=== PATIENT | female | born 1985 | race Caucasian/White ===

== ENCOUNTER 2020-01-16 12:27 | Outpatient (CLI) | payer MEDICARE, MEDICAID, SELFPAY ==
--- NOTE | 2020-01-22 14:45 | WPDPFTINT ---
PFT Interpretation PFT Interpretation: This PFT met all criteria for ATS standards and reproducibility FEV/FVC post bronchodilator 98% FEV1 89% FVC 72% TLC 86% RV 84% RV/TLC 32 % DLCO 57% when adjusted for alveolar volume but not adjusted for hemoglobin Flow volume loops showed normal Impression: Moderately reduced diffusion capacity withouth significant obstruction or restriction. In the absence of anemia or pulmonary hypertension, intrinsic lung disease may be present. Clinical and radiographic correlation is advised.
--- NOTE | 2020-01-22 14:48 | WPDSIXMINUTE ---
Six Minute Walk Six Minute Walk: The patients O2 sats started at 97% and dropped as low as 95% Total walk distance 243.84 meters conclusion: This patient would not benefit from home oxygen therapy
== END 2020-01-16 12:28 | disposition home or self-care (01) ==
PROVIDERS: Visit Provider Internal Medicine Critical Care Medicine
DX: R06.02 Shortness of breath (principal)
CPT/HCPCS: 94060; 94618; 94726; 94729; 95012

== ENCOUNTER 2020-06-15 15:59 | Emergency (ER) | payer MEDICARE, MEDICAID, SELFPAY ==
[2020-06-15 16:04] VITALS: BP 155/98; PULSE 99; RESP 18; TEMP 36.5; O2SAT 99
--- NOTE | 2020-06-15 16:12 | ED.BACK ---
HPI - Back Pain/Injury General Chief Complaint: Back Pain/Injury Stated Complaint: back pain Time Seen by Provider: 06/15/20 16:11 Source: patient Mode of arrival: ambulatory Limitations: no limitations History of Present Illness HPI Narrative: Patient is a 35-year-old female who presents for evaluation of acute on chronic right-sided lower back pain. Patient has a many year history of sciatic type pain, states she believes she is having a flareup. She reports right-sided sciatic pain that radiates down into her leg, worse with movement. Exacerbated with bending and lifting. No recent falls or injuries. No saddle anesthesia. No lower extremity weakness. No dysuria or hematuria. No fever or chills. Patient ambulatory in the emergency department. Patient is taking gabapentin, Flexeril, diclofenac, acetaminophen without much improvement in her symptoms. She currently does not see a pain management physician. Related Data Home Medications Medication Instructions Recorded Confirmed albuterol sulfate 90 mcg/actuation 1 inhalation INHALATION Q4H 11/25/19 aerosol inhaler bupropion HCl 300 mg 24 hr tablet, 300 mg PO QAM 11/25/19 extended release buspirone 5 mg tablet 5 mg PO BID 11/25/19 cariprazine 1.5 mg capsule 1.5 mg PO DAILY 11/25/19 fluticasone propionate 50 1 spray NASAL DAILY 11/25/19 mcg/actuation nasal spray,suspension hydrochlorothiazide 50 mg tablet 50 mg PO DAILY 11/25/19 ibuprofen 800 mg tablet 800 mg PO TID 11/25/19 lisinopril 20 mg tablet 20 mg PO DAILY 11/25/19 loratadine 10 mg tablet 10 mg PO DAILY 11/25/19 pravastatin 20 mg tablet 20 mg PO DAILY 11/25/19 trazodone 50 mg tablet 50 mg PO BID 11/25/19 valacyclovir 1 gram tablet 1,000 mg PO DAILY 11/25/19 gabapentin 300 mg capsule 1,200 mg PO DAILY cap 11/28/19 metformin 500 mg tablet 1,000 mg PO DAILY tablet 11/28/19 Allergies Allergy/AdvReac Type Severity Reaction Status Date / Time aripiprazole Allergy Unknown Abdominal Verified 11/05/19 11:42 Pain lithium Allergy Unknown VOMITING Verified 11/05/19 11:42 Review of Systems Review of Systems: Narrative: CONSTITUTIONAL: Denies fever CARDIOVASCULAR: Denies chest pain RESPIRATORY: Denies cough or dyspnea. GASTROINTESTINAL: Denies abdominal pain SKIN: Denies rash MUSCULOSKELETAL: Reports acute on chronic worsened right-sided back pain NEUROLOGIC: Denies headache PMFSH Past Medical History Medical History (Updated 06/15/20 @ 16:32 by Vandana Parker MD) Anxiety Bipolar disorder Chronic back pain Depression GERD (gastroesophageal reflux disease) Hepatitis Herpes HLD (hyperlipidemia) HTN (hypertension) Sciatica Seizures Surgical History Surgical History Hx of section Hx of tonsillectomy Family History Family History (Updated 11/16/18 @ 14:13 by DOCTOR UNKNOWN) Mother Diabetes mellitus Hypertension Father Diabetes mellitus Social History Social History Smoking packs per day: 1.5 Smoking cigarettes per day: 30.0 Years smoked: 13 Smoking pack-years: 19.50 Smoking status: Current every day smoker Tobacco type: cigarettes Second hand tobacco smoke exposure: Yes Gender identity (if verbalized by the patient): Female Exam Narrative: Exam Narrative: GENERAL: Awake, alert, conversant HEAD: Normocephalic, atraumatic. EYES: PERRLA and EOMI. ENT: Nares clear, no rhinorrhea or epistaxis. Mucous membranes moist. NECK: Supple. CHEST: No respiratory distress, breathing even and non labored HEART: Regular rate, sinus rhythm ABDOMEN:Non distended, non tender Thorax: No midline lumbar or thoracic pain. Pain is exacerbated with flexion at the lower back. EXTREMITIES: Normal range of motion. No edema. Intact EHL/FHL, strength 5 out of 5 bilateral lower extremities. SKIN: Warm, dry, no rash. NEURO:No focal deficits.
[2020-06-15] MEDS: KETOROLAC (*BKC) 60 MG/2 ML VIAL 30 MG IM (16:45)
== END 2020-06-15 16:47 | disposition home or self-care (01) ==
LOC: ANHED 16:39
PROVIDERS: Emergency Provider Emergency Medicine
DX: M54.16 Radiculopathy, lumbar region (principal); F41.9 Anxiety disorder, unspecified; F31.9 Bipolar disorder, unspecified; K21.9 Gastro-esophageal reflux disease without esophagitis; E78.5 Hyperlipidemia, unspecified; I10 Essential (primary) hypertension; F17.210 Nicotine dependence, cigarettes, uncomplicated; Z79.84 Long term (current) use of oral hypoglycemic drugs
CPT/HCPCS: 96372; 99283; J1885

== ENCOUNTER 2020-06-28 07:05 | Outpatient (CLI) | payer MEDICARE, MEDICAID, SELFPAY ==
--- NOTE | ~2020-06-28 | MR_ITS ---
EXAMINATION: MR lumbar spine wo con DATE: 06/28/2020 08:08 INDICATION: Lumbago and sciatica. Mixed stress and urge urinary incontinence. TECHNIQUE: Magnetic resonance imaging (MRI) of the lumbar spine was performed without intravenous con trast. Sequences included sagittal T2-weighted FSE, sagittal STIR FSE, sagittal T1-weighted FSE, and axial T2-weighted FSE. COMPARISON: None FINDINGS: There is 2 degrees dextrocurvature of lumbar spine. Vertebral body heights are normal. Ther e is mildly decreased disc height at L3-L4. The distal spinal cord signal intensity is normal. The co nus medullaris is at T12. The following disc levels are specifically discussed: L1-L2: There is a left foraminal protrusion. There is no facet joint osteoarthritis. There is mild le ft neural foraminal stenosis. There is no central canal stenosis. L2-L3: The disc is bulging and has an annular fissure. There is mild bilateral facet joint osteoarthr itis. There is mild bilateral neural foraminal stenosis. There is mild central canal stenosis. L3-L4: The disc is bulging and has an annular fissure. There is mild bilateral facet joint osteoarthr itis. There is mild bilateral neural foraminal stenosis. There is mild central canal stenosis. L4-L5: The disc is bulging with superimposed central extrusion. There is severe right and moderate le ft facet joint osteoarthritis. There is mild bilateral neural foraminal stenosis. There is mild centr al canal stenosis. L5-S1: The disc is bulging with superimposed left central extrusion that abuts the right S1 nerve kenroy t and exerts mass effect on the left S1 nerve root. There is mild bilateral facet joint osteoarthriti s. There is moderate bilateral neural foraminal stenosis. There is mild central canal stenosis. IMPRESSION: 1. Moderate lower lumbar spondylosis. Reviewed, dictated and finalized at [facility].
== END 2020-06-28 07:06 | disposition home or self-care (01) ==
PROVIDERS: PCP Nurse Practitioner; Visit Provider Nurse Practitioner
DX: M54.40 Lumbago with sciatica, unspecified side (principal); N39.3 Stress incontinence (female) (male); M47.896 Other spondylosis, lumbar region
CPT/HCPCS: 72148

== ENCOUNTER 2020-07-15 14:57 | Emergency (ER) | payer MEDICARE, MEDICAID, SELFPAY ==
--- NOTE | ~2020-07-15 | CT_ITS ---
EXAMINATION: CTA brain carotid DATE: 07/15/2020 16:42 INDICATION: Dizziness TECHNIQUE: Computed tomography (CT) of the head was performed without and subsequently with 100 cc Om nipaque 350 intravenous contrast. The mA was adjusted according to patient size. Iterative reconstruc tion technique was employed. Exam dose: 1779.56 mGy-cm total exam DLP. COMPARISON: 05/22/2018 CT brain FINDINGS: No intracranial mass lesion or hemorrhage, midline shift or mass effect or cerebrovascular accident, midline shift or mass effect is evident. Normal ventricular size. No subdural or epidural hematoma. No significant narrowing of the cervical carotid arteries. No cerebral artery occlusion of significa nt stenosis or aneurysm is evident. Outpouchings along the undersurfaces of the supraclinoid interna l carotid arteries, likely reflect infundibula of hypoplastic posterior to indicating arteries. There is limited focal opacification in the right ethmoid and to a lesser extent at the left ethmoid area. The paranasal sinuses and mastoid air cells are otherwise normally developed and aerated No fracture or bone destruction of the cranial vault. IMPRESSION: No significant abnormality Reviewed, dictated and finalized at [facility]. Reviewed, dictated and finalized at location [facility]. IMPRESSION: No significant abnormality
[2020-07-15 14:56] VITALS: PULSE 100; RESP 24; TEMP 36.4; O2SAT 100
[2020-07-15 15:07] LABS: Glucose Point of Care 288 (65-105)
[2020-07-15 15:15] VITALS: BP 147/92; PULSE 103; RESP 14; O2SAT 99
[2020-07-15 15:26] LABS: Basophils Absolute Auto 0.1 K/mm3 (0.0-0.1); Basophils Percent Auto 0.6 % (0.2-1.2); Eosinophils Percent Auto 0.1 % (0-4.4); Hematocrit 40.2 % (37.0-47.0); Hemoglobin 13.3 g/dL (12.0-15.0); Immature Granulocyte Absolute 0.04 K/mm3 (0.00-0.031); Immature Granulocyte Percent A 0.4 % (0-0.5); Lymphocytes Absolute Auto 2.47 K/mm3 (0.9-3.2); Lymphocytes Percent Auto 23.8 % (18.3-44.2); Mean Corpuscular HGB Conc 33.1 g/dl (32-36); Mean Corpuscular Hemoglobin 27.5 pg (26-34); Mean Corpuscular Volume 83.2 fl (80-100); Mean Platelet Volume 10.7 fl (7.4-10.4); Monocytes Absolute Auto 0.5 K/mm3 (0.1-0.6); Monocytes Percent Auto 4.7 % (2.6-8.5); Neutrophils Absolute Auto 7.3 K/mm3 (1.3-6.7); Neutrophils Percent Auto 70.4 % (45.5-73.1); Platelet Count Result 259 k/mm3 (150-375); Red Blood Count 4.83 M/mm3 (4.2-5.4); Red Cell Distribution Width 14.4 % (11.5-14.5); White Blood Count 10.4 K/mm3 (4.5-10.0)
--- NOTE | 2020-07-15 15:31 | ED.GENADULT ---
HPI - General Adult General Chief complaint: Dizziness Stated complaint: dizziness Time Seen by Provider: 07/15/20 15:11 Source: patient History of Present Illness HPI narrative: Patient is a 35 y/o female complaining of moderate dizziness for approximately 2 days. There is no alleviating or exacerbating factor. She describes her dizziness as room spinning sensation. She denies any focal wekaness or numbness in arms or legs. She states that she has been unsteady for several years and she uses a cane to help her walk. She check her BP at home and it was 160s/100s. Her BS was in 300s. Related Data Home Medications Medication Instructions Recorded Confirmed buspirone 5 mg tablet 5 mg PO BID 11/25/19 06/20/20 cariprazine 1.5 mg capsule 1.5 mg PO DAILY 11/25/19 06/20/20 fluticasone propionate 50 1 spray NASAL DAILY 11/25/19 06/20/20 mcg/actuation nasal spray,suspension hydrochlorothiazide 50 mg tablet 50 mg PO DAILY 11/25/19 06/20/20 ibuprofen 800 mg tablet 800 mg PO TID 11/25/19 06/20/20 lisinopril 20 mg tablet 20 mg PO DAILY 11/25/19 06/20/20 pravastatin 20 mg tablet 40 mg PO DAILY 11/25/19 06/20/20 trazodone 50 mg tablet 50 mg PO HS 11/25/19 06/20/20 valacyclovir 1 gram tablet 1,000 mg PO DAILY 11/25/19 06/20/20 gabapentin 300 mg capsule 1,200 mg PO TID cap 11/28/19 06/20/20 bupropion HCl 300 mg 24 hr tablet, 200 mg PO BID tablet 06/20/20 06/20/20 extended release cetirizine 10 mg capsule 10 mg PO DAILY 06/20/20 06/20/20 metformin 500 mg tablet 1,000 mg PO BID tablet 06/20/20 06/20/20 glipizide mg 07/15/20 hydroxyzine HCl 10 mg PO TID 07/15/20 meclizine 25 mg PO TID 07/15/20 Allergies Allergy/AdvReac Type Severity Reaction Status Date / Time aripiprazole Allergy Unknown Abdominal Verified 07/15/20 15:02 Pain lithium Allergy Unknown VOMITING Verified 07/15/20 15:02 Review of Systems Constitutional: Constitutional: Reports as per HPI, Denies chills, Denies fever(s), Denies headache(s) and Denies weakness Eyes: Eyes: Denies blurry vision ENT: Denies headache(s) and Denies neck pain Cardiovascular: Cardiovascular: Denies chest pain and Denies dyspnea Respiratory: Respiratory: Denies cough and Denies dyspnea Gastrointestinal: Gastrointestinal: Denies abdominal pain, Denies diarrhea, Denies nausea and Denies vomiting Genitourinary: Genitourinary: Denies hematuria and Denies dysuria Musculoskeletal: Musculoskeletal: Denies back pain and Denies neck pain Neurologic: Reports dizziness, Denies headache(s) and Denies weakness PMFSH Past Medical History Medical History (Updated 07/16/20 @ 00:00 by Background Daemon) Anxiety Bipolar disorder Chronic back pain Depression GERD (gastroesophageal reflux disease) Hepatitis Herpes HLD (hyperlipidemia) HTN (hypertension) Sciatica Seizures Family History Family History (Updated 11/16/18 @ 14:13 by DOCTOR UNKNOWN) Mother Diabetes mellitus Hypertension Father Diabetes mellitus Social History Social History (Updated 06/20/20 @ 11:28 by Barbie Srivastava, [facility]) Smoking packs per day: 1.5 Smoking cigarettes per day: 30.0 Years smoked: 15 Smoking pack-years: 22.50 Smoking status: Current every day smoker Tobacco type: cigarettes Second hand tobacco smoke exposure: Yes Gender identity (if verbalized by the patient): Female Exam Const: General: no acute distress and well developed Orientation/consciousness: oriented to person, oriented to place, oriented to time and patient oriented x3 HENMT: Head: normocephalic Ears: external ears normal General nose exam: Normal external nose present Eyes: General: appearance normal, both eyes and all related structures Conjunctivae: conjunctivae normal Neck: Neck: normal visual inspection and full ROM Chest: Chest palpation & inspection: normal inspection of the chest and no tenderness Resp: Effort & Inspection: normal respiratory effort Auscultation: clear to auscul
[2020-07-15 15:35] LABS: Alanine Aminotransferase 93 U/L (4-35); Albumin Level 3.9 g/dL (3.5-5.1); Alkaline Phosphatase 108 U/L (38-126); Anion Gap 10 mmol/L (8-16); Aspartate Amino Transferase 98 U/L (14-36); Bilirubin,Total 0.3 mg/dL (0.2-1.3); Blood Urea Nitrogen 8 mg/dL (7-17); Calcium 8.6 mg/dL (8.4-10.2); Carbon Dioxide 23 mmol/L (22-30); Chloride 100 mmol/L (98-107); Estimated CRCL calculation 166 ml/min; Estimated Glomerular Filt Rate > 60; Glucose 265 mg/dL (65-105); Potassium 3.9 mmol/L (3.4-5.0); Sodium 133 mmol/L (137-145)
[2020-07-15 16:45] VITALS: BP 118/62; PULSE 95; RESP 20; O2SAT 98
[2020-07-15 18:29] VITALS: BP 119/60; PULSE 87; RESP 20; O2SAT 98
== END 2020-07-15 19:17 | disposition home or self-care (01) ==
PROVIDERS: Emergency Medicine; Emergency Provider Emergency Medicine; PCP Nurse Practitioner
DX: R73.9 Hyperglycemia, unspecified (principal); I10 Essential (primary) hypertension; R42 Dizziness and giddiness; F41.9 Anxiety disorder, unspecified; F31.9 Bipolar disorder, unspecified; K21.9 Gastro-esophageal reflux disease without esophagitis; E78.5 Hyperlipidemia, unspecified; Z79.84 Long term (current) use of oral hypoglycemic drugs
CPT/HCPCS: 36415; 70496; 70498; 80053; 81025; 82948; 85025; 99284; Q9967

== ENCOUNTER 2020-07-27 12:24 | Outpatient (CLI) | payer MEDICARE, MEDICAID, SELFPAY ==
[2020-07-27 12:42] LABS: Hematocrit 40.4 % (37.0-47.0); Hemoglobin 13.7 g/dL (12.0-15.0); Mean Corpuscular HGB Conc 33.9 g/dl (32-36); Mean Corpuscular Volume 82.6 fl (80-100); Mean Platelet Volume 10.6 fl (7.4-10.4); Platelet Count Result 280 k/mm3 (150-375); Red Blood Count 4.89 M/mm3 (4.2-5.4); Red Cell Distribution Width 14.3 % (11.5-14.5); White Blood Count 11.2 K/mm3 (4.5-10.0)
--- NOTE | 2020-07-27 13:12 | ECHO_ITS ---
Patient Info Name: Annita Oropeza Age: 35 years : 1985 Gender: Female Ht: 68 in Wt: 304 lbs BSA: 2.65 m2 HR: 87 bpm BP: 140 / 92 mmHg Technical Quality: Good Exam Date: 07/27/2020 1:18 PM Exam Location: [facility] Patient Status: Outpatient Admit Date: 07/27/2020 Staff Ordering Physician: Moises Ramirez APRN Insulation Cupola Charger: Lynda Redding RDCS Attending Provider: Moises Ramirez APRN Referring Physician: James DE LA TORRE; Exam Type: CA echo dop color flow w con Study Info Indications R06.02 - Shortness of breath Complete two-dimensional, color flow and Doppler transthoracic echocardiogram is performed with contrast to opacify the left ventricle and to improve the deliniation of the left ventricle endocardial borders. Contrast/Agitated Saline Contrast/Ag. Saline: Definity Amount: 1.00 ml Administered By: Katharine Peña, RN Summary 1. Left ventricular chamber dimension is normal. 2. Definity contrast administered improved wall motion interpretation. 3. Left ventricular systolic function is normal, estimated at 60-65%. 4. The left ventricular diastolic function is grade I diastolic dysfunction. 5. E/e' 9 is minimally elevated. 6. No pulmonary hypertension, estimated pulmonary arterial systolic pressure is 26 mmHg. Left Ventricle Definity contrast administered improved wall motion interpretation. E/e' 9 is minimally elevated. Left ventricular chamber dimension is normal. Left ventricular systolic function is normal, estimated at 60-65%. The left ventricular diastolic function is grade I diastolic dysfunction. Right Ventricle Right ventricular chamber dimension is normal. Right ventricular systolic function is normal. Left Atria Left atrial chamber dimension is normal. Right Atria Right atrial chamber dimension is normal. Aortic Valve The aortic valve is trileaflet. There is no aortic valve stenosis. There is no aortic valve regurgitation. Pulmonic Valve There is no pulmonic regurgitation. Mitral Valve There is no mitral valve stenosis. There is no mitral valve regurgitation. Tricuspid Valve There is no tricuspid valve regurgitation. No pulmonary hypertension, estimated pulmonary arterial systolic pressure is 26 mmHg. Pericardium/Pleural There is no pericardial effusion. Inferior Vena Cava Normal inferior vena cava with >50% collapse upon inspiration consistent with normal right atrial pressure, 5 mmHg. Aorta The aortic root size at the sinus of Valsalva is normal. Left Ventricular Outflow Tract Name Value Normal LVOT 2D LVOT Diameter 1.98 cm LVOT Doppler LVOT Peak Gradient 6 mmHg LVOT Mean Gradient 3 mmHg LVOT VTI 20.59 cm LVOT VTI/AV VTI Ratio 0.90 LVOT Stroke Volume 63.58 ml LVOT CO 15.30 l/min LVOT CI 5.78 L/min/m2 Pulmonic Valve
[2020-07-27 14:06] LABS: Folic Acid 5.7 ng/mL (2.76->20)
[2020-07-27 14:23] LABS: Iron 41 ug/dL (37-170)
[2020-07-27 14:33] LABS: Percent Iron Saturation 10 % (20-50)
== END 2020-07-27 12:25 | disposition home or self-care (01) ==
PROVIDERS: PCP Nurse Practitioner; Visit Provider Nurse Practitioner Family
DX: D64.9 Anemia, unspecified (principal); R06.02 Shortness of breath; R60.0 Localized edema
CPT/HCPCS: 36415; 82607; 82746; 83540; 83550; 85027; C8929

== ENCOUNTER 2020-08-10 14:00 | Emergency (ER) | payer MEDICARE, MEDICAID, SELFPAY ==
--- NOTE | ~2020-08-10 | CT_ITS ---
EXAMINATION: CT abdomen pelvis w con DATE: 08/10/2020 16:01 INDICATION: Lower abdominal pain. TECHNIQUE: Computed tomography (CT) of the abdomen and pelvis was performed with 100 cc Omnipaque 350 intravenous contrast. Automated exposure control and iterative reconstruction technique were employe d. Exam dose: 1740.10 mGy-cm total exam DLP. COMPARISON: 11/17/2015 CT abdomen pelvis FINDINGS: The lower lung zones are clear of infiltrate or consolidation. Normal heart size. No perica rdial or pleural effusion. There are multiple gallstones. No gallbladder wall thickening or pericholecystic fluid or inflammatio n. No hepatic space-occupying mass lesion is evident. No bile duct or pancreatic duct dilatation. Normal splenic size. Normal morphology of the adrenal glands. No renal mass lesion or urinary tract calculus or hydroureteronephrosis is evident. The urinary bladd er is unremarkable. There is an IUD within the uterus. No bowel obstruction, bowel wall thickening, pneumatosis or intraperitoneal free air. Normal appendix ; no evidence of appendicitis. Small fat-containing umbilical hernia. No suspicious osteolytic or osteoblastic lesions are noted. IMPRESSION: Normal appendix. Cholelithiasis Reviewed, dictated and finalized at [facility]. Reviewed, dictated and finalized at [facility].
[2020-08-10 14:36] VITALS: BP 146/98; PULSE 103; RESP 18; TEMP 36.6; O2SAT 100
[2020-08-10 14:50] LABS: Basophils Absolute Auto 0.1 K/mm3 (0.0-0.1); Basophils Percent Auto 0.7 % (0.2-1.2); Eosinophils Percent Auto 0.1 % (0-4.4); Hematocrit 40.7 % (37.0-47.0); Hemoglobin 14.1 g/dL (12.0-15.0); Immature Granulocyte Absolute 0.02 K/mm3 (0.00-0.031); Immature Granulocyte Percent A 0.2 % (0-0.5); Lymphocytes Absolute Auto 2.52 K/mm3 (0.9-3.2); Lymphocytes Percent Auto 25.4 % (18.3-44.2); Mean Corpuscular HGB Conc 34.6 g/dl (32-36); Mean Corpuscular Hemoglobin 28.2 pg (26-34); Mean Corpuscular Volume 81.4 fl (80-100); Mean Platelet Volume 10.4 fl (7.4-10.4); Monocytes Absolute Auto 0.6 K/mm3 (0.1-0.6); Monocytes Percent Auto 5.8 % (2.6-8.5); Neutrophils Absolute Auto 6.7 K/mm3 (1.3-6.7); Neutrophils Percent Auto 67.8 % (45.5-73.1); Platelet Count Result 258 k/mm3 (150-375); Red Cell Distribution Width 14.1 % (11.5-14.5); White Blood Count 9.9 K/mm3 (4.5-10.0)
--- NOTE | 2020-08-10 14:54 | ED.ABDPAIN ---
HPI - Abdominal Pain General Chief Complaint: Abdominal Pain Stated Complaint: stomach pain, lightheaded, dizzy Time Seen by Provider: 08/10/20 14:54 Source: patient Mode of arrival: ambulatory Limitations: no limitations History of Present Illness HPI narrative: Patient is a 35-year-old female who presents for evaluation of abdominal pain, weakness and dizziness. Patient reports a 2-day history of worsening periumbilical abdominal pain as well as nausea and diarrhea. Patient states she has had loose, watery stools without blood or mucus. She reports some mild dysuria. Denies any nini hematuria. Denies flank pain. Patient denies fever, chills, cough or shortness of breath. She states she intermittently feels dizzy. No recent sick contacts. Related Data Home Medications Medication Instructions Recorded Confirmed buspirone 5 mg tablet 5 mg PO BID 11/25/19 06/20/20 cariprazine 1.5 mg capsule 1.5 mg PO DAILY 11/25/19 06/20/20 fluticasone propionate 50 1 spray NASAL DAILY 11/25/19 06/20/20 mcg/actuation nasal spray,suspension hydrochlorothiazide 50 mg tablet 50 mg PO DAILY 11/25/19 06/20/20 ibuprofen 800 mg tablet 800 mg PO TID 11/25/19 06/20/20 lisinopril 20 mg tablet 20 mg PO DAILY 11/25/19 06/20/20 pravastatin 20 mg tablet 40 mg PO DAILY 11/25/19 06/20/20 trazodone 50 mg tablet 50 mg PO HS 11/25/19 06/20/20 valacyclovir 1 gram tablet 1,000 mg PO DAILY 11/25/19 06/20/20 gabapentin 300 mg capsule 1,200 mg PO TID cap 11/28/19 06/20/20 bupropion HCl 300 mg 24 hr tablet, 200 mg PO BID tablet 06/20/20 06/20/20 extended release cetirizine 10 mg capsule 10 mg PO DAILY 06/20/20 06/20/20 metformin 500 mg tablet 1,000 mg PO BID tablet 06/20/20 06/20/20 glipizide mg 07/15/20 hydroxyzine HCl 10 mg PO TID 07/15/20 meclizine 25 mg PO TID 07/15/20 oxybutynin chloride mg PO 08/10/20 Allergies Allergy/AdvReac Type Severity Reaction Status Date / Time aripiprazole Allergy Unknown Abdominal Verified 08/10/20 14:41 Pain lithium Allergy Unknown VOMITING Verified 08/10/20 14:41 Review of Systems Review of Systems: Narrative: CONSTITUTIONAL: Denies fever, chills, or sweats. EYES: Denies visual changes, redness, or discharge. ENT: Denies rhinorrhea, congestion, sore throat, or otalgia. CARDIOVASCULAR: Denies chest pain, palpitations, or edema. RESPIRATORY: Denies cough or dyspnea. GASTROINTESTINAL: Reports abdominal pain, nausea without vomiting, reports diarrhea GENITOURINARY: Denies dysuria or hematuria. SKIN: Denies rash or itching. MUSCULOSKELETAL: Denies back pain, joint pain, or myalgia. NEUROLOGIC: Denies headache, numbness, or weakness. Dizziness resolved. [facility] Past Medical History Medical History Anxiety Bipolar disorder Chronic back pain Depression GERD (gastroesophageal reflux disease) Hepatitis Herpes HLD (hyperlipidemia) HTN (hypertension) Sciatica Seizures Family History Family History Mother Diabetes mellitus Hypertension Father Diabetes mellitus Social History Social History Smoking packs per day: 1.5 Smoking cigarettes per day: 30.0 Years smoked: 15 Smoking pack-years: 22.50 Smoking status: Current every day smoker Tobacco type: cigarettes Second hand tobacco smoke exposure: Yes Gender identity (if verbalized by the patient): Female Exam Narrative: Exam Narrative: GENERAL: Awake, alert, conversant HEAD: Normocephalic, atraumatic. EYES: PERRLA and EOMI. ENT: Nares clear, no rhinorrhea or epistaxis. Mucous membranes moist. NECK: Supple. CHEST: No respiratory distress, breathing even and non labored HEART: Regular rate, sinus rhythm ABDOMEN: Obese, non distended, tender to periumbilical area, no rebound, no guarding EXTREMITIES: Normal range of motion. No edema. SKIN: Warm, dry, no rash. NE
--- NOTE | 2020-08-10 14:57 | ECG_ITS ---
Measurements Intervals [place] Rate: 97 P: -3 [place]: 124 QRS: 7 QRSD: 98 T: 7 QT: 328 QTc: 417 Interpretive Statements SINUS RHYTHM LOW QRS VOLTAGE IN PRECORDIAL LEADS BORDERLINE T WAVE ABNORMALITY- ANT/INF LEADS BORDERLINE ECG Electronically Signed On 08-10-2020 15:16:42 CDT by Toby Stone D.O.
[2020-08-10 15:02] LABS: Alanine Aminotransferase 127 U/L (4-35); Albumin Level 4.1 g/dL (3.5-5.1); Alkaline Phosphatase 110 U/L (38-126); Anion Gap 7 mmol/L (8-16); Aspartate Amino Transferase 111 U/L (14-36); Bilirubin,Total 0.3 mg/dL (0.2-1.3); Blood Urea Nitrogen 10 mg/dL (7-17); Carbon Dioxide 24 mmol/L (22-30); Chloride 102 mmol/L (98-107); Estimated CRCL calculation 164 ml/min; Estimated Glomerular Filt Rate > 60; Glucose 168 mg/dL (65-105); Lipase 193 U/L (23-300); Potassium 3.1 mmol/L (3.4-5.0); Sodium 133 mmol/L (137-145)
[2020-08-10 15:08] LABS: Add Urine Microscopic? YES; Amorphous Sediment Urine Few; Appearance Urine Clear (Clear); Bacteria Urine Trace /hpf; Bilirubin Urine Negative (Negative); Blood Urine 3+ (Negative); Color Urine Yellow (Yellow); Glucose Urine UA Negative (Negative); Ketones Urine Negative (Negative); Leukocyte Esterase Ur 1+ LEU/UL (Negative); Nitrate Urine Negative (Negative); Protein Urine Negative (Negative); RBC Urine >75 /hpf (0-2); Specific Grav Ur 1.009 (1.001-1.035); Squamous Epithelial Cell Urine Few /hpf (Few); Urobilinogen Urine Negative mg/dL (<2.0)
[2020-08-10 15:32] VITALS: BP 142/93; PULSE 106; RESP 15; O2SAT 99
[2020-08-10] MEDS: ONDANSETRON INJ 4 MG/2 ML VIAL IV PUSH (15:43)
[2020-08-10] MEDS: SODIUM CHLORIDE 0.9% IV 1,000 ML 999 ML IV CONT (15:43)
[2020-08-10] MEDS: MORPHINE SULFATE 4 MG/ML INJ IV PUSH (15:43)
[2020-08-10 16:13] VITALS: TEMP 36.6
[2020-08-10 16:17] VITALS: BP 135/81; PULSE 97; RESP 18; O2SAT 97
[2020-08-10 16:49] VITALS: BP 141/85; PULSE 106; RESP 18; O2SAT 99
[2020-08-10] MEDS: POTASSIUM CHLORIDE 20 MEQ PACKET (FOR LIQUID) 40 MEQ PO (16:49)
== END 2020-08-10 16:51 | disposition home or self-care (01) ==
PROVIDERS: Emergency Provider Emergency Medicine; PCP Nurse Practitioner
DX: R10.33 Periumbilical pain (principal); R19.7 Diarrhea, unspecified; E87.6 Hypokalemia; F17.210 Nicotine dependence, cigarettes, uncomplicated; F41.9 Anxiety disorder, unspecified; F32.9 Major depressive disorder, single episode, unspecified; K21.9 Gastro-esophageal reflux disease without esophagitis; E78.5 Hyperlipidemia, unspecified; I10 Essential (primary) hypertension
CPT/HCPCS: 36415; 74177; 80053; 81001; 81025; 83690; 85025; 93005; 96361; 96374; 96375; 99284; A9270; J2270; J2405; J7030; Q9967

== ENCOUNTER 2020-09-23 16:44 | Emergency (ER) | payer MEDICARE, MEDICAID, SELFPAY ==
[2020-09-23 16:45] VITALS: BP 136/85; PULSE 98; RESP 18; TEMP 37.4; O2SAT 100
--- NOTE | 2020-09-23 16:55 | ED.BACK ---
HPI - Back Pain/Injury General Chief Complaint: Back Pain/Injury Stated Complaint: back pain Time Seen by Provider: 09/23/20 16:49 Source: patient Mode of arrival: ambulatory Limitations: no limitations History of Present Illness HPI Narrative: Patient is a 35-year-old female who presents with low back pain began today history of chronic back pain also notes some burning with urination has not taken anything for her symptoms presents per private vehicle no distress pain does not radiate pain is localized to the mid lumbar region has been moving about which does make the pain worse Related Data Home Medications Medication Instructions Recorded Confirmed buspirone 5 mg tablet 5 mg PO BID 11/25/19 06/20/20 cariprazine 1.5 mg capsule 1.5 mg PO DAILY 11/25/19 06/20/20 fluticasone propionate 50 1 spray NASAL DAILY 11/25/19 06/20/20 mcg/actuation nasal spray,suspension hydrochlorothiazide 50 mg tablet 50 mg PO DAILY 11/25/19 06/20/20 ibuprofen 800 mg tablet 800 mg PO TID 11/25/19 06/20/20 lisinopril 20 mg tablet 20 mg PO DAILY 11/25/19 06/20/20 pravastatin 20 mg tablet 40 mg PO DAILY 11/25/19 06/20/20 trazodone 50 mg tablet 50 mg PO HS 11/25/19 06/20/20 valacyclovir 1 gram tablet 1,000 mg PO DAILY 11/25/19 06/20/20 gabapentin 300 mg capsule 1,200 mg PO TID cap 11/28/19 06/20/20 bupropion HCl 300 mg 24 hr tablet, 200 mg PO BID tablet 06/20/20 06/20/20 extended release cetirizine 10 mg capsule 10 mg PO DAILY 06/20/20 06/20/20 metformin 500 mg tablet 1,000 mg PO BID tablet 06/20/20 06/20/20 glipizide mg 07/15/20 hydroxyzine HCl 10 mg PO TID 07/15/20 meclizine 25 mg PO TID 07/15/20 oxybutynin chloride mg PO 08/10/20 Allergies Allergy/AdvReac Type Severity Reaction Status Date / Time aripiprazole Allergy Unknown Abdominal Verified 09/23/20 17:13 Pain lithium Allergy Unknown VOMITING Verified 09/23/20 17:13 [facility] Past Medical History Medical History (Updated 09/23/20 @ 17:21 by Pepito Lowry PA-C) Anxiety Bipolar disorder Chronic back pain Depression GERD (gastroesophageal reflux disease) Hepatitis Herpes HLD (hyperlipidemia) HTN (hypertension) Sciatica Seizures Surgical History Surgical History Hx of section Hx of tonsillectomy Family History Family History Mother Diabetes mellitus Hypertension Father Diabetes mellitus Social History Social History Smoking packs per day: 1.5 Smoking cigarettes per day: 30.0 Years smoked: 15 Smoking pack-years: 22.50 Smoking status: Current every day smoker Tobacco type: cigarettes Second hand tobacco smoke exposure: Yes Gender identity (if verbalized by the patient): Female Exam Narrative: Exam Narrative: GENERAL: Well-appearing, obese, and in no acute distress. HEAD: Normocephalic, atraumatic. EYES: PERRLA and EOMI. ENT: Nares clear, no rhinorrhea or epistaxis. Mucous membranes moist. CHEST: Clear to auscultation. No respiratory distress. No wheezes rales or rhonchi HEART: Regular rate and rhythm. No murmur heard. Normal peripheral pulses. ABDOMEN: Soft, nontender, nondistended EXTREMITIES: Normal range of motion. No edema. Midline lumbar tenderness SKIN: Warm, dry, no rash. NEURO: No focal deficits. Alert and oriented x3. Normal speech and gait PSYCH: Normal mood and affect. Course Course Emergency Course: Patient in the room in no distress felt appropriate for outpatient reevaluation will be treated as musculoskeletal back Vital Signs Vital signs: Vital Signs Temperature 99.3 F 09/23/20 16:45 Pulse Rate 98 09/23/20 16:45 Respiratory Rate 18 09/23/20 16:45 Blood Pressure 136/85 09/23/20 16:45 Pulse Oximetry 100 09/23/20 16:45 Temperature 99.3 F 09/23/20 16:45 Pulse Rate 98 09/23/20 16:45 Respiratory Rat
[2020-09-23 17:16] LABS: Add Urine Microscopic? YES; Appearance Urine Clear (Clear); Bacteria Urine Trace /hpf; Bilirubin Urine Negative (Negative); Blood Urine Negative (Negative); Color Urine Yellow (Yellow); Glucose Urine UA Negative (Negative); Ketones Urine Negative (Negative); Leukocyte Esterase Ur 1+ LEU/UL (Negative); Mucus Urine Rare /lpf; Nitrate Urine Negative (Negative); Protein Urine Negative (Negative); Specific Grav Ur 1.015 (1.001-1.035); Squamous Epithelial Cell Urine Many /hpf (Few); Urobilinogen Urine Negative mg/dL (<2.0)
== END 2020-09-23 18:00 | disposition home or self-care (01) ==
LOC: ANHED 17:28
PROVIDERS: Emergency Medicine Emergency Medical Services; Emergency Provider Emergency Medicine; PCP Nurse Practitioner
DX: M54.5 Low back pain (principal); F41.9 Anxiety disorder, unspecified; F31.9 Bipolar disorder, unspecified; K21.9 Gastro-esophageal reflux disease without esophagitis; E78.5 Hyperlipidemia, unspecified; I10 Essential (primary) hypertension; F17.210 Nicotine dependence, cigarettes, uncomplicated; Z79.84 Long term (current) use of oral hypoglycemic drugs
CPT/HCPCS: 81001; 99283

== ENCOUNTER 2020-10-19 14:55 | Emergency (ER) | payer MEDICARE, MEDICAID, SELFPAY ==
--- NOTE | ~2020-10-19 | CT_ITS ---
EXAMINATION: CT abdomen pelvis w con EXAM DATE: 10/19/2020 17:18 INDICATION: Low abdominal pain. Diarrhea, vomiting. Nausea. TECHNIQUE: Spiral CT of the abdomen and pelvis was performed following intravenous injection of 100 m L Omnipaque 350. Axial, coronal and sagittal images were reviewed. The dose-length product (DLP) fo r this examination was 1698.02 mGy-cm. The exposure was tailored according to patient size (auto mA exposure control), and iterative reconstruction (ASIR) was used as additional dose reduction techniqu e. Comparison is made to prior examination from 08/10/2020. FINDINGS: The liver, spleen, adrenal glands and pancreas are unremarkable. There is cholelithiasis w ithin an otherwise unremarkable gallbladder. No evidence of obstructive biliary disease. Portal and splenic veins are patent. Kidneys enhance symmetrically. There is no hydronephrosis. The uterus is unremarkable. The bladder is unremarkable. There is no retroperitoneal or pelvic lymphadenopath y. The appendix is not positively visualized. There is no pericecal inflammatory change to suggest appe ndicitis. The stomach and small bowel are unremarkable. There is expected amount of colonic stool. No free intraperitoneal gas. The heart is normal in size. There are no pericardial or pleural e ffusions. The lung bases are unremarkable. The bones are unremarkable. IMPRESSION: 1. No acute intra-abdominal findings. Reviewed, dictated and finalized at location A. [employer]
[2020-10-19 15:17] VITALS: BP 155/82; PULSE 96; RESP 16; TEMP 36.7; O2SAT 97
[2020-10-19 15:31] LABS: Basophils Absolute Auto 0.1 K/mm3 (0.0-0.1); Basophils Percent Auto 0.7 % (0.2-1.2); Hematocrit 44.8 % (37.0-47.0); Hemoglobin 14.9 g/dL (12.0-15.0); Immature Granulocyte Absolute 0.04 K/mm3 (0.00-0.031); Immature Granulocyte Percent A 0.4 % (0-0.5); Lymphocytes Absolute Auto 2.43 K/mm3 (0.9-3.2); Lymphocytes Percent Auto 22.3 % (18.3-44.2); Mean Corpuscular HGB Conc 33.3 g/dl (32-36); Mean Corpuscular Hemoglobin 27.4 pg (26-34); Mean Corpuscular Volume 82.5 fl (80-100); Mean Platelet Volume 9.3 fl (7.4-10.4); Monocytes Absolute Auto 0.5 K/mm3 (0.1-0.6); Monocytes Percent Auto 4.1 % (2.6-8.5); Neutrophils Absolute Auto 7.9 K/mm3 (1.3-6.7); Neutrophils Percent Auto 72.5 % (45.5-73.1); Platelet Count Result 355 k/mm3 (150-375); Red Blood Count 5.43 M/mm3 (4.2-5.4); Red Cell Distribution Width 12.8 % (11.5-14.5); White Blood Count 10.9 K/mm3 (4.5-10.0)
[2020-10-19 15:44] LABS: Alanine Aminotransferase 64 U/L (4-35); Albumin Level 4.2 g/dL (3.5-5.1); Alkaline Phosphatase 98 U/L (38-126); Anion Gap 10 mmol/L (8-16); Aspartate Amino Transferase 59 U/L (14-36); Bilirubin,Total 0.3 mg/dL (0.2-1.3); Blood Urea Nitrogen 4 mg/dL (7-17); Calcium 9.2 mg/dL (8.4-10.2); Carbon Dioxide 26 mmol/L (22-30); Chloride 101 mmol/L (98-107); Estimated CRCL calculation 141 ml/min; Estimated Glomerular Filt Rate > 60; Glucose 142 mg/dL (65-105); Lipase 54 U/L (23-300); Potassium 3.4 mmol/L (3.4-5.0); Sodium 137 mmol/L (137-145)
[2020-10-19 15:48] LABS: Add Urine Microscopic? YES; Appearance Urine Cloudy (Clear); Bacteria Urine 1+ /hpf; Bilirubin Urine Negative (Negative); Blood Urine Negative (Negative); Color Urine Yellow (Yellow); Glucose Urine UA Negative (Negative); Ketones Urine Negative (Negative); Leukocyte Esterase Ur 3+ LEU/UL (Negative); Mucus Urine Rare /lpf; Nitrate Urine Negative (Negative); Protein Urine Negative (Negative); RBC Urine 21-50 /hpf (0-2); Specific Grav Ur 1.006 (1.001-1.035); Squamous Epithelial Cell Urine Many /hpf (Few); Urobilinogen Urine Negative mg/dL (<2.0); WBC Urine 31-50 /hpf
--- NOTE | 2020-10-19 16:03 | ED.ABDPAIN ---
HPI - Abdominal Pain General Chief Complaint: Abdominal Pain Stated Complaint: abd pain/diarrhea/n/v Time Seen by Provider: 10/19/20 15:42 Source: patient Mode of arrival: ambulatory Limitations: no limitations History of Present Illness HPI narrative: This patient is a 35 year old female who presents for evaluation of abdominal pain, diarrhea, nausea and vomiting. She reports having symptoms for 4 days. She has had multiple episodes of diarrhea today . She denies any bloody stools. She also reports constant lower abdominal pain with nausea and vomiting. She denies fever or chills. Onset (ago): day(s) (4) Pain Consistency: constant Location: [facility] Related Data Home Medications Medication Instructions Recorded Confirmed buspirone 5 mg tablet 5 mg PO BID 11/25/19 06/20/20 cariprazine 1.5 mg capsule 1.5 mg PO DAILY 11/25/19 06/20/20 fluticasone propionate 50 1 spray NASAL DAILY 11/25/19 06/20/20 mcg/actuation nasal spray,suspension hydrochlorothiazide 50 mg tablet 50 mg PO DAILY 11/25/19 06/20/20 ibuprofen 800 mg tablet 800 mg PO TID 11/25/19 06/20/20 lisinopril 20 mg tablet 20 mg PO DAILY 11/25/19 06/20/20 pravastatin 20 mg tablet 40 mg PO DAILY 11/25/19 06/20/20 trazodone 50 mg tablet 50 mg PO HS 11/25/19 06/20/20 valacyclovir 1 gram tablet 1,000 mg PO DAILY 11/25/19 06/20/20 gabapentin 300 mg capsule 1,200 mg PO TID cap 11/28/19 06/20/20 bupropion HCl 300 mg 24 hr tablet, 200 mg PO BID tablet 06/20/20 06/20/20 extended release cetirizine 10 mg capsule 10 mg PO DAILY 06/20/20 06/20/20 metformin 500 mg tablet 1,000 mg PO BID tablet 06/20/20 06/20/20 glipizide mg 07/15/20 hydroxyzine HCl 10 mg PO TID 07/15/20 meclizine 25 mg PO TID 07/15/20 oxybutynin chloride mg PO 08/10/20 Allergies Allergy/AdvReac Type Severity Reaction Status Date / Time aripiprazole Allergy Unknown Abdominal Verified 09/23/20 17:13 Pain lithium Allergy Unknown VOMITING Verified 09/23/20 17:13 Review of Systems Review of Systems: All systems reviewed & are unremarkable except as noted in HPI and below Constitutional: Constitutional: Denies chills and Denies fever(s) ENT: Reports nasal congestion Cardiovascular: Cardiovascular: Denies chest pain Respiratory: Respiratory: Denies dyspnea PMFSH Past Medical History Medical History (Updated 10/19/20 @ 17:52 by Mey Heller MD) Anxiety Bipolar disorder Chronic back pain Depression GERD (gastroesophageal reflux disease) Hepatitis Herpes HLD (hyperlipidemia) HTN (hypertension) Sciatica Seizures Surgical History Surgical History Hx of section Hx of tonsillectomy Family History Family History Mother Diabetes mellitus Hypertension Father Diabetes mellitus Social History Social History Smoking packs per day: 1.5 Smoking cigarettes per day: 30.0 Years smoked: 15 Smoking pack-years: 22.50 Smoking status: Current every day smoker Tobacco type: cigarettes Second hand tobacco smoke exposure: Yes Gender identity (if verbalized by the patient): Female Exam Const: General: alert Nutritional Appearance: obese Orientation/consciousness: patient oriented x3 HENMT: Head: normocephalic Face and sinus: face symmetric Mouth: Yes Normal oral and palatal mucosa present, Yes lip normal, Yes oropharynx normal and Yes moist mucous membranes Eyes: EOM: EOMs intact bilaterally Chest: Chest palpation & inspection: normal inspection of the chest Resp: Effort & Inspection: normal respiratory effort, no retractions and no use of accessory muscles Auscultation: clear to auscultation bilaterally Cardio: Rate: regular rate Rhythm: regular rhythm Heart sounds: no murmurs GI: GI Palp: Yes Soft to palpation, Yes Tenderness to palpation present (GI
[2020-10-19] MEDS: LACTATED RINGERS 1,000 ML 999 ML IV CONT (16:29)
[2020-10-19] MEDS: ONDANSETRON INJ 4 MG/2 ML VIAL IV PUSH (16:29)
[2020-10-19 18:03] VITALS: BP 148/68; PULSE 78; O2SAT 98
== END 2020-10-19 18:04 | disposition home or self-care (01) ==
PROVIDERS: Emergency Medicine; Emergency Provider General Practice; PCP Nurse Practitioner
DX: K52.9 Noninfective gastroenteritis and colitis, unspecified (principal); N39.0 Urinary tract infection, site not specified; K21.9 Gastro-esophageal reflux disease without esophagitis; E78.5 Hyperlipidemia, unspecified; I10 Essential (primary) hypertension; F41.9 Anxiety disorder, unspecified; F31.9 Bipolar disorder, unspecified; Z79.4 Long term (current) use of insulin; F17.210 Nicotine dependence, cigarettes, uncomplicated
CPT/HCPCS: 36415; 74177; 80053; 81001; 81025; 83690; 85025; 87077; 87086; 87088; 96361; 96374; 99284; J2405; J7120; Q9967

== ENCOUNTER 2020-11-14 17:07 | Emergency (ER) | payer MEDICARE, MEDICAID, SELFPAY ==
--- NOTE | 2020-11-14 17:11 | ED.LOWEXIN ---
HPI - Extremity Injury (Lower) General Chief Complaint: Extremity Injury, Lower Stated Complaint: foot pain/sores Time Seen by Provider: 11/14/20 17:28 Source: patient and RN notes reviewed Mode of arrival: ambulatory Limitations: no limitations History of Present Illness HPI Narrative: 35-year-old female with history of diabetes, obesity presents with concern for sores between her toes. Reports approximately 3-day history of painful, itchy sores. Reports she used antifungal cream yesterday. MD complaint: other (Foot sores) Related Data Home Medications Medication Instructions Recorded Confirmed albuterol sulfate [Ventolin HFA] 1 inh INHALATION QID 11/14/20 11/14/20 amlodipine [Norvasc] 10 mg PO DAILY 11/14/20 11/14/20 bupropion HCl [Wellbutrin SR] 200 mg PO BID 11/14/20 11/14/20 cariprazine [Vraylar] 3 mg PO DAILY 11/14/20 11/14/20 cyclobenzaprine [Flexeril] 10 mg PO BID 11/14/20 11/14/20 gabapentin [Neurontin] 300 mg PO TID 11/14/20 11/14/20 glipizide 5 mg PO TID 11/14/20 11/14/20 hydrochlorothiazide 50 mg PO TID 11/14/20 11/14/20 hydroxyzine HCl 25 mg PO TID 11/14/20 11/14/20 ibuprofen 800 mg PO TID 11/14/20 11/14/20 insulin glargine [Lantus Solostar 10 unit SUBCUT BID 11/14/20 11/14/20 U-100 Insulin] lisinopril [Zestril] 20 mg PO DAILY 11/14/20 11/14/20 metformin [Glucophage] 1,000 mg PO BID 11/14/20 11/14/20 montelukast [Singulair] 10 mg PO DAILY 11/14/20 11/14/20 omeprazole [Prilosec] 20 mg PO DAILY 11/14/20 11/14/20 oxybutynin chloride [Ditropan XL] 10 mg PO DAILY 11/14/20 11/14/20 pravastatin [Pravachol] 40 mg PO DAILY 11/14/20 11/14/20 semaglutide [Ozempic] 1 mg SUBCUT WEEKLY 11/14/20 11/14/20 trazodone 100 mg PO DAILY 11/14/20 11/14/20 valacyclovir [Valtrex] 1,000 mg PO DAILY 11/14/20 11/14/20 Allergies Allergy/AdvReac Type Severity Reaction Status Date / Time aripiprazole Allergy Unknown Abdominal Verified 09/23/20 17:13 Pain lithium Allergy Unknown VOMITING Verified 09/23/20 17:13 Review of Systems Review of Systems: Narrative: CONSTITUTIONAL: Denies malaise, chills, sweats, or fever. SKIN: Reports painful, itchy sores between her toes MUSCULOSKELETAL: Denies musculoskeletal pain NEUROLOGIC: Denies numbness, weakness All systems reviewed & are unremarkable except as noted in HPI and below PMFSH Past Medical History Medical History (Updated 11/14/20 @ 17:33 by Brittany Garibay NP) Anxiety Bipolar disorder Chronic back pain Depression GERD (gastroesophageal reflux disease) Hepatitis Herpes HLD (hyperlipidemia) HTN (hypertension) Sciatica Seizures Surgical History Surgical History Hx of section Hx of tonsillectomy Family History Family History Mother Diabetes mellitus Hypertension Father Diabetes mellitus Social History Social History Smoking packs per day: 1.5 Smoking cigarettes per day: 30.0 Years smoked: 15 Smoking pack-years: 22.50 Smoking status: Current every day smoker Tobacco type: cigarettes Second hand tobacco smoke exposure: Yes Gender identity (if verbalized by the patient): Female Comments At time of signature, agree with nursing past medical, surgical, social and family history. There is no relevant family history pertinent to the presenting complaint Exam Narrative: Exam Narrative: GENERAL: Well-appearing, well-nourished, and in no acute distress. HEAD: Normocephalic, atraumatic. ENT: Mucous membranes moist. NECK: Supple. CHEST: No respiratory distress. Speaks in full sentences. HEART: Regular rate and rhythm. EXTREMITIES: Bilateral feet have grossly normal range of motion, no edema, normal strength and sensation. SKIN: Warm, dry. Excoriation noted between digits of bilateral feet consistent with tinea NEURO: Alert and oriented x3. PSYCH: Normal mood and af
[2020-11-14 17:18] VITALS: BP 154/90; PULSE 97; RESP 16; TEMP 37.7; O2SAT 99
== END 2020-11-14 17:38 | disposition home or self-care (01) ==
PROVIDERS: Emergency Provider Nurse Practitioner
DX: B35.3 Tinea pedis (principal); F17.210 Nicotine dependence, cigarettes, uncomplicated; F41.9 Anxiety disorder, unspecified; F32.9 Major depressive disorder, single episode, unspecified; K21.9 Gastro-esophageal reflux disease without esophagitis; Z86.19 Personal history of other infectious and parasitic diseases; E78.5 Hyperlipidemia, unspecified; I10 Essential (primary) hypertension; G40.909 Epilepsy, unspecified, not intractable, without status epilepticus; E11.9 Type 2 diabetes mellitus without complications; E66.9 Obesity, unspecified; Z68.42 Body mass index [BMI] 45.0-49.9, adult; Z79.4 Long term (current) use of insulin
CPT/HCPCS: 99213; G0463

== ENCOUNTER 2020-11-24 10:50 | Emergency (ER) | payer MEDICARE, MEDICAID, SELFPAY ==
[2020-11-24 11:03] VITALS: BP 158/107; PULSE 105; RESP 20; TEMP 37.6; O2SAT 99
[2020-11-24 11:04] VITALS: BP 158/107; PULSE 105; RESP 20; TEMP 37.6; O2SAT 99
--- NOTE | 2020-11-24 11:25 | ED.DENTAL ---
HPI - Dental/Oral General Chief complaint: Dental/Oral Stated complaint: facial swelling Time Seen by Provider: 11/24/20 11:16 Source: patient and RN notes reviewed Mode of arrival: ambulatory Limitations: no limitations History of Present Illness HPI Narrative: Patient presents today complaining of pain to the right face since yesterday that has been worsening since onset. Patient states she has some bad teeth, but cannot report any worsening pain than normal. States she has shortness of breath at baseline that is no worse than normal. Denies fever or difficulty swallowing. Currently rates her face pain 09/08 has been taking ibuprofen without relief. MD Complaint: tooth pain Related Data Home Medications Medication Instructions Recorded Confirmed amlodipine [Norvasc] 10 mg PO DAILY 11/14/20 11/24/20 cariprazine [Vraylar] 3 mg PO DAILY 11/14/20 11/24/20 cyclobenzaprine [Flexeril] 10 mg PO BID 11/14/20 11/24/20 gabapentin [Neurontin] 300 mg PO TID 11/14/20 11/24/20 glipizide 5 mg PO TID 11/14/20 11/24/20 hydroxyzine HCl 25 mg PO TID 11/14/20 11/24/20 ibuprofen 800 mg PO TID 11/14/20 11/24/20 insulin glargine [Lantus Solostar 10 unit SUBCUT BID 11/14/20 11/24/20 U-100 Insulin] lisinopril [Zestril] 20 mg PO DAILY 11/14/20 11/24/20 metformin [Glucophage] 1,000 mg PO BID 11/14/20 11/24/20 montelukast [Singulair] 10 mg PO DAILY 11/14/20 11/24/20 omeprazole [Prilosec] 20 mg PO DAILY 11/14/20 11/24/20 pravastatin [Pravachol] 40 mg PO DAILY 11/14/20 11/24/20 semaglutide [Ozempic] 1 mg SUBCUT WEEKLY 11/14/20 11/24/20 trazodone 100 mg PO DAILY 11/14/20 11/24/20 valacyclovir [Valtrex] 1,000 mg PO DAILY 11/14/20 11/24/20 buspirone 10 mg PO TID 11/24/20 11/24/20 famotidine 20 mg PO BID 11/24/20 11/24/20 Allergies Allergy/AdvReac Type Severity Reaction Status Date / Time aripiprazole Allergy Unknown Abdominal Verified 11/24/20 11:03 Pain lithium Allergy Unknown VOMITING Verified 11/24/20 11:03 Review of Systems Review of Systems: Narrative: CONSTITUTIONAL: Denies body aches, fever, chills, or sweats. EYES: Denies visual changes, redness, or discharge. ENT: Denies rhinorrhea, congestion, sore throat, or otalgia.+ Facial swelling CARDIOVASCULAR: Denies chest pain, palpitations, or edema. RESPIRATORY: Denies cough or dyspnea. GASTROINTESTINAL: Denies abdominal pain, nausea, vomiting, or diarrhea. GENITOURINARY: Denies dysuria or hematuria. SKIN: Denies rash, itching, or wounds. MUSCULOSKELETAL: Denies back pain, joint pain, or myalgia. NEUROLOGIC: Denies headache, numbness, tingling, or weakness. PSYCH: Denies depression or anxiety. [facility] Past Medical History Medical History (Updated 11/24/20 @ 11:29 by Rebeca Andre, ADVERTISING COLUMNIST, ) Anxiety Bipolar disorder Chronic back pain Depression GERD (gastroesophageal reflux disease) Hepatitis Herpes HLD (hyperlipidemia) HTN (hypertension) Sciatica Seizures Surgical History Surgical History Hx of section Hx of tonsillectomy Family History Family History Mother Diabetes mellitus Hypertension Father Diabetes mellitus Social History Social History Smoking packs per day: 1.5 Smoking cigarettes per day: 30.0 Years smoked: 15 Smoking pack-years: 22.50 Smoking status: Current every day smoker Tobacco type: cigarettes Second hand tobacco smoke exposure: Yes Gender identity (if verbalized by the patient): Female Comments At time of signature, I have reviewed and agree with nursing past medical, surgical, social and family history unless otherwise noted. Please see nursing chart for further information. There is no relevant family history pertinent to the presenting complaint Exam Narrative: Exam Narrative: GENERAL: Well-appearing, well-nourished, and
== END 2020-11-24 11:36 | disposition home or self-care (01) ==
PROVIDERS: Emergency Provider Nurse Practitioner; PCP Nurse Practitioner
DX: K04.7 Periapical abscess without sinus (principal); F17.210 Nicotine dependence, cigarettes, uncomplicated; K21.9 Gastro-esophageal reflux disease without esophagitis; E78.5 Hyperlipidemia, unspecified; I10 Essential (primary) hypertension; G40.909 Epilepsy, unspecified, not intractable, without status epilepticus; F32.9 Major depressive disorder, single episode, unspecified; F41.9 Anxiety disorder, unspecified
CPT/HCPCS: 99213; G0463

== ENCOUNTER 2021-03-25 13:02 | Emergency (ER) | payer MEDICARE, MEDICAID, SELFPAY ==
--- NOTE | ~2021-03-25 | XR_ITS ---
EXAMINATION: XR chest 1V portable DATE: 03/25/2021 15:01 INDICATION: Cough and shortness of breath. COVID-19 exposure. TECHNIQUE: A single frontal view of the chest was obtained. COMPARISON: Chest 2 views 09/12/2019, CT abdomen and pelvis 10/19/2020 FINDINGS: The chest demonstrates clear lungs without pneumonia, pleural effusion, or pneumothorax. Th e heart size is normal. IMPRESSION: 1. No acute cardiopulmonary disease. Reviewed, dictated and finalized at location A.
[2021-03-25 13:10] VITALS: BP 143/85; PULSE 93; RESP 16; TEMP 36.6; O2SAT 100
--- NOTE | 2021-03-25 16:19 | ED.URI ---
HPI - URI/Sore Throat General Chief Complaint: Upper Respiratory Infection Stated Complaint: exposure to covid Time Seen by Provider: 03/25/21 14:37 Source: patient Mode of arrival: ambulatory Limitations: no limitations History of Present Illness HPI Narrative: This is a 35 year old female that presents to the ER for cold symptoms x 5 days. Reports congestion, rhinorrhea, otalgia, and cough. Also reports loss of sense of taste and smell. Reports recent exposure to coronavirus. Denies fever, chest pain, or shortness of breath. Related Data Home Medications Medication Instructions Recorded Confirmed amlodipine [Norvasc] 10 mg PO DAILY 11/14/20 11/24/20 cariprazine [Vraylar] 3 mg PO DAILY 11/14/20 11/24/20 cyclobenzaprine [Flexeril] 10 mg PO BID 11/14/20 11/24/20 gabapentin [Neurontin] 300 mg PO TID 11/14/20 11/24/20 glipizide 5 mg PO TID 11/14/20 11/24/20 hydroxyzine HCl 25 mg PO TID 11/14/20 11/24/20 ibuprofen 800 mg PO TID 11/14/20 11/24/20 insulin glargine [Lantus Solostar 10 unit SUBCUT BID 11/14/20 11/24/20 U-100 Insulin] lisinopril [Zestril] 20 mg PO DAILY 11/14/20 11/24/20 metformin [Glucophage] 1,000 mg PO BID 11/14/20 11/24/20 montelukast [Singulair] 10 mg PO DAILY 11/14/20 11/24/20 omeprazole [Prilosec] 20 mg PO DAILY 11/14/20 11/24/20 pravastatin [Pravachol] 40 mg PO DAILY 11/14/20 11/24/20 semaglutide [Ozempic] 1 mg SUBCUT WEEKLY 11/14/20 11/24/20 trazodone 100 mg PO DAILY 11/14/20 11/24/20 valacyclovir [Valtrex] 1,000 mg PO DAILY 11/14/20 11/24/20 buspirone 10 mg PO TID 11/24/20 11/24/20 famotidine 20 mg PO BID 11/24/20 11/24/20 Allergies Allergy/AdvReac Type Severity Reaction Status Date / Time aripiprazole Allergy Unknown Abdominal Verified 03/25/21 13:36 Pain lithium Allergy Unknown VOMITING Verified 03/25/21 13:36 Review of Systems Review of Systems: Narrative: CONSTITUTIONAL: Denies fever ENT: Reports rhinorrhea, congestion, and otalgia. CARDIOVASCULAR: Denies chest pain RESPIRATORY: Reports cough. Denies dyspnea. All systems reviewed & are unremarkable except as noted in HPI and below PMFSH Past Medical History Medical History (Updated 03/25/21 @ 16:24 by Mini Velazquez PA-C) Anxiety Bipolar disorder Chronic back pain Depression GERD (gastroesophageal reflux disease) Hepatitis Herpes HLD (hyperlipidemia) HTN (hypertension) Sciatica Seizures Surgical History Surgical History Hx of section Hx of tonsillectomy Family History Family History Mother Diabetes mellitus Hypertension Father Diabetes mellitus Social History Social History Smoking packs per day: 1.5 Smoking cigarettes per day: 30.0 Years smoked: 15 Smoking pack-years: 22.50 Smoking status: Current every day smoker Tobacco type: cigarettes Second hand tobacco smoke exposure: Yes Gender identity (if verbalized by the patient): Female Exam Narrative: Exam Narrative: GENERAL: Well-appearing, obese, and in no acute distress. HEAD: Normocephalic, atraumatic. EYES: EOMI. ENT: Nares clear, no rhinorrhea or epistaxis. Mucous membranes moist. Oropharynx without tonsillar hypertrophy exudate or other lesions. Bilateral TMs pearly mishra non-bulging NECK: Supple. No adenopathy or masses. CHEST: Clear to auscultation. No respiratory distress. No wheezes rales or rhonchi HEART: Regular rate and rhythm. No murmur heard. Normal peripheral pulses. EXTREMITIES: Normal range of motion. No edema. SKIN: Warm, dry, no rash. NEURO: No focal deficits. Alert and oriented x3. PSYCH: Normal mood and affect Course Vital Signs Vital signs: Vital Signs Temperature 97.8 F 03/25/21 13:10 Pulse Rate 93 03/25/21 13:10 Respiratory Rate 16 03/25/21 13:10 Blood Pressure 143/85 H 03/25/21 13:10 Pulse Oximet
[2021-03-25 16:33] VITALS: BP 148/90; PULSE 90; RESP 19; O2SAT 100
[2021-03-26 20:46] LABS: SARS-CoV-2 RNA PCR Positive
== END 2021-03-25 16:34 | disposition home or self-care (01) ==
PROVIDERS: Physician Assistant; Emergency Provider Family Medicine; PCP Nurse Practitioner
DX: U07.1 COVID-19 (principal); F17.210 Nicotine dependence, cigarettes, uncomplicated; K21.9 Gastro-esophageal reflux disease without esophagitis; E78.5 Hyperlipidemia, unspecified; I10 Essential (primary) hypertension; F41.9 Anxiety disorder, unspecified; F32.9 Major depressive disorder, single episode, unspecified; G40.909 Epilepsy, unspecified, not intractable, without status epilepticus
CPT/HCPCS: 71045; 87804; 99283; C9803; U0003; U0005

== ENCOUNTER 2021-04-15 10:39 | Emergency (ER) | payer MEDICARE, MEDICAID, SELFPAY ==
--- NOTE | 2021-04-15 10:51 | ED.URI ---
HPI - URI/Sore Throat General Chief Complaint: Upper Respiratory Infection Stated Complaint: COVID Test Time Seen by Provider: 04/15/21 11:00 Source: patient and RN notes reviewed Mode of arrival: ambulatory Limitations: no limitations History of Present Illness HPI Narrative: 35-year-old female with concerns for nasal congestion, sinus pressure, productive cough, shortness of breath, increased use of albuterol inhaler after Covid infection. Reports she was diagnosed with Covid on March 25. Reports she quarantine appropriately. Reports symptoms have continued. She denies fever, body aches, chills, sweats. Denies solw-ast-[id number] remedies. MD elicited complaint: cough Related Data Home Medications Medication Instructions Recorded Confirmed amlodipine [Norvasc] 10 mg PO DAILY 11/14/20 04/15/21 cariprazine [Vraylar] 3 mg PO DAILY 11/14/20 04/15/21 cyclobenzaprine [Flexeril] 10 mg PO BID 11/14/20 04/15/21 gabapentin [Neurontin] 300 mg PO TID 11/14/20 04/15/21 hydroxyzine HCl 25 mg PO TID 11/14/20 04/15/21 ibuprofen 800 mg PO TID 11/14/20 04/15/21 insulin glargine [Lantus Solostar 10 unit SUBCUT BID 11/14/20 04/15/21 U-100 Insulin] lisinopril [Zestril] 20 mg PO DAILY 11/14/20 04/15/21 pravastatin [Pravachol] 40 mg PO DAILY 11/14/20 04/15/21 trazodone 100 mg PO DAILY 11/14/20 04/15/21 buspirone 10 mg PO TID 11/24/20 04/15/21 bupropion HCl 1 mg PO BID 04/15/21 04/15/21 ondansetron HCl 1 mg PO DAILY 04/15/21 04/15/21 Allergies Allergy/AdvReac Type Severity Reaction Status Date / Time aripiprazole Allergy Unknown Abdominal Verified 04/15/21 11:01 Pain lithium Allergy Unknown VOMITING Verified 04/15/21 11:01 Review of Systems Review of Systems: Narrative: CONSTITUTIONAL: Denies malaise, chills, sweats, or fever. Reports fatigue EYES: Denies visual changes, redness, or discharge. ENT: Reports rhinorrhea, congestion, sinus pain. Denies otalgia and sore throat. CARDIOVASCULAR: Denies chest pain, palpitations, or edema. RESPIRATORY: Reports cough, occasional dyspnea. GASTROINTESTINAL: Denies abdominal pain, nausea, vomiting, diarrhea SKIN: Denies rash or itching. MUSCULOSKELETAL: Denies myalgia. NEUROLOGIC: Denies headache. All systems reviewed & are unremarkable except as noted in HPI and below PMFSH Past Medical History Medical History (Updated 04/15/21 @ 11:10 by Brittany Garibay NP) Anxiety Bipolar disorder Chronic back pain Depression GERD (gastroesophageal reflux disease) Hepatitis Herpes HLD (hyperlipidemia) HTN (hypertension) Sciatica Seizures Surgical History Surgical History Hx of section Hx of tonsillectomy Family History Family History Mother Diabetes mellitus Hypertension Father Diabetes mellitus Social History Social History Smoking packs per day: 1.5 Smoking cigarettes per day: 30.0 Years smoked: 15 Smoking pack-years: 22.50 Smoking status: Current every day smoker Tobacco type: cigarettes Second hand tobacco smoke exposure: Yes Gender identity (if verbalized by the patient): Female Comments At time of signature, agree with nursing past medical, surgical, social and family history. There is no relevant family history pertinent to the presenting complaint Exam Narrative: Exam Narrative: GENERAL: Well-appearing, well-nourished, and in no acute distress. HEAD: Normocephalic EYES: PERRLA, conjunctivae clear ENT: Nares clear, turbinates erythematous, clear discharge. Mucous membranes moist. TM pearly mishra with sharp light reflex bilaterally; no tragal tenderness. Oropharynx erythematous without lesions. Tonsils not enlarged and without exudate, no drooling, no hoarseness, no trismus, uvula midline. NECK: Supple. No lymphadenopathy CHEST: Clear to auscultation, breath eileen
[2021-04-15 10:53] VITALS: BP 129/83; PULSE 94; RESP 18; TEMP 37.2; O2SAT 100
== END 2021-04-15 11:16 | disposition home or self-care (01) ==
PROVIDERS: Emergency Provider Nurse Practitioner
DX: J32.9 Chronic sinusitis, unspecified (principal); J40 Bronchitis, not specified as acute or chronic; F17.210 Nicotine dependence, cigarettes, uncomplicated; K21.9 Gastro-esophageal reflux disease without esophagitis; E78.5 Hyperlipidemia, unspecified; I10 Essential (primary) hypertension; F32.9 Major depressive disorder, single episode, unspecified; F41.9 Anxiety disorder, unspecified; Z86.16 Personal history of COVID-19
CPT/HCPCS: 99213; G0463

== ENCOUNTER 2021-04-27 13:12 | Emergency (ER) | payer MEDICARE, MEDICAID, SELFPAY ==
[2021-04-27 13:14] VITALS: BP 149/93; PULSE 99; RESP 19; TEMP 36.1; O2SAT 99
--- NOTE | 2021-04-27 14:41 | ED.GENADULT ---
HPI - General Adult General Chief complaint: Skin/Abscess/Foreign Body Stated complaint: rash on buttocks and genitals Time Seen by Provider: 04/27/21 14:18 Source: patient Mode of arrival: ambulatory Limitations: no limitations History of Present Illness HPI narrative: Patient presents for evaluation of painful scabbed lesions to buttocks for the last 4-5 days. She has a hx of HPV and HSV. She states her current symptoms are not consistent with those experienced in the past with HSV. She is on maintenance dose of valacyclovir to prevent outbreaks and state she has doubled the medication for five days to see if she had improvement in her symptoms, which she did not. No fever, chills, nausea, vomiting, abdominal pain. She has some chronic urinary symptoms for which she uses incontinence pads. She states she does clean herself up fairly quickly when she is incontinent and therefore does not feel as though her symptoms are related to sitting in her own urine. She is sexually active with one male partner who is asymptomatic. She further endorses some rectal pain with bowel movements. Related Data Home Medications Medication Instructions Recorded Confirmed amlodipine [Norvasc] 10 mg PO DAILY 11/14/20 04/15/21 cariprazine [Vraylar] 3 mg PO DAILY 11/14/20 04/15/21 cyclobenzaprine [Flexeril] 10 mg PO BID 11/14/20 04/15/21 gabapentin [Neurontin] 300 mg PO TID 11/14/20 04/15/21 hydroxyzine HCl 25 mg PO TID 11/14/20 04/15/21 ibuprofen 800 mg PO TID 11/14/20 04/15/21 insulin glargine [Lantus Solostar 10 unit SUBCUT BID 11/14/20 04/15/21 U-100 Insulin] lisinopril [Zestril] 20 mg PO DAILY 11/14/20 04/15/21 pravastatin [Pravachol] 40 mg PO DAILY 11/14/20 04/15/21 trazodone 100 mg PO DAILY 11/14/20 04/15/21 buspirone 10 mg PO TID 11/24/20 04/15/21 bupropion HCl 1 mg PO BID 04/15/21 04/15/21 ondansetron HCl 1 mg PO DAILY 04/15/21 04/15/21 Allergies Allergy/AdvReac Type Severity Reaction Status Date / Time aripiprazole Allergy Unknown Abdominal Verified 04/15/21 11:01 Pain lithium Allergy Unknown VOMITING Verified 04/15/21 11:01 Review of Systems Review of Systems: Narrative: CONSTITUTIONAL: Denies fever, chills, or sweats. EYES: Denies visual changes, redness, or discharge. ENT: Denies rhinorrhea, congestion, sore throat, or otalgia. CARDIOVASCULAR: Denies chest pain, palpitations, or edema. RESPIRATORY: Denies cough or dyspnea. GASTROINTESTINAL: Reports rectal pain. Denies abdominal pain, nausea, vomiting, or diarrhea. GENITOURINARY: Reports vaginal irritation. Denies dysuria or hematuria. SKIN: Reports scabbed lesions to buttocks MUSCULOSKELETAL: Denies back pain, joint pain, or myalgia. NEUROLOGIC: Denies headache, numbness, dizziness, or weakness. PSYCHIATRIC: Denies anxiety or depression. [facility] Past Medical History Medical History (Updated 04/27/21 @ 15:45 by GHISLAINE CasarezP, ) Anxiety Bipolar disorder Chronic back pain Depression GERD (gastroesophageal reflux disease) Hepatitis Herpes HLD (hyperlipidemia) HTN (hypertension) Human papilloma virus Personality disorder Sciatica Seizures Surgical History Surgical History Hx of section Hx of tonsillectomy Family History Family History Mother Diabetes mellitus Hypertension Father Diabetes mellitus Social History Social History Smoking packs per day: 1.5 Smoking cigarettes per day: 30.0 Years smoked: 15 Smoking pack-years: 22.50 Smoking status: Current every day smoker Tobacco type: cigarettes Second hand tobacco smoke exposure: Yes Gender identity (if verbalized by the patient): Female Exam Narrative: Exam Narrative: GENERAL: Well-appearing, well-nourished, and in no acute distress. HEAD: Normocephalic, atraumatic. EYES:
[2021-04-27 15:39] LABS: Add Urine Microscopic? YES; Appearance Urine Cloudy (Clear); Bacteria Urine Trace /hpf; Bilirubin Urine Negative (Negative); Blood Urine 1+ (Negative); Color Urine Yellow (Yellow); Glucose Urine UA 2+ mg/dL (Negative); Ketones Urine Negative (Negative); Leukocyte Esterase Ur Negative LEU/UL (Negative); Mucus Urine Rare /lpf; Nitrate Urine Negative (Negative); Protein Urine Negative (Negative); RBC Urine 0-2 /hpf (0-2); Specific Grav Ur 1.008 (1.001-1.035); Squamous Epithelial Cell Urine Many /hpf (Few); Urobilinogen Urine Negative mg/dL (<2.0)
[2021-04-27 15:50] VITALS: PULSE 90; RESP 12
== END 2021-04-27 15:57 | disposition home or self-care (01) ==
PROVIDERS: Emergency Provider Nurse Practitioner; PCP Nurse Practitioner
DX: B35.6 Tinea cruris (principal); A60.00 Herpesviral infection of urogenital system, unspecified; I10 Essential (primary) hypertension; E78.5 Hyperlipidemia, unspecified; K21.9 Gastro-esophageal reflux disease without esophagitis; F41.9 Anxiety disorder, unspecified; F31.9 Bipolar disorder, unspecified; F60.9 Personality disorder, unspecified; Z79.4 Long term (current) use of insulin; F17.210 Nicotine dependence, cigarettes, uncomplicated
CPT/HCPCS: 81001; 81025; 99283

== ENCOUNTER 2021-07-10 14:25 | Emergency (ER) | payer MEDICARE, MEDICAID, SELFPAY ==
--- NOTE | 2021-07-10 14:47 | ED.SKABFB ---
HPI - Skin/Abscess/Foreign Bdy General Chief complaint: Skin/Abscess/Foreign Body Stated complaint: rash Time Seen by Provider: 07/10/21 15:00 Source: patient and RN notes reviewed Mode of arrival: ambulatory Limitations: no limitations History of Present Illness HPI narrative: 36-year-old female presents with concern for rash. Reports she was treated for scabies a week ago, reports she used the cream as directed with no improvement. She reports someone else in her home also has similar symptoms. She reports scratching a lot causing scabs. She denies trouble breathing, swollen lips, swollen tongue. MD complaint: rash Related Data Home Medications Medication Instructions Recorded Confirmed amlodipine [Norvasc] 10 mg PO DAILY 11/14/20 07/10/21 cariprazine [Vraylar] 3 mg PO DAILY 11/14/20 07/10/21 cyclobenzaprine [Flexeril] 10 mg PO BID 11/14/20 07/10/21 gabapentin [Neurontin] 300 mg PO TID 11/14/20 07/10/21 hydroxyzine HCl 25 mg PO TID 11/14/20 07/10/21 ibuprofen 800 mg PO TID 11/14/20 07/10/21 insulin glargine [Lantus Solostar 10 unit SUBCUT BID 11/14/20 07/10/21 U-100 Insulin] lisinopril [Zestril] 20 mg PO DAILY 11/14/20 07/10/21 pravastatin [Pravachol] 40 mg PO DAILY 11/14/20 07/10/21 trazodone 100 mg PO DAILY 11/14/20 07/10/21 buspirone 10 mg PO TID 11/24/20 07/10/21 bupropion HCl 1 mg PO BID 04/15/21 07/10/21 Allergies Allergy/AdvReac Type Severity Reaction Status Date / Time aripiprazole Allergy Unknown Abdominal Verified 07/10/21 14:48 Pain lithium Allergy Unknown VOMITING Verified 07/10/21 14:48 Review of Systems Review of Systems: CONSTITUTIONAL: Denies malaise, chills, sweats, or fever. ENT: Denies swollen lips, swollen tongue CARDIOVASCULAR: Denies chest pain, palpitations, or edema. RESPIRATORY: Denies cough or dyspnea. SKIN: Reports generalized itchy rash MUSCULOSKELETAL: Denies myalgia. NEUROLOGIC: Denies headache. All systems reviewed & are unremarkable except as noted in HPI and below PMFSH Past Medical History Medical History Anxiety Bipolar disorder Chronic back pain Depression GERD (gastroesophageal reflux disease) Hepatitis Herpes HLD (hyperlipidemia) HTN (hypertension) Human papilloma virus Personality disorder Sciatica Seizures Surgical History Surgical History Hx of section Hx of tonsillectomy Family History Family History Mother Diabetes mellitus Hypertension Father Diabetes mellitus Social History Social History Smoking packs per day: 1.5 Smoking cigarettes per day: 30.0 Years smoked: 15 Smoking pack-years: 22.50 Smoking status: Current every day smoker Tobacco type: cigarettes Second hand tobacco smoke exposure: Yes Gender identity (if verbalized by the patient): Female Comments At time of signature, agree with nursing past medical, surgical, social and family history. There is no relevant family history pertinent to the presenting complaint Exam Narrative: GENERAL: Well-appearing, well-nourished, and in no acute distress. HEAD: Normocephalic, atraumatic. EYES: PERRLA, conjunctivae clear ENT: Mucous membranes moist. Oropharynx without edema, erythema or lesions. NECK: Supple. No lymphadenopathy CHEST: Clear to auscultation. No respiratory distress. HEART: Regular rate and rhythm. SKIN: Warm, dry. Scattered erythematous papular rash with some scabs noted, scattered pink papules NEURO: Alert and oriented x3. PSYCH: Normal mood and affect Course Course Emergency Course: Patient is aware of diagnosis, understands and agrees to treatment plan. Anticipatory guidance given. Patient agrees to follow-up as directed and is aware of reasons to seek care at the emergency department. Portions of this rec
[2021-07-10 14:59] VITALS: BP 128/73; PULSE 90; RESP 16; O2SAT 100
== END 2021-07-10 15:20 | disposition home or self-care (01) ==
PROVIDERS: Emergency Provider Nurse Practitioner; PCP Nurse Practitioner
DX: R21 Rash and other nonspecific skin eruption (principal); F17.210 Nicotine dependence, cigarettes, uncomplicated; K21.9 Gastro-esophageal reflux disease without esophagitis; E78.5 Hyperlipidemia, unspecified; I10 Essential (primary) hypertension; F41.9 Anxiety disorder, unspecified; F32.9 Major depressive disorder, single episode, unspecified
CPT/HCPCS: 99213; G0463

== ENCOUNTER 2021-08-07 16:36 | Emergency (ER) | payer MEDICARE, MEDICAID, SELFPAY ==
[2021-08-07 17:18] VITALS: BP 153/98; PULSE 89; RESP 16; TEMP 36.4; O2SAT 99
--- NOTE | 2021-08-07 17:49 | ED.URI ---
HPI - URI/Sore Throat General Chief Complaint: Upper Respiratory Infection Stated Complaint: jaw pain Time Seen by Provider: 08/07/21 17:50 Source: patient, RN notes reviewed and old records reviewed Mode of arrival: ambulatory Limitations: no limitations History of Present Illness HPI Narrative: 36 year old female presents to [facility] care with complaints of frontal headache,teeth and jaw pain/pressure, nasal cheek pain and pressure, ear pain for the past 3-4 days. Patient states that she has been taking Ibuprofen 800 mg for her discomfort. Patient denies any known fevers, chills or sweats, no body aches verbalized. Patient states general pain to teeth and jaw no specific area of dental pain or jaw voices generalized discomfort.Patient has history of tobacco abuse daily. MD elicited complaint: sore throat and other (Jaw pain, headache,) Related Data Home Medications Medication Instructions Recorded Confirmed amlodipine [Norvasc] 10 mg PO DAILY 11/14/20 08/07/21 cariprazine [Vraylar] 3 mg PO DAILY 11/14/20 08/07/21 gabapentin [Neurontin] 300 mg PO TID 11/14/20 08/07/21 hydroxyzine HCl 25 mg PO TID 11/14/20 08/07/21 ibuprofen 800 mg PO TID 11/14/20 08/07/21 insulin glargine [Lantus Solostar 10 unit SUBCUT BID 11/14/20 08/07/21 U-100 Insulin] lisinopril [Zestril] 20 mg PO DAILY 11/14/20 08/07/21 pravastatin [Pravachol] 40 mg PO DAILY 11/14/20 08/07/21 trazodone 100 mg PO DAILY 11/14/20 08/07/21 bupropion HCl 1 mg PO BID 04/15/21 08/07/21 Allergies Allergy/AdvReac Type Severity Reaction Status Date / Time aripiprazole Allergy Unknown Abdominal Verified 08/07/21 17:37 Pain lithium Allergy Unknown VOMITING Verified 08/07/21 17:37 Review of Systems Review of Systems: CONSTITUTIONAL: Denies fever, chills, or sweats. EYES: Denies visual changes, redness, or discharge. ENT: Positive rhinorrhea, congestion, sinus pressure,no sore throat, ear pressure bilaterally CARDIOVASCULAR: Denies chest pain, palpitations, or edema. RESPIRATORY: Denies acute cough or dyspnea. GASTROINTESTINAL: Denies abdominal pain, nausea, vomiting, or diarrhea. GENITOURINARY: Denies dysuria or hematuria. SKIN: Denies rash or itching. MUSCULOSKELETAL: Denies back pain, joint pain, or myalgia. NEUROLOGIC: Positive frontal headache, no numbness, or weakness. PSYCHIATRIC: Positive anxiety or depression. All systems reviewed & are unremarkable except as noted in HPI and below PMFSH Past Medical History Medical History Anxiety Bipolar disorder Chronic back pain Depression GERD (gastroesophageal reflux disease) Hepatitis Herpes HLD (hyperlipidemia) HTN (hypertension) Human papilloma virus Personality disorder Sciatica Seizures Surgical History Surgical History Hx of section Hx of tonsillectomy Family History Family History Mother Diabetes mellitus Hypertension Father Diabetes mellitus Social History Social History Smoking packs per day: 1.5 Smoking cigarettes per day: 30.0 Years smoked: 15 Smoking pack-years: 22.50 Smoking status: Current every day smoker Tobacco type: cigarettes Second hand tobacco smoke exposure: Yes Gender identity (if verbalized by the patient): Female Comments At time of signature, agree with nursing past medical, surgical, social and family history. There is no relevant family history pertinent to the presenting complaint Exam Narrative: GENERAL: Well-appearing, well-nourished, and in no acute distress. HEAD: Normocephalic, atraumatic. EYES: PERRLA and EOMI. ENT: Nares red with clear rhinorrhea no epistaxis, sinus pressure, frontal headache. Mucous membranes moist.TM's dull to light reflex, throat light red with no lesions or exudates, tonsils absent NECK: S
== END 2021-08-07 18:40 | disposition home or self-care (01) ==
PROVIDERS: Emergency Provider Registered Nurse
DX: J32.9 Chronic sinusitis, unspecified (principal); K08.89 Other specified disorders of teeth and supporting structures; F17.210 Nicotine dependence, cigarettes, uncomplicated; K21.9 Gastro-esophageal reflux disease without esophagitis; E78.5 Hyperlipidemia, unspecified; I10 Essential (primary) hypertension; F41.9 Anxiety disorder, unspecified; F32.9 Major depressive disorder, single episode, unspecified; G40.909 Epilepsy, unspecified, not intractable, without status epilepticus
CPT/HCPCS: 99213; G0463

== ENCOUNTER 2021-09-15 22:44 | Emergency (ER) | payer MEDICARE, MEDICAID, SELFPAY ==
[2021-09-15 22:53] VITALS: BP 162/91; PULSE 100; RESP 20; TEMP 36.3; O2SAT 98
[2021-09-15 23:18] LABS: Basophils Absolute Auto 0.1 K/mm3 (0.0-0.1); Basophils Percent Auto 0.5 % (0.2-1.2); Eosinophils Percent Auto 0.1 % (0-4.4); Hematocrit 43.3 % (37.0-47.0); Hemoglobin 14.6 g/dL (12.0-15.0); Immature Granulocyte Absolute 0.03 K/mm3 (0.00-0.031); Immature Granulocyte Percent A 0.3 % (0-0.5); Lymphocytes Absolute Auto 2.96 K/mm3 (0.9-3.2); Lymphocytes Percent Auto 29.8 % (18.3-44.2); Mean Corpuscular HGB Conc 33.7 g/dl (32-36); Mean Corpuscular Hemoglobin 27.5 pg (26-34); Mean Corpuscular Volume 81.5 fl (80-100); Mean Platelet Volume 11.3 fl (7.4-10.4); Monocytes Absolute Auto 0.5 K/mm3 (0.1-0.6); Monocytes Percent Auto 4.7 % (2.6-8.5); Neutrophils Absolute Auto 6.4 K/mm3 (1.3-6.7); Neutrophils Percent Auto 64.6 % (45.5-73.1); Platelet Count Result 260 k/mm3 (150-375); Red Blood Count 5.31 M/mm3 (4.2-5.4); Red Cell Distribution Width 13.3 % (11.5-14.5); White Blood Count 9.9 K/mm3 (4.5-10.0)
[2021-09-15 23:29] LABS: Alanine Aminotransferase 69 U/L (4-35); Albumin Level 4.2 g/dL (3.5-5.1); Alkaline Phosphatase 160 U/L (38-126); Anion Gap 8 mmol/L (8-16); Aspartate Amino Transferase 58 U/L (14-36); Bilirubin,Total 0.5 mg/dL (0.2-1.3); Blood Urea Nitrogen 8 mg/dL (7-17); Calcium 8.7 mg/dL (8.4-10.2); Carbon Dioxide 22 mmol/L (22-30); Chloride 103 mmol/L (98-107); Estimated Glomerular Filt Rate > 60; Glucose 379 mg/dL (65-110); Magnesium 1.7 mg/dL (1.6-2.3); Phosphorus 2.5 mg/dL (2.5-4.5); Potassium 3.8 mmol/L (3.4-5.0); Sodium 133 mmol/L (137-145)
[2021-09-16] VITALS (9 sets, daily range): BP systolic 138–149; BP diastolic 87–107; PULSE 78–94; RESP 14–21; TEMP 36.7; O2SAT 100
[2021-09-16 00:04] LABS: Glucose Point of Care 375 mg/dl (65-105)
[2021-09-16 00:22] LABS: Add Urine Microscopic? YES; Appearance Urine Clear (Clear); Bacteria Urine Trace /hpf; Bilirubin Urine Negative (Negative); Blood Urine Negative (Negative); Color Urine Straw (Yellow); Glucose Urine UA 3+ mg/dL (Negative); Ketones Urine Negative (Negative); Leukocyte Esterase Ur Trace LEU/UL (Negative); Mucus Urine Rare /lpf; Nitrate Urine Negative (Negative); Protein Urine Negative (Negative); Squamous Epithelial Cell Urine Many /hpf (Few); Urobilinogen Urine Negative mg/dL (<2.0)
--- NOTE | 2021-09-16 00:37 | PC.NURSE ---
Pt here for weakness/confusion that she called ems for. reports she checked her blood sugar and it was high so she took extra lantus. accucheck 357. on cardiac cath lab radiology technologist.
[2021-09-16 00:41] LABS: Glucose Point of Care 357 mg/dl (65-105)
[2021-09-16 00:43] LABS: Specific Grav Ur 1.032 (1.001-1.035)
[2021-09-16] MEDS: SODIUM CHLORIDE 0.9% IV 1,000 ML 999 ML IV CONT (00:54)
[2021-09-16 01:25] LABS: Glucose Point of Care 345 mg/dl (65-105)
[2021-09-16] MEDS: INSULIN HUMAN REGULAR (*BKC) 100 UNITS/ML 10 UNITS SUB-Q (01:40)
--- NOTE | 2021-09-16 02:41 | PC.NURSE ---
Bedside glucose is 304.
[2021-09-16 02:43] LABS: Glucose Point of Care 304 mg/dl (65-105)
--- NOTE | 2021-09-16 03:26 | PC.NURSE ---
ambulatory to restroom without assist. no difficulty. no distress.
[2021-09-16] MEDS: INSULIN HUMAN REGULAR (*BKC) 100 UNITS/ML SUB-Q (03:27)
--- NOTE | 2021-09-16 03:47 | ED.RECABL ---
HPI - Recheck/Abnormal Lab/Rx General Chief Complaint: Recheck/Abnormal Lab/Rx Stated Complaint: High BG Time Seen by Provider: 09/16/21 00:29 Source: patient and RN notes reviewed Mode of arrival: ambulatory Limitations: no limitations History of Present Illness HPI narrative: This is a 36 year old female with history of Diabetes Mellitus who presents for evaluation of high blood sugar. Patient states she has not been checking her blood sugar lately, and she told triage that she has not been taking her medication. Today she checked her blood sugar and it was 425. She gave herself lantus 36 units. Her blood sugar was still high so she came to ER. She denies chest pain, shortness of breath, cough, nausea, vomiting or fever. She has frequent urination. Related Data Home Medications Medication Instructions Recorded Confirmed amlodipine [Norvasc] 10 mg PO DAILY 11/14/20 08/07/21 cariprazine [Vraylar] 3 mg PO DAILY 11/14/20 08/07/21 gabapentin [Neurontin] 300 mg PO TID 11/14/20 08/07/21 hydroxyzine HCl 25 mg PO TID 11/14/20 08/07/21 ibuprofen 800 mg PO TID 11/14/20 08/07/21 insulin glargine [Lantus Solostar 10 unit SUBCUT BID 11/14/20 08/07/21 U-100 Insulin] lisinopril [Zestril] 20 mg PO DAILY 11/14/20 08/07/21 pravastatin [Pravachol] 40 mg PO DAILY 11/14/20 08/07/21 trazodone 100 mg PO DAILY 11/14/20 08/07/21 bupropion HCl 1 mg PO BID 04/15/21 08/07/21 Allergies Allergy/AdvReac Type Severity Reaction Status Date / Time aripiprazole Allergy Unknown Abdominal Verified 08/07/21 17:37 Pain lithium Allergy Unknown VOMITING Verified 08/07/21 17:37 Review of Systems Review of Systems: All systems reviewed & are unremarkable except as noted in HPI and below PMFSH Past Medical History Medical History Anxiety Bipolar disorder Chronic back pain Depression GERD (gastroesophageal reflux disease) Hepatitis Herpes HLD (hyperlipidemia) HTN (hypertension) Human papilloma virus Personality disorder Sciatica Seizures Surgical History Surgical History Hx of section Hx of tonsillectomy Family History Family History Mother Diabetes mellitus Hypertension Father Diabetes mellitus Social History Social History Smoking packs per day: 1.5 Smoking cigarettes per day: 30.0 Years smoked: 15 Smoking pack-years: 22.50 Smoking status: Current every day smoker Tobacco type: cigarettes Second hand tobacco smoke exposure: Yes Gender identity (if verbalized by the patient): Female Exam Const: General: no acute distress and alert Orientation/consciousness: patient oriented x3 HENMT: Head: normocephalic and atraumatic Mouth: Yes Normal oral and palatal mucosa present and Yes oropharynx normal Eyes: Pupils: Equal, round and reactive pupils present EOM: EOMs intact bilaterally Resp: Effort & Inspection: normal respiratory effort and no retractions Auscultation: clear to auscultation bilaterally Cardio: Rate: regular rate Rhythm: regular rhythm Heart sounds: no murmurs GI: GI Palp: Yes Soft to palpation, No Tenderness to palpation present (GI) and No Guarding due to palpation present (GI) Auscultation: normal bowel sounds Skin: General skin exam: normal color Rashes: no rashes Neuro: General: patient oriented x3, moves all extremities and CN's II-XI intact bilaterally Psych: Mental Status: mental status grossly normal Affect: normal affect Course Reevaluation(s) Reevaluation #1: Patient's BS is down to 200s. She has no DKA. She is noncompliant. I discussed importance of taking her medication. She states she has appointment with PCP tomorrow. Date: 09/16/21 Time: 04:40 Vital Signs Vital signs: Vital Signs Temperature 97.3 F L
--- NOTE | 2021-09-16 04:34 | PC.NURSE ---
Accucheck 242.
[2021-09-16 04:35] LABS: Glucose Point of Care 242 mg/dl (65-105)
== END 2021-09-16 05:10 | disposition home or self-care (01) ==
PROVIDERS: Emergency Medicine; Emergency Provider General Practice
DX: E11.65 Type 2 diabetes mellitus with hyperglycemia (principal); E78.5 Hyperlipidemia, unspecified; I10 Essential (primary) hypertension; F17.210 Nicotine dependence, cigarettes, uncomplicated; Z79.4 Long term (current) use of insulin
CPT/HCPCS: 36415; 80053; 81001; 81025; 82010; 82948; 83735; 84100; 85025; 96360; 99283; J1815; J7030

== ENCOUNTER 2021-09-24 20:13 | Emergency (ER) | payer MEDICARE, MEDICAID, SELFPAY ==
--- NOTE | ~2021-09-24 | XR_ITS ---
XR lumbar spine 2-3V 09/24/2021 21:43 Indication: Low back pain Procedure: 3 views lumbar spine Comparison: 03/02/2016 Findings: There is mild disc narrowing at L3-4, L4-5 and L5-S1. Vertebral body heights are maintained . Pedicles intact. Sacral foramen are symmetric. No spondylolisthesis. Impression: 1: Mild lumbar spondylosis. Reviewed, dictated and finalized at location A. Impression: 1: Mild lumbar spondylosis.
[2021-09-24 20:32] VITALS: BP 156/107; PULSE 105; RESP 18; TEMP 36.2; O2SAT 97
--- NOTE | 2021-09-24 20:41 | PC.NURSE ---
Dr. Bazan notified of pt [place] score status.
--- NOTE | 2021-09-24 21:25 | PC.NURSE ---
Pt states she sometimes has suicidal thoughts when she thinks about her situation in general. pt is on disability and is not able to leave her house often. She has martin issues that makes it hard to get around (uses a cane). Pt denies active suicidal thoughts at this time, and states she does not have any intention on acting on thoughts when they come. Denies HI. Per STEVE Bazan, no SI precautions needed. No Crisis evaluation.
--- NOTE | 2021-09-24 21:37 | ED.BACK ---
HPI - Back Pain/Injury General Chief Complaint: Back Pain/Injury Stated Complaint: Back pain Time Seen by Provider: 09/24/21 21:28 Source: patient Mode of arrival: ambulatory Limitations: no limitations History of Present Illness HPI Narrative: Patient is a 36-year-old female complaining of low back pain after she lifted a case of Coke earlier today. Patient states that her pain is a 9 out of 10, dull, worse with movement. Patient denies any weakness, numbness, incontinence, urinary symptoms, fever or chills. Patient states that she has a history of chronic back pain from bulging disc and sciatica. Related Data Home Medications Medication Instructions Recorded Confirmed amlodipine [Norvasc] 10 mg PO DAILY 11/14/20 08/07/21 cariprazine [Vraylar] 3 mg PO DAILY 11/14/20 08/07/21 gabapentin [Neurontin] 300 mg PO TID 11/14/20 08/07/21 hydroxyzine HCl 25 mg PO TID 11/14/20 08/07/21 ibuprofen 800 mg PO TID 11/14/20 08/07/21 insulin glargine [Lantus Solostar 10 unit SUBCUT BID 11/14/20 08/07/21 U-100 Insulin] lisinopril [Zestril] 20 mg PO DAILY 11/14/20 08/07/21 pravastatin [Pravachol] 40 mg PO DAILY 11/14/20 08/07/21 trazodone 100 mg PO DAILY 11/14/20 08/07/21 bupropion HCl 1 mg PO BID 04/15/21 08/07/21 Allergies Allergy/AdvReac Type Severity Reaction Status Date / Time aripiprazole Allergy Unknown Abdominal Verified 09/24/21 20:37 Pain lithium Allergy Unknown VOMITING Verified 09/24/21 20:37 Review of Systems Review of Systems: All systems reviewed & are unremarkable except as noted in HPI and below Constitutional: Constitutional: Denies body ache(s), Denies chills, Denies excessive sweating, Denies fatigue, Denies fever(s), Denies headache(s), Denies lethargy, Denies malaise, Denies weakness and Denies weight loss Eyes: Eyes: Denies blurry vision, Denies change in vision and Denies loss of vision ENT: Denies dizziness, Denies ear discharge, Denies headache(s), Denies lip swelling, Denies epistaxis, Denies nasal congestion, Denies neck pain, Denies throat swelling and Denies tongue swelling Cardiovascular: Cardiovascular: Denies chest pain, Denies chest pain at rest, Denies chest pain with activity, Denies diaphoresis, Denies rapid heart rate, Denies edema, Denies irregular heart rhythm, Denies lightheadedness, Denies palpitations, Denies dyspnea and Denies dyspnea on exertion Respiratory: Respiratory: Denies chest congestion, Denies cough, Denies hemoptysis, Denies dyspnea and Denies dyspnea on exertion Gastrointestinal: Gastrointestinal: Denies abdominal pain, Denies melena, Denies hematochezia, Denies diarrhea, Denies nausea, Denies vomiting and Denies hematemesis Musculoskeletal: Musculoskeletal: Denies abnormal gait, Denies deformity, Denies joint swelling, Denies limited range of motion, Denies neck pain and Denies numbness Neurologic: Denies Abnormal speech present, Denies abnormal gait, Denies confusion, Denies dizziness, Denies headache(s), Denies focal weakness, Denies loss of vision, Denies numbness, Denies Other visual disturbances, Denies Sensory deficit (Neuro) and Denies weakness Psychiatric: Psychiatric: Denies confusion, Denies depression, Denies auditory hallucinations, Denies homicidal ideation and Denies suicidal ideation Endocrine: Endocrine: Denies cold intolerance, Denies excessive sweating, Denies fatigue, Denies heat intolerance and Denies palpitations Hematologic/Lymphatic: Hematologic/Lymphatic: Denies easy bleeding and Denies easy bruising Allergic/Immunologic: Allergic/Immunologic: Denies lip swelling, Denies throat swelling and Denies tongue swelling PMFSH Past Medical History Medical History Anxiety Bipolar disorder Chronic back pain Depression GERD (gastroesophageal reflux disease) Hepatitis Herpes HLD (hyperlipidemia) HTN (hypertension) Human papilloma virus Personality disorder Sciatica Seizures Surgical History Surgi
[2021-09-24 21:40] LABS: Basophils Absolute Auto 0.1 K/mm3 (0.0-0.1); Basophils Percent Auto 0.8 % (0.2-1.2); Eosinophils Percent Auto 0.1 % (0-4.4); Hematocrit 40.3 % (37.0-47.0); Hemoglobin 13.2 g/dL (12.0-15.0); Immature Granulocyte Absolute 0.02 K/mm3 (0.00-0.031); Immature Granulocyte Percent A 0.2 % (0-0.5); Lymphocytes Absolute Auto 3.29 K/mm3 (0.9-3.2); Lymphocytes Percent Auto 37.8 % (18.3-44.2); Mean Corpuscular HGB Conc 32.8 g/dl (32-36); Mean Corpuscular Hemoglobin 27.6 pg (26-34); Mean Corpuscular Volume 84.3 fl (80-100); Mean Platelet Volume 10.3 fl (7.4-10.4); Monocytes Absolute Auto 0.5 K/mm3 (0.1-0.6); Monocytes Percent Auto 6.2 % (2.6-8.5); Neutrophils Absolute Auto 4.8 K/mm3 (1.3-6.7); Neutrophils Percent Auto 54.9 % (45.5-73.1); Platelet Count Result 244 k/mm3 (150-375); Red Blood Count 4.78 M/mm3 (4.2-5.4); Red Cell Distribution Width 13.2 % (11.5-14.5); White Blood Count 8.7 K/mm3 (4.5-10.0)
[2021-09-24 21:48] LABS: Ethanol < 10 mg/dL (<10)
[2021-09-24 21:49] LABS: Alanine Aminotransferase 102 U/L (4-35); Albumin Level 3.8 g/dL (3.5-5.1); Alkaline Phosphatase 122 U/L (38-126); Anion Gap 9 mmol/L (8-16); Aspartate Amino Transferase 74 U/L (14-36); Bilirubin,Total 0.2 mg/dL (0.2-1.3); Blood Urea Nitrogen 4 mg/dL (7-17); Calcium 9.2 mg/dL (8.4-10.2); Carbon Dioxide 24 mmol/L (22-30); Chloride 106 mmol/L (98-107); Estimated CRCL calculation 185 ml/min; Estimated Glomerular Filt Rate > 60; Glucose 178 mg/dL (65-110); Potassium 3.6 mmol/L (3.4-5.0); Sodium 139 mmol/L (137-145)
[2021-09-24 22:22] LABS: Add Urine Microscopic? YES; Appearance Urine Cloudy (Clear); Bilirubin Urine Negative (Negative); Blood Urine 3+ (Negative); Color Urine Yellow (Yellow); Glucose Urine UA Negative (Negative); Ketones Urine Negative (Negative); Leukocyte Esterase Ur Trace LEU/UL (Negative); Mucus Urine Rare /lpf; Nitrate Urine Negative (Negative); Protein Urine 1+ mg/dL (Negative); RBC Urine >75 /hpf (0-2); Specific Grav Ur 1.016 (1.001-1.035); Squamous Epithelial Cell Urine Few /hpf (Few)
[2021-09-24 22:30] LABS: Glucose Point of Care 134 mg/dl (65-105)
[2021-09-24] MEDS: CYCLOBENZAPRINE HCL 10 MG TABLET PO (22:33)
[2021-09-24] MEDS: KETOROLAC 30 MG/ML VIAL (*BKC) IM (22:33)
[2021-09-24] MEDS: HYDROcodone/acetaminophen (*CRX) 5-325 MG TABLET 1 TAB PO (22:35)
[2021-09-24 23:18] VITALS: BP 151/106; PULSE 95; RESP 16; O2SAT 100
== END 2021-09-24 23:26 | disposition home or self-care (01) ==
PROVIDERS: Emergency Provider Emergency Medicine; PCP Nurse Practitioner
DX: S39.012A Strain of muscle, fascia and tendon of lower back, initial encounter (principal); E11.9 Type 2 diabetes mellitus without complications; K21.9 Gastro-esophageal reflux disease without esophagitis; E78.5 Hyperlipidemia, unspecified; I10 Essential (primary) hypertension; F41.9 Anxiety disorder, unspecified; F31.9 Bipolar disorder, unspecified; F60.9 Personality disorder, unspecified; F17.210 Nicotine dependence, cigarettes, uncomplicated; Z79.4 Long term (current) use of insulin; X50.0XXA Overexertion from strenuous movement or load, initial encounter; Z79.899 Other long term (current) drug therapy
CPT/HCPCS: 36415; 72100; 80053; 80307; 81001; 81025; 82948; 85025; 96372; 99283; A9270; J1885

== ENCOUNTER 2021-09-27 00:54 | Observation (INO) | payer MEDICARE, MEDICAID, SELFPAY ==
[2021-09-27] VITALS (16 sets, daily range): BP systolic 106–148; BP diastolic 58–100; PULSE 82–107; RESP 16–22; TEMP 36.1–36.6; O2SAT 92–100; BMI 44.4
--- NOTE | 2021-09-27 | ECHO_ITS ---
Patient Info Name: Annita Oropeza Age: 36 years : 1985 Gender: Female Ht: 68 in Wt: 292 lbs BSA: 2.59 m2 BP: 118 / 70 mmHg Technical Quality: Good Exam Date: 09/27/2021 1:02 PM Exam Location: [facility] Patient Status: Inpatient Admit Date: 09/27/2021 Staff Ordering Physician: Jj Dunbar MD Electric Melt Operator: Lois Martel RDCS Attending Provider: Vivek Garza MD Exam Type: CA echo doppler color flow Study Info Indications R55 - Syncope and collapse Complete two-dimensional, color flow and Doppler transthoracic echocardiogram is performed. Summary 1. Complete two-dimensional, color flow and Doppler transthoracic echocardiogram is performed. 2. Left ventricular chamber dimension is normal. 3. Left ventricular systolic function is normal, estimated at 60-65%. 4. The left ventricular diastolic function is abnormal. 5. E/e' 12 is mildly elevated. 6. Left atrial chamber dimension is mildly enlarged. 7. There is mild to moderate mitral valve regurgitation. 8. No pulmonary hypertension, estimated pulmonary arterial systolic pressure is 13 mmHg. Left Ventricle E/e' 12 is mildly elevated. Left ventricular chamber dimension is normal. Left ventricular systolic function is normal, estimated at 60-65%. The left ventricular diastolic function is abnormal. Right Ventricle Right ventricular systolic function is normal and with normal TAPSE 2.8 cm. Right ventricular chamber dimension is normal. Left Atria Left atrial chamber dimension is mildly enlarged. Right Atria Right atrial chamber dimension is normal. Aortic Valve The aortic valve is trileaflet. There is no aortic valve stenosis. There is no aortic valve regurgitation. Pulmonic Valve There is no pulmonic regurgitation. Mitral Valve There is no mitral valve stenosis. There is mild to moderate mitral valve regurgitation. Tricuspid Valve There is no tricuspid valve regurgitation. No pulmonary hypertension, estimated pulmonary arterial systolic pressure is 13 mmHg. Pericardium/Pleural There is no pericardial effusion. Inferior Vena Cava Normal inferior vena cava with >50% collapse upon inspiration consistent with normal right atrial pressure, 5 mmHg. Aorta The aortic root size at the sinus of Valsalva is normal. Left Ventricular Outflow Tract Name Value Normal LVOT 2D LVOT Diameter 2.0 cm LVOT Doppler LVOT Peak Gradient 6 mmHg LVOT Mean Gradient 3 mmHg LVOT VTI 24 cm LVOT VTI/AV VTI Ratio 1.0 LVOT Stroke Volume 75 ml LVOT CO 7.0 l/min LVOT CI 2.7 l/min/m2 Pulmonic Valve Name Value Normal RVOT Doppler RVOT Peak Gradient 2 mmHg
--- NOTE | ~2021-09-27 | CT_ITS ---
EXAMINATION: CT brain wo con INDICATION: Transient alteration of awareness COMPARISON: 07/15/2020 TECHNIQUE: Standard unenhanced head CT. The dose-length product (DLP) was 681.00 mGy-cm. The mA was a djusted according to patient size. Iterative reconstruction technique was employed. FINDINGS: There is no intracranial hemorrhage, acute infarction, or abnormal mass lesion. The ventric les are normal. There is no abnormal mass effect or midline shift. The mishra-white matter differentiat ion is normal. The basal cisterns are patent. The orbits are normal. The paranasal sinuses, mastoids and calvarium are normal. IMPRESSION: 1. No acute intracranial abnormality. Reviewed, dictated and finalized at location A.
--- NOTE | ~2021-09-27 | US_ITS ---
EXAMINATION: US carotid duplex BI EXAM DATE: 09/28/2021 09:33 INDICATION: Syncope. TECHNIQUE: Grayscale, color and pulsed Doppler images of the cervical carotid arteries were obtained . The degree of vessel stenosis is placed in one of the following categories: normal, <50% stenosis, 50-69% stenosis, >=70% stenosis but less than near-occlusion, near-occlusion, or occlusion. Note that percent stenosis relative to normal distal artery lumen diameter is indirectly measured from velocit y measurements as described by Brandon, et al. Radiology 2003; 229:340-346. There is no prior study fo r comparison. FINDINGS: RIGHT SIDE: Right common carotid artery peak systolic velocity (PSV in cm/s): 128 Right bulb/internal carotid artery peak systolic velocity (PSV in cm/s): 116 Right internal carotid artery end diastolic velocity (EDV in cm/s): 37 Right ICA/CCA peak systolic ratio: 0.9 Right external carotid artery peak systolic velocity (PSV in cm/s): 134 Right vertebral artery antegrade flow: yes There is no focal plaque identified. LEFT SIDE: Left common carotid artery peak systolic velocity (PSV in cm/s): 120 Left bulb/internal carotid artery peak systolic velocity (PSV in cm/s): 96 Left internal carotid artery end diastolic velocity (EDV in cm/s): 31 Left ICA/CCA peak systolic ratio: 0.8 Left external carotid artery peak systolic velocity (PSV in cm/s): 104 Left vertebral artery antegrade flow: yes There is no focal plaque identified. IMPRESSION: 1. Normal right internal carotid artery. 2. Normal left internal carotid artery. > Reviewed, dictated and finalized at location A.
[2021-09-27 01:03] LABS: Glucose Point of Care 223 mg/dl (65-105)
--- NOTE | 2021-09-27 01:05 | ECG_ITS ---
Measurements Intervals Owen Rate: 99 P: -2 NH: 118 QRS: 5 QRSD: 86 T: 1 QT: 339 QTc: 435 Interpretive Statements SINUS RHYTHM WITH SHORT NH INTERVAL BORDERLINE T WAVE ABNORMALITY- INFERIOR LEADS BORDERLINE ECG Electronically Signed On 09-27-2021 6:41:27 CDT by Toby Stone D.O.
--- NOTE | 2021-09-27 01:29 | ED.SYNCOPE ---
HPI - Syncope General Chief Complaint: Syncope Stated Complaint: syncopal episode Time Seen by Provider: 09/27/21 01:03 Source: patient, EMS, RN notes reviewed and old records reviewed Mode of arrival: EMS History of Present Illness HPI narrative: This is a 36 year old female with history of diabetes mellitus who presents for evaluation of syncopal episode. She states she was outside and she started feeling lightheaded. She thought her sugar was low so she drank a soda. Afterwards her sugar was 150s. She states she was walking when she felt like she was going to pass out. Her boyfriend was walking with her and he was able to catch her. She reports sleepiness and dizziness. She denies chest pain, sob, nausea or vomiting. Related Data Home Medications Medication Instructions Recorded Confirmed amlodipine [Norvasc] 10 mg PO DAILY 11/14/20 09/27/21 cariprazine [Vraylar] 3 mg PO DAILY 11/14/20 09/27/21 gabapentin [Neurontin] 300 mg PO TID 11/14/20 09/27/21 hydroxyzine HCl 25 mg PO TID 11/14/20 09/27/21 ibuprofen 800 mg PO TID 11/14/20 09/27/21 insulin glargine [Lantus Solostar 25 unit SUBCUT HS 11/14/20 09/27/21 U-100 Insulin] lisinopril [Zestril] 20 mg PO DAILY 11/14/20 08/07/21 pravastatin [Pravachol] 40 mg PO DAILY 11/14/20 08/07/21 trazodone 100 mg PO DAILY 11/14/20 08/07/21 bupropion HCl 1 mg PO BID 04/15/21 09/27/21 cyclobenzaprine 10 mg PO TID 09/27/21 09/27/21 glipizide 5 mg PO DAILY 09/27/21 09/27/21 metformin 1,000 mg PO BID 09/27/21 09/27/21 Allergies Allergy/AdvReac Type Severity Reaction Status Date / Time aripiprazole Allergy Unknown Abdominal Verified 09/27/21 01:07 Pain lithium Allergy Unknown VOMITING Verified 09/27/21 01:07 Review of Systems Review of Systems: All systems reviewed & are unremarkable except as noted in HPI and below PMFSH Past Medical History Medical History Anxiety Bipolar disorder Chronic back pain Depression GERD (gastroesophageal reflux disease) Hepatitis Herpes HLD (hyperlipidemia) HTN (hypertension) Human papilloma virus Personality disorder Sciatica Seizures Surgical History Surgical History Hx of section Hx of tonsillectomy Family History Family History Mother Diabetes mellitus Hypertension Father Diabetes mellitus Social History Social History Smoking packs per day: 1.5 Smoking cigarettes per day: 30.0 Years smoked: 15 Smoking pack-years: 22.50 Smoking status: Current every day smoker Tobacco type: cigarettes Second hand tobacco smoke exposure: Yes Alcohol intake: current Drinks per week: 1 Substance use type: marijuana Gender identity (if verbalized by the patient): Female Spiritual care concerns: No Exam Const: General: no acute distress; No diaphoretic Nutritional Appearance: obese Orientation/consciousness: patient oriented x3 Other: lethargic but will arouse with verbal HENMT: Head: normocephalic and atraumatic Face and sinus: normal facial exam, sinuses nontender and face symmetric Mouth: Yes Normal oral and palatal mucosa present, Yes lip normal and Yes oropharynx normal Eyes: EOM: EOMs intact bilaterally Resp: Effort & Inspection: normal respiratory effort and no retractions Auscultation: clear to auscultation bilaterally Cardio: Rate: regular rate Rhythm: regular rhythm Heart sounds: no murmurs GI: Auscultation: normal bowel sounds Other: soft, nontender, no guarding, no rebound Skin: General skin exam: normal color Rashes: no rashes Neuro: General: patient oriented x3, moves all extremities, no focal motor deficits and CN's II-XI intact bilaterally Course Reevaluation(s) Reevaluation #1: Patient is extremely sleepy. I asked if she
[2021-09-27 01:53] LABS: Alveolar/Arterial O2 Gradient 39.3 mmHg; Base Excess ABG -1.1 mEq/l (+/-2.0); Carboxyhemoglobin 7.8 % THb (0-2.0); Fractional Inspired Oxygen 21 %; HCO3 ABG 23.4 mEq/l (22.0-26.0); Methemoglobin ABG 0.1 %THb (0-1.5); Oxygen Content ABG 16.6 %vol (16.0-22.0); Oxygen Saturation ABG 92.6 % (95.0-100.0); Oxyhemoglobin 85.5 % THb (90.0-100.0); PCO2 ABG 38.6 mmHg (35.0-45.0); PO2 ABG 64.2 mmHg (80.0-100.0); PO2 FiO2 Ratio Arterial Blood 3.06 %; Reduced Hemoglobin 6.6 %THb (0-5.0); Total Hemoglobin 13.8 g/dL (12.0-18.0); pH ABG 7.401 (7.350-7.450)
[2021-09-27 01:56] LABS: Device ROOM AIR; Modified Allen's Test Pass; Site Drawn LEFT RADIAL
[2021-09-27] MEDS: SODIUM CHLORIDE 0.9% IV 1,000 ML 999 ML IV CONT (02:01)
[2021-09-27 02:02] LABS: Basophils Absolute Auto 0.1 K/mm3 (0.0-0.1); Eosinophils Percent Auto 0.1 % (0-4.4); Hematocrit 40.1 % (37.0-47.0); Hemoglobin 13.2 g/dL (12.0-15.0); Immature Granulocyte Absolute 0.03 K/mm3 (0.00-0.031); Immature Granulocyte Percent A 0.3 % (0-0.5); Lymphocytes Percent Auto 35.4 % (18.3-44.2); Mean Corpuscular HGB Conc 32.9 g/dl (32-36); Mean Corpuscular Hemoglobin 28.1 pg (26-34); Mean Corpuscular Volume 85.5 fl (80-100); Mean Platelet Volume 10.6 fl (7.4-10.4); Monocytes Absolute Auto 0.5 K/mm3 (0.1-0.6); Monocytes Percent Auto 5.6 % (2.6-8.5); Neutrophils Absolute Auto 5.4 K/mm3 (1.3-6.7); Neutrophils Percent Auto 57.6 % (45.5-73.1); Platelet Count Result 270 k/mm3 (150-375); Red Blood Count 4.69 M/mm3 (4.2-5.4); Red Cell Distribution Width 13.4 % (11.5-14.5); White Blood Count 9.3 K/mm3 (4.5-10.0)
[2021-09-27 02:14] LABS: Lactic Acid Reflex 2.5 mmol/L (0.7-2.1)
[2021-09-27 02:15] LABS: Alanine Aminotransferase 74 U/L (4-35); Albumin Level 3.4 g/dL (3.5-5.1); Alkaline Phosphatase 115 U/L (38-126); Aspartate Amino Transferase 59 U/L (14-36); Bilirubin,Total 0.4 mg/dL (0.2-1.3); Magnesium 1.5 mg/dL (1.6-2.3)
[2021-09-27 02:26] LABS: Troponin I < 0.012 ng/mL (0.000-0.034)
[2021-09-27 02:40] LABS: Ethanol < 10 mg/dL (<10)
[2021-09-27 02:45] LABS: Add Urine Microscopic? YES; Appearance Urine Clear (Clear); Bilirubin Urine Negative (Negative); Blood Urine 1+ (Negative); Color Urine Yellow (Yellow); Glucose Urine UA 1+ mg/dL (Negative); Ketones Urine Negative (Negative); Leukocyte Esterase Ur Negative LEU/UL (Negative); Mucus Urine Rare /lpf; Nitrate Urine Negative (Negative); Protein Urine Negative (Negative); Squamous Epithelial Cell Urine Occasional /hpf (Few); Urobilinogen Urine Negative mg/dL (<2.0); WBC Urine 0-3 /hpf
[2021-09-27 02:50] LABS: Anion Gap 12 mmol/L (8-16); Blood Urea Nitrogen 4 mg/dL (7-17); Carbon Dioxide 20 mmol/L (22-30); Chloride 105 mmol/L (98-107); Estimated CRCL calculation 185 ml/min; Estimated Glomerular Filt Rate > 60; Glucose 210 mg/dL (65-110); Potassium 3.8 mmol/L (3.4-5.0); Sodium 137 mmol/L (137-145)
[2021-09-27 02:56] LABS: Amphetamine Screen Urine Negative (Negative); Barbiturate Screen Urine Negative (Negative); Benzodiazepines Screen Urine Negative (Negative); Cannabinoid Screen Urine Negative (Negative); Cocaine Screen Urine Negative (Negative); Methadone Screen Urine Negative (Negative); Opiate Screen Urine Negative (Negative); Phencyclidine Screen Urine Negative (Negative)
[2021-09-27] MEDS: MECLIZINE HCL 25 MG TABLET PO (03:46)
[2021-09-27 04:59] LABS: Reflex Lactic Acid Yes or No Add Lactic
[2021-09-27 06:15] LABS: Lactic Acid 1.4 mmol/L (0.7-2.1)
--- NOTE | 2021-09-27 06:26 | ADMGEN ---
This patient, Annita Oropeza, was admitted to Medical Room 244-. Patient/family oriented to hospital policies and general routines including ID bracelet, bed and alarms, visiting hours, pain management, procedures, bathroom and other care routines, personal items, smoking policy, room service/diet, and visiting hours. Information on how to activate the Rapid Response Team has been discussed. Patient/Family are encouraged to report perceived risks to care and to ask questions if they do not understand what they are told or what they should do.
[2021-09-27] MEDS: SODIUM CHLORIDE 0.9% IV 1,000 ML 125 ML IV CONT (07:23)
[2021-09-27 07:53] LABS: Glucose Point of Care 139 mg/dl (65-105)
[2021-09-27] MEDS: PRAVASTATIN SODIUM 20 MG TABLET 40 MG PO (09:16)
[2021-09-27] MEDS: buPROPion HCL SR (12HR) 100 MG TABCR 200 MG PO ×2 (09:16→16:55)
[2021-09-27] MEDS: CYCLOBENZAPRINE HCL 10 MG TABLET PO ×3 (09:16→16:54)
[2021-09-27] MEDS: IBUPROFEN 400 MG TABLET 800 MG PO ×3 (09:16→16:54)
[2021-09-27] MEDS: lisinopriL 20 MG TABLET PO (09:17)
[2021-09-27] MEDS: metFORMIN HCL 500 MG TABLET 1000 MG PO ×2 (09:17→16:54)
[2021-09-27] MEDS: amLODIPine BESYLATE 5 MG TABLET 10 MG PO (09:17)
[2021-09-27] MEDS: GABAPENTIN 300 MG CAPSULE PO ×2 (09:17→13:50)
[2021-09-27] MEDS: glipiZIDE 5 MG TABLET PO (09:17)
[2021-09-27] MEDS: hydrOXYzine HCL 25 MG TABLET PO ×3 (09:17→16:54)
[2021-09-27] MEDS: MAGNESIUM SULF 2 GM/WATER 50ML 2 GM/50 ML BAG IVPB (10:32)
--- NOTE | 2021-09-27 11:30 | PM.IMHP ---
H&P: HPI History of Present Illness Date/Time: 09/27/21 11:30 HPI narrative: This is a 36 year old female with history of diabetes mellitus who presents for evaluation of syncopal episode. She states she was outside and she started feeling lightheaded. She thought her sugar was low so she drank a soda. Afterwards her sugar was 150s. She states she was walking when she felt like she was going to pass out. Her boyfriend was walking with her and he was able to catch her. She reports sleepiness and dizziness. She denies chest pain, sob, nausea or vomiting 09/27 Interval history today patient still feels dizzy unable to described how she feels if the room is moving or her legs get week, currently denies CP, shortness of breath, palpitation, fever or chills, to further evaluate will do carotid US, and cardiac ECHO, will have PT evaluate the patient and further recommendation to follow. patient has uncontrolled diabetes with hemoglobin A1c of 10 however at the time of the incident patient states see was hypoglycemic and drinker soda. Patient is admitted under observation status Chief Complaint: syncopal episode Review of Systems Review of Systems: All systems reviewed & are unremarkable except as noted in HPI and below PMFSH Past Medical History Medical History Anxiety Bipolar disorder Chronic back pain Depression GERD (gastroesophageal reflux disease) Hepatitis Herpes HLD (hyperlipidemia) HTN (hypertension) Human papilloma virus Personality disorder Sciatica Seizures Surgical History Surgical History Hx of section Hx of tonsillectomy Family History Family History Mother Diabetes mellitus Hypertension Father Diabetes mellitus Social History Social History Smoking packs per day: 1.5 Smoking cigarettes per day: 30.0 Years smoked: 15 Smoking pack-years: 22.50 Smoking status: Current every day smoker Tobacco type: cigarettes Second hand tobacco smoke exposure: Yes Alcohol intake: current Drinks per week: 1 Substance use type: marijuana Gender identity (if verbalized by the patient): Female Spiritual care concerns: No Meds Home Medications and Allergies Home Medications Medication Instructions Recorded Confirmed Type amlodipine [Norvasc] 10 mg PO DAILY 11/14/20 09/27/21 History cariprazine [Vraylar] 3 mg PO DAILY 11/14/20 09/27/21 History gabapentin [Neurontin] 300 mg PO TID 11/14/20 09/27/21 History hydroxyzine HCl 25 mg PO TID 11/14/20 09/27/21 History ibuprofen 800 mg PO TID 11/14/20 09/27/21 History insulin glargine [Lantus Solostar 25 unit SUBCUT HS 11/14/20 09/27/21 History U-100 Insulin] lisinopril [Zestril] 20 mg PO DAILY 11/14/20 09/27/21 History pravastatin [Pravachol] 40 mg PO DAILY 11/14/20 09/27/21 History trazodone 100 mg PO HS 11/14/20 09/27/21 History bupropion HCl 1 mg PO BID 04/15/21 09/27/21 History albuterol sulfate 90 mcg/actuation See Rx Instructions .ROUTE 08/05/21 09/27/21 Rx aerosol inhaler .COMPLEX #18 gram cyclobenzaprine 10 mg PO TID 09/27/21 09/27/21 History glipizide 5 mg PO DAILY 09/27/21 09/27/21 History metformin 1,000 mg PO BID 09/27/21 09/27/21 History Allergies Allergy/AdvReac Type Severity Reaction Status Date / Time aripiprazole Allergy Unknown Abdominal Verified 09/27/21 01:07 Pain lithium Allergy Unknown VOMITING Verified 09/27/21 01:07 Vital Signs Vital Signs - 24 hr 09/27/21 00:56 09/27/21 01:06 09/27/21 02:36 Temperature 97.8 F Pulse Rate 107 H 99 Respiratory Rate 20 20 Blood Pressure 148/88 H 139/82 Pulse Oximetry 99 99 92 09/27/21 03:23 09/27/21 03:26 09/27/21 03:27 Temperature Pulse Rate 99 100 106 H Respiratory Rate Blood Pressure 144/8
[2021-09-27 11:49] LABS: Glucose Point of Care 92 mg/dl (65-105)
[2021-09-27 17:10] LABS: Glucose Point of Care 96 mg/dl (65-105)
[2021-09-27] MEDS: GABAPENTIN 400 MG CAPSULE 1200 MG PO (17:44)
[2021-09-27] MEDS: ENOXAPARIN 40 MG/0.4 ML SYRINGE SUB-Q (20:53)
[2021-09-27] MEDS: INSULIN GLARGINE (*BKC) 100 UNITS/ML 25 UNITS SUB-Q (20:53)
[2021-09-27] MEDS: traZODone HCL 50 MG TABLET 100 MG PO (20:54)
[2021-09-27 21:18] LABS: Glucose Point of Care 199 mg/dl (65-105)
[2021-09-28] VITALS: PULSE 80
[2021-09-28 04:00] VITALS: PULSE 84
[2021-09-28] MEDS: IBUPROFEN 400 MG TABLET 800 MG PO (05:26)
[2021-09-28] MEDS: CYCLOBENZAPRINE HCL 10 MG TABLET PO (05:27)
[2021-09-28 05:29] VITALS: BP 121/73; PULSE 86; RESP 20; TEMP 36.2; O2SAT 98
[2021-09-28 05:52] LABS: Basophils Absolute Auto 0.1 K/mm3 (0.0-0.1); Basophils Percent Auto 0.8 % (0.2-1.2); Eosinophils Percent Auto 0.1 % (0-4.4); Hematocrit 37.9 % (37.0-47.0); Hemoglobin 12.4 g/dL (12.0-15.0); Immature Granulocyte Absolute 0.03 K/mm3 (0.00-0.031); Immature Granulocyte Percent A 0.4 % (0-0.5); Lymphocytes Absolute Auto 3.26 K/mm3 (0.9-3.2); Mean Corpuscular HGB Conc 32.7 g/dl (32-36); Mean Corpuscular Hemoglobin 28.3 pg (26-34); Mean Corpuscular Volume 86.5 fl (80-100); Mean Platelet Volume 10.5 fl (7.4-10.4); Monocytes Absolute Auto 0.5 K/mm3 (0.1-0.6); Neutrophils Absolute Auto 4.1 K/mm3 (1.3-6.7); Neutrophils Percent Auto 51.7 % (45.5-73.1); Platelet Count Result 233 k/mm3 (150-375); Red Blood Count 4.38 M/mm3 (4.2-5.4); Red Cell Distribution Width 13.5 % (11.5-14.5)
[2021-09-28 06:10] LABS: Alanine Aminotransferase 65 U/L (4-35); Albumin Level 3.2 g/dL (3.5-5.1); Alkaline Phosphatase 111 U/L (38-126); Anion Gap 7 mmol/L (8-16); Aspartate Amino Transferase 54 U/L (14-36); Bilirubin,Total 0.1 mg/dL (0.2-1.3); Blood Urea Nitrogen 5 mg/dL (7-17); Calcium 8.6 mg/dL (8.4-10.2); Carbon Dioxide 24 mmol/L (22-30); Chloride 107 mmol/L (98-107); Estimated CRCL calculation 187 ml/min; Estimated Glomerular Filt Rate > 60; Glucose 101 mg/dL (65-110); Potassium 3.7 mmol/L (3.4-5.0); Sodium 138 mmol/L (137-145)
[2021-09-28 08:00] VITALS: PULSE 87
[2021-09-28 08:01] LABS: Glucose Point of Care 99 mg/dl (65-105)
[2021-09-28] MEDS: ENOXAPARIN 40 MG/0.4 ML SYRINGE SUB-Q (09:10)
[2021-09-28] MEDS: buPROPion HCL SR (12HR) 100 MG TABCR 200 MG PO (09:10)
[2021-09-28] MEDS: hydrOXYzine HCL 25 MG TABLET PO (09:10)
[2021-09-28] MEDS: amLODIPine BESYLATE 5 MG TABLET 10 MG PO (09:10)
[2021-09-28] MEDS: metFORMIN HCL 500 MG TABLET 1000 MG PO (09:10)
[2021-09-28] MEDS: glipiZIDE 5 MG TABLET PO (09:11)
[2021-09-28] MEDS: PRAVASTATIN SODIUM 20 MG TABLET 40 MG PO (09:11)
[2021-09-28] MEDS: GABAPENTIN 400 MG CAPSULE 1200 MG PO (09:11)
[2021-09-28] MEDS: lisinopriL 20 MG TABLET PO (09:11)
--- NOTE | 2021-09-28 11:58 | PM.DS ---
DS: Admitting Diagnosis Discharge Date 09/28/2021 Admitting Diagnosis syncope DS: Discharge Diagnosis Discharge Diagnosis (1) Syncope and collapse: Code(s): R55 - Syncope and collapse Status: Acute Assessment and Plan: 09/27/21 11:30 HPI narrative: This is a 36 year old female with history of diabetes mellitus who presents for evaluation of syncopal episode. She states she was outside and she started feeling lightheaded. She thought her sugar was low so she drank a soda. Afterwards her sugar was 150s. She states she was walking when she felt like she was going to pass out. Her boyfriend was walking with her and he was able to catch her. She reports sleepiness and dizziness. She denies chest pain, sob, nausea or vomiting 09/27 Interval history today patient still feels dizzy unable to describe how she feels if the room is moving or her legs get week, currently denies CP, shortness of breath, palpitation, fever or chills, to further evaluate will do carotid US, and cardiac ECHO, will have PT evaluate the patient and further recommendation to follow. patient has uncontrolled diabetes with hemoglobin A1c of 10 however at the time of the incident patient states she was hypoglycemic and drinker soda most likely cause of her dizziness (2) Diabetes: Code(s): E11.9 - Type 2 diabetes mellitus without complications Status: Acute Assessment and Plan: patient with history of type 2 diabetes patient hemoglobin A1c is 10 suggesting uncontrolled diabetes currently patient metformin 1000 mg b.i.d. and glipizide 5 mg b.i.d. will increase glipizide to 10 mg b.i.d. will continue to monitor, patient will benefit perioperative educator consultation. (3) Bipolar disorder: Code(s): F31.9 - Bipolar disorder, unspecified Status: Chronic Assessment and Plan: remains clinically stable will continue home regimen and monitor DS: Summary Hospital Course Reason for hospitalization: HPI narrative: This is a 36 year old female with history of diabetes mellitus who presents for evaluation of syncopal episode. She states she was outside and she started feeling lightheaded. She thought her sugar was low so she drank a soda. Afterwards her sugar was 150s. She states she was walking when she felt like she was going to pass out. Her boyfriend was walking with her and he was able to catch her. She reports sleepiness and dizziness. She denies chest pain, sob, nausea or vomiting 09/27 Interval history today patient still feels dizzy unable to described how she feels if the room is moving or her legs get week, currently denies CP, shortness of breath, palpitation, fever or chills, to further evaluate will do carotid US, and cardiac ECHO, will have PT evaluate the patient and further recommendation to follow. patient has uncontrolled diabetes with hemoglobin A1c of 10 however at the time of the incident patient states see was hypoglycemic and drinker soda. Hospital Course: 09/27 Interval history today patient still feels dizzy unable to describe how she feels if the room is moving or her legs get week, currently denies CP, shortness of breath, palpitation, fever or chills, to further evaluate will do carotid US, and cardiac ECHO, will have PT evaluate the patient and further recommendation to follow. patient has uncontrolled diabetes with hemoglobin A1c of 10 however at the time of the incident patient states she was hypoglycemic and drinker soda most likely cause of her dizziness Patient remains clinically stable, carotid ultrasound is negative for any stenosis, and not as dizzy, patient was able to work with physical therapy and does not need continue therapy, patient to follow-up with her primary care as soon as possible, patient instructed if any symptoms redeveloped to go to nearest emergency department, patient will follow-up with her primary care to cath results of cardiac echo Status a
[2021-09-28 12:00] VITALS: PULSE 93
[2021-09-28 12:00] LABS: Glucose Point of Care 108 mg/dl (65-105)
== END 2021-09-28 13:00 | disposition home or self-care (01) ==
LOC: ANHED 01:26 → ANH2MED 07:00
PROVIDERS: Emergency Medicine; Admitting Provider Internal Medicine; Emergency Provider General Practice; PCP Nurse Practitioner; Visit Provider Family Medicine
DX: R55 Syncope and collapse (principal); E11.65 Type 2 diabetes mellitus with hyperglycemia; I10 Essential (primary) hypertension; E78.5 Hyperlipidemia, unspecified; F17.210 Nicotine dependence, cigarettes, uncomplicated; Z79.84 Long term (current) use of oral hypoglycemic drugs; F31.9 Bipolar disorder, unspecified; Z79.899 Other long term (current) drug therapy
CPT/HCPCS: 36415; 36600; 51701; 70450; 80048; 80053; 80076; 80307; 81001; 81025; 82375; 82805; 82948; 83036; 83050; 83605; 83735; 84484; 85025; 93005; 93306; 93880; 96361; 96365; 96372; 97161; 99285; A9270; G0378; J1650; J1815; J3475; J7030

== ENCOUNTER 2022-01-04 17:26 | Emergency (ER) | payer OTHER, SELFPAY ==
--- NOTE | ~2022-01-04 | XR_ITS ---
EXAMINATION: XR lumbar spine 2-3V EXAM DATE: 01/04/2022 20:24 INDICATION: Left lower back pain. TECHNIQUE: Lumber spine frontal, lateral, lateral L5-S1 projections for interpretation. There is no prior study for comparison. FINDINGS: Mild lumbar disc disease and facet arthropathy. The vertebral bodies are aligned in the AP dimension. There are no acute fractures identified. No spondylolysis. Sacrum, sacroiliac joints, sac ral arcuate lines are intact. IMPRESSION: Mild lumbar spondylosis. Reviewed, dictated and finalized at location G. L PERFORMER IMPRESSION: Mild lumbar spondylosis.
[2022-01-04 17:28] VITALS: BP 154/108; PULSE 98; RESP 18; TEMP 36.5; O2SAT 99
[2022-01-04 18:07] LABS: Add Urine Microscopic? YES; Appearance Urine Clear (Clear); Bacteria Urine Trace /hpf; Bilirubin Urine Negative (Negative); Blood Urine Negative (Negative); Color Urine Straw (Yellow); Glucose Urine UA 3+ mg/dL (Negative); Ketones Urine Negative (Negative); Leukocyte Esterase Ur Negative LEU/UL (Negative); Nitrate Urine Negative (Negative); Protein Urine Negative (Negative); Specific Grav Ur 1.005 (1.001-1.035); Squamous Epithelial Cell Urine Moderate /hpf (Few); Urobilinogen Urine Negative mg/dL (<2.0); WBC Urine 0-3 /hpf
[2022-01-04] MEDS: HYDROcodone/acetaminophen (*CRX) 5-325 MG TABLET 1 TAB PO (19:55)
--- NOTE | 2022-01-04 19:58 | ED.BACK ---
HPI - Back Pain/Injury General Chief Complaint: Back Pain/Injury Stated Complaint: back pain Time Seen by Provider: 01/04/22 18:16 Source: patient Mode of arrival: ambulatory Limitations: no limitations History of Present Illness HPI Narrative: This is a 36 year old female that presents to the ER for low back pain present over the last couple of days. No recent injury or trauma. Reports history of chronic back pain. She is out of her cyclobenzaprine. She also reports she has had some vaginal irritation. Reports she had a lump in her vagina that she popped the other day. Denies fever, saddle anesthesia, or bowel/bladder incontinence. Related Data Home Medications Medication Instructions Recorded Confirmed Lantus Solostar U-100 Insulin 25 unit SUBCUT HS 11/14/20 09/27/21 Vraylar 3 mg PO DAILY 11/14/20 09/27/21 amlodipine [Norvasc] 10 mg PO DAILY 11/14/20 09/27/21 gabapentin [Neurontin] 1,200 mg PO TID 11/14/20 09/27/21 hydroxyzine HCl 25 mg PO TID 11/14/20 09/27/21 ibuprofen 800 mg PO TID 11/14/20 09/27/21 lisinopril [Zestril] 20 mg PO DAILY 11/14/20 09/27/21 pravastatin [Pravachol] 40 mg PO DAILY 11/14/20 09/27/21 trazodone 100 mg PO HS 11/14/20 09/27/21 bupropion HCl 1 mg PO BID 04/15/21 09/27/21 cyclobenzaprine 10 mg PO TID 09/27/21 09/27/21 glipizide 5 mg PO DAILY 09/27/21 09/27/21 metformin 1,000 mg PO BID 09/27/21 09/27/21 Allergies Allergy/AdvReac Type Severity Reaction Status Date / Time aripiprazole Allergy Unknown Abdominal Verified 01/04/22 19:08 Pain lithium Allergy Unknown VOMITING Verified 01/04/22 19:08 Review of Systems Review of Systems: CONSTITUTIONAL: Denies fever MUSCULOSKELETAL: Reports back pain, joint pain, and myalgia. NEUROLOGIC: Denies numbness, or weakness. All systems reviewed & are unremarkable except as noted in HPI and below PMFSH Past Medical History Medical History Anxiety Bipolar disorder Chronic back pain Depression GERD (gastroesophageal reflux disease) Hepatitis Herpes HLD (hyperlipidemia) HTN (hypertension) Human papilloma virus Personality disorder Sciatica Seizures Surgical History Surgical History Hx of section Hx of tonsillectomy Family History Family History Mother Diabetes mellitus Hypertension Father Diabetes mellitus Social History Social History Smoking packs per day: 1.5 Smoking cigarettes per day: 30.0 Years smoked: 15 Smoking pack-years: 22.50 Smoking status: Current every day smoker Tobacco type: cigarettes Second hand tobacco smoke exposure: Yes Alcohol intake: current Drinks per week: 1 Substance use type: marijuana Gender identity (if verbalized by the patient): Female Spiritual care concerns: No Exam Narrative: GENERAL: Well-appearing, well-nourished, and in no acute distress. HEAD: Normocephalic, atraumatic. EYES: EOMI. CHEST: Clear to auscultation. No respiratory distress. No wheezes rales or rhonchi HEART: Regular rate and rhythm. No murmur heard. Normal peripheral pulses. EXTREMITIES: Normal range of motion. No edema. SKIN: Warm, dry, no rash. NEURO: No focal deficits. Alert and oriented x3. PSYCH: Normal mood and affect FEMALE GENITAL: Mild erythema noted of the vulvovaginal area. No rashes, lesions, or abnormal discharge noted. Course Vital Signs Vital signs: Vital Signs Temperature 97.7 F 01/04/22 17:28 Pulse Rate 98 01/04/22 17:28 Respiratory Rate 18 01/04/22 17:28 Blood Pressure 154/108 H 01/04/22 17:28 Pulse Oximetry 99 01/04/22 17:28 Temperature 97.7 F 01/04/22 17:28 Pulse Rate 98 01/04/22 17:28 Respiratory Rate 18 01/04/22 17:28 Blood Pressure 154/108 H 01/04/22 17:28 Pulse Oximetry 99 01/04/22 17:28 [facility]
[2022-01-04] MEDS: FLUCONAZOLE 150 MG TABLET PO (20:18)
[2022-01-04 21:42] VITALS: BP 143/97; PULSE 86; RESP 16; O2SAT 97
== END 2022-01-04 21:44 | disposition home or self-care (01) ==
PROVIDERS: Emergency Provider Emergency Medicine; PCP Internal Medicine
DX: B37.3 Candidiasis of vulva and vagina (principal); M54.42 Lumbago with sciatica, left side; E78.5 Hyperlipidemia, unspecified; I10 Essential (primary) hypertension; E11.9 Type 2 diabetes mellitus without complications; K21.9 Gastro-esophageal reflux disease without esophagitis; F31.9 Bipolar disorder, unspecified; F41.9 Anxiety disorder, unspecified; F60.9 Personality disorder, unspecified; Z79.4 Long term (current) use of insulin; F17.210 Nicotine dependence, cigarettes, uncomplicated; M47.816 Spondylosis without myelopathy or radiculopathy, lumbar region; Z79.84 Long term (current) use of oral hypoglycemic drugs
CPT/HCPCS: 72100; 81001; 81025; 99283; A9270

== ENCOUNTER 2022-02-24 09:51 | Emergency (ER) | payer OTHER, SELFPAY ==
--- NOTE | ~2022-02-24 | CT_ITS ---
EXAMINATION: CT abdomen pelvis w con EXAM DATE: 02/24/2022 11:28 INDICATION: Abdominal pain, N/V/D. TECHNIQUE: Spiral CT of the abdomen and pelvis was performed following intravenous injection of 100 m L Omnipaque 350. Axial, coronal and sagittal images of the abdomen and pelvis were reviewed. The do se-length product (DLP) for this examination was 1740.23 mGy-cm. The exposure was tailored according to patient size (auto mA exposure control), and iterative reconstruction (ASIR) was used as addition al dose reduction technique. Comparison is made to prior examination from 10/19/2020. FINDINGS: The liver, spleen, adrenal glands and pancreas are unremarkable. There are gallstones wit hin an otherwise unremarkable gallbladder. No evidence of obstructive biliary disease. Portal and s plenic veins are patent. Kidneys enhance symmetrically. There is no hydronephrosis. The uterus an d ovaries are unremarkable, no adnexal mass. The bladder is unremarkable. There is no retroperitone al or pelvic lymphadenopathy. The appendix is normal. The stomach and small bowel are unremarkable. There is expected amount of c olonic stool. No free intraperitoneal gas. The heart is normal in size. There are no pericardial or pleural effusions. The lung bases are unremarkable. There are no osteoblastic or osteolytic les ions identified. IMPRESSION: 1. No acute intra-abdominal findings. 2. Cholelithiasis. Reviewed, dictated and finalized at location B.
[2022-02-24 09:54] VITALS: BP 158/90; PULSE 90; RESP 18; TEMP 36.6; O2SAT 98
--- NOTE | 2022-02-24 09:56 | ED.ABDPAIN ---
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 Patient was seen at [facility] yesterday at which point she was told she may have a UTI and was prescribed an antibiotic. She is unsure which antibiotic she was given. She states she did not have lab work done or any imaging. She denies any hematuria, dysuria, urinary frequency. She also reports having nausea and mild vaginal spotting. No heavy bleeding. She states she had a normal cycle on the eighth of this month and then began spotting 2 days ago. She notes she is currently try to get . Patient denies any diarrhea, constipation, fever, chills, cough, CP, SOB, back pain. <Li Scruggs PA-C - Last Filed: 02/24/22 20:03> Related Data Home Medications: Home Medications Medication Instructions Recorded Confirmed Lantus Solostar U-100 Insulin 25 unit SUBCUT HS 11/14/20 09/27/21 Vraylar 3 mg PO DAILY 11/14/20 09/27/21 amlodipine [Norvasc] 10 mg PO DAILY 11/14/20 09/27/21 gabapentin [Neurontin] 1,200 mg PO TID 11/14/20 09/27/21 hydroxyzine HCl 25 mg PO TID 11/14/20 09/27/21 ibuprofen 800 mg PO TID 11/14/20 09/27/21 lisinopril [Zestril] 20 mg PO DAILY 11/14/20 09/27/21 pravastatin [Pravachol] 40 mg PO DAILY 11/14/20 09/27/21 trazodone 100 mg PO HS 11/14/20 09/27/21 bupropion HCl 1 mg PO BID 04/15/21 09/27/21 cyclobenzaprine 10 mg PO TID 09/27/21 09/27/21 glipizide 5 mg PO DAILY 09/27/21 09/27/21 metformin 1,000 mg PO BID 09/27/21 09/27/21 <Li Scruggs PA-C - Last Filed: 02/24/22 20:03> Allergies/Adverse Reactions: Allergies Allergy/AdvReac Type Severity Reaction Status Date / Time aripiprazole Allergy Unknown Abdominal Verified 02/24/22 09:58 Pain lithium Allergy Unknown VOMITING Verified 02/24/22 09:58 <Li Scruggs PA-C - Last Filed: 02/24/22 20:03> Review of Systems Review of Systems: CONSTITUTIONAL: Denies fever, chills, or sweats. CARDIOVASCULAR: Denies chest pain, palpitations. RESPIRATORY: Denies cough or dyspnea. GASTROINTESTINAL: Reports lower ABD pain, nausea. Denies vomiting, constipation, diarrhea. GENITOURINARY: Reports vaginal spotting. Denies dysuria, urinary frequency, or hematuria. SKIN: Denies rash or itching. MUSCULOSKELETAL: Denies back pain, joint pain, or myalgia. <Li Scruggs PA-C - Last Filed: 02/24/22 20:03> All systems reviewed & are unremarkable except as noted in HPI and below <Li Scruggs PA-C - Last Filed: 02/24/22 20:03> PMFSH Past Medical History Medical History: Medical History Anxiety Bipolar disorder Chronic back pain Depression GERD (gastroesophageal reflux disease) Hepatitis Herpes HLD (hyperlipidemia) HTN (hypertension) Human papilloma virus Personality disorder Sciatica Seizures <Li Scruggs PA-C - Last Filed: 02/24/22 20:03> Surgical History Surgical History: Surgical History Hx of section Hx of tonsillectomy <Li Scruggs PA-C - Last Filed: 02/24/22 20:03> Family History Family History: Family History Mother Diabetes mellitus Hypertension Father Diabetes mellitus <Li Scruggs PA-C - Last Filed: 0
[2022-02-24] MEDS: SODIUM CHLORIDE 0.9% IV 1,000 ML 999 ML IV CONT (10:53)
[2022-02-24] MEDS: ONDANSETRON INJ 4 MG/2 ML VIAL IV PUSH (10:53)
[2022-02-24 10:59] LABS: Basophils Absolute Auto 0.1 K/mm3 (0.0-0.1); Basophils Percent Auto 0.5 % (0.2-1.2); Hematocrit 45.8 % (37.0-47.0); Hemoglobin 15.3 g/dL (12.0-15.0); Immature Granulocyte Absolute 0.03 K/mm3 (0.00-0.031); Immature Granulocyte Percent A 0.3 % (0-0.5); Lymphocytes Absolute Auto 1.54 K/mm3 (0.9-3.2); Lymphocytes Percent Auto 13.8 % (18.3-44.2); Mean Corpuscular HGB Conc 33.4 g/dl (32-36); Mean Corpuscular Hemoglobin 28.4 pg (26-34); Mean Corpuscular Volume 85.1 fl (80-100); Mean Platelet Volume 10.4 fl (7.4-10.4); Monocytes Absolute Auto 0.5 K/mm3 (0.1-0.6); Monocytes Percent Auto 4.3 % (2.6-8.5); Neutrophils Absolute Auto 9.1 K/mm3 (1.3-6.7); Neutrophils Percent Auto 81.1 % (45.5-73.1); Platelet Count Result 240 k/mm3 (150-375); Red Blood Count 5.38 M/mm3 (4.2-5.4); Red Cell Distribution Width 13.7 % (11.5-14.5); White Blood Count 11.2 K/mm3 (4.5-10.0)
[2022-02-24 11:14] LABS: Add Urine Microscopic? YES; Alanine Aminotransferase 153 U/L (4-35); Albumin Level 4.2 g/dL (3.5-5.1); Alkaline Phosphatase 145 U/L (38-126); Anion Gap 11 mmol/L (8-16); Appearance Urine Clear (Clear); Aspartate Amino Transferase 131 U/L (14-36); Bacteria Urine Trace /hpf; Bilirubin Urine Negative (Negative); Bilirubin,Total 0.4 mg/dL (0.2-1.3); Blood Urea Nitrogen 3 mg/dL (7-17); Blood Urine 1+ (Negative); Calcium 9.2 mg/dL (8.4-10.2); Carbon Dioxide 21 mmol/L (22-30); Chloride 102 mmol/L (98-107); Color Urine Straw (Yellow); Estimated CRCL calculation 188 ml/min; Estimated Glomerular Filt Rate > 60; Glucose 298 mg/dL (65-110); Glucose Urine UA 3+ mg/dL (Negative); Ketones Urine Negative (Negative); Leukocyte Esterase Ur Negative LEU/UL (Negative); Lipase 193 U/L (23-300); Mucus Urine Rare /lpf; Nitrate Urine Negative (Negative); Potassium 3.7 mmol/L (3.4-5.0); Protein Urine Negative (Negative); RBC Urine 0-2 /hpf (0-2); Sodium 134 mmol/L (137-145); Specific Grav Ur 1.008 (1.001-1.035); Squamous Epithelial Cell Urine Few /hpf (Few); Urobilinogen Urine Negative mg/dL (<2.0); WBC Urine 0-3 /hpf
[2022-02-24 13:10] VITALS: BP 150/68; PULSE 90; RESP 16; O2SAT 97
== END 2022-02-24 13:35 | disposition home or self-care (01) ==
PROVIDERS: Physician Assistant; Emergency Provider Emergency Medicine; PCP Internal Medicine
DX: R10.30 Lower abdominal pain, unspecified (principal); E78.5 Hyperlipidemia, unspecified; I10 Essential (primary) hypertension; K21.9 Gastro-esophageal reflux disease without esophagitis; F60.9 Personality disorder, unspecified; F31.9 Bipolar disorder, unspecified; F41.9 Anxiety disorder, unspecified; Z79.4 Long term (current) use of insulin; Z79.84 Long term (current) use of oral hypoglycemic drugs; F17.210 Nicotine dependence, cigarettes, uncomplicated; K80.20 Calculus of gallbladder without cholecystitis without obstruction
CPT/HCPCS: 36415; 74177; 80053; 81001; 81025; 83690; 85025; 96365; 96375; 99284; J0131; J2405; J7030; Q9967

== ENCOUNTER → 2022-05-13 14:24 | Outpatient (CLI) | payer OTHER, SELFPAY ==
--- NOTE | ~2022-05-13 | XR_ITS ---
XR chest 2V DATE: 05/13/2022 14:58 INDICATION: Cough for 2 weeks, abnormal sputum. History of asthma. TECHNIQUE: PA and lateral views COMPARISON: 03/25/2021 portable AP chest 09/12/2019 2 view chest FINDINGS: Normal heart size. No hilar or mediastinal enlargement. No pulmonary infiltrate or consolid ation, pleural effusion or pulmonary vascular congestion or pneumothorax. Mild degenerative change of the thoracic spine. IMPRESSION: No active cardiopulmonary disease Reviewed, dictated and finalized at location A.
== END ==
DX: R09.3 Abnormal sputum (principal)
CPT/HCPCS: 71046

== ENCOUNTER 2022-05-13 14:56 | Emergency (ER) | payer OTHER, SELFPAY ==
[2022-05-13 15:02] VITALS: BP 127/76; PULSE 85; RESP 16; TEMP 36.2; O2SAT 99
--- NOTE | 2022-05-13 15:05 | ED.URI ---
HPI - URI/Sore Throat General Chief Complaint: Upper Respiratory Infection Stated Complaint: chest congestion/uri Time Seen by Provider: 05/13/22 15:07 Source: patient, RN notes reviewed and old records reviewed Mode of arrival: ambulatory Limitations: no limitations History of Present Illness HPI Narrative: 36-year-old female presents to the [facility] with complaints of upper respiratory infection. Had seen primary care for the same, primary care has written her a chest x-ray which she just had done. Patient thought she could just check-in MD elicited complaint: cough, rhinorrhea and nasal congestion Related Data Home Medications Medication Instructions Recorded Confirmed amlodipine 10 mg tablet (Norvasc) 10 mg PO DAILY 11/14/20 05/13/22 cariprazine 3 mg capsule (Vraylar) 3 mg PO DAILY 11/14/20 05/13/22 gabapentin 300 mg capsule 1,200 mg PO TID 11/14/20 05/13/22 (Neurontin) hydroxyzine HCl 25 mg tablet 25 mg PO TID 11/14/20 05/13/22 ibuprofen 800 mg tablet 800 mg PO TID 11/14/20 05/13/22 insulin glargine 100 unit/mL (3 25 unit subcut HS 11/14/20 05/13/22 mL) subcutaneous pen (Lantus Solostar U-100 Insulin) lisinopril 20 mg tablet (Zestril) 20 mg PO DAILY 11/14/20 05/13/22 pravastatin 40 mg tablet 40 mg PO DAILY 11/14/20 05/13/22 (Pravachol) trazodone 100 mg tablet 100 mg PO HS 11/14/20 05/13/22 bupropion HCl 200 mg tablet,12 hr 1 mg PO BID 04/15/21 05/13/22 sustained-release cyclobenzaprine 10 mg tablet 10 mg PO TID 09/27/21 05/13/22 glipizide 5 mg tablet 5 mg PO DAILY 09/27/21 05/13/22 metformin 1,000 mg tablet 1,000 mg PO BID 09/27/21 05/13/22 cetirizine 10 mg tablet 1 tablet PO DAILY 05/13/22 05/13/22 fluticasone propionate 44 2 inh inhalation DAILY 05/13/22 05/13/22 mcg/actuation HFA aerosol inhaler (Flovent HFA) hydrochlorothiazide 25 mg tablet 1 tablet PO DAILY 05/13/22 05/13/22 valacyclovir 1 gram tablet 1 tablet PO DIRECTED 05/13/22 05/13/22 Allergies Allergy/AdvReac Type Severity Reaction Status Date / Time aripiprazole Allergy Unknown Abdominal Verified 05/13/22 15:07 Pain lithium Allergy Unknown VOMITING Verified 05/13/22 15:07 Review of Systems Review of Systems: All systems reviewed & are unremarkable except as noted in HPI and below Constitutional: Constitutional: Reports no additional constitutional complaints, Denies chills and Denies fever(s) Eyes: Eyes: Reports no additional eye complaints ENT: Reports system reviewed and no additional complaints, except as documented Cardiovascular: Cardiovascular: Reports no additional cardiovascular complaints Respiratory: Respiratory: Reports as per HPI, Reports chest congestion and Reports cough Gastrointestinal: Gastrointestinal: Reports no additional gastrointestinal complaints Musculoskeletal: Musculoskeletal: Reports no additional musculoskeletal complaints Integumentary/Breasts: Skin/Breast: Reports system reviewed and no additional complaints, except as docu Neurologic: Reports system reviewed and no additional complaints, except as documented Psychiatric: Psychiatric: Reports no additional psychiatric complaints Allergic/Immunologic: Allergic/Immunologic: Reports no additional allergic/immunologic complaints PMFSH Past Medical History Medical History Anxiety Bipolar disorder Chronic back pain Depression GERD (gastroesophageal reflux disease) Hepatitis Herpes HLD (hyperlipidemia) HTN (hypertension) Human papilloma virus Personality disorder Sciatica Seizures Surgical History Surgical History Hx of section Hx of tonsillectomy Family History Family History Mother Diabetes mellitus Hypertension Father Diabetes mellitus Social History Social History Smoking packs
== END 2022-05-13 15:17 | disposition home or self-care (01) ==
PROVIDERS: Emergency Provider Nurse Practitioner
DX: J06.9 Acute upper respiratory infection, unspecified (principal); G40.909 Epilepsy, unspecified, not intractable, without status epilepticus; F17.210 Nicotine dependence, cigarettes, uncomplicated; K21.9 Gastro-esophageal reflux disease without esophagitis; E78.5 Hyperlipidemia, unspecified; I10 Essential (primary) hypertension; F41.9 Anxiety disorder, unspecified; F32.A Depression, unspecified
CPT/HCPCS: 99211; G0463

== ENCOUNTER 2022-05-25 13:54 | Emergency (ER) | payer OTHER, SELFPAY ==
[2022-05-25 13:55] VITALS: BP 153/98; PULSE 99; RESP 18; TEMP 36.2; O2SAT 98
--- NOTE | 2022-05-25 14:46 | ED.WOUNDLAC ---
HPI - Wound/Laceration General Chief Complaint: Wound/Laceration <Li Scruggs PA-C - Last Filed: 05/25/22 20:20> Stated Complaint: wound to left axilla <Li Scruggs PA-C - Last Filed: 05/25/22 20:20> Time Seen by Provider: 05/25/22 14:05 <Li Scruggs PA-C - Last Filed: 05/25/22 20:20> Source: patient <Li Scruggs PA-C - Last Filed: 05/25/22 20:20> Mode of arrival: ambulatory <TIEN Burks Last Filed: 05/25/22 20:20> Limitations: no limitations <TIEN Burks Last Filed: 05/25/22 20:20> History of Present Illness HPI narrative: Patient is a 37-year-old female who presents the ED with report of an abscess to her left axillary region. Patient reports having a small area of discomfort in her left axilla for the past couple weeks. Over the last week, she reports it has been increasing in pain, redness, size. She has had some minimal spontaneous drainage from the abscess. Patient denies any fever, chills, nausea, vomiting, other rashes or wounds. She has had 1 previous abscess in a different location. <Li Scruggs PA-C - Last Filed: 05/25/22 20:20> Related Data Home Medications: Home Medications Medication Instructions Recorded Confirmed amlodipine 10 mg tablet (Norvasc) 10 mg PO DAILY 11/14/20 05/13/22 cariprazine 3 mg capsule (Vraylar) 3 mg PO DAILY 11/14/20 05/13/22 gabapentin 300 mg capsule 1,200 mg PO TID 11/14/20 05/13/22 (Neurontin) hydroxyzine HCl 25 mg tablet 25 mg PO TID 11/14/20 05/13/22 ibuprofen 800 mg tablet 800 mg PO TID 11/14/20 05/13/22 insulin glargine 100 unit/mL (3 25 unit subcut HS 11/14/20 05/13/22 mL) subcutaneous pen (Lantus Solostar U-100 Insulin) lisinopril 20 mg tablet (Zestril) 20 mg PO DAILY 11/14/20 05/13/22 pravastatin 40 mg tablet 40 mg PO DAILY 11/14/20 05/13/22 (Pravachol) trazodone 100 mg tablet 100 mg PO HS 11/14/20 05/13/22 bupropion HCl 200 mg tablet,12 hr 1 mg PO BID 04/15/21 05/13/22 sustained-release cyclobenzaprine 10 mg tablet 10 mg PO TID 09/27/21 05/13/22 glipizide 5 mg tablet 5 mg PO DAILY 09/27/21 05/13/22 metformin 1,000 mg tablet 1,000 mg PO BID 09/27/21 05/13/22 cetirizine 10 mg tablet 1 tablet PO DAILY 05/13/22 05/13/22 fluticasone propionate 44 2 inh inhalation DAILY 05/13/22 05/13/22 mcg/actuation HFA aerosol inhaler (Flovent HFA) hydrochlorothiazide 25 mg tablet 1 tablet PO DAILY 05/13/22 05/13/22 valacyclovir 1 gram tablet 1 tablet PO DIRECTED 05/13/22 05/13/22 <Li Scruggs PA-C - Last Filed: 05/25/22 20:20> Allergies/Adverse Reactions: Allergies Allergy/AdvReac Type Severity Reaction Status Date / Time aripiprazole Allergy Unknown Abdominal Verified 05/13/22 15:07 Pain lithium Allergy Unknown VOMITING Verified 05/13/22 15:07 <TIEN Burks Last Filed: 05/25/22 20:20> Review of Systems Review of Systems: CONSTITUTIONAL: Denies fever, chills, or sweats. GASTROINTESTINAL: Denies nausea, vomiting. SKIN: Reports abscess with redness, pain, some drainage to left axillary region. Denies rash, itching. <TIEN Burks Last Filed: 05/25/22 20:20> All systems reviewed & are unremarkable except as noted in HPI and below <TIEN Burks Last Filed: 05/25/22 20:20> PMFSH Past Medical History Medical History: Medical History Anxiety Bipolar disorder Chronic back pain Depression GERD (gastroesophageal reflux disease) Hepatitis Herpes HLD (hyperlipidemia) HTN (hypertension) Human papilloma virus Personality disorder Sciatica Seizures <Li Scruggs PA-C - Last Filed: 05/25/22 20:20> Surgical History Surgical History: Surgical History Hx of section Hx of tonsillectomy <Li Scruggs PA-C - Last Filed: 05/25/22 20:20> Family History Family History: Family History (Reviewed 06
[2022-05-25 16:35] VITALS: BP 144/86; PULSE 88; RESP 18; O2SAT 97
== END 2022-05-25 16:40 | disposition home or self-care (01) ==
PROVIDERS: Emergency Provider Emergency Medicine
DX: L02.412 Cutaneous abscess of left axilla (principal); E78.5 Hyperlipidemia, unspecified; I10 Essential (primary) hypertension; K21.9 Gastro-esophageal reflux disease without esophagitis; F41.9 Anxiety disorder, unspecified; F31.9 Bipolar disorder, unspecified; F60.9 Personality disorder, unspecified; F17.210 Nicotine dependence, cigarettes, uncomplicated; Z79.4 Long term (current) use of insulin; Z79.84 Long term (current) use of oral hypoglycemic drugs
CPT/HCPCS: 10061; 87070; 87075; 87205; 99283

== ENCOUNTER 2022-08-14 17:10 | Emergency (ER) | payer OTHER, SELFPAY ==
[2022-08-14 17:33] VITALS: BP 157/108; PULSE 98; RESP 16; TEMP 37.7; O2SAT 98
[2022-08-14 17:35] VITALS: BP 157/108; PULSE 98; RESP 16; TEMP 37.7; O2SAT 98
--- NOTE | 2022-08-14 18:11 | ED.URI ---
HPI - URI/Sore Throat General Chief Complaint: Upper Respiratory Infection Stated Complaint: Chest pain, shortness of breath, nausea Time Seen by Provider: 08/14/22 18:11 Source: patient and RN notes reviewed Mode of arrival: ambulatory Limitations: no limitations History of Present Illness HPI Narrative: 37 y/o female presented for c/o headache, body aches, sinus pressure/congestion, cough, fever/chills. Cough leads to shortness of breath. Smokes 1-3 PPD. Using rescue inhaler prn. Denies n/v/d/f/c. Not taking anything for symptoms. MD elicited complaint: cough Related Data Home Medications Medication Instructions Recorded Confirmed amlodipine 10 mg tablet (Norvasc) 10 mg PO DAILY 11/14/20 05/13/22 cariprazine 3 mg capsule (Vraylar) 3 mg PO DAILY 11/14/20 05/13/22 gabapentin 300 mg capsule 1,200 mg PO TID 11/14/20 05/13/22 (Neurontin) hydroxyzine HCl 25 mg tablet 25 mg PO TID 11/14/20 05/13/22 ibuprofen 800 mg tablet 800 mg PO TID 11/14/20 05/13/22 insulin glargine 100 unit/mL (3 25 unit subcut HS 11/14/20 05/13/22 mL) subcutaneous pen (Lantus Solostar U-100 Insulin) lisinopril 20 mg tablet (Zestril) 20 mg PO DAILY 11/14/20 05/13/22 pravastatin 40 mg tablet 40 mg PO DAILY 11/14/20 05/13/22 (Pravachol) trazodone 100 mg tablet 100 mg PO HS 11/14/20 05/13/22 bupropion HCl 200 mg tablet,12 hr 1 mg PO BID 04/15/21 05/13/22 sustained-release cyclobenzaprine 10 mg tablet 10 mg PO TID 09/27/21 05/13/22 glipizide 5 mg tablet 5 mg PO DAILY 09/27/21 05/13/22 metformin 1,000 mg tablet 1,000 mg PO BID 09/27/21 05/13/22 cetirizine 10 mg tablet 1 tablet PO DAILY 05/13/22 05/13/22 fluticasone propionate 44 2 inh inhalation DAILY 05/13/22 05/13/22 mcg/actuation HFA aerosol inhaler (Flovent HFA) hydrochlorothiazide 25 mg tablet 1 tablet PO DAILY 05/13/22 05/13/22 valacyclovir 1 gram tablet 1 tablet PO DIRECTED 05/13/22 05/13/22 buspirone 10 mg tablet mg 08/14/22 cariprazine 3 mg capsule (Vraylar) mg 08/14/22 cetirizine 10 mg tablet (Allergy mg 08/14/22 Relief (cetirizine)) glipizide 5 mg tablet mg 08/14/22 lisinopril 20 mg tablet mg 08/14/22 montelukast 10 mg tablet mg 08/14/22 omeprazole 20 mg capsule,delayed mg 08/14/22 release Allergies Allergy/AdvReac Type Severity Reaction Status Date / Time aripiprazole Allergy Unknown Abdominal Verified 08/14/22 17:33 Pain lithium Allergy Unknown VOMITING Verified 08/14/22 17:33 Review of Systems Review of Systems: ROS negative except as in HPI PMFSH Past Medical History Medical History Anxiety Bipolar disorder Chronic back pain Depression GERD (gastroesophageal reflux disease) Hepatitis Herpes HLD (hyperlipidemia) HTN (hypertension) Human papilloma virus Personality disorder Sciatica Seizures Surgical History Surgical History Hx of section Hx of tonsillectomy Family History Family History Mother Diabetes mellitus Hypertension Father Diabetes mellitus Social History Social History Smoking packs per day: 1.5 Smoking cigarettes per day: 30.0 Years smoked: 15 Smoking pack-years: 22.50 Smoking status: Current every day smoker Tobacco type: cigarettes Second hand tobacco smoke exposure: Yes Alcohol intake: current Drinks per week: 1 Substance use type: marijuana Gender identity (if verbalized by the patient): Female Spiritual care concerns: No Exam Narrative: GENERAL: Ill-appearing, nontoxic EYES: conjunctivae clear ENT: Mucous membranes moist. TMs pearly mishra with dull light reflex bilaterally; no tragal tenderness. Oropharynx erythematous without lesions or exudate, no drooling, no hoarseness, no trismus, uvula midline. CHEST: Lungs diminished throughout
== END 2022-08-14 18:26 | disposition home or self-care (01) ==
PROVIDERS: Emergency Provider Nurse Practitioner Family
DX: B34.9 Viral infection, unspecified (principal); F31.9 Bipolar disorder, unspecified; K21.9 Gastro-esophageal reflux disease without esophagitis; E78.5 Hyperlipidemia, unspecified; I10 Essential (primary) hypertension; F17.210 Nicotine dependence, cigarettes, uncomplicated; Z20.822 Contact with and (suspected) exposure to COVID-19
CPT/HCPCS: 87426; 87804; 99213; C9803; G0463

== ENCOUNTER 2022-08-23 19:20 | Emergency (ER) | payer OTHER, SELFPAY ==
--- NOTE | ~2022-08-23 | CT_ITS ---
EXAMINATION: CT abdomen pelvis w con DATE: 08/23/2022 23:46 INDICATION: Acute right upper quadrant pain. Nausea and vomiting. TECHNIQUE: Computed tomography (CT) of the abdomen and pelvis was performed with 100 cc Omnipaque 350 intravenous contrast. The dose-length product was 1672.97 mGy-cm. Automated exposure control and ite rative reconstruction technique were employed. COMPARISON: CT dated 02/24/2022 FINDINGS: Lung bases are unremarkable. Heart size normal. No significant pleural or pericardial effus ion. No significant vascular abnormality. No lymphadenopathy. Nonobstructive bowel gas pattern. There are gallstones. No surrounding inflammatory changes are identified. The liver, spleen, pancreas, adr enal glands and kidneys are unremarkable. No free air or free fluid. No abnormal pelvic masses or flu id collections. Mild lumbar spondylosis. IMPRESSION: 1. Cholelithiasis. Reviewed, dictated and finalized at location A. IMPRESSION: 1. Cholelithiasis.
--- NOTE | ~2022-08-23 | XR_ITS ---
XR chest 1V portable DATE: 08/23/2022 21:11 INDICATION: Cough, hypertension. Seizures. TECHNIQUE: Portable upright AP chest on 08/19/2022 at 2105 hours COMPARISON: 05/13/2022 PA and lateral chest FINDINGS: Scattered mild patchy infiltrates are suggested in the upper, mid and lower lung zones bila terally. Normal heart size. No pleural effusion or pulmonary vascular congestion or pneumothorax is evident. IMPRESSION: Scattered diffuse patchy bilateral pulmonary infiltrates Reviewed, dictated and finalized at location A.
[2022-08-23 19:32] VITALS: BP 187/110; PULSE 126; RESP 20; TEMP 36.6; O2SAT 98
[2022-08-23 19:45] LABS: Glucose Point of Care 167 mg/dl (65-105)
--- NOTE | 2022-08-23 20:56 | ED.RECABL ---
HPI - Recheck/Abnormal Lab/Rx General Chief Complaint: Recheck/Abnormal Lab/Rx <Annette Naylor MD - Last Filed: 08/23/22 22:03> Stated Complaint: elevated blood glucose and elevated blood pressure <Annette Naylor MD - Last Filed: 08/23/22 22:03> Time Seen by Provider: 08/23/22 20:00 <Annette Naylor MD - Last Filed: 08/23/22 22:03> History of Present Illness HPI narrative: This patient presents with 3 weeks of cough and congestion symptoms, she is here because she was concerned that her blood pressure was elevated and her blood sugar was elevated at home. She states that she also recently was diagnosed with a URI, and asthma exacerbation, for which she completed a course of steroids. She states that since she finished this and was given a prescription for Mucinex, she feels like her blood pressure and blood sugar has gone up. <Annette Naylor MD - Last Filed: 08/23/22 22:03> Related Data Home Medications: Home Medications Medication Instructions Recorded Confirmed amlodipine 10 mg tablet (Norvasc) 10 mg PO DAILY 11/14/20 05/13/22 cariprazine 3 mg capsule (Vraylar) 3 mg PO DAILY 11/14/20 05/13/22 gabapentin 300 mg capsule 1,200 mg PO TID 11/14/20 05/13/22 (Neurontin) hydroxyzine HCl 25 mg tablet 25 mg PO TID 11/14/20 05/13/22 ibuprofen 800 mg tablet 800 mg PO TID 11/14/20 05/13/22 insulin glargine 100 unit/mL (3 25 unit subcut HS 11/14/20 05/13/22 mL) subcutaneous pen (Lantus Solostar U-100 Insulin) lisinopril 20 mg tablet (Zestril) 20 mg PO DAILY 11/14/20 05/13/22 pravastatin 40 mg tablet 40 mg PO DAILY 11/14/20 05/13/22 (Pravachol) trazodone 100 mg tablet 100 mg PO HS 11/14/20 05/13/22 bupropion HCl 200 mg tablet,12 hr 1 mg PO BID 04/15/21 05/13/22 sustained-release cyclobenzaprine 10 mg tablet 10 mg PO TID 09/27/21 05/13/22 glipizide 5 mg tablet 5 mg PO DAILY 09/27/21 05/13/22 metformin 1,000 mg tablet 1,000 mg PO BID 09/27/21 05/13/22 cetirizine 10 mg tablet 1 tablet PO DAILY 05/13/22 05/13/22 fluticasone propionate 44 2 inh inhalation DAILY 05/13/22 05/13/22 mcg/actuation HFA aerosol inhaler (Flovent HFA) hydrochlorothiazide 25 mg tablet 1 tablet PO DAILY 05/13/22 05/13/22 valacyclovir 1 gram tablet 1 tablet PO DIRECTED 05/13/22 05/13/22 buspirone 10 mg tablet mg 08/14/22 cariprazine 3 mg capsule (Vraylar) mg 08/14/22 cetirizine 10 mg tablet (Allergy mg 08/14/22 Relief (cetirizine)) glipizide 5 mg tablet mg 08/14/22 lisinopril 20 mg tablet mg 08/14/22 montelukast 10 mg tablet mg 08/14/22 omeprazole 20 mg capsule,delayed mg 08/14/22 release <Annette Naylor MD - Last Filed: 08/23/22 22:03> Allergies/Adverse Reactions: Allergies Allergy/AdvReac Type Severity Reaction Status Date / Time aripiprazole Allergy Unknown Abdominal Verified 08/14/22 17:33 Pain lithium Allergy Unknown VOMITING Verified 08/14/22 17:33 <Annette Naylor MD - Last Filed: 08/23/22 22:03> Review of Systems Review of Systems: CONST: No fever. HEENT: Congestion C/V: No chest pain RESP: Cough GI: No nausea or vomiting : No dysuria. M/S: No joint pain. SKIN: No rash. NEURO: [No headache or focal numbness or weakness] PSYCH: [No depression] <Annette Naylor MD - Last Filed: 08/23/22 22:03> [facility] Past Medical History Medical History: Medical History Anxiety Bipolar disorder Chronic back pain Depression GERD (gastroesophageal reflux disease) Hepatitis Herpes HLD (hyperlipidemia) HTN (hypertension) Human papilloma virus Personality disorder Sciatica Seizures <Anntete Naylor MD - Last Filed: 08/23/22 22:03> Surgical History Surgical History: Surgical History Hx of section Hx of tonsillectomy <Annette Naylor MD - Last Filed: 08/23/22 22:03> Family History Family History: Family History Mother Diabete
[2022-08-23 21:04] LABS: Basophils Absolute Auto 0.1 K/mm3 (0.0-0.1); Basophils Percent Auto 0.7 % (0.2-1.2); Eosinophils Percent Auto 0.1 % (0-4.4); Hematocrit 45.6 % (37.0-47.0); Hemoglobin 15.2 g/dL (12.0-15.0); Immature Granulocyte Absolute 0.06 K/mm3 (0.00-0.031); Immature Granulocyte Percent A 0.5 % (0-0.5); Lymphocytes Absolute Auto 3.91 K/mm3 (0.9-3.2); Lymphocytes Percent Auto 32.8 % (18.3-44.2); Mean Corpuscular HGB Conc 33.3 g/dl (32-36); Mean Corpuscular Hemoglobin 28.4 pg (26-34); Mean Corpuscular Volume 85.2 fl (80-100); Mean Platelet Volume 10.6 fl (7.4-10.4); Monocytes Absolute Auto 0.7 K/mm3 (0.1-0.6); Monocytes Percent Auto 5.5 % (2.6-8.5); Neutrophils Absolute Auto 7.2 K/mm3 (1.3-6.7); Neutrophils Percent Auto 60.4 % (45.5-73.1); Platelet Count Result 310 k/mm3 (150-375); Red Blood Count 5.35 M/mm3 (4.2-5.4); Red Cell Distribution Width 13.2 % (11.5-14.5); White Blood Count 11.9 K/mm3 (4.5-10.0)
[2022-08-23 21:11] LABS: Appearance Urine Slightly Cloudy (Clear); Bilirubin Urine Negative (Negative); Blood Urine Negative (Negative); Color Urine Yellow (Yellow); Glucose Urine UA 3+ mg/dL (Negative); Ketones Urine Negative (Negative); Leukocyte Esterase Ur Negative LEU/UL (Negative); Nitrate Urine Negative (Negative); Protein Urine Negative (Negative); Urobilinogen Urine 0.2 mg/dL (<2.0)
[2022-08-23 21:17] LABS: Bacteria Urine Trace /hpf; RBC Urine 0-2 /hpf (0-2); Squamous Epithelial Cell Urine Moderate /hpf (Few); WBC Urine 0-3 /hpf
[2022-08-23 21:23] LABS: Add Urine Microscopic? YES
[2022-08-23] MEDS: LACTATED RINGERS 1,000 ML 999 ML IV CONT (21:50)
[2022-08-23 22:37] LABS: Alanine Aminotransferase 73 U/L (6-35); Albumin Level 3.5 g/dL (3.5-5.1); Alkaline Phosphatase 92 U/L (38-126); Anion Gap 10 mmol/L (8-16); Aspartate Amino Transferase 66 U/L (14-36); Bilirubin,Total 0.3 mg/dL (0.2-1.3); Blood Urea Nitrogen 6 mg/dL (7-17); Calcium 8.9 mg/dL (8.4-10.2); Carbon Dioxide 20 mmol/L (22-30); Chloride 105 mmol/L (98-107); Estimated CRCL calculation 181 ml/min; Estimated Glomerular Filt Rate > 60; Glucose 107 mg/dL (65-110); Potassium 3.6 mmol/L (3.4-5.0); Sodium 135 mmol/L (137-145)
[2022-08-23 22:46] LABS: Influenza A QL RT-PCR Negative (Negative); Influenza B QL RT-PCR Negative (Negative); SARS-CoV-2 RNA PCR Negative
[2022-08-24 01:44] VITALS: BP 124/84; PULSE 92; RESP 16; O2SAT 98
--- NOTE | 2022-08-24 01:53 | PC.NURSE ---
Patient states I will just pick the medication up tomorrow.
== END 2022-08-24 01:53 | disposition home or self-care (01) ==
PROVIDERS: Emergency Medicine; Emergency Provider Emergency Medicine; PCP Internal Medicine
DX: J18.9 Pneumonia, unspecified organism (principal); J06.9 Acute upper respiratory infection, unspecified; K80.20 Calculus of gallbladder without cholecystitis without obstruction; Z20.822 Contact with and (suspected) exposure to COVID-19; E78.5 Hyperlipidemia, unspecified; E11.9 Type 2 diabetes mellitus without complications; I10 Essential (primary) hypertension; J45.909 Unspecified asthma, uncomplicated; K21.9 Gastro-esophageal reflux disease without esophagitis; F31.9 Bipolar disorder, unspecified; F41.9 Anxiety disorder, unspecified; F60.9 Personality disorder, unspecified; F17.210 Nicotine dependence, cigarettes, uncomplicated; Z79.84 Long term (current) use of oral hypoglycemic drugs; Z79.4 Long term (current) use of insulin
CPT/HCPCS: 36415; 71045; 74177; 80053; 81001; 81025; 82948; 85025; 87502; 96361; 96365; 99284; C9803; J0131; J7120; Q9967; U0003; U0005

== ENCOUNTER 2022-09-10 14:44 | Emergency (ER) | payer OTHER, SELFPAY ==
--- NOTE | ~2022-09-10 | XR_ITS ---
EXAMINATION: XR lumbar spine 2-3V DATE: 09/10/2022 15:53 INDICATION: Low back pain TECHNIQUE: Anteroposterior and lateral views of the lumbar spine, and cone-down lateral view of the l umbosacral junction were obtained. COMPARISON: 01/04/2022 FINDINGS: There is no fracture, dislocation, or subluxation. There is unchanged mild loss of interver tebral disc space height at L3-4, L4-5, and L5-S1. The vertebral body heights are maintained. There i s mild facet osteoarthritis in the lower lumbar spine. IMPRESSION: 1. Mild lumbar spondylosis without acute findings or significant interval change. Reviewed, dictated and finalized at location A. IMPRESSION: 1. Mild lumbar spondylosis without acute findings or significant interval lopez marta
[2022-09-10 14:45] VITALS: BP 160/92; PULSE 102; RESP 16; TEMP 37.1; O2SAT 98
--- NOTE | 2022-09-10 15:15 | ED.BACK ---
HPI - Back Pain/Injury General Chief Complaint: Back Pain/Injury Stated Complaint: back pain Time Seen by Provider: 09/10/22 14:58 Source: patient Mode of arrival: wheelchair Limitations: no limitations History of Present Illness HPI Narrative: Patient presents complaints of low back pain that has increased recently over the last several days. States has chronic low back pain with 2 bulging disc and chronic sciatica. Denies recent injury but states if she tries to move her lower extremity she has increased pain. Denies change in urination, BM or sensation to groin area. Strength and sensation intact to lower extremities per normal patient's abilities but states increased pain is caused her limited mobility. Related Data Home Medications Medication Instructions Recorded Confirmed amlodipine 10 mg tablet (Norvasc) 10 mg PO DAILY 11/14/20 05/13/22 cariprazine 3 mg capsule (Vraylar) 3 mg PO DAILY 11/14/20 05/13/22 gabapentin 300 mg capsule 1,200 mg PO TID 11/14/20 05/13/22 (Neurontin) hydroxyzine HCl 25 mg tablet 25 mg PO TID 11/14/20 05/13/22 ibuprofen 800 mg tablet 800 mg PO TID 11/14/20 05/13/22 insulin glargine 100 unit/mL (3 25 unit subcut HS 11/14/20 05/13/22 mL) subcutaneous pen (Lantus Solostar U-100 Insulin) lisinopril 20 mg tablet (Zestril) 20 mg PO DAILY 11/14/20 05/13/22 pravastatin 40 mg tablet 40 mg PO DAILY 11/14/20 05/13/22 (Pravachol) trazodone 100 mg tablet 100 mg PO HS 11/14/20 05/13/22 bupropion HCl 200 mg tablet,12 hr 1 mg PO BID 04/15/21 05/13/22 sustained-release cyclobenzaprine 10 mg tablet 10 mg PO TID 09/27/21 05/13/22 glipizide 5 mg tablet 5 mg PO DAILY 09/27/21 05/13/22 metformin 1,000 mg tablet 1,000 mg PO BID 09/27/21 05/13/22 cetirizine 10 mg tablet 1 tablet PO DAILY 05/13/22 05/13/22 fluticasone propionate 44 2 inh inhalation DAILY 05/13/22 05/13/22 mcg/actuation HFA aerosol inhaler (Flovent HFA) hydrochlorothiazide 25 mg tablet 1 tablet PO DAILY 05/13/22 05/13/22 valacyclovir 1 gram tablet 1 tablet PO DIRECTED 05/13/22 05/13/22 buspirone 10 mg tablet mg 08/14/22 cariprazine 3 mg capsule (Vraylar) mg 08/14/22 cetirizine 10 mg tablet (Allergy mg 08/14/22 Relief (cetirizine)) glipizide 5 mg tablet mg 08/14/22 lisinopril 20 mg tablet mg 08/14/22 montelukast 10 mg tablet mg 08/14/22 omeprazole 20 mg capsule,delayed mg 08/14/22 release Allergies Allergy/AdvReac Type Severity Reaction Status Date / Time aripiprazole AdvReac Unknown Abdominal Verified 09/10/22 15:16 Pain lithium AdvReac Unknown VOMITING Verified 09/10/22 15:16 Review of Systems Review of Systems: CONSTITUTIONAL: Denies fever, chills, or sweats. EYES: Denies visual changes, redness, or discharge. ENT: Denies rhinorrhea, congestion, sore throat, or otalgia. CARDIOVASCULAR: Denies chest pain, palpitations, or edema. RESPIRATORY: Denies cough or dyspnea. GASTROINTESTINAL: Denies abdominal pain, nausea, vomiting, or diarrhea. GENITOURINARY: Denies dysuria or hematuria. SKIN: Denies rash or itching. MUSCULOSKELETAL: Low back pain increased over the last few days. Denies joint pain, or myalgia. NEUROLOGIC: Denies headache, numbness, or weakness. PSYCHIATRIC: Denies anxiety or depression. All systems reviewed & are unremarkable except as noted in HPI and below PMFSH Past Medical History Medical History Anxiety Bipolar disorder Chronic back pain Depression GERD (gastroesophageal reflux disease) Hepatitis Herpes HLD (hyperlipidemia) HTN (hypertension) Human papilloma virus Personality disorder Sciatica Seizures Surgical History Surgical History Hx of section Hx of tonsillectomy Family History Family History Mother Diabetes mellitus Hypertension Father Diabetes mellitus Social History Socia
[2022-09-10] MEDS: KETOROLAC (*BKC) 60 MG/2 ML VIAL IM (15:25)
[2022-09-10 16:43] LABS: Add Urine Microscopic? YES; Appearance Urine Clear (Clear); Bilirubin Urine Negative (Negative); Blood Urine 1+ (Negative); Color Urine Yellow (Yellow); Glucose Urine UA 3+ mg/dL (Negative); Ketones Urine Negative (Negative); Leukocyte Esterase Ur Negative LEU/UL (Negative); Mucus Urine Rare /lpf; Nitrate Urine Negative (Negative); Protein Urine Negative (Negative); RBC Urine 0-2 /hpf (0-2); Specific Grav Ur 1.021 (1.001-1.035); Squamous Epithelial Cell Urine Few /hpf (Few); Urobilinogen Urine Negative mg/dL (<2.0); WBC Urine 0-3 /hpf
[2022-09-10 17:29] VITALS: BP 133/94; PULSE 80; RESP 12; O2SAT 98
== END 2022-09-10 17:15 | disposition home or self-care (01) ==
PROVIDERS: Emergency Provider Nurse Practitioner; PCP Internal Medicine
DX: M54.50 Low back pain, unspecified (principal); G89.29 Other chronic pain; E78.5 Hyperlipidemia, unspecified; I10 Essential (primary) hypertension; K21.9 Gastro-esophageal reflux disease without esophagitis; F41.9 Anxiety disorder, unspecified; F31.9 Bipolar disorder, unspecified; F60.9 Personality disorder, unspecified; F17.210 Nicotine dependence, cigarettes, uncomplicated; Z79.4 Long term (current) use of insulin; Z79.84 Long term (current) use of oral hypoglycemic drugs; M47.816 Spondylosis without myelopathy or radiculopathy, lumbar region
CPT/HCPCS: 72100; 81001; 81025; 96372; 99283; J1885

== ENCOUNTER 2023-01-11 17:22 | Emergency (ER) | payer OTHER, SELFPAY ==
[2023-01-11 17:25] VITALS: BP 173/102; PULSE 102; RESP 18; TEMP 36.4; O2SAT 99
[2023-01-11] MEDS: KETOROLAC (*BKC) 60 MG/2 ML VIAL IM (17:45)
[2023-01-11] MEDS: HYDROcodone/acetaminophen (*CRX) 5-325 MG TABLET 1 TAB PO (17:45)
[2023-01-11 18:12] LABS: Appearance Urine Slightly Cloudy (Clear); Bilirubin Urine Negative (Negative); Blood Urine 1+ (Negative); Color Urine Yellow (Yellow); Glucose Urine UA 3+ mg/dL (Negative); Ketones Urine Negative (Negative); Leukocyte Esterase Ur Trace LEU/UL (Negative); Nitrate Urine Negative (Negative); Protein Urine Trace mg/dL (Negative); Specific Grav Ur 1.015 (1.001-1.035); Urobilinogen Urine 0.2 mg/dL (<2.0)
[2023-01-11 18:31] LABS: Bacteria Urine 1+ /hpf; Budding Yeast Urine Present /hpf; Mucus Urine Rare /lpf; RBC Urine 21-50 /hpf (0-2); Squamous Epithelial Cell Urine Many /hpf (Few); WBC Urine 31-50 /hpf
[2023-01-11 18:32] LABS: Add Urine Microscopic? YES
--- NOTE | 2023-01-11 18:58 | ED.GENADULT ---
HPI - General Adult General Chief complaint: Unspecified Stated complaint: back, bilateral leg pain Time Seen by Provider: 01/11/23 17:31 History of Present Illness HPI narrative: Patient is a 37-year-old female who presents to the ER with report of bilateral hip pain. Reports this chronic issue that is worsened over the last week. Radiates down bilateral legs. No fall or trauma or injury. She has been doubling up her anti-inflammatories, muscle relaxers, and gabapentin without improvement. Denies fevers or chills or sweats. No new rash. No difficulty with urination or defecation. No saddle anesthesia. Patient does have some mild dysuria without suprapubic pain or flank pain. Related Data Home Medications Medication Instructions Recorded Confirmed amlodipine 10 mg tablet (Norvasc) 10 mg PO DAILY 11/14/20 05/13/22 cariprazine 3 mg capsule (Vraylar) 3 mg PO DAILY 11/14/20 05/13/22 gabapentin 300 mg capsule 1,200 mg PO TID 11/14/20 05/13/22 (Neurontin) hydroxyzine HCl 25 mg tablet 25 mg PO TID 11/14/20 05/13/22 ibuprofen 800 mg tablet 800 mg PO TID 11/14/20 05/13/22 insulin glargine 100 unit/mL (3 25 unit subcut HS 11/14/20 05/13/22 mL) subcutaneous pen (Lantus Solostar U-100 Insulin) lisinopril 20 mg tablet (Zestril) 20 mg PO DAILY 11/14/20 05/13/22 pravastatin 40 mg tablet 40 mg PO DAILY 11/14/20 05/13/22 (Pravachol) trazodone 100 mg tablet 100 mg PO HS 11/14/20 05/13/22 bupropion HCl 200 mg tablet,12 hr 1 mg PO BID 04/15/21 05/13/22 sustained-release cyclobenzaprine 10 mg tablet 10 mg PO TID 09/27/21 05/13/22 glipizide 5 mg tablet 5 mg PO DAILY 09/27/21 05/13/22 metformin 1,000 mg tablet 1,000 mg PO BID 09/27/21 05/13/22 cetirizine 10 mg tablet 1 tablet PO DAILY 05/13/22 05/13/22 fluticasone propionate 44 2 inh inhalation DAILY 05/13/22 05/13/22 mcg/actuation HFA aerosol inhaler (Flovent HFA) hydrochlorothiazide 25 mg tablet 1 tablet PO DAILY 05/13/22 05/13/22 valacyclovir 1 gram tablet 1 tablet PO DIRECTED 05/13/22 05/13/22 buspirone 10 mg tablet mg 08/14/22 cariprazine 3 mg capsule (Vraylar) mg 08/14/22 cetirizine 10 mg tablet (Allergy mg 08/14/22 Relief (cetirizine)) glipizide 5 mg tablet mg 08/14/22 lisinopril 20 mg tablet mg 08/14/22 montelukast 10 mg tablet mg 08/14/22 omeprazole 20 mg capsule,delayed mg 08/14/22 release Allergies Allergy/AdvReac Type Severity Reaction Status Date / Time aripiprazole AdvReac Unknown Abdominal Verified 01/11/23 17:33 Pain lithium AdvReac Unknown VOMITING Verified 01/11/23 17:33 Review of Systems Review of Systems: All systems reviewed & are unremarkable except as noted in HPI and below Constitutional: Constitutional: Denies chills and Denies fever(s) Gastrointestinal: Gastrointestinal: Denies abdominal pain, Denies diarrhea, Denies nausea and Denies vomiting Genitourinary: Genitourinary: Reports dysuria and Denies flank pain Musculoskeletal: Musculoskeletal: Reports arthralgias, Denies joint swelling, Denies muscle weakness and Reports radiating pain into limb PMFSH Past Medical History Medical History Anxiety Bipolar disorder Chronic back pain Depression GERD (gastroesophageal reflux disease) Hepatitis Herpes HLD (hyperlipidemia) HTN (hypertension) Human papilloma virus Personality disorder Sciatica Seizures Surgical History Surgical History Hx of section Hx of tonsillectomy Family History Family History Mother Diabetes mellitus Hypertension Father Diabetes mellitus Social History Social History Smoking packs per day: 1.5 Smoking cigarettes per day: 30.0 Years smoked: 15 Smoking pack-years: 22.50 Smoking status: Current every day smoker Tobacco type: ciga
== END 2023-01-11 19:46 | disposition home or self-care (01) ==
PROVIDERS: Emergency Provider Emergency Medicine; PCP Internal Medicine
DX: M79.605 Pain in left leg (principal); M79.604 Pain in right leg; G89.29 Other chronic pain; N39.0 Urinary tract infection, site not specified; E78.5 Hyperlipidemia, unspecified; I10 Essential (primary) hypertension; K21.9 Gastro-esophageal reflux disease without esophagitis; F32.A Depression, unspecified; F41.9 Anxiety disorder, unspecified; F60.9 Personality disorder, unspecified; F17.210 Nicotine dependence, cigarettes, uncomplicated; Z79.84 Long term (current) use of oral hypoglycemic drugs; Z79.4 Long term (current) use of insulin
CPT/HCPCS: 81001; 87086; 87088; 96372; 99283; A9270; J1885

== ENCOUNTER 2023-05-10 14:24 | Emergency (ER) | payer OTHER, SELFPAY ==
[2023-05-10 14:50] VITALS: BP 160/112; PULSE 91; RESP 20; TEMP 36.4; O2SAT 100
--- NOTE | 2023-05-10 14:55 | ED.URI ---
HPI - URI/Sore Throat General Chief Complaint: Upper Respiratory Infection Stated Complaint: Sore Throat/Sinus Time Seen by Provider: 05/10/23 14:26 Source: patient Mode of arrival: ambulatory Limitations: no limitations History of Present Illness HPI Narrative: Annita is a 37-year-old female patient presenting to clinic today with complaints of sore throat sinus congestion times 2-3 days. No fever or chills. She reports that she has had strep exposure. MD elicited complaint: cough, sore throat, rhinorrhea and nasal congestion Related Data Home Medications Medication Instructions Recorded Confirmed amlodipine 10 mg tablet (Norvasc) 10 mg PO DAILY 11/14/20 05/13/22 cariprazine 3 mg capsule (Vraylar) 3 mg PO DAILY 11/14/20 05/13/22 gabapentin 300 mg capsule 1,200 mg PO TID 11/14/20 05/13/22 (Neurontin) hydroxyzine HCl 25 mg tablet 25 mg PO TID 11/14/20 05/13/22 insulin glargine 100 unit/mL (3 25 unit subcut HS 11/14/20 05/13/22 mL) subcutaneous pen (Lantus Solostar U-100 Insulin) lisinopril 20 mg tablet (Zestril) 20 mg PO DAILY 11/14/20 05/13/22 pravastatin 40 mg tablet 40 mg PO DAILY 11/14/20 05/13/22 (Pravachol) trazodone 100 mg tablet 100 mg PO HS 11/14/20 05/13/22 bupropion HCl 200 mg tablet,12 hr 1 mg PO BID 04/15/21 05/13/22 sustained-release cyclobenzaprine 10 mg tablet 10 mg PO TID 09/27/21 05/13/22 glipizide 5 mg tablet 5 mg PO DAILY 09/27/21 05/13/22 metformin 1,000 mg tablet 1,000 mg PO BID 09/27/21 05/13/22 cetirizine 10 mg tablet 1 tablet PO DAILY 05/13/22 05/13/22 fluticasone propionate 44 2 inh inhalation DAILY 05/13/22 05/13/22 mcg/actuation HFA aerosol inhaler (Flovent HFA) hydrochlorothiazide 25 mg tablet 1 tablet PO DAILY 05/13/22 05/13/22 valacyclovir 1 gram tablet 1 tablet PO DIRECTED 05/13/22 05/13/22 buspirone 10 mg tablet mg 08/14/22 cariprazine 3 mg capsule (Vraylar) mg 08/14/22 cetirizine 10 mg tablet (Allergy mg 08/14/22 Relief (cetirizine)) montelukast 10 mg tablet mg 08/14/22 omeprazole 20 mg capsule,delayed mg 08/14/22 release Allergies Allergy/AdvReac Type Severity Reaction Status Date / Time aripiprazole AdvReac Unknown Abdominal Verified 05/10/23 14:49 Pain lithium AdvReac Unknown VOMITING Verified 05/10/23 14:49 Review of Systems Review of Systems: Pertinent positives per HPI. Patient denies any fever, chills, rash, headache, visual changes, dizziness, cough, shortness of breath, chest pain, palpitations, nausea, vomiting, diarrhea, constipation, abdominal pain, or any urinary issues. PMFSH Past Medical History Medical History Anxiety Bipolar disorder Chronic back pain Depression GERD (gastroesophageal reflux disease) Hepatitis Herpes HLD (hyperlipidemia) HTN (hypertension) Human papilloma virus Personality disorder Sciatica Seizures Surgical History Surgical History Hx of section Hx of tonsillectomy Family History Family History Mother Diabetes mellitus Hypertension Father Diabetes mellitus Social History Social History Smoking packs per day: 1.5 Smoking cigarettes per day: 30.0 Years smoked: 15 Smoking pack-years: 22.50 Smoking status: Current every day smoker Tobacco type: cigarettes Second hand tobacco smoke exposure: Yes Alcohol intake: current Drinks per week: 1 Substance use type: marijuana Living arrangements: alone Gender identity (if verbalized by the patient): Female Spiritual care concerns: No Comments At the time of my signature, I reviewed and agree with the nursing past medical, surgical, social, and family history. There is no relevant family history pertinent to the patient complaint. Exam Narrative: General:
== END 2023-05-10 15:12 | disposition home or self-care (01) ==
PROVIDERS: Emergency Provider Nurse Practitioner Family
DX: J06.9 Acute upper respiratory infection, unspecified (principal); J02.9 Acute pharyngitis, unspecified; Z20.818 Contact with and (suspected) exposure to other bacterial communicable diseases; F17.210 Nicotine dependence, cigarettes, uncomplicated; F12.90 Cannabis use, unspecified, uncomplicated; K21.9 Gastro-esophageal reflux disease without esophagitis; E78.5 Hyperlipidemia, unspecified; I10 Essential (primary) hypertension; F41.9 Anxiety disorder, unspecified; F32.A Depression, unspecified
CPT/HCPCS: 87081; 87147; 87880; 99213; G0463

== ENCOUNTER 2023-07-09 17:24 | Emergency (ER) | payer OTHER, SELFPAY ==
--- NOTE | 2023-07-09 17:28 | WPDEDEXPGENP ---
HPI - General Ped General Stated complaint: cough,sore throat Time Seen by Provider: 07/09/23 17:27 Source: family Mode of arrival: ambulatory Limitations: no limitations Nursing Documentation: reviewed/agree Related Data Home Medications Medication Instructions Recorded Confirmed amlodipine 10 mg tablet (Norvasc) 10 mg PO DAILY 11/14/20 05/13/22 cariprazine 3 mg capsule (Vraylar) 3 mg PO DAILY 11/14/20 05/13/22 gabapentin 300 mg capsule 1,200 mg PO TID 11/14/20 05/13/22 (Neurontin) hydroxyzine HCl 25 mg tablet 25 mg PO TID 11/14/20 05/13/22 insulin glargine 100 unit/mL (3 25 unit subcut HS 11/14/20 05/13/22 mL) subcutaneous pen (Lantus Solostar U-100 Insulin) lisinopril 20 mg tablet (Zestril) 20 mg PO DAILY 11/14/20 05/13/22 pravastatin 40 mg tablet 40 mg PO DAILY 11/14/20 05/13/22 (Pravachol) trazodone 100 mg tablet 100 mg PO HS 11/14/20 05/13/22 bupropion HCl 200 mg tablet,12 hr 1 mg PO BID 04/15/21 05/13/22 sustained-release cyclobenzaprine 10 mg tablet 10 mg PO TID 09/27/21 05/13/22 glipizide 5 mg tablet 5 mg PO DAILY 09/27/21 05/13/22 metformin 1,000 mg tablet 1,000 mg PO BID 09/27/21 05/13/22 cetirizine 10 mg tablet 1 tablet PO DAILY 05/13/22 05/13/22 fluticasone propionate 44 2 inh inhalation DAILY 05/13/22 05/13/22 mcg/actuation HFA aerosol inhaler (Flovent HFA) hydrochlorothiazide 25 mg tablet 1 tablet PO DAILY 05/13/22 05/13/22 valacyclovir 1 gram tablet 1 tablet PO DIRECTED 05/13/22 05/13/22 buspirone 10 mg tablet mg 08/14/22 cariprazine 3 mg capsule (Vraylar) mg 08/14/22 montelukast 10 mg tablet mg 08/14/22 omeprazole 20 mg capsule,delayed mg 08/14/22 release Allergies Allergy/AdvReac Type Severity Reaction Status Date / Time aripiprazole AdvReac Unknown Abdominal Verified 05/10/23 14:49 Pain lithium AdvReac Unknown VOMITING Verified 05/10/23 14:49 Pediatric Review of Systems All systems ED: reviewed and negative except as stated Constitutional: Denies fever, chills or change in activity level Eyes: Denies eye pain or eye discharge ENT: Reports sore throat; Denies ear pain or rhinorrhea Cardiovascular: Denies dyspnea on exertion Respiratory: Reports cough and sputum production; Denies dyspnea or wheezing Gastrointestinal: Reports vomiting; Denies nausea, diarrhea or constipation Musculoskeletal: Denies joint swelling or gait changes Integumentary: Denies rash or lesions Psychiatric: Denies change in energy level or fussiness PMFSH Past Medical History Medical History Anxiety Bipolar disorder Chronic back pain Depression GERD (gastroesophageal reflux disease) Hepatitis Herpes HLD (hyperlipidemia) HTN (hypertension) Human papilloma virus Personality disorder Sciatica Seizures Surgical History Surgical History Hx of section Hx of tonsillectomy Family History Family History Mother Diabetes mellitus Hypertension Father Diabetes mellitus Social History Social History Smoking packs per day: 1.5 Smoking cigarettes per day: 30.0 Years smoked: 15 Smoking pack-years: 22.50 Smoking status: Current every day smoker Tobacco type: cigarettes Second hand tobacco smoke exposure: Yes Alcohol intake: current Drinks per week: 1 Substance use type: marijuana Living arrangements: alone Gender identity (if verbalized by the patient): Female Spiritual care concerns: No Comments At time of signature, agree with nursing past medical, surgical, social and family history. There is no relevant family history pertinent to the presenting complaint . Pediatric Exam General: Limitations: no limitations General appearance: well-appearing, well-hydrated, active and well-nourishe
[2023-07-09 17:41] VITALS: BP 144/90; PULSE 91; RESP 16; TEMP 36.5; O2SAT 100
--- NOTE | 2023-07-09 18:51 | ED.URI ---
HPI - URI/Sore Throat General Chief Complaint: Upper Respiratory Infection Stated Complaint: cough,sore throat Time Seen by Provider: 07/09/23 17:27 Source: patient Mode of arrival: ambulatory Limitations: no limitations History of Present Illness HPI Narrative: Patient is 30-year-old female who presents with 5 days of cough, sore throat, fatigue since boyfriend's daughter came back from her mom's. Patient has been taking [id number] cold and flu medicine with no relief. Patient denies any fever, chills, nausea, vomiting, diarrhea. Has been using inhaler and rescue inhaler as needed. Related Data Home Medications Medication Instructions Recorded Confirmed amlodipine 10 mg tablet (Norvasc) 10 mg PO DAILY 11/14/20 05/13/22 cariprazine 3 mg capsule (Vraylar) 3 mg PO DAILY 11/14/20 05/13/22 gabapentin 300 mg capsule 1,200 mg PO TID 11/14/20 05/13/22 (Neurontin) hydroxyzine HCl 25 mg tablet 25 mg PO TID 11/14/20 05/13/22 insulin glargine 100 unit/mL (3 25 unit subcut HS 11/14/20 05/13/22 mL) subcutaneous pen (Lantus Solostar U-100 Insulin) lisinopril 20 mg tablet (Zestril) 20 mg PO DAILY 11/14/20 05/13/22 pravastatin 40 mg tablet 40 mg PO DAILY 11/14/20 05/13/22 (Pravachol) trazodone 100 mg tablet 100 mg PO HS 11/14/20 05/13/22 bupropion HCl 200 mg tablet,12 hr 1 mg PO BID 04/15/21 05/13/22 sustained-release cyclobenzaprine 10 mg tablet 10 mg PO TID 09/27/21 05/13/22 glipizide 5 mg tablet 5 mg PO DAILY 09/27/21 05/13/22 metformin 1,000 mg tablet 1,000 mg PO BID 09/27/21 05/13/22 cetirizine 10 mg tablet 1 tablet PO DAILY 05/13/22 05/13/22 fluticasone propionate 44 2 inh inhalation DAILY 05/13/22 05/13/22 mcg/actuation HFA aerosol inhaler (Flovent HFA) hydrochlorothiazide 25 mg tablet 1 tablet PO DAILY 05/13/22 05/13/22 valacyclovir 1 gram tablet 1 tablet PO DIRECTED 05/13/22 05/13/22 buspirone 10 mg tablet mg 08/14/22 cariprazine 3 mg capsule (Vraylar) mg 08/14/22 montelukast 10 mg tablet mg 08/14/22 omeprazole 20 mg capsule,delayed mg 08/14/22 release Allergies Allergy/AdvReac Type Severity Reaction Status Date / Time aripiprazole AdvReac Unknown Abdominal Verified 05/10/23 14:49 Pain lithium AdvReac Unknown VOMITING Verified 05/10/23 14:49 Review of Systems Review of Systems: All systems reviewed & are unremarkable except as noted in HPI and below Constitutional: Constitutional: Denies body ache(s), Denies chills, Denies fatigue, Denies fever(s), Denies headache(s), Denies malaise and Denies weakness Eyes: Eyes: Denies blurry vision, Denies itchy eyes and Denies loss of vision ENT: Denies otalgia, Denies headache(s), Denies nasal congestion, Denies sinus pain and Reports sore throat Cardiovascular: Cardiovascular: Denies chest pain, Denies irregular heart rhythm and Denies dyspnea Respiratory: Respiratory: Reports cough and Denies dyspnea Gastrointestinal: Gastrointestinal: Denies abdominal pain, Denies diarrhea, Denies nausea and Denies vomiting Musculoskeletal: Musculoskeletal: Denies back pain, Denies myalgias and Denies arthralgias Integumentary/Breasts: Skin/Breast: Denies pruritus and Denies rash Neurologic: Denies headache(s), Denies loss of vision and Denies weakness Psychiatric: Psychiatric: Reports no additional psychiatric complaints Endocrine: Endocrine: Denies fatigue Allergic/Immunologic: Allergic/Immunologic: Denies itchy eyes PMFSH Past Medical History Medical History Anxiety Bipolar disorder Chronic back pain Depression GERD (gastroesophageal reflux disease) Hepatitis Herpes HLD (hyperlipidemia) HTN (hypertension) Human papilloma virus Personality disorder Sciatica Seizures Surgical History Surgical History Hx of section Hx of tonsillectomy Family History Family History (Reviewed 05/10/23 @ 14:56 by Indigo
== END 2023-07-09 18:58 | disposition home or self-care (01) ==
PROVIDERS: Emergency Provider Nurse Practitioner Family; PCP Family Medicine
DX: J06.9 Acute upper respiratory infection, unspecified (principal); F17.210 Nicotine dependence, cigarettes, uncomplicated; F12.90 Cannabis use, unspecified, uncomplicated; K21.9 Gastro-esophageal reflux disease without esophagitis; E78.5 Hyperlipidemia, unspecified; I10 Essential (primary) hypertension; F41.9 Anxiety disorder, unspecified; F32.A Depression, unspecified
CPT/HCPCS: 87081; 87880; 99213; G0463

== ENCOUNTER 2023-08-26 17:36 | Emergency (ER) | payer OTHER, SELFPAY ==
[2023-08-26 17:46] VITALS: BP 149/84; PULSE 92; RESP 16; TEMP 37.2; O2SAT 98
[2023-08-26 17:48] VITALS: BP 149/84; PULSE 92; RESP 16; TEMP 37.2; O2SAT 98
--- NOTE | 2023-08-26 18:18 | ED.URI ---
HPI - URI/Sore Throat General Chief Complaint: Upper Respiratory Infection Stated Complaint: Sinus Time Seen by Provider: 08/26/23 18:18 Source: patient Mode of arrival: ambulatory Limitations: no limitations History of Present Illness HPI Narrative: 38-year-old female presents with complaint of cough, congestion, fatigue and sore throat for 3 days. Afebrile. Patient reports feeling short of breath today. Patient states that she smokes 3 packs of cigarettes a day. All systems reviewed and negative except as noted above. Related Data Home Medications Medication Instructions Recorded Confirmed amlodipine 10 mg tablet (Norvasc) 10 mg PO DAILY 11/14/20 05/13/22 cariprazine 3 mg capsule (Vraylar) 3 mg PO DAILY 11/14/20 05/13/22 gabapentin 300 mg capsule 1,200 mg PO TID 11/14/20 05/13/22 (Neurontin) hydroxyzine HCl 25 mg tablet 25 mg PO TID 11/14/20 05/13/22 insulin glargine 100 unit/mL (3 25 unit subcut HS 11/14/20 05/13/22 mL) subcutaneous pen (Lantus Solostar U-100 Insulin) lisinopril 20 mg tablet (Zestril) 20 mg PO DAILY 11/14/20 05/13/22 pravastatin 40 mg tablet 40 mg PO DAILY 11/14/20 05/13/22 (Pravachol) trazodone 100 mg tablet 100 mg PO HS 11/14/20 05/13/22 bupropion HCl 200 mg tablet,12 hr 1 mg PO BID 04/15/21 05/13/22 sustained-release cyclobenzaprine 10 mg tablet 10 mg PO TID 09/27/21 05/13/22 glipizide 5 mg tablet 5 mg PO DAILY 09/27/21 05/13/22 metformin 1,000 mg tablet 1,000 mg PO BID 09/27/21 05/13/22 cetirizine 10 mg tablet 1 tablet PO DAILY 05/13/22 05/13/22 fluticasone propionate 44 2 inh inhalation DAILY 05/13/22 05/13/22 mcg/actuation HFA aerosol inhaler (Flovent HFA) hydrochlorothiazide 25 mg tablet 1 tablet PO DAILY 05/13/22 05/13/22 valacyclovir 1 gram tablet 1 tablet PO DIRECTED 05/13/22 05/13/22 buspirone 10 mg tablet mg 08/14/22 cariprazine 3 mg capsule (Vraylar) mg 08/14/22 montelukast 10 mg tablet mg 08/14/22 omeprazole 20 mg capsule,delayed mg 08/14/22 release Allergies Allergy/AdvReac Type Severity Reaction Status Date / Time aripiprazole AdvReac Unknown Abdominal Verified 08/26/23 17:44 Pain lithium AdvReac Unknown VOMITING Verified 08/26/23 17:44 Review of Systems Review of Systems: CONSTITUTIONAL: Denies fever, chills, or sweats. reports fatigue. EYES: Denies visual changes, redness, or discharge. ENT: Reports rhinorrhea, congestion, sore throat. Denies otalgia. CARDIOVASCULAR: Denies chest pain, palpitations, or edema. RESPIRATORY: reports cough and dyspnea with exertion. GASTROINTESTINAL: Denies abdominal pain, nausea, vomiting, or diarrhea. GENITOURINARY: Denies dysuria or hematuria. SKIN: Denies rash or itching. MUSCULOSKELETAL: Denies back pain, joint pain, or myalgia. NEUROLOGIC: Denies headache, numbness, or weakness. PSYCHIATRIC: Denies anxiety or depression. All other systems reviewed are negative, except as documented in HPI. [facility] Past Medical History Medical History Anxiety Bipolar disorder Chronic back pain Depression GERD (gastroesophageal reflux disease) Hepatitis Herpes HLD (hyperlipidemia) HTN (hypertension) Human papilloma virus Personality disorder Sciatica Seizures Surgical History Surgical History Hx of section Hx of tonsillectomy Family History Family History Mother Diabetes mellitus Hypertension Father Diabetes mellitus Social History Social History Smoking packs per day: 1.5 Smoking cigarettes per day: 30.0 Years smoked: 15 Smoking pack-years: 22.50 Smoking status: Current every day smoker Tobacco type: cigarettes Second hand tobacco smoke exposure: Yes Alcohol intake: current Drinks per week: 1 Substance use type: mar
== END 2023-08-26 18:28 | disposition home or self-care (01) ==
PROVIDERS: Emergency Provider Nurse Practitioner Family; PCP Family Medicine
DX: J06.9 Acute upper respiratory infection, unspecified (principal); I10 Essential (primary) hypertension; E78.5 Hyperlipidemia, unspecified; F17.210 Nicotine dependence, cigarettes, uncomplicated; Z20.822 Contact with and (suspected) exposure to COVID-19
CPT/HCPCS: 87081; 87426; 87804; 87880; 99213; C9803; G0463

== ENCOUNTER 2023-09-02 10:53 | Emergency (ER) | payer OTHER, SELFPAY ==
--- NOTE | ~2023-09-02 | XR_ITS ---
XR chest 2V DATE: 09/02/2023 12:35 INDICATION: Cough, congestion, sore throat TECHNIQUE: PA and lateral views COMPARISON: 08/23/2022 portable AP chest FINDINGS: Normal heart size. No hilar or mediastinal enlargement. No pulmonary infiltrate or consolid ation, pleural effusion or pulmonary vascular congestion or pneumothorax. IMPRESSION: No active cardiopulmonary disease Reviewed, dictated and finalized at location B.
[2023-09-02 11:32] VITALS: BP 167/99; PULSE 78; RESP 16; TEMP 36.8; O2SAT 98
--- NOTE | 2023-09-02 11:53 | ED.URI ---
HPI - URI/Sore Throat General Chief Complaint: Upper Respiratory Infection Stated Complaint: cough and cold symptoms Time Seen by Provider: 09/02/23 11:50 History of Present Illness HPI Narrative: Patient is a 38 year old female with history of asthma, HLD, HTN, DM here with cough and sore throat. Patient notes that she has been feeling ill for about 3 weeks at this point. She notes that about 3 weeks ago she began having a sore throat and nasal congestion. She was seen at an urgent care a couple of weeks ago where they performed viral swabs, strep swab and started her on a 5 day course of steroids. Patient notes that she briefly felt improved after the steroids but has been feeling ill again since discontinuing them. She has not followed up with her primary care doctor. She denies any fever chills. She notes that she has had a cough, constant sore throat with some swelling of her lymph nodes in her neck. She additionally has had persistent nasal drainage and some associated nausea. At home she has been using Flonase and Zyrtec with minimal improvement of her symptoms. She does note that she has a long-acting inhaler that she has not been using and does not know where her short-acting inhaler is. She denies any chest pain. She has multiple sick contacts with similar symptoms. Related Data Home Medications Medication Instructions Recorded Confirmed amlodipine 10 mg tablet (Norvasc) 10 mg PO DAILY 11/14/20 05/13/22 cariprazine 3 mg capsule (Vraylar) 3 mg PO DAILY 11/14/20 05/13/22 gabapentin 300 mg capsule 1,200 mg PO TID 11/14/20 05/13/22 (Neurontin) hydroxyzine HCl 25 mg tablet 25 mg PO TID 11/14/20 05/13/22 insulin glargine 100 unit/mL (3 25 unit subcut HS 11/14/20 05/13/22 mL) subcutaneous pen (Lantus Solostar U-100 Insulin) lisinopril 20 mg tablet (Zestril) 20 mg PO DAILY 11/14/20 05/13/22 pravastatin 40 mg tablet 40 mg PO DAILY 11/14/20 05/13/22 (Pravachol) trazodone 100 mg tablet 100 mg PO HS 11/14/20 05/13/22 bupropion HCl 200 mg tablet,12 hr 1 mg PO BID 04/15/21 05/13/22 sustained-release cyclobenzaprine 10 mg tablet 10 mg PO TID 09/27/21 05/13/22 glipizide 5 mg tablet 5 mg PO DAILY 09/27/21 05/13/22 metformin 1,000 mg tablet 1,000 mg PO BID 09/27/21 05/13/22 cetirizine 10 mg tablet 1 tablet PO DAILY 05/13/22 05/13/22 fluticasone propionate 44 2 inh inhalation DAILY 05/13/22 05/13/22 mcg/actuation HFA aerosol inhaler (Flovent HFA) hydrochlorothiazide 25 mg tablet 1 tablet PO DAILY 05/13/22 05/13/22 valacyclovir 1 gram tablet 1 tablet PO DIRECTED 05/13/22 05/13/22 buspirone 10 mg tablet mg 08/14/22 cariprazine 3 mg capsule (Vraylar) mg 08/14/22 montelukast 10 mg tablet mg 08/14/22 omeprazole 20 mg capsule,delayed mg 08/14/22 release Allergies Allergy/AdvReac Type Severity Reaction Status Date / Time aripiprazole AdvReac Unknown Abdominal Verified 08/26/23 17:44 Pain lithium AdvReac Unknown VOMITING Verified 08/26/23 17:44 Review of Systems Review of Systems: CONSTITUTIONAL: Denies fever, chills, or sweats. EYES: Denies visual changes, redness, or discharge. ENT: rhinorrhea, congestion, sore throat. CARDIOVASCULAR: Denies chest pain, palpitations, or edema. RESPIRATORY: cough, no dyspnea. GASTROINTESTINAL: Nausea, Denies abdominal pain, vomiting, or diarrhea. GENITOURINARY: Denies dysuria or hematuria. SKIN: Denies rash or itching. MUSCULOSKELETAL: Denies back pain, joint pain, or myalgia. NEUROLOGIC: Denies headache, numbness, or weakness. PSYCHIATRIC: Denies anxiety or depression. [facility] Past Medical History Medical History Anxiety Bipolar disorder Chronic back pain Depression GERD (gastroesophageal reflux disease) Hepatitis Herpes HLD (hyperlipidemia) HTN (hypertension) Human papilloma virus Personality disorder Sciatica Seizures Surgical History Surgical History (Reviewed 05/10/23 @ 14:56 by Anuj Nichols
--- NOTE | 2023-09-02 12:05 | ECG_ITS ---
Measurements Intervals [place] Rate: 87 P: 9 IA: 153 QRS: 4 QRSD: 87 T: 7 QT: 331 QTc: 399 Interpretive Statements SINUS RHYTHM LOW QRS VOLTAGE IN PRECORDIAL LEADS [QRS DEFLECTION < 1.0 mV IN CHEST LEADS] COMPARED TO ECG 09/27/2021 01:09:31 NO SIGNIFICANT CHANGES Electronically Signed On 09-02-2023 19:16:23 CDT by Criss Cameron M.D.
[2023-09-02] MEDS: ALBUTEROL SULFATE NEB 2.5 MG/3 ML INH INHALATION (12:13)
[2023-09-02 12:14] VITALS: PULSE 94; RESP 22
[2023-09-02] MEDS: IPRATROPIUM BR 0.02% INH SOLN 0.5 MG/2.5 ML VIAL INHALATION (12:14)
[2023-09-02] MEDS: predniSONE 20 MG TABLET 40 MG PO (12:22)
[2023-09-02 12:24] VITALS: PULSE 89
[2023-09-02 12:30] VITALS: BP 154/80; PULSE 88; RESP 18; O2SAT 98
[2023-09-02 12:37] LABS: Basophils Absolute Auto 0.1 K/mm3 (0.0-0.1); Basophils Percent Auto 0.5 % (0.2-1.2); Eosinophils Percent Auto 0.1 % (0-4.4); Hematocrit 44.7 % (37.0-47.0); Hemoglobin 14.8 g/dL (12.0-15.0); Immature Granulocyte Absolute 0.02 K/mm3 (0.00-0.031); Immature Granulocyte Percent A 0.2 % (0-0.5); Lymphocytes Absolute Auto 4.64 K/mm3 (0.9-3.2); Lymphocytes Percent Auto 36.6 % (18.3-44.2); Mean Corpuscular HGB Conc 33.1 g/dl (32-36); Mean Corpuscular Hemoglobin 27.9 pg (26-34); Mean Corpuscular Volume 84.3 fl (80-100); Mean Platelet Volume 10.5 fl (7.4-10.4); Monocytes Absolute Auto 0.5 K/mm3 (0.1-0.6); Monocytes Percent Auto 4.3 % (2.6-8.5); Neutrophils Absolute Auto 7.4 K/mm3 (1.3-6.7); Neutrophils Percent Auto 58.3 % (45.5-73.1); Platelet Count Result 253 k/mm3 (150-375); Red Cell Distribution Width 12.7 % (11.5-14.5); White Blood Count 12.7 K/mm3 (4.5-10.0)
[2023-09-02 12:55] LABS: Alanine Aminotransferase 53 U/L (6-35); Alkaline Phosphatase 106 U/L (38-126); Anion Gap 7 mmol/L (8-16); Aspartate Amino Transferase 45 U/L (14-36); Bilirubin,Total 0.5 mg/dL (0.2-1.3); Blood Urea Nitrogen 9 mg/dL (7-17); CRP 1.9 mg/dL (<1.0); Calcium 8.6 mg/dL (8.4-10.2); Carbon Dioxide 24 mmol/L (22-30); Chloride 101 mmol/L (98-107); Estimated CRCL calculation 221 ml/min; Estimated Glomerular Filt Rate > 60; Glucose 269 mg/dL (65-110); Potassium 3.4 mmol/L (3.4-5.0); Sodium 132 mmol/L (137-145)
[2023-09-02 13:03] LABS: NT Pro B Type Natriuretic Pept 136 pg/mL (19.9-100); Troponin I < 0.012 ng/mL (0.000-0.034)
[2023-09-02 13:14] LABS: Influenza A QL RT-PCR Negative (Negative); Influenza B QL RT-PCR Negative (Negative); RSV RNA, RT-PCR Negative (Negative); SARS-CoV-2 RNA PCR Negative (Negative)
[2023-09-02 13:30] VITALS: BP 146/82; PULSE 80; RESP 18; TEMP 36.7; O2SAT 98
== END 2023-09-02 14:09 | disposition home or self-care (01) ==
PROVIDERS: Physician Assistant; Emergency Provider Student in an Organized Health Care Education/Training Program
DX: J18.9 Pneumonia, unspecified organism (principal); R05.2 Subacute cough; Z20.822 Contact with and (suspected) exposure to COVID-19; J45.909 Unspecified asthma, uncomplicated; I10 Essential (primary) hypertension; E78.5 Hyperlipidemia, unspecified; E11.9 Type 2 diabetes mellitus without complications; K21.9 Gastro-esophageal reflux disease without esophagitis; F31.9 Bipolar disorder, unspecified; F60.9 Personality disorder, unspecified; F17.210 Nicotine dependence, cigarettes, uncomplicated; Z79.84 Long term (current) use of oral hypoglycemic drugs; Z79.4 Long term (current) use of insulin
CPT/HCPCS: 36415; 71046; 80053; 83880; 84484; 85025; 86140; 87637; 93005; 94640; 99284; J7512

== ENCOUNTER 2023-10-13 14:28 | Emergency (ER) | payer OTHER, SELFPAY ==
[2023-10-13 14:30] VITALS: BP 131/87; PULSE 94; RESP 18; TEMP 36.4; O2SAT 97
--- NOTE | 2023-10-13 15:29 | ED.GENADULT ---
HPI - General Adult General Chief complaint: Dizziness Stated complaint: dizzy, weak History of Present Illness HPI narrative: Annita Oropeza is a 38 y/o female with PMhx of HTN/ DM type 2/ Asthma, she was at her significant others physical therapy appointment and she told them she felt weak and dizzy and they called 911 and her BS was [id number]- she states that she takes Metformin 1000 mg BID and Lantus at bedtime 30 units. She reports that she is feeling a little better since being here and thinks her blood sugar might be better. Related Data Home Medications Medication Instructions Recorded Confirmed amlodipine 10 mg tablet (Norvasc) 10 mg PO DAILY 11/14/20 05/13/22 cariprazine 3 mg capsule (Vraylar) 3 mg PO DAILY 11/14/20 05/13/22 gabapentin 300 mg capsule 1,200 mg PO TID 11/14/20 05/13/22 (Neurontin) hydroxyzine HCl 25 mg tablet 25 mg PO TID 11/14/20 05/13/22 insulin glargine 100 unit/mL (3 25 unit subcut HS 11/14/20 05/13/22 mL) subcutaneous pen (Lantus Solostar U-100 Insulin) lisinopril 20 mg tablet (Zestril) 20 mg PO DAILY 11/14/20 05/13/22 pravastatin 40 mg tablet 40 mg PO DAILY 11/14/20 05/13/22 (Pravachol) trazodone 100 mg tablet 100 mg PO HS 11/14/20 05/13/22 bupropion HCl 200 mg tablet,12 hr 1 mg PO BID 04/15/21 05/13/22 sustained-release cyclobenzaprine 10 mg tablet 10 mg PO TID 09/27/21 05/13/22 glipizide 5 mg tablet 5 mg PO DAILY 09/27/21 05/13/22 metformin 1,000 mg tablet 1,000 mg PO BID 09/27/21 05/13/22 cetirizine 10 mg tablet 1 tablet PO DAILY 05/13/22 05/13/22 fluticasone propionate 44 2 inh inhalation DAILY 05/13/22 05/13/22 mcg/actuation HFA aerosol inhaler (Flovent HFA) hydrochlorothiazide 25 mg tablet 1 tablet PO DAILY 05/13/22 05/13/22 valacyclovir 1 gram tablet 1 tablet PO DIRECTED 05/13/22 05/13/22 buspirone 10 mg tablet mg 08/14/22 cariprazine 3 mg capsule (Vraylar) mg 08/14/22 montelukast 10 mg tablet mg 08/14/22 omeprazole 20 mg capsule,delayed mg 08/14/22 release Allergies Allergy/AdvReac Type Severity Reaction Status Date / Time aripiprazole AdvReac Unknown Abdominal Verified 08/26/23 17:44 Pain lithium AdvReac Unknown VOMITING Verified 08/26/23 17:44 [facility] Past Medical History Medical History Anxiety Bipolar disorder Chronic back pain Depression GERD (gastroesophageal reflux disease) Hepatitis Herpes HLD (hyperlipidemia) HTN (hypertension) Human papilloma virus Personality disorder Sciatica Seizures Surgical History Surgical History Hx of section Hx of tonsillectomy Family History Family History Mother Diabetes mellitus Hypertension Father Diabetes mellitus Social History Social History Smoking packs per day: 1.5 Smoking cigarettes per day: 30.0 Years smoked: 15 Smoking pack-years: 22.50 Smoking status: Current every day smoker Tobacco type: cigarettes Second hand tobacco smoke exposure: Yes Alcohol intake: current Drinks per week: 1 Substance use type: marijuana Living arrangements: alone Gender identity (if verbalized by the patient): Female Spiritual care concerns: No Course Vital Signs Vital signs: Vital Signs Temperature 36.4 C L 10/13/23 14:30 Pulse Rate 94 10/13/23 14:30 Respiratory Rate 18 10/13/23 14:30 Blood Pressure 131/87 10/13/23 14:30 Pulse Oximetry 97 10/13/23 14:30 Oxygen Delivery Room Air 10/13/23 14:30 Temperature 36.4 C L 10/13/23 14:30 Pulse Rate 94 10/13/23 14:30 Respiratory Rate 18 10/13/23 14:30 Blood Pressure 131/87 10/13/23 14:30 Pulse Oximetry 97 10/13/23 14:30 Oxygen Delivery Room Air 10/13/23 14:30 Medical Decision Making Vital Signs Vital Signs: Vital Signs
--- NOTE | 2023-10-13 16:21 | PC.NURSE ---
Pt outside and states to RN I am going to just go home and take some Metformin. Pt finished smoking then ambulated to car in [place] w/ steady gait.
== END 2023-10-13 16:36 | disposition left against medical advice (07) ==
LOC: ANHED 16:26
PROVIDERS: Emergency Provider Nurse Practitioner Family
DX: E11.9 Type 2 diabetes mellitus without complications (principal); I10 Essential (primary) hypertension; J45.909 Unspecified asthma, uncomplicated; F17.210 Nicotine dependence, cigarettes, uncomplicated
CPT/HCPCS: 99281

== ENCOUNTER 2024-01-20 13:28 | Outpatient (CLI) | payer OTHER, SELFPAY ==
--- NOTE | ~2024-01-20 | XR_ITS ---
EXAMINATION: XR lumbar spine 2-3V DATE: 01/20/2024 13:52 INDICATION: Chronic back pain. TECHNIQUE: 3 views of lumbar spine were obtained. COMPARISON: Lumbar spine radiographs 09/10/2022 FINDINGS: Bone alignment is normal. Vertebral body heights are normal. There is moderately decreased disc height at L3-L4, mildly decreased disc height at L4-L5, and moderately decreased disc height at L5-S1. There is multilevel facet joint osteoarthritis, severe in lower lumbar spine. IMPRESSION: 1. Moderate lower lumbar spondylosis. Reviewed, dictated and finalized at location E. HIATRIC NP
== END 2024-01-20 13:29 | disposition home or self-care (01) ==
PROVIDERS: PCP Physician Assistant; Visit Provider Physician Assistant
DX: M43.06 Spondylolysis, lumbar region (principal); G89.29 Other chronic pain
CPT/HCPCS: 72100

== ENCOUNTER 2024-01-25 10:16 | Emergency (ER) | payer OTHER, SELFPAY ==
[2024-01-25 10:27] VITALS: BP 136/95; PULSE 102; RESP 18; TEMP 36.7; O2SAT 98
--- NOTE | 2024-01-25 11:06 | ED.URI ---
HPI - URI/Sore Throat General Chief Complaint: Upper Respiratory Infection Stated Complaint: Sore Throat Time Seen by Provider: 01/25/24 11:06 Source: patient Mode of arrival: ambulatory Limitations: no limitations History of Present Illness HPI Narrative: 38-year-old female presents with complaint of sore throat, fatigue, chills since yesterday. Patient reports that her daughter tested positive for strep throat approximately 4 days ago. Denies nausea vomiting diarrhea. Patient also concern for scabies. Reports itching to bilateral arms, abdomen and back and sometimes to thighs for the past week. Patient reports she has had scabies in the past. Patient admits that she does not shower often. All systems reviewed and negative except as noted above. Related Data Home Medications Medication Instructions Recorded Confirmed amlodipine 10 mg tablet (Norvasc) 10 mg PO DAILY 11/14/20 01/25/24 gabapentin 300 mg capsule 1,200 mg PO TID 11/14/20 01/25/24 (Neurontin) hydroxyzine HCl 25 mg tablet 25 mg PO TID 11/14/20 01/25/24 insulin glargine 100 unit/mL (3 25 unit subcut HS 11/14/20 01/25/24 mL) subcutaneous pen (Lantus Solostar U-100 Insulin) lisinopril 20 mg tablet (Zestril) 20 mg PO DAILY 11/14/20 01/25/24 pravastatin 40 mg tablet 40 mg PO DAILY 11/14/20 01/25/24 (Pravachol) trazodone 100 mg tablet 100 mg PO HS 11/14/20 01/25/24 bupropion HCl 200 mg tablet,12 hr 1 mg PO BID 04/15/21 01/25/24 sustained-release glipizide 5 mg tablet 5 mg PO DAILY 09/27/21 01/25/24 metformin 1,000 mg tablet 1,000 mg PO BID 09/27/21 01/25/24 cetirizine 10 mg tablet 1 tablet PO DAILY 05/13/22 01/25/24 fluticasone propionate 44 2 inh inhalation DAILY 05/13/22 01/25/24 mcg/actuation HFA aerosol inhaler (Flovent HFA) hydrochlorothiazide 25 mg tablet 1 tablet PO DAILY 05/13/22 01/25/24 valacyclovir 1 gram tablet 1 tablet PO DIRECTED 05/13/22 01/25/24 buspirone 10 mg tablet 10 mg PO DAILY 08/14/22 cariprazine 3 mg capsule (Vraylar) 3 mg PO DAILY 08/14/22 01/25/24 montelukast 10 mg tablet 10 mg PO DAILY 08/14/22 01/25/24 omeprazole 20 mg capsule,delayed 20 mg PO DAILY 08/14/22 01/25/24 release Allergies Allergy/AdvReac Type Severity Reaction Status Date / Time aripiprazole AdvReac Unknown Abdominal Verified 01/25/24 10:41 Pain lithium AdvReac Unknown VOMITING Verified 01/25/24 10:41 Review of Systems Review of Systems: CONSTITUTIONAL: Denies fever, chills, or sweats. reports fatigue. EYES: Denies visual changes, redness, or discharge. ENT: Denies rhinorrhea, congestion . Reports sore throat. Denies otalgia. CARDIOVASCULAR: Denies chest pain, palpitations, or edema. RESPIRATORY: Denies cough or dyspnea. GASTROINTESTINAL: Denies abdominal pain, nausea, vomiting, or diarrhea. GENITOURINARY: Denies dysuria or hematuria. SKIN: Reports itchy bites to skin. MUSCULOSKELETAL: Denies back pain, joint pain, or myalgia. NEUROLOGIC: Denies headache, numbness, or weakness. PSYCHIATRIC: Denies anxiety or depression. All other systems reviewed are negative, except as documented in HPI. [facility] Past Medical History Medical History Anxiety Bipolar disorder Chronic back pain Depression GERD (gastroesophageal reflux disease) Hepatitis Herpes HLD (hyperlipidemia) HTN (hypertension) Human papilloma virus Personality disorder Sciatica Seizures Surgical History Surgical History Hx of section Hx of tonsillectomy Family History Family History Mother Diabetes mellitus Hypertension Father Diabetes mellitus Social History Social History Smoking packs per day: 1.5 Smoking cigarettes per day: 30.0 Years smoked: 15 Smoking pack-years: 22.50 Smoking status
== END 2024-01-25 11:22 | disposition home or self-care (01) ==
PROVIDERS: Emergency Provider Nurse Practitioner Family; PCP Physician Assistant
DX: J02.9 Acute pharyngitis, unspecified (principal); Z20.818 Contact with and (suspected) exposure to other bacterial communicable diseases; B86 Scabies; F17.210 Nicotine dependence, cigarettes, uncomplicated; F12.90 Cannabis use, unspecified, uncomplicated; G40.909 Epilepsy, unspecified, not intractable, without status epilepticus; K21.9 Gastro-esophageal reflux disease without esophagitis; E78.5 Hyperlipidemia, unspecified; I10 Essential (primary) hypertension; F41.9 Anxiety disorder, unspecified; F32.A Depression, unspecified
CPT/HCPCS: 87081; 87880; 99213; G0463

== ENCOUNTER 2024-02-14 11:24 | Emergency (ER) | payer OTHER, SELFPAY ==
[2024-02-14 11:37] VITALS: BP 154/85; PULSE 95; RESP 18; TEMP 37.2; O2SAT 100
--- NOTE | 2024-02-14 12:19 | ED.URI ---
HPI - URI/Sore Throat General Chief Complaint: Upper Respiratory Infection Stated Complaint: Sinus Time Seen by Provider: 02/14/24 12:12 Source: patient and RN notes reviewed Mode of arrival: ambulatory Limitations: no limitations History of Present Illness HPI Narrative: Patient presents today with a one-week history of cough, congestion, sore throat, postnasal drainage. Denies fever. Patient also states that she feels she can not take a deeper breath. History of asthma for which she uses an albuterol rescue inhaler and Flovent daily inhaler. She has been taking cold and allergy medication without much relief. Currently rates her sore throat 05/09. Patient states she smokes 2-4 packs of cigarettes per day. Related Data Home Medications Medication Instructions Recorded Confirmed amlodipine 10 mg tablet (Norvasc) 10 mg PO DAILY 11/14/20 01/25/24 gabapentin 300 mg capsule 1,200 mg PO TID 11/14/20 01/25/24 (Neurontin) hydroxyzine HCl 25 mg tablet 25 mg PO TID 11/14/20 01/25/24 insulin glargine 100 unit/mL (3 25 unit subcut HS 11/14/20 01/25/24 mL) subcutaneous pen (Lantus Solostar U-100 Insulin) lisinopril 20 mg tablet (Zestril) 20 mg PO DAILY 11/14/20 01/25/24 pravastatin 40 mg tablet 40 mg PO DAILY 11/14/20 01/25/24 (Pravachol) trazodone 100 mg tablet 100 mg PO HS 11/14/20 01/25/24 bupropion HCl 200 mg tablet,12 hr 1 mg PO BID 04/15/21 01/25/24 sustained-release glipizide 5 mg tablet 5 mg PO DAILY 09/27/21 01/25/24 metformin 1,000 mg tablet 1,000 mg PO BID 09/27/21 01/25/24 cetirizine 10 mg tablet 1 tablet PO DAILY 05/13/22 01/25/24 fluticasone propionate 44 2 inh inhalation DAILY 05/13/22 01/25/24 mcg/actuation HFA aerosol inhaler (Flovent HFA) hydrochlorothiazide 25 mg tablet 1 tablet PO DAILY 05/13/22 01/25/24 valacyclovir 1 gram tablet 1 tablet PO DIRECTED 05/13/22 01/25/24 buspirone 10 mg tablet 10 mg PO DAILY 08/14/22 cariprazine 3 mg capsule (Vraylar) 3 mg PO DAILY 08/14/22 01/25/24 montelukast 10 mg tablet 10 mg PO DAILY 08/14/22 01/25/24 omeprazole 20 mg capsule,delayed 20 mg PO DAILY 08/14/22 01/25/24 release Allergies Allergy/AdvReac Type Severity Reaction Status Date / Time aripiprazole AdvReac Unknown Abdominal Verified 02/14/24 11:48 Pain lithium AdvReac Unknown VOMITING Verified 02/14/24 11:48 Review of Systems Review of Systems: CONSTITUTIONAL: Denies body aches, fever, chills, or sweats. EYES: Denies visual changes, redness, or discharge. ENT: Denies rhinorrhea or otalgia.+ congestion, sore throat, postnasal drip CARDIOVASCULAR: Denies chest pain, palpitations, or edema. RESPIRATORY: Denies dyspnea.+ cough GASTROINTESTINAL: Denies abdominal pain, nausea, vomiting, or diarrhea. GENITOURINARY: Denies dysuria or hematuria. SKIN: Denies rash, itching, or wounds. MUSCULOSKELETAL: Denies back pain, joint pain, or myalgia. NEUROLOGIC: Denies headache, numbness, tingling, or weakness. PSYCH: Denies depression or anxiety. [facility] Past Medical History Medical History Anxiety Bipolar disorder Chronic back pain Depression GERD (gastroesophageal reflux disease) Hepatitis Herpes HLD (hyperlipidemia) HTN (hypertension) Human papilloma virus Personality disorder Sciatica Seizures Surgical History Surgical History Hx of section Hx of tonsillectomy Family History Family History Mother Diabetes mellitus Hypertension Father Diabetes mellitus Social History Social History Smoking packs per day: 1.5 Smoking cigarettes per day: 30.0 Years smoked: 15 Smoking pack-years: 22.50 Smoking status: Current every day smoker Tobacco type: cigarettes Second hand tobacco smoke exposure: Yes Alcohol intak
== END 2024-02-14 12:32 | disposition home or self-care (01) ==
PROVIDERS: Emergency Provider Nurse Practitioner; PCP Physician Assistant
DX: J06.9 Acute upper respiratory infection, unspecified (principal); J45.901 Unspecified asthma with (acute) exacerbation; F17.210 Nicotine dependence, cigarettes, uncomplicated; K21.9 Gastro-esophageal reflux disease without esophagitis; E78.5 Hyperlipidemia, unspecified; I10 Essential (primary) hypertension; G40.909 Epilepsy, unspecified, not intractable, without status epilepticus; F41.9 Anxiety disorder, unspecified; F32.A Depression, unspecified
CPT/HCPCS: 87081; 87880; 99213; G0463

== ENCOUNTER 2024-02-27 15:09 | Emergency (ER) | payer OTHER, SELFPAY ==
--- NOTE | ~2024-02-27 | XR_ITS ---
EXAMINATION: XR chest 1V portable DATE: 02/27/2024 15:40 INDICATION: Cough. Shortness of breath. TECHNIQUE: A single frontal view of the chest was obtained. COMPARISON: Chest 2 views 09/02/2023 FINDINGS: There is no pneumonia, pleural effusion, or pneumothorax. The heart size is normal. IMPRESSION: 1. No acute cardiopulmonary disease. Reviewed, dictated and finalized at location A.
[2024-02-27 15:14] VITALS: BP 167/86; PULSE 118; RESP 20; TEMP 36.2; O2SAT 99
--- NOTE | 2024-02-27 15:45 | ED.URI ---
HPI - URI/Sore Throat General Chief Complaint: Upper Respiratory Infection Stated Complaint: sinus infection Time Seen by Provider: 02/27/24 15:30 History of Present Illness HPI Narrative: Patient presenting with cough, congestion, sore throat, some chest tightness with coughing, for the past 1-2 weeks. Has been trying [id number] medications without much improvement. She does smoke daily. Related Data Home Medications Medication Instructions Recorded Confirmed amlodipine 10 mg tablet (Norvasc) 10 mg PO DAILY 11/14/20 01/25/24 gabapentin 300 mg capsule 1,200 mg PO TID 11/14/20 01/25/24 (Neurontin) hydroxyzine HCl 25 mg tablet 25 mg PO TID 11/14/20 01/25/24 insulin glargine 100 unit/mL (3 25 unit subcut HS 11/14/20 01/25/24 mL) subcutaneous pen (Lantus Solostar U-100 Insulin) lisinopril 20 mg tablet (Zestril) 20 mg PO DAILY 11/14/20 01/25/24 pravastatin 40 mg tablet 40 mg PO DAILY 11/14/20 01/25/24 (Pravachol) trazodone 100 mg tablet 100 mg PO HS 11/14/20 01/25/24 bupropion HCl 200 mg tablet,12 hr 1 mg PO BID 04/15/21 01/25/24 sustained-release glipizide 5 mg tablet 5 mg PO DAILY 09/27/21 01/25/24 metformin 1,000 mg tablet 1,000 mg PO BID 09/27/21 01/25/24 cetirizine 10 mg tablet 1 tablet PO DAILY 05/13/22 01/25/24 fluticasone propionate 44 2 inh inhalation DAILY 05/13/22 01/25/24 mcg/actuation HFA aerosol inhaler (Flovent HFA) hydrochlorothiazide 25 mg tablet 1 tablet PO DAILY 05/13/22 01/25/24 valacyclovir 1 gram tablet 1 tablet PO DIRECTED 05/13/22 01/25/24 buspirone 10 mg tablet 10 mg PO DAILY 08/14/22 cariprazine 3 mg capsule (Vraylar) 3 mg PO DAILY 08/14/22 01/25/24 montelukast 10 mg tablet 10 mg PO DAILY 08/14/22 01/25/24 omeprazole 20 mg capsule,delayed 20 mg PO DAILY 08/14/22 01/25/24 release Allergies Allergy/AdvReac Type Severity Reaction Status Date / Time aripiprazole AdvReac Unknown Abdominal Verified 02/27/24 15:17 Pain lithium AdvReac Unknown VOMITING Verified 02/27/24 15:17 Review of Systems Review of Systems: All systems reviewed & are unremarkable except as noted in HPI and below PMFSH Past Medical History Medical History Anxiety Bipolar disorder Chronic back pain Depression GERD (gastroesophageal reflux disease) Hepatitis Herpes HLD (hyperlipidemia) HTN (hypertension) Human papilloma virus Personality disorder Sciatica Seizures Surgical History Surgical History Hx of section Hx of tonsillectomy Family History Family History Mother Diabetes mellitus Hypertension Father Diabetes mellitus Social History Social History Smoking packs per day: 1.5 Smoking cigarettes per day: 30.0 Years smoked: 15 Smoking pack-years: 22.50 Smoking status: Current every day smoker Tobacco type: cigarettes Second hand tobacco smoke exposure: Yes Alcohol intake: current Drinks per week: 1 Substance use type: marijuana Living arrangements: alone Gender identity (if verbalized by the patient): Female Spiritual care concerns: No Exam Narrative: EXAMINATION OF ORGAN SYSTEMS/BODY AREAS: Constitutional: Vital signs per nursing GENERAL:[No acute distress, non-toxic appearing.] HEAD: Normal with no signs of head trauma. EYES: EOMI, conjunctiva normal ENT: Hearing grossly intact LUNGS: diminished breath sounds with prolonged end expiratory phase HEART: tachycardia ABD: [Soft], [nontender to palpation] EXT: Normal range of motion SKIN: [No rashes or lesions.] NEURO: [Alert and oriented x 3. No gross focal sensory or strength deficits.] PSYCH: Normal affect Course Vital Signs Vital signs: Vital Signs Temperature 97.2 F L 02/27/24 15:14 Pulse Rate 118 H 0
[2024-02-27] MEDS: predniSONE 20 MG TABLET 40 MG PO (15:53)
[2024-02-27 15:56] VITALS: PULSE 100; RESP 20
[2024-02-27] MEDS: ALBUTEROL SULFATE NEB 2.5 MG/3 ML INH 15 MG INHALATION (15:56)
[2024-02-27] MEDS: IPRATROPIUM BR 0.02% INH SOLN 0.5 MG/2.5 ML VIAL 1 MG INHALATION (15:56)
[2024-02-27 16:02] LABS: Influenza A QL RT-PCR Negative (Negative); Influenza B QL RT-PCR Negative (Negative); RSV RNA, RT-PCR Negative (Negative); SARS-CoV-2 RNA PCR Negative (Negative)
[2024-02-27 16:30] VITALS: BP 116/72; PULSE 104; RESP 16; O2SAT 100
[2024-02-27 17:24] VITALS: PULSE 110; RESP 20
[2024-02-27 17:32] VITALS: BP 136/98; PULSE 104; RESP 16; TEMP 36.6; O2SAT 97
== END 2024-02-27 18:13 | disposition home or self-care (01) ==
PROVIDERS: Student in an Organized Health Care Education/Training Program; Emergency Provider Emergency Medicine; PCP Physician Assistant
DX: J06.9 Acute upper respiratory infection, unspecified (principal); J20.9 Acute bronchitis, unspecified; Z20.822 Contact with and (suspected) exposure to COVID-19; F17.210 Nicotine dependence, cigarettes, uncomplicated; K21.9 Gastro-esophageal reflux disease without esophagitis; E78.5 Hyperlipidemia, unspecified; I10 Essential (primary) hypertension; G40.909 Epilepsy, unspecified, not intractable, without status epilepticus; F41.9 Anxiety disorder, unspecified; F32.A Depression, unspecified
CPT/HCPCS: 71045; 87637; 94640; 99283; J7512

== ENCOUNTER 2024-05-08 11:30 | Emergency (ER) | payer OTHER, SELFPAY ==
[2024-05-08 11:47] VITALS: BP 118/76; PULSE 100; RESP 20; TEMP 36.3; O2SAT 100
[2024-05-08 12:02] LABS: Glucose Point of Care 230 mg/dl (65-105)
--- NOTE | 2024-05-08 12:08 | ED.GENADULT ---
HPI - General Adult General Chief complaint: Skin/Abscess/Foreign Body Stated complaint: Boil Inner Rt Thigh Source: patient Mode of arrival: ambulatory Limitations: no limitations History of Present Illness HPI narrative: Patient presents for evaluation of her right inguinal skin cutaneous abscess for last 3 days. She states that the lesion spontaneously started draining yesterday. Drainage was bloody. She currently has a dressing in the affected area. She had some hot flashes and chills. No nausea, vomiting, diarrhea. She is diabetic, not checking her blood sugars regularly. She rates her pain 8/10 severity, without descriptive quality. She is a current every day smoker. Related Data Home Medications Medication Instructions Recorded Confirmed amlodipine 10 mg tablet (Norvasc) 10 mg PO DAILY 11/14/20 05/08/24 gabapentin 300 mg capsule 1,200 mg PO TID 11/14/20 05/08/24 (Neurontin) hydroxyzine HCl 25 mg tablet 25 mg PO TID 11/14/20 05/08/24 insulin glargine 100 unit/mL (3 25 unit subcut HS 11/14/20 05/08/24 mL) subcutaneous pen (Lantus Solostar U-100 Insulin) lisinopril 20 mg tablet (Zestril) 20 mg PO DAILY 11/14/20 05/08/24 pravastatin 40 mg tablet 40 mg PO DAILY 11/14/20 05/08/24 (Pravachol) trazodone 100 mg tablet 100 mg PO HS 11/14/20 05/08/24 bupropion HCl 200 mg tablet,12 hr 1 mg PO BID 04/15/21 05/08/24 sustained-release glipizide 5 mg tablet 5 mg PO DAILY 09/27/21 05/08/24 metformin 1,000 mg tablet 1,000 mg PO BID 09/27/21 05/08/24 cetirizine 10 mg tablet 1 tablet PO DAILY 05/13/22 05/08/24 fluticasone propionate 44 2 inh inhalation DAILY 05/13/22 05/08/24 mcg/actuation HFA aerosol inhaler (Flovent HFA) hydrochlorothiazide 25 mg tablet 1 tablet PO DAILY 05/13/22 05/08/24 valacyclovir 1 gram tablet 1 tablet PO DIRECTED 05/13/22 05/08/24 buspirone 10 mg tablet 10 mg PO DAILY 08/14/22 05/08/24 cariprazine 3 mg capsule (Vraylar) 3 mg PO DAILY 08/14/22 05/08/24 montelukast 10 mg tablet 10 mg PO DAILY 08/14/22 05/08/24 omeprazole 20 mg capsule,delayed 20 mg PO DAILY 08/14/22 05/08/24 release Allergies Allergy/AdvReac Type Severity Reaction Status Date / Time aripiprazole AdvReac Unknown Abdominal Verified 02/27/24 15:17 Pain lithium AdvReac Unknown VOMITING Verified 02/27/24 15:17 Review of Systems Review of Systems: CONSTITUTIONAL: Denies fever, chills, or sweats. EYES: Denies visual changes, redness, or discharge. ENT: Denies rhinorrhea, congestion, sore throat, or otalgia. CARDIOVASCULAR: Denies chest pain, palpitations, or edema. RESPIRATORY: Denies cough or dyspnea. GASTROINTESTINAL: Denies abdominal pain, nausea, vomiting, or diarrhea. GENITOURINARY: Denies dysuria or hematuria. SKIN: Reports painful skin lesion to right inguinal region MUSCULOSKELETAL: Denies back pain, joint pain, or myalgia. NEUROLOGIC: Denies headache, numbness, dizziness, or weakness. PSYCHIATRIC: Denies anxiety or depression. [facility] Past Medical History Medical History Anxiety Bipolar disorder Chronic back pain Depression GERD (gastroesophageal reflux disease) Hepatitis Herpes HLD (hyperlipidemia) HTN (hypertension) Human papilloma virus Personality disorder Sciatica Seizures Surgical History Surgical History Hx of section Hx of tonsillectomy Family History Family History Mother Diabetes mellitus Hypertension Father Diabetes mellitus Social History Social History Smoking packs per day: 1.5 Smoking cigarettes per day: 30.0 Years smoked: 15 Smoking pack-years: 22.50 Smoking status: Current every day smoker Tobacco type: cigarettes Second hand tobacco smoke exposure: Yes Alcohol intake: current Drinks pe
== END 2024-05-08 12:20 | disposition home or self-care (01) ==
PROVIDERS: Emergency Provider Nurse Practitioner; PCP Physician Assistant
DX: L02.214 Cutaneous abscess of groin (principal); F17.210 Nicotine dependence, cigarettes, uncomplicated; K21.9 Gastro-esophageal reflux disease without esophagitis; E78.5 Hyperlipidemia, unspecified; I10 Essential (primary) hypertension; E11.9 Type 2 diabetes mellitus without complications; Z79.4 Long term (current) use of insulin; Z79.84 Long term (current) use of oral hypoglycemic drugs; F32.A Depression, unspecified; F41.9 Anxiety disorder, unspecified
CPT/HCPCS: 81025; 82948; 99213; G0463

== ENCOUNTER 2024-05-17 15:40 | Emergency (ER) | payer OTHER, SELFPAY ==
--- NOTE | ~2024-05-17 | CT_ITS ---
CT lumbar spine wo con Ordering provider: Li Echeverria PA-C History: 38 years Female with . lbp . Comparison: None. Technique: CT lumbar spine without contrast. Radiation reduction technique utilized. DLP is 1508.38 m Gy. FINDINGS: VER[place]BRAE: Normal height and alignment. No subluxation or visible acute fracture. Mild degenerative c hanges. DISC SPACES: Narrowing of the disc L3-L4. Bilateral facet joint disease at the level of L4-L5 and L5- S1. T12-L1: No stenosis. L1-L2: No stenosis. L2-L3: No stenosis. Diffuse disc bulge L3-L4: No stenosis. Diffuse disc bulge with bilateral narrowing of the foramina. L4-L5: No stenosis. Diffuse disc bulge with bilateral narrowing of the foramina. L5-S1: No stenosis. Diffuse disc bulge with bilateral narrowing of the foramina. PARASPINOUS SOFT TISSUES: Mild atheromatous disease of the abdominal aorta. IMPRESSION: Narrowing of the disc L3-L4. multilevel disc bulges with bilateral intervertebral foraminal narrowing. Reviewed, dictated and finalized at location A.
[2024-05-17 15:44] VITALS: BP 134/91; PULSE 107; RESP 12; TEMP 36.4; O2SAT 97
[2024-05-17] MEDS: methocarbamoL 500 MG TABLET 1000 MG PO (17:25)
[2024-05-17] MEDS: methylPREDNISolone SOD SUCC 125 MG VIAL IM (17:25)
[2024-05-17] MEDS: ACETAMINOPHEN 500 MG TABLET 1000 MG PO (17:25)
[2024-05-17] MEDS: KETOROLAC (*BKC) 60 MG/2 ML VIAL IM (17:25)
--- NOTE | 2024-05-17 17:50 | ED.BACK ---
HPI - Back Pain/Injury General Chief Complaint: Back Pain/Injury Stated Complaint: back pain Time Seen by Provider: 05/17/24 15:57 Source: patient Mode of arrival: EMS Limitations: no limitations History of Present Illness HPI Narrative: Patient is a 38-year-old female who presents to the ED via EMS with report of lower back pain. Patient reports history of chronic back pain, History of bulging discs, however states pain has become worse over the last few days. Has been taking ibuprofen and muscle relaxers at home without improvement. Denies new injury. Denies abdominal pain, dysuria, hematuria, bowel or bladder incontinence, numbness, saddle anesthesia, weakness, fevers. Related Data Home Medications Medication Instructions Recorded Confirmed amlodipine 10 mg tablet (Norvasc) 10 mg PO DAILY 11/14/20 05/08/24 gabapentin 300 mg capsule 1,200 mg PO TID 11/14/20 05/08/24 (Neurontin) hydroxyzine HCl 25 mg tablet 25 mg PO TID 11/14/20 05/08/24 insulin glargine 100 unit/mL (3 25 unit subcut HS 11/14/20 05/08/24 mL) subcutaneous pen (Lantus Solostar U-100 Insulin) lisinopril 20 mg tablet (Zestril) 20 mg PO DAILY 11/14/20 05/08/24 pravastatin 40 mg tablet 40 mg PO DAILY 11/14/20 05/08/24 (Pravachol) trazodone 100 mg tablet 100 mg PO HS 11/14/20 05/08/24 bupropion HCl 200 mg tablet,12 hr 1 mg PO BID 04/15/21 05/08/24 sustained-release glipizide 5 mg tablet 5 mg PO DAILY 09/27/21 05/08/24 metformin 1,000 mg tablet 1,000 mg PO BID 09/27/21 05/08/24 cetirizine 10 mg tablet 1 tablet PO DAILY 05/13/22 05/08/24 fluticasone propionate 44 2 inh inhalation DAILY 05/13/22 05/08/24 mcg/actuation HFA aerosol inhaler (Flovent HFA) hydrochlorothiazide 25 mg tablet 1 tablet PO DAILY 05/13/22 05/08/24 valacyclovir 1 gram tablet 1 tablet PO DIRECTED 05/13/22 05/08/24 buspirone 10 mg tablet 10 mg PO DAILY 08/14/22 05/08/24 cariprazine 3 mg capsule (Vraylar) 3 mg PO DAILY 08/14/22 05/08/24 montelukast 10 mg tablet 10 mg PO DAILY 08/14/22 05/08/24 omeprazole 20 mg capsule,delayed 20 mg PO DAILY 08/14/22 05/08/24 release Allergies Allergy/AdvReac Type Severity Reaction Status Date / Time aripiprazole AdvReac Unknown Abdominal Verified 02/27/24 15:17 Pain lithium AdvReac Unknown VOMITING Verified 02/27/24 15:17 Review of Systems Review of Systems: CONSTITUTIONAL: Denies fever, chills, or sweats. GASTROINTESTINAL: Denies incontinence, abdominal pain, nausea, vomiting, or diarrhea. GENITOURINARY: Denies Incontinence, dysuria or hematuria. MUSCULOSKELETAL: See HPI. NEUROLOGIC: Denies headache, dizziness, numbness, or weakness. All systems reviewed & are unremarkable except as noted in HPI and below PMFSH Past Medical History Medical History Anxiety Bipolar disorder Chronic back pain Depression GERD (gastroesophageal reflux disease) Hepatitis Herpes HLD (hyperlipidemia) HTN (hypertension) Human papilloma virus Personality disorder Sciatica Seizures Surgical History Surgical History Hx of section Hx of tonsillectomy Family History Family History Mother Diabetes mellitus Hypertension Father Diabetes mellitus Social History Social History Smoking packs per day: 1.5 Smoking cigarettes per day: 30.0 Years smoked: 15 Smoking pack-years: 22.50 Smoking status: Current every day smoker Tobacco type: cigarettes Second hand tobacco smoke exposure: Yes Alcohol intake: current Drinks per week: 1 Substance use type: marijuana Living arrangements: alone Gender identity (if verbalized by the patient): Female Spiritual care concerns: No Exam Narrative: GENERAL: Appears older than stated age, morbidly obese
[2024-05-17 18:10] VITALS: BP 148/91; PULSE 106; RESP 18; O2SAT 100
[2024-05-17 18:54] VITALS: BP 145/97; PULSE 106; RESP 20; O2SAT 99
== END 2024-05-17 18:55 | disposition home or self-care (01) ==
PROVIDERS: Emergency Provider Physician Assistant; PCP Physician Assistant
DX: M51.36 Other intervertebral disc degeneration, lumbar region (principal); M47.816 Spondylosis without myelopathy or radiculopathy, lumbar region; S39.012A Strain of muscle, fascia and tendon of lower back, initial encounter; I10 Essential (primary) hypertension; E78.5 Hyperlipidemia, unspecified; K21.9 Gastro-esophageal reflux disease without esophagitis; F17.210 Nicotine dependence, cigarettes, uncomplicated; F31.9 Bipolar disorder, unspecified; F41.9 Anxiety disorder, unspecified; Z79.4 Long term (current) use of insulin; Z79.84 Long term (current) use of oral hypoglycemic drugs; Z79.899 Other long term (current) drug therapy; X58.XXXA Exposure to other specified factors, initial encounter
CPT/HCPCS: 72131; 81025; 96372; 99284; A9270; J1885; J2919

== ENCOUNTER 2024-06-21 17:15 | Emergency (ER) | payer OTHER, SELFPAY ==
[2024-06-21] VITALS (8 sets, daily range): BP systolic 116–134; BP diastolic 72–80; PULSE 91–105; RESP 15–21; TEMP 36.6; O2SAT 97–100
--- NOTE | ~2024-06-21 | CT_ITS ---
EXAMINATION: CT abdomen pelvis w con DATE: 06/21/2024 20:08 INDICATION: lower abd pain, N/V TECHNIQUE: Computed tomography (CT) of the abdomen and pelvis was performed with 100 mL Omnipaque-350 intravenous contrast. Automated exposure control and iterative reconstruction technique were employe d. The dose-length product was 1652.48 mGy-cm. COMPARISON: 08/23/2022. FINDINGS: Lower thorax: Unremarkable Liver: Normal. Biliary/Gallbladder: Cholelithiasis. No inflammatory changes. No bile duct dilation. Pancreas: No mass or duct dilation. Spleen: Normal. Adrenals:No mass. Kidneys: No suspicious mass, obstructing stone, or hydronephrosis. GI tract: No small or large bowel dilation. Normal appendix. Mesentery/Peritoneum: No ascites, mass, or free air. Retroperitoneum: No mass. Pelvis: Pelvic organs are within normal limits. Soft Tissues: Soft tissues and body wall unremarkable. Bones: No acute osseous finding. IMPRESSION: No acute abdominopelvic process detected Reviewed, dictated and finalized at location K.
--- NOTE | ~2024-06-21 | CT_ITS ---
EXAMINATION: CT brain wo con DATE: 06/21/2024 20:08 INDICATION: dizziness, near syncope, vomiting . TECHNIQUE: Computed tomography (CT) of the head was performed without intravenous contrast. The mA wa s adjusted according to patient size. Iterative reconstruction technique was employed. The dose-lengt h product was 1652.48 mGy-cm. COMPARISON: 09/27/2021. FINDINGS: No acute intracranial hemorrhage or extra-axial fluid collection. No hydrocephalus, mass, or herniation. No acute ischemic infarct. Unremarkable dural venous sinus attenuation. No acute osseous abnormality. The aerated spaces are clear. IMPRESSION: No acute intracranial process. Reviewed, dictated and finalized at location K.
[2024-06-21 18:12] LABS: Appearance Urine Clear (Clear); Bacteria Urine 1+ /hpf; Bilirubin Urine Negative (Negative); Blood Urine Negative (Negative); Color Urine Yellow (Yellow); Glucose Urine UA Negative (Negative); Ketones Urine Negative (Negative); Leukocyte Esterase Ur Trace LEU/UL (Negative); Nitrate Urine Negative (Negative); Non Pathogenic Casts 0-2; Protein Urine Negative (Negative); RBC Urine 0-2 /hpf (0-2); Specific Grav Ur 1.016 (1.001-1.035); Squamous Epithelial Cell Urine Few /hpf (Few); Urobilinogen Urine 0.2 mg/dL (<2.0); WBC Urine 0-5 /hpf (0-3); pH Urine 5.5 (5.0-9.0)
[2024-06-21 18:17] LABS: Add Urine Microscopic? YES
[2024-06-21 18:51] LABS: Basophils Percent Auto 0.3 % (0.2-1.2); Hematocrit 43.6 % (37.0-47.0); Hemoglobin 14.8 g/dL (12.0-15.0); Immature Granulocyte Absolute 0.03 K/mm3 (0.00-0.031); Immature Granulocyte Percent A 0.3 % (0-0.5); Lymphocytes Absolute Auto 2.17 K/mm3 (0.9-3.2); Lymphocytes Percent Auto 18.3 % (18.3-44.2); Mean Corpuscular HGB Conc 33.9 g/dl (32-36); Mean Corpuscular Volume 85.5 fl (80-100); Mean Platelet Volume 10.7 fl (7.4-10.4); Monocytes Absolute Auto 0.5 K/mm3 (0.1-0.6); Neutrophils Absolute Auto 9.2 K/mm3 (1.3-6.7); Neutrophils Percent Auto 77.1 % (45.5-73.1); Platelet Count Result 292 k/mm3 (150-375); Red Cell Distribution Width 13.1 % (11.5-14.5); White Blood Count 11.9 K/mm3 (4.5-10.0)
[2024-06-21 18:58] LABS: Alanine Aminotransferase 64 U/L (6-35); Albumin Level 4.1 g/dL (3.5-5.1); Alkaline Phosphatase 92 U/L (38-126); Anion Gap 13 mmol/L (4-12); Aspartate Amino Transferase 56 U/L (14-36); Bilirubin,Total 0.4 mg/dL (0.2-1.3); Blood Urea Nitrogen 5 mg/dL (7-17); Calcium 8.9 mg/dL (8.4-10.2); Carbon Dioxide 23 mmol/L (22-30); Chloride 98 mmol/L (98-107); Estimated CRCL calculation 150 ml/min; Estimated Glomerular Filt Rate > 60; Glucose 242 mg/dL (65-110); Lipase 143 U/L (23-300); Magnesium 1.5 mg/dL (1.6-2.3); Potassium 2.8 mmol/L (3.4-5.0); Sodium 134 mmol/L (137-145)
[2024-06-21] MEDS: POTASSIUM CHLORIDE 20 MEQ ER TABLET 40 MEQ PO (19:06)
[2024-06-21] MEDS: SODIUM CHLORIDE 0.9% IV 500 ML 999 ML IV CONT (19:14)
[2024-06-21] MEDS: KCL 20 MEQ/SW 100 ML 100 ML 50 MEQ IVPB (19:14)
--- NOTE | 2024-06-21 19:35 | ED.GENADULT ---
HPI - General Adult General Chief complaint: Unspecified Stated complaint: multiple c/o Time Seen by Provider: 06/21/24 18:07 Source: patient Mode of arrival: EMS Limitations: no limitations History of Present Illness HPI narrative: Patient is a 39-year-old female who presents the ED via EMS with multiple complaints. Patient reports having intermittent dizziness for the last 1 month, states it has been occurring fairly daily. She does have history of vertigo and states this feels similar. She has tried taking her home meclizine without much improvement. She does describe the dizziness as room spinning, but also lightheadedness. She also reports having intermittent nausea with vomiting over the last 1 month, intermittent lower abdominal pain/fluttering, intermittent HAs. Denies fevers, neck pain, vision changes, focal weakness/numbness. Related Data Home Medications Medication Instructions Recorded Confirmed amlodipine 10 mg tablet (Norvasc) 10 mg PO DAILY 11/14/20 05/08/24 gabapentin 300 mg capsule 1,200 mg PO TID 11/14/20 05/08/24 (Neurontin) hydroxyzine HCl 25 mg tablet 25 mg PO TID 11/14/20 05/08/24 insulin glargine 100 unit/mL (3 25 unit subcut HS 11/14/20 05/08/24 mL) subcutaneous pen (Lantus Solostar U-100 Insulin) lisinopril 20 mg tablet (Zestril) 20 mg PO DAILY 11/14/20 05/08/24 pravastatin 40 mg tablet 40 mg PO DAILY 11/14/20 05/08/24 (Pravachol) trazodone 100 mg tablet 100 mg PO HS 11/14/20 05/08/24 bupropion HCl 200 mg tablet,12 hr 1 mg PO BID 04/15/21 05/08/24 sustained-release glipizide 5 mg tablet 5 mg PO DAILY 09/27/21 05/08/24 metformin 1,000 mg tablet 1,000 mg PO BID 09/27/21 05/08/24 cetirizine 10 mg tablet 1 tablet PO DAILY 05/13/22 05/08/24 fluticasone propionate 44 2 inh inhalation DAILY 05/13/22 05/08/24 mcg/actuation HFA aerosol inhaler (Flovent HFA) hydrochlorothiazide 25 mg tablet 1 tablet PO DAILY 05/13/22 05/08/24 valacyclovir 1 gram tablet 1 tablet PO DIRECTED 05/13/22 05/08/24 buspirone 10 mg tablet 10 mg PO DAILY 08/14/22 05/08/24 cariprazine 3 mg capsule (Vraylar) 3 mg PO DAILY 08/14/22 05/08/24 montelukast 10 mg tablet 10 mg PO DAILY 08/14/22 05/08/24 omeprazole 20 mg capsule,delayed 20 mg PO DAILY 08/14/22 05/08/24 release Allergies Allergy/AdvReac Type Severity Reaction Status Date / Time aripiprazole AdvReac Unknown Abdominal Verified 02/27/24 15:17 Pain lithium AdvReac Unknown VOMITING Verified 02/27/24 15:17 Review of Systems Review of Systems: CONSTITUTIONAL: Denies fever, chills, or sweats. GASTROINTESTINAL: See HPI. NEUROLOGIC: See HPI. All systems reviewed & are unremarkable except as noted in HPI and below PMFSH Past Medical History Medical History Anxiety Bipolar disorder Chronic back pain Depression GERD (gastroesophageal reflux disease) Hepatitis Herpes HLD (hyperlipidemia) HTN (hypertension) Human papilloma virus Personality disorder Sciatica Seizures Surgical History Surgical History Hx of section Hx of tonsillectomy Family History Family History Mother Diabetes mellitus Hypertension Father Diabetes mellitus Social History Social History Smoking packs per day: 1.5 Smoking cigarettes per day: 30.0 Years smoked: 15 Smoking pack-years: 22.50 Smoking status: Current every day smoker Tobacco type: cigarettes Second hand tobacco smoke exposure: Yes Alcohol intake: current Drinks per week: 1 Substance use type: marijuana Living arrangements: alone Gender identity (if verbalized by the patient): Female Spiritual care concerns: No Exam Narrative: GENERAL: Appears older than stated age, morbidly obese with BMI 42.2, non-toxic
[2024-06-21] MEDS: MAGNESIUM SULF 2 GM/WATER 50ML 2 GM/50 ML BAG IVPB (20:22)
[2024-06-21] MEDS: SODIUM CHLORIDE 0.9% IV 1,000 ML 999 ML IV CONT (20:23)
[2024-06-21] MEDS: diazePAM INJ (*CRX) 10 MG/2 ML SYRINGE 2 MG IV PUSH (20:23)
== END 2024-06-21 22:16 | disposition home or self-care (01) ==
PROVIDERS: Student in an Organized Health Care Education/Training Program; Emergency Provider Physician Assistant; PCP Physician Assistant
DX: R42 Dizziness and giddiness (principal); R10.9 Unspecified abdominal pain; E87.6 Hypokalemia; E83.42 Hypomagnesemia
CPT/HCPCS: 36415; 70450; 74177; 80053; 81001; 81025; 83690; 83735; 85025; 96365; 96367; 96375; 99284; A9270; J3360; J3475; J3480; J7030; J7040; Q9967

== ENCOUNTER 2024-12-29 13:55 | Emergency (ER) | payer OTHER, SELFPAY ==
--- NOTE | 2024-12-29 14:02 | ED.URI ---
HPI - URI/Sore Throat General Chief Complaint: Upper Respiratory Infection Stated Complaint: diarrhea,cough Time Seen by Provider: 12/29/24 13:57 Source: patient Mode of arrival: ambulatory Limitations: no limitations History of Present Illness HPI Narrative: Patient is a 39-year-old female who presents with over a week of fever, chills, congestion, cough, diarrhea and vomiting. Patient has been taking [id number] medication with no relief. States she has been cutting back on smoking due to persistent coughing. Patient states she normally smokes 2-3 packs a day and has been smoking only 6 cigarettes. Related Data Home Medications ?Medication ?Instructions ?Recorded ?Confirmed ?Last Taken ?Type amlodipine 10 mg tablet (Norvasc) 10 mg PO DAILY 11/14/20 12/29/24 08/07/21 History 10 mg gabapentin 300 mg capsule 1,200 mg PO TID 11/14/20 12/29/24 08/07/21 History (Neurontin) 300 mg hydroxyzine HCl 25 mg tablet 25 mg PO TID 11/14/20 12/29/24 08/07/21 History 25 mg insulin glargine 100 unit/mL (3 25 unit subcut HS 11/14/20 12/29/24 08/07/21 History mL) subcutaneous pen (Lantus 10 unit Solostar U-100 Insulin) lisinopril 20 mg tablet (Zestril) 20 mg PO DAILY 11/14/20 12/29/24 08/07/21 History 20 mg trazodone 100 mg tablet 100 mg PO HS 11/14/20 12/29/24 08/07/21 History 100 mg bupropion HCl 200 mg tablet,12 hr 1 mg PO BID 04/15/21 12/29/24 08/07/21 History sustained-release 1 mg glipizide 5 mg tablet 5 mg PO DAILY 09/27/21 12/29/24 Unknown History metformin 1,000 mg tablet 1,000 mg PO BID 09/27/21 12/29/24 Unknown History cetirizine 10 mg tablet 1 tablet PO DAILY 05/13/22 12/29/24 Unknown History fluticasone propionate 44 2 inh inhalation DAILY 05/13/22 12/29/24 Unknown History mcg/actuation HFA aerosol inhaler (Flovent HFA) hydrochlorothiazide 25 mg tablet 1 tablet PO DAILY 05/13/22 12/29/24 Unknown History valacyclovir 1 gram tablet 1 tablet PO DIRECTED 05/13/22 12/29/24 Unknown History buspirone 10 mg tablet 10 mg PO DAILY 08/14/22 12/29/24 Unknown History cariprazine 3 mg capsule (Vraylar) 3 mg PO DAILY 08/14/22 12/29/24 Unknown History montelukast 10 mg tablet 10 mg PO DAILY 08/14/22 12/29/24 Unknown History omeprazole 20 mg capsule,delayed 20 mg PO DAILY 08/14/22 12/29/24 Unknown History release atorvastatin 40 mg tablet 40 mg PO QPM 12/29/24 12/29/24 Unknown History Allergies Allergy/AdvReac Type Severity Reaction Status Date / Time aripiprazole AdvReac Unknown Abdominal Verified 12/29/24 13:58 Pain lithium AdvReac Unknown VOMITING Verified 12/29/24 13:58 Review of Systems Review of Systems: All systems reviewed & are unremarkable except as noted in HPI and below Constitutional: Constitutional: Denies body ache(s), Reports chills, Denies fatigue, Reports fever(s), Denies headache(s), Denies malaise and Denies weakness Eyes: Eyes: Denies blurry vision, Denies itchy eyes and Denies loss of vision ENT: Denies otalgia, Denies headache(s), Reports nasal congestion, Denies sinus pain and Denies sore throat Cardiovascular: Cardiovascular: Denies chest pain, Denies irregular heart rhythm and Denies dyspnea Respiratory: Respiratory: Reports cough and Denies dyspnea Gastrointestinal: Gastrointestinal: Denies abdominal pain, Reports diarrhea, Denies nausea and Reports vomiting Musculoskeletal: Musculoskeletal: Denies back pain, Denies myalgias and Denies arthralgias Integumentary/Breasts: Skin/Breast: Denies pruritus and Denies rash Neurologic: Denies headache(s), Denies loss of vision and Denies weakness Psychiatric: Psychiatric: Reports no additional psychiatric complaints Endocrine: Endocrine: Denies fatigue Allergic/Immunologic: Allergic/Immunologic: Denies itchy eyes PMFSH Past Medical History Medical History Human papilloma virus Personality disorder Chronic back pain Hepatitis Anxiety Depression Bipolar disorder Herpes GERD (gastroesophageal reflux disease) HTN (hypertension) HLD (hyperlipidemia) Seizures Sciatica Surgical History Surgical History Hx of section Hx of tonsillectomy Family History Family History Mother Diabetes mellitus Hypertension Father Diabetes mellitus Social History Social History Smoking packs per day: 1.5 Smoking cigarettes per day: 30.0 Years smoked: 15 Smoking pack-years: 22.50 Smoking status: Current every day smoker Tobacco type: cigarettes Second hand tobacco smoke exposure: Yes Alcohol intake: current Drinks per week: 1 Substance use type: marijuana Living arrangements: alone Gender identity (if verbalized by the patient): Female Spiritual care concerns: No Comments At time of signature, agree with nursing past medical, surgical, social and family history. There is no relevant family history pertinent to the presenting complaint. Exam Const: General: cooperative, healthy appearing, comfortable, no acute distress and well nourished Nutritional Appearance: well nourished Orientation/consciousness: patient oriented x3 Limitations: no limitations HENMT: Head: normal to inspection, normocephalic and atraumatic Ears: hearing grossly normal bilaterally, external ears normal, TM's normal bilaterally, EAC's normal and no periauricular adenopathy Face/Nose/Sinus: Normal external nose present, Abnormal mucous membranes and turbinates present erythematous bilateral and diffuse, normal facial exam, sinuses nontender and face symmetric Face and sinus: normal facial exam, sinuses nontender and face symmetric Mouth: Yes Normal oral and palatal mucosa present, Yes lip normal, Yes tongue normal, Yes Normal salivary glands and ducts present, Yes oropharynx normal and Yes moist mucous membranes Teeth and gingiva: dentition normal Throat: posterior oropharynx normal, tonsils normal and uvula midline Eyes: General: appearance normal, both eyes and all related structures Alignment and Position: alignment normal and position normal Periorbital: periorbital findings normal Eyelids: eyelids normal Pupils: Equal, round and reactive pupils present Neck: Neck: normal visual inspection, full ROM, no lymphadenopathy and supple Chest: Chest palpation & inspection: normal inspection of the chest and normal palpation of entire chest wall Resp: Effort & Inspection: normal respiratory effort and able to speak in complete sentences Auscultation: crackles (Course) on the left in the lower lung hahn, no rales, no rhonchi and no wheezes Cardio: Rate: regular rate Rhythm: regular rhythm Heart sounds: S1 normal heart sound present and S2 normal heart sound present GI: Inspection: normal to inspection Skin: General skin exam: normal color and no rashes or lesions noted Neuro: General: patient oriented x3 and moves all extremities Cranial nerves: Yes Equal, round and reactive pupils present Speech: normal speech Gait exam (Neuro): Normal gait present Extrem: General: normal to inspection, full ROM and no edema Psych: Appearance: grossly normal and well kempt Mental Status: mental status grossly normal Speech and movement: Normal speech and movement present Affect: normal affect Attitude: cooperative Thought process: Normal thought process present Course Course Emergency Course: Discharge instructions reviewed with patient, as well as provided in writing per nursing staff. The instructions also include specific and strict return/GO TO THE ER as well as f/u information. All questions have been answered, and the patient deny any further questions with discharge and discharge plan. Portions of this record may have been created with voice recognition software Level of Care: Express Care Visit Vital Signs Vital signs: Reviewed MDM - URI/Sore Throat MDM Narrative Medical decision making narrative: Pt well hydrated appearing, in no respiratory distress, hemodynamically stable. Recommend supportive care. The patient is stable at time of discharge the clinical impression was discussed and the patient was given the opportunity to ask questions, which were addressed as completely as possible given the information available at present. Anticipatory guidance and return to care precautions were discussed and the importance of primary care follow-up was stressed and encouraged. The patient voiced understanding of the plan, indications to return, and the need for follow-up. Differential diagnosis considered: Claudio virus, strep pharyngitis, allergic rhinitis, upper respiratory tract infection, sinusitis, rhinosinusitis, nasopharyngitis. viral pharyngitis, otitis media, otitis externa, otitis effusion, foreign body, cerumen impaction, viral syndrome, and influenza.? Exam findings show no acute concerns or changes; patient is non-toxic appearing and is in no distress.? Patient is appropriate for outpatient treatment and follow-up.? Medical Records Attestation: I reviewed the patient's medical records. Discharge Plan Discharge Clinical Impression: Pneumonia Qualifiers: Pneumonia type: due to unspecified organism Laterality: left Lung location: lower lobe of lung Qualified Code(s): J18.9 - Pneumonia, unspecified organism Patient Disposition: Home, Self-Care Condition: Stable Instructions: Pneumonia (ED) Additional Instructions: Take antibiotic as prescribed. Take steroids in the morning with food. Use Tessalon Perles as needed for cough. Use inhaler with spacer as needed. Other symptomatic treatments include: -Alternate Tylenol and Motrin per package directions for fever or pain: Tylenol 650-1000mg by mouth every 4-6 hours. Do not exceed 4000mg in 24 hours. Advil (Ibuprofen) 600 mg by mouth every 6 hours. Do not exceed 2400mg in 24 hours. 8 AM: Tylenol 11 AM: Ibuprofen 2 PM: Tylenol 5 PM: Ibuprofen 8 PM: Tylenol 11 PM: Ibuprofen 2 AM: Tylenol 5 AM: Ibuprofen -Antihistamine medication such as Benadryl at night and Zyrtec/Claritin/Margo during the day can help improve symptoms. -Use Flonase twice a day for 5 days then daily to help reduce the inflammation and dry up your sinuses. -You can also use Sudafed or Mucinex. Be sure to drink plenty of water with these medications at least 8 ounces with every dose and it is important to drink 8 to 10 glasses of water per day. Water is a natural decongestant -Eat and drink things that are easy to swallow, like tea or soup, or popsicles. -Oral rinses such as: Salt water gargles and/or may use topical anesthetic (eg. Chloraseptic spray) or lozenges to relieve dryness or throat pain). -Frequent hand washing or hand embedded engineer is one of the best ways to prevent spread of infection. -Using a vaporizer or humidifier at night will also help thin secretions and help with coughing up phlegm. -Follow up with primary care provider in 3-5 days if condition is not improving - For new or worsening symptoms go directly to the nearest ER Patient Language: Citizen Of [place] Prescriptions: New (DME) Aerochamber MV Spacer See Rx Instructions .Route Qty: 1 0RF Rx Instructions: As directed amoxicillin 875 mg tablet 875 mg PO Q12H 7 Days Qty: 14 0RF benzonatate 100 mg capsule 100 mg PO BID PRN (Reason: cough) Qty: 14 0RF albuterol sulfate 90 mcg/actuation HFA aerosol inhaler 2 puff inhalation QID PRN (Reason: shortness of breath or wheezing) Qty: 6.7 0RF prednisone 20 mg tablet 40 mg PO DAILY 5 Days Qty: 10 0RF No Action cetirizine 10 mg tablet 1 tablet PO DAILY valacyclovir 1 gram tablet 1 tablet PO DIRECTED fluticasone propionate [Flovent HFA] 44 mcg/actuation HFA aerosol inhaler 2 inh INHALATION DAILY hydrochlorothiazide 25 mg tablet 1 tablet PO DAILY lisinopril [Zestril] 20 mg Tablet 20 mg PO DAILY trazodone 100 mg Tablet 100 mg PO HS amlodipine [Norvasc] 10 mg Tablet 10 mg PO DAILY gabapentin [Neurontin] 300 mg Capsule 1,200 mg PO TID hydroxyzine HCl 25 mg Tablet 25 mg PO TID insulin glargine [Lantus Solostar U-100 Insulin] 100 unit/mL (3 mL) Insulin Pen 25 unit SUBCUT HS bupropion HCl 200 mg tablet sustained-release 12 hr 1 mg PO BID buspirone 10 mg tablet 10 mg PO DAILY omeprazole 20 mg capsule,delayed release(DR/EC) 20 mg PO DAILY montelukast 10 mg tablet 10 mg PO DAILY Vraylar 3 mg capsule 3 mg PO DAILY (DME) Aerochamber MV Spacer See Rx Instructions .Route Qty: 1 0RF Rx Instructions: As directed atorvastatin 40 mg tablet 40 mg PO QPM metformin 1,000 mg tablet 1,000 mg PO BID glipizide 5 mg tablet 5 mg PO DAILY albuterol sulfate 90 mcg/actuation HFA aerosol inhaler 2 puff inhalation QID PRN (Reason: shortness of breath or wheezing) Qty: 8.5 0RF methocarbamol 750 mg tablet 1,500 mg PO TID PRN (Reason: muscle spasm) Qty: 15 0RF lidocaine 5 % adhesive patch,medicated 1 patch topical DAILY Qty: 15 0RF Rx Instructions: leave on most painful area for up to 12 hrs Follow-up/Referrals: Avila,CONTRERAS Sánchez [Primary Care Provider] - 3 Days Time of Disposition: 14:51
[2024-12-29 14:15] VITALS: BP 138/83; PULSE 77; RESP 18; TEMP 36.7; O2SAT 97
== END 2024-12-29 15:07 | disposition home or self-care (01) ==
PROVIDERS: Emergency Provider Nurse Practitioner Family; PCP Physician Assistant
DX: J18.9 Pneumonia, unspecified organism (principal); F17.210 Nicotine dependence, cigarettes, uncomplicated; Z79.4 Long term (current) use of insulin; F41.8 Other specified anxiety disorders; K21.9 Gastro-esophageal reflux disease without esophagitis; I10 Essential (primary) hypertension; E78.5 Hyperlipidemia, unspecified
CPT/HCPCS: 99213; G0463

== ENCOUNTER 2025-02-15 15:52 | Emergency (ER) | payer OTHER, SELFPAY ==
[2025-02-15 16:02] VITALS: BP 140/99; PULSE 100; RESP 20; TEMP 36.1; O2SAT 99
[2025-02-15 16:22] VITALS: PULSE 100; RESP 20; O2SAT 99
--- NOTE | 2025-02-15 16:26 | ED_ITS ---
HPI - URI/Sore Throat General Chief Complaint: Upper Respiratory Infection Stated Complaint: Sinus Time Seen by Provider: 02/15/25 16:15 Source: patient, RN notes reviewed and old records reviewed Mode of arrival: ambulatory Limitations: no limitations History of Present Illness HPI Narrative: Patient presents today with a 2-3 day history of nasal congestion, bilateral ear pain, fatigue, headache, cough with shortness of breath and wheezing, occasional dizziness and lightheadedness. Denies fever. She has been using Coricidin, DayQuil, and her rescue inhaler. The rescue inhaler has been helpful. History of asthma. Related Data Home Medications ?Medication ?Instructions ?Recorded ?Confirmed ?Last Taken ?Type amlodipine 10 mg tablet (Norvasc) 10 mg PO DAILY 11/14/20 12/29/24 08/07/21 History 10 mg gabapentin 300 mg capsule 1,200 mg PO TID 11/14/20 12/29/24 08/07/21 History (Neurontin) 300 mg hydroxyzine HCl 25 mg tablet 25 mg PO TID 11/14/20 12/29/24 08/07/21 History 25 mg insulin glargine 100 unit/mL (3 25 unit subcut HS 11/14/20 12/29/24 08/07/21 History mL) subcutaneous pen (Lantus 10 unit Solostar U-100 Insulin) lisinopril 20 mg tablet (Zestril) 20 mg PO DAILY 11/14/20 12/29/24 08/07/21 History 20 mg trazodone 100 mg tablet 100 mg PO HS 11/14/20 12/29/24 08/07/21 History 100 mg bupropion HCl 200 mg tablet,12 hr 1 mg PO BID 04/15/21 12/29/24 08/07/21 History sustained-release 1 mg glipizide 5 mg tablet 5 mg PO DAILY 09/27/21 12/29/24 Unknown History metformin 1,000 mg tablet 1,000 mg PO BID 09/27/21 12/29/24 Unknown History hydrochlorothiazide 25 mg tablet 1 tablet PO DAILY 05/13/22 12/29/24 Unknown History valacyclovir 1 gram tablet 1 tablet PO DIRECTED 05/13/22 12/29/24 Unknown History buspirone 10 mg tablet 10 mg PO DAILY 08/14/22 12/29/24 Unknown History cariprazine 3 mg capsule (Vraylar) 3 mg PO DAILY 08/14/22 12/29/24 Unknown History montelukast 10 mg tablet 10 mg PO DAILY 08/14/22 12/29/24 Unknown History omeprazole 20 mg capsule,delayed 20 mg PO DAILY 08/14/22 12/29/24 Unknown History release atorvastatin 40 mg tablet 40 mg PO QPM 12/29/24 12/29/24 Unknown History Allergies Allergy/AdvReac Type Severity Reaction Status Date / Time aripiprazole AdvReac Unknown Abdominal Verified 02/15/25 15:55 Pain lithium AdvReac Unknown VOMITING Verified 02/15/25 15:55 Review of Systems Review of Systems: CONSTITUTIONAL: Denies body aches, fever, chills, or sweats.+ fatigue EYES: Denies visual changes, redness, or discharge. ENT: Denies rhinorrhea, sore throat.+ congestion, ear pain CARDIOVASCULAR: Denies chest pain, palpitations, or edema. RESPIRATORY: + cough, shortness of breath, wheezing GASTROINTESTINAL: Denies abdominal pain, nausea, vomiting, or diarrhea. GENITOURINARY: Denies dysuria or hematuria. SKIN: Denies rash, itching, or wounds. MUSCULOSKELETAL: Denies back pain, joint pain, or myalgia. NEUROLOGIC: Denies numbness, tingling, or weakness.+ headache PSYCH: Denies depression or anxiety. [facility] Past Medical History Medical History Human papilloma virus Personality disorder Chronic back pain Hepatitis Anxiety Depression Bipolar disorder Herpes GERD (gastroesophageal reflux disease) HTN (hypertension) HLD (hyperlipidemia) Seizures Sciatica Surgical History Surgical History Hx of section Hx of tonsillectomy Family History Family History Mother Diabetes mellitus Hypertension Father Diabetes mellitus Social History Social History Smoking packs per day: 1.5 Smoking cigarettes per day: 30.0 Years smoked: 15 Smoking pack-years: 22.50 Smoking status: Current every day smoker Tobacco type: cigarettes Second hand tobacco smoke exposure: Yes Alcohol intake: current Drinks per week: 1 Substance use type: marijuana Living arrangements: alone Gender identity (if verbalized by the patient): Female Spiritual care concerns: No Comments At time of signature, I have reviewed and agree with nursing past medical, surgical, social and family history unless otherwise noted. Please see nursing chart for further information. There is no relevant family history pertinent to the presenting complaint Exam Narrative: GENERAL: Mildly ill-appearing, well-nourished, and in no acute distress. HEAD: Normocephalic, atraumatic. EYES: EOMI. No redness or drainage. Conjunctivae normal. ENT: Mucous membranes pink and moist. Nares congested with rhinorrhea. TMs normal bilaterally. Throat normal. Uvula midline. NECK: Normal AROM. Supple. No lymphadenopathy. CHEST: No respiratory distress. Clear to auscultation. HEART: Regular rate and rhythm. No murmur appreciated. EXTREMITIES: Normal range of motion. No edema. SKIN: Warm, dry, no rash. Capillary refill normal. Normal skin turgor. NEURO: No focal deficits. Alert and oriented x3. Gait steady. PSYCH: Normal affect. No signs of depression or anxiety. Course Course Level of Care: Express Care Visit Vital Signs Vital signs: Vital Signs Temperature 97 F L 02/15/25 16:02 Pulse Rate 100 02/15/25 16:02 Respiratory Rate 20 02/15/25 16:02 Blood Pressure 140/99 H 02/15/25 16:02 Pulse Oximetry 99 02/15/25 16:02 Oxygen Delivery Room Air 02/15/25 16:02 Temperature 97 F L 02/15/25 16:02 Pulse Rate 100 02/15/25 16:22 Respiratory Rate 20 02/15/25 16:22 Blood Pressure 140/99 H 02/15/25 16:02 Pulse Oximetry 99 02/15/25 16:22 Oxygen Delivery Room Air 02/15/25 16:02 Reviewed MDM - URI/Sore Throat MDM Narrative Medical decision making narrative: Influenza and COVID negative. Symptoms likely viral in etiology. Discussed [id number] medication use and duration of illness. Prescription for prednisone refill of her albuterol inhaler sent to pharmacy. Anticipatory guidance given. ED precautions given. Differential Diagnosis Differential diagnosis: Likely upper respiratory infection, sinusitis, viral infection, influenza and other (COVID-19) Lab Data Attestation: I reviewed the patient's lab results. Labs: Lab Results 02/15/25 Range/Units 16:33 POC Influenza A Ag Negative (Negative) POC Influenza B Ag Negative (Negative) POC SARS CoV-2 Ag Negative (Negative) Critical Care Time Critical Care Time Critical Care Time: No Discharge Plan Discharge Clinical Impression: Upper respiratory infection Qualifiers: URI type: unspecified URI Qualified Code(s): J06.9 - Acute upper respiratory infection, unspecified Asthma exacerbation Qualifiers: Asthma severity: unspecified severity Asthma persistence: unspecified Qualified Code(s): J45.901 - Unspecified asthma with (acute) exacerbation Patient Disposition: Home, Self-Care Condition: Stable Instructions: Upper Respiratory Infection (DC) Additional Instructions: Your COVID-19 and influenza tests were negative today. Your symptoms are likely due to a viral illness, which is not treated with antibiotics. Virus symptoms can last for up to 7-10days. Take Tylenol or ibuprofen for pain or fever. Take the prednisone and continue the albuterol inhaler. Rest and stay hydrated. Follow up with your PCP in 7 days if symptoms are not improving. Go to the ER immediately if you develop worsening shortness of breath, difficulty swallowing, or any other concerning symptoms. Your blood pressure was elevated above 120/80 today at Urgent Care. This puts you above the threshold for follow up. Please schedule a followup visit with your personal physician as soon as possible, for further evaluation and treatment. Even blood pressure exceeding 120/80 may indicate pre-hypertension. Patient Language: Senegalese Prescriptions: New prednisone 50 mg tablet 50 mg PO DAILY 5 Days Qty: 5 0RF albuterol sulfate 90 mcg/actuation HFA aerosol inhaler 2 inh inhalation Q4-6H PRN (Reason: shortness of breath or wheezing) Qty: 8.5 0RF No Action valacyclovir 1 gram tablet 1 tablet PO DIRECTED hydrochlorothiazide 25 mg tablet 1 tablet PO DAILY lisinopril [Zestril] 20 mg Tablet 20 mg PO DAILY trazodone 100 mg Tablet 100 mg PO HS amlodipine [Norvasc] 10 mg Tablet 10 mg PO DAILY gabapentin [Neurontin] 300 mg Capsule 1,200 mg PO TID hydroxyzine HCl 25 mg Tablet 25 mg PO TID insulin glargine [Lantus Solostar U-100 Insulin] 100 unit/mL (3 mL) Insulin Pen 25 unit SUBCUT HS bupropion HCl 200 mg tablet sustained-release 12 hr 1 mg PO BID buspirone 10 mg tablet 10 mg PO DAILY omeprazole 20 mg capsule,delayed release(DR/EC) 20 mg PO DAILY montelukast 10 mg tablet 10 mg PO DAILY Vraylar 3 mg capsule 3 mg PO DAILY (DME) Aerochamber MV Spacer See Rx Instructions .Route Qty: 1 0RF Rx Instructions: As directed atorvastatin 40 mg tablet 40 mg PO QPM (DME) Aerochamber MV Spacer See Rx Instructions .Route Qty: 1 0RF Rx Instructions: As directed albuterol sulfate 90 mcg/actuation HFA aerosol inhaler 2 puff inhalation QID PRN (Reason: shortness of breath or wheezing) Qty: 6.7 0RF prednisone 20 mg tablet 40 mg PO DAILY 5 Days Qty: 10 0RF metformin 1,000 mg tablet 1,000 mg PO BID glipizide 5 mg tablet 5 mg PO DAILY albuterol sulfate 90 mcg/actuation HFA aerosol inhaler 2 puff inhalation QID PRN (Reason: shortness of breath or wheezing) Qty: 8.5 0RF methocarbamol 750 mg tablet 1,500 mg PO TID PRN (Reason: muscle spasm) Qty: 15 0RF lidocaine 5 % adhesive patch,medicated 1 patch topical DAILY Qty: 15 0RF Rx Instructions: leave on most painful area for up to 12 hrs Follow-up/Referrals: Avila,CONTRERAS Sánchez [Primary Care Provider] - Time of Disposition: 16:50
[2025-02-15 16:35] LABS: EDCOVIDSCREEN Negative (Negative)
[2025-02-15 16:37] LABS: EDINFLUASCREEN Negative (Negative); EDINFLUBSCREEN Negative (Negative)
== END 2025-02-15 16:57 | disposition home or self-care (01) ==
PROVIDERS: Emergency Provider Nurse Practitioner; PCP Physician Assistant
DX: J06.9 Acute upper respiratory infection, unspecified (principal); J45.901 Unspecified asthma with (acute) exacerbation; F17.210 Nicotine dependence, cigarettes, uncomplicated; K21.9 Gastro-esophageal reflux disease without esophagitis; I10 Essential (primary) hypertension; E78.5 Hyperlipidemia, unspecified; G40.909 Epilepsy, unspecified, not intractable, without status epilepticus; F41.9 Anxiety disorder, unspecified; F32.A Depression, unspecified; Z20.822 Contact with and (suspected) exposure to COVID-19; F12.90 Cannabis use, unspecified, uncomplicated
CPT/HCPCS: 87426; 87804; 99213; G0463

== ENCOUNTER 2025-03-20 18:01 | Emergency (ER) | payer OTHER, SELFPAY ==
--- NOTE | ~2025-03-20 | XR_ITS ---
EXAMINATION: XR chest 1V portable Exam Date/Time: 03/20/2025 21:05 CDT HISTORY: Hypertension, weakness Comparison: 02/27/2024. RESULT: Lines, tubes, and devices: None. Lungs and pleura: Clear. Cardiomediastinal silhouette: Stable. Other: No acute osseous or upper abdominal finding. IMPRESSION: No acute cardiopulmonary process. Reviewed, dictated and finalized at location K.
--- OUTSIDE RECORDS SUMMARY | 2025-03-20 18:26 | XMS_ITS | Encounter Summary ---
Author Organization [facility] Health Address [address] [place] [address] Care Team Providers Care Senior Supply Chain Analyst Name Role Phone Efren Macdonald [facility] Primary Care Provide r Cheryl Sánchez MD Primary Care Provider [phone] Lili Mustafa [facility] Primary Care Provider Encounter Details Date Type Department Care Team (Late st Contact Info) Description 09/19/2020 Telephone [facility] [address] [place] [address] Ceci Ellington MD [address] [place] [address] Social History Tobacco Use Types Packs/Day Years Used Date Smoking Tobacco: Every Day Cigarettes Smokeless Tobacco: Never Alcohol Use Standard Drinks/Week Comments Yes 0 (1 standard drink = 0.6 oz pur e alcohol) AUDIT-C Answer Date Recorded Q1: How often do you have a drink containing alc ohol? Monthly or less 08/07/2020 Q2: How many drinks containi ng alcohol do you have on a typical day when you are drinking? 1 or 2 08/07/2020 Frequency of Binge Drinking Not on file 06/2020 Comments Unknown Sex and Gender Information Value Date Recorded Sex Assigned at Not on file Legal Sex Female 7:39 PM DIRECTOR PATIENT Gender Identity Not on file Sexual Orientation Not on file COVID-19 Exposure Response Date Recorded In the last month, have you been in contact with someone who was confirmed or suspected to have Coronavirus / COVID-19? No / Unsure 08/29/2020 3:08 PM CDT documented as of this encounter Miscellaneous Notes * Telephone Encounter - Vandana Kim - 09/19/2020 10:46 AM CDT Current Provider name: Ms. Annita Oropeza Reason for call: Ms. Annita Oropeza called to let Dr. Ceci Ellington know she is in [facility] in [place], [place]. She just went in early this morn 09/19/2020. She stated her legs gave out.She also stated no one called her for her 09/14/2020 Dietary appt and she no showed for the 09/18/20 dieatary appt w/ KAREN Samayoa. She would like a call from the office. Her next appt is 12/05/2020 w/ Dr. Jaimes. Patient Call Back number: [phone] documented in this encounter Plan of Treatment Upcoming Encounters Date Type Department Care Team (Late st Contact Info) Description 04/06/2025 10:00 AM CDT Office Visit [facility] - Urology [address], [address] [place] [address] Jaqueline Geronimo PA-C [address] [place] [address] documented as of this encounter Visit Diagnoses Not on filedocumented in this encounter Care Teams Senior Supply Chain Analyst Relationship Specialty Start Date End Date Efren Macdonald APRN-UM SPECIALIST [address] [facility] [place] [address] PCP - General Nurse Practitioner Gerontology 12/05/20 04/02/22 Cheryl Sánchez MD [address] [place] [address] [address] [place] [address] PCP - General Family Medicine 04/03/22 05/19/22 Lili Mustafa APRN-UM SPECIALIST [address] [place] [phone] PCP - General Nurse Practitioner Family 06/08/23 documented as of this encounter
--- OUTSIDE RECORDS SUMMARY | 2025-03-20 18:26 | XMS_ITS | Referral Summary ---
Author Organization [address] Address [address] [place] [address] [place] [id number] Care Team Providers Care Water Quality Analyst Name Role Phone Princess Gramajo Primary Care Provider [phone] Encounters Date Type Department Care Team Description 02/27/2025 1:30 PM CDT Office Visit [facility] [address] [place] [phone] Quiana Parker MD Vision changes (Primary Dx) 01/24/2025 Telephone [facility] [address] [place] [phone] Quiana Parker MD Scheduling Appointments 01/12/2025 Orders Only [facility] [address] [place] [address] [phone] Julian Leslie MD OAG (open angle glaucoma) suspect, high risk (Primary Dx) 01/05/2025 2:10 PM PRESSURE STEAMER TENDER Imaging Exam [facility] [address] [place] [phone] OAG (open angle glaucoma) suspect, high risk; Anatomical narrow angle glaucoma, bilateral 01/05/2025 2:15 PM PRESSURE STEAMER TENDER Office Visit [facility] [address] [place] [address] [phone] Julian Leslie MD Age-related nuclear cataract of both eyes (Primary Dx); OAG (open angle glaucoma) suspect, high risk 01/05/2025 1:50 PM PRESSURE STEAMER TENDER Imaging Exam [facility] [address] [facility] [address] [place] [address] Anatomical narrow angle glaucoma, bilateral 01/03/2025 Orders Only [facility] [address] [facility] [address], [address] [facility] [place] [address] Julian Leslie OAG (open angle glaucoma) suspect, high risk (Primary Dx); Anatomical narrow angle glaucoma, bilateral from Last 3 Months Allergies Active Allergy Reactions Criticality Noted Date Comments Aripiprazole Other (See comments),Unknown Low 08/07/2020 Other reaction(s): Other, Other Corwin Other (See comments),Nausea & Vomiting Low 2022 Medications insulin syringe-needle U-100 0.5 mL 30 gauge x 04/14 syringe 06/15/20 24 Active Lipitor 40 mg tablet 12/09/19 24 Active buPROPion SR (WELLBUTRIN SR) 200 mg 12 hr tablet Take 1 tablet (200 mg total) by mouth daily 07/31/20 20 Active busPIRone (BUSPAR) 10 mg tablet Take 1 tablet (10 mg total) by mouth 4 (four) times a day as needed Active cephalexin (KEFLEX) 500 mg capsule TAKE 1 CAPSULE BY MOUTH EVERY 6 HOURS FOR 10 DAYS 05/08/20 24 Active dicyclomine (BENTYL) 10 mg capsule 06/17/20 24 Active dulaglutide (Trulicity) 0.75 mg/0.5 mL pen injector 03/11/20 24 Active Arnuity Ellipta 100 mcg/actuation inhaler 06/14/20 24 Active gabapentin (NEURONTIN) 300 mg capsule 4 capsules (1,200 mg total) 3 (three) times a day Active hydroCHLOROthiazid e (HYDRODIURIL) 25 mg tablet 01/06/20 24 Active NovoLIN R 100 unit/mL vial for injection 06/14/20 24 Active methocarbamoL (ROBAXIN) 750 mg tablet TAKE 1 TABLET BY MOUTH TWICE DAILY FOR 14 DAYS NEEDED FOR BACK PAIN 06/15/20 24 Active sulfamethoxazole-t rimethoprim (BACTRIM DS) 800-160 mg per tablet Take 1 tablet by mouth every 12 (twelve) hours 05/08/20 24 Active valACYclovir (VALTREX) 1 gram tablet TAKE 1 TABLET BY MOUTH DAILY FOR HSV OR PROPHYLAXIS 07/15/20 24 Active albuterol HFA (PROVENTIL HFA,VENTOLIN HFA,PROAIR HFA) 90 mcg/actuation inhaler Ventolin HFA 90 mcg/actuation aerosol inhaler 01/08/20 24 Active albuterol HFA (PROVENTIL HFA,VENTOLIN HFA,PROAIR HFA) 90 mcg/actuation inhaler INHALE 1 PUFF EVERY 4 TO 6 HOURS NEEDED FOR SHORTNESS OF BREATH OR WHEEZING for 25 Active amLODIPine (NORVASC) 10 mg tablet daily 07/27/20 20 Active amoxicillin (AMOXIL) 875 mg tablet Take 1 tablet (875 mg total) by mouth every 12 (twelve) hours for 7 days 12/29/19 25 Active aspirin 81 mg enteric coated tablet 10/20/20 23 Active benzonatate (TESSALON) 100 mg capsule TAKE 1 CAPSULE BY MOUTH TWICE DAILY NEEDED FOR COUGH Active azithromycin (ZITHROMAX) 250 mg tablet daily 09/01/20 22 Active cetirizine (ZyrTEC) 10 mg tablet 01/27/20 22 Active clotrimazole 1 % cream 1 Application every 12 (twelve) hours 07/12/20 20 Active fluconazole (DIFLUCAN) 150 mg tablet Take 1 tablet (150 mg total) by mouth every third day 07/14/20 23 Active fluticasone propionate (FLOVENT HFA) 44 mcg/actuation inhaler 12/31/19 22 Active hydrOXYzine (ATARAX) 25 mg tablet 07/31/20 20 Active ibuprofen (ADVIL,MOTRIN) 800 mg tablet 1 tablet (800 mg total) as needed 07/10/20 20 Active insulin glargine (LANTUS) 100 unit/mL (3 mL) pen for injection 25 Units nightly 07/24/20 20 Active OneTouch Delica Plus Lancet 33 gauge misc 11/29/20 24 Active lisinopriL (PRINIVIL,ZESTRIL) 20 mg tablet daily 08/06/20 20 Active meclizine (ANTIVERT) 25 mg tablet meclizine 25 mg tablet Take 1 tablet 3 times a day by oral route PRN. Active menthol 5.4 mg lozenge 1 lozenge as needed Mouth/Throat every 2 hrs Active metFORMIN (GLUCOPHAGE) 1,000 mg tablet Take 1 tablet (1,000 mg total) by mouth 08/06/20 20 Active nystatin powder APPLY TO THE AFFECTED AREA TWICE DAILY FOR 14 DAYS 10/26/20 23 Active omeprazole (PriLOSEC) 20 mg capsule 07/26/20 20 Active ondansetron ODT (ZOFRAN-ODT) 4 mg disintegrating tablet DISSOLVE 1 TABLET BY MOUTH DAILY for 30 Active Januvia 100 mg tablet 12/16/19 24 Active traZODone (DESYREL) 100 mg tablet 07/31/20 20 Active Active Problems Problem Noted Date Diagnosed Date Vision changes 02/27/2025 Assessment & Plan (02/27/2025 2:35 PM CDT): Sent for evaluation of macular changes, she notes vision changes that seem to fluctuate. On examination today vision is 20/30 in both eyes. 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 I think these require observation, no intervention is necessary at this time. I wonder if her vision fluctuates as her blood sugars change, she does state that they go up and down at times. At this point I do not see any significant diabetic retinopathy although she does have diabetes. I have encouraged her to follow up with Dr. Leslie as scheduled, and I think she can follow up with her local supply room clerk as needed. Social History Tobacco Use Types Packs/Day Years Used Date Smoking Tobacco: Every Day Cigarettes Tobacco Cessation:Ready to Q uit: Not Asked; Counseling Given: Not Answered Comments Unknown Sex and Gender Information Value Date Recorded Sex Assigned at Not on file Legal Sex Female 7:34 PM PRESSURE STEAMER TENDER Gender Identity Not on file Sexual Orientation Not on file Last Filed Vital Signs Vital Sign Reading Time Taken Comments Blood Pressure 130/88 04/04/2015 4:16 PM CDT Pulse 90 04/04/2015 4:16 PM CDT Temperature 37.1 C (98.7 F) 04/04/2015 4:16 PM CDT Respiratory Rate - - Oxygen Saturation 97% 04/04/2015 4:16 PM CDT Inhaled Oxygen Concentration - - Weight 138.7 kg (305 lb 12.5 oz) 04/04/2015 4:16 PM CDT Height 172.7 cm (5' 8 ) 04/04/2015 4:16 PM CDT Body Mass Index 46.49 04/04/2015 4:16 PM CDT Plan of Treatment Not on file Procedures Procedure Name Priority Date/Time Associated Diagnosis Comments FUNDUS PHOTOS/FAF - OU - BOTH EYES Routine 02/27/2025 2:34 PM CDT Vision changes OCT, RETINA - OU - BOTH EYES Routine 02/27/2025 2:33 PM CDT Vision changes QUEEN VISUAL FIELD - OU - BOTH EYES Routine 01/05/2025 3:13 PM PRESSURE STEAMER TENDER Anatomical narrow angle glaucoma, bilateral OCT, OPTIC NERVE - OU - BOTH EYES Routine 01/05/2025 3:13 PM PRESSURE STEAMER TENDER OAG (open angle glaucoma) suspect, high risk Anatomical narrow angle glaucoma, bilateral from Last 3 Months Results * Fundus Photos/FAF - OU - Both Eyes (02/27/2025 2:34 PM CDT) Anatomical Region Laterality Modality Head Fundus Photograp hy Narrative 02/27/2025 2:34 PM CDT Right Eye Quality was good. Progression has no prior data. Left Eye Progression has no prior data. Notes Normal OU, no bulls eye Quiana Parker MD OPHTH PHOTOGRAPHY Final Re sult * OCT, Retina - OU - Both Eyes (02/27/2025 2:33 PM CDT) Anatomical Region Laterality Modality Head Optical Coherenc e Tomography Narrative 02/27/2025 2:33 PM CDT Right Eye Quality was good. Scan locations included subfoveal. Progression has been stable. Findings include lamellar hole. Left Eye Quality was good. Progression has been stable. Findings include normal observations. Quiana Parker MD OPHTH TOMOGRAPHY Final Res ult * Queen Visual Field - OU - Both Eyes (01/05/2025 3:13 PM PRESSURE STEAMER TENDER) Anatomical Region Laterality Modality Head Other Narrative 03/20/2025 7:53 AM CDT Right Eye Fixation was borderline. Cooperation was borderline. Reliability was borderline. Left Eye Fixation was borderline. Cooperation was borderline. Reliability was borderline. Notes Poor reliability Significant false positives Some cloverleaf artifact OD Julian Leslie MD OPHTH VISUAL FIELD Final Resu lt * OCT, Optic Nerve - OU - Both Eyes (01/05/2025 3:13 PM PRESSURE STEAMER TENDER) Anatomical Region Laterality Modality Head Other Narrative 03/20/2025 7:54 AM CDT OD: Mild superior thinning OS: Mild superior thinning GCC: 62/69 Julian Leslie MD OPHTH TOMOGRAPHY Final Result from Last 3 Months Insurance [facility] Member Subscriber Plan / Payer (Ef fective 2021-Present) Name:Annita Oropeza Relation to Subscriber:Self Name:Annita Oropeza Payer ID:[id number] (NAIC) Type:MEDICARE RISK OTHER Address: [address] Care Teams Water Quality Analyst Relationship Specialty Start Date End Date Princess Gramajo PA [address] [place] [phone] PCP - General Physician Physician Executive 10/20/24
--- OUTSIDE RECORDS SUMMARY | 2025-03-20 18:26 | XMS_ITS | Clinical Summary ---
Author Organization [facility] Address [facility] [place] [address] Care Team Providers Care Art Dealer Name Role Phone None, Provider MD Primary Care Provider Unavaila ble Allergies No known active allergies Social History Tobacco Use Types Packs/Day Years Used Date Smoking Tobacco: Every Day Smokeless Tobacco: Never Alcohol Use Standard Drinks/Week Comments Yes 0 (1 standard drink = 0.6 oz pur e alcohol) Comments No Sex and Gender Information Value Date Recorded Sex Assigned at Not on file Legal Sex Female 6:34 PM CDT Gender Identity Not on file Sexual Orientation Not on file Last Filed Vital Signs Vital Sign Reading Time Taken Comments Blood Pressure 125/90 09/19/2020 12:30 PM CDT Pulse 84 09/19/2020 12:30 PM CDT Temperature 36.7 C (98.1 F) 09/19/2020 8:32 AM CDT Respiratory Rate 18 09/19/2020 12:30 PM CDT Oxygen Saturation 96% 09/19/2020 12:30 PM CDT Inhaled Oxygen Concentration - - Weight 138.8 kg (306 lb) 09/19/2020 8:32 AM CDT Height 172.7 cm (5' 8 ) 09/19/2020 8:32 AM CDT Body Mass Index 46.53 09/19/2020 8:32 AM CDT Plan of Treatment Health Maintenance Due Date Last Done Comments Cervical Cancer Screening Pa p Smear (Age 30 to 64) Every 3 Years 1985 Annual Physical 1988 Hepatitis C 2003 DTaP, Tdap and Td Vaccines ( 1 - Tdap) 2004 Hepatitis B Vaccines (1 of 3 - 19+ 3-dose series) 2004 Cervical Cancer Screening Pa p with HPV Testing (Age 30 to 64) Every 5 Years 2015 Cervical Cancer Screening with HPV 2015 Pneumococcal Vaccine: Pediat rics (0 to 5 Years) and At-Risk Patients (6 to 49 Years) (2 of 2 - PCV) 08/10/2021 08/10/2020 COVID-19 Vaccine (1 - 2023-2 5 season) 2024 HPV Vaccines Aged Out No longer eligi ble based on patient's age to complete this topic Meningococcal B Vaccine Aged Out No l onger eligible based on patient's age to complete this topic Meningococcal Vaccine Aged Out No christina lamont eligible based on patient's age to complete this topic RSV Immunizations Under 20 Months Aged Out No longer eligible based on patient's age to complete this topic Insurance MEDICARE [place] Care Teams Art Dealer Relationship Specialty Start Date End Date None, Provider, PCP - General 09/19/20
--- OUTSIDE RECORDS SUMMARY | 2025-03-20 18:26 | XMS_ITS | Encounter Summary ---
Author Organization [facility] Health Address [address] [place] [address] Care Team Providers Care Tin Whiz Machine Operator Name Role Phone [facility] Primary Care Provide r Cheryl Sánchez MD Primary Care Provider [phone] Lili [facility] Primary Care Provider Encounter Details Date Type Department Care Team (Late st Contact Info) Description 09/24/2020 Telephone [facility] [address] [place] [address] Ceci Ellington MD [address] [place] [address] Social History Tobacco Use Types Packs/Day Years [...] on file 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 No / Unsure 08/29/2020 3:08 PM CDT documented as of this encounter Miscellaneous Notes * Telephone Encounter - Vandana Kim - 09/24/2020 9:17 AM CDT Current Provider name: Dr. Ceci Ellington Reason for call: Ms. Annita Oropeza just called in this morn to see if Dr. Ellington would give her a referral for a neurologists? Her first appt was 08/29/2020. She stated she has A bad back back, a sciatic nerve, bulging disc, nerve pain going down her leg etc. She wasn't clear on the name of her PCP, Dr. Shamir Johnston In [place]. who I attempted to add to her demographics. I told her I am getting message over, perhaps she also might want to reach out to her PCP as well. Please give her a call. Patient Call Back number: [phone] documented in this encounter Plan of Treatment Upcoming Encounters Date Type Department Care Team (Late st Contact Info) Description 04/06/2025 10:00 AM CDT Office Visit [facility] - Urology [address], [address] [place] [address] Jaqueline Geronimo PA-C [address] [place] [address] documented as of this encounter Visit Diagnoses Not on filedocumented in this encounter Care Teams Tin Whiz Machine Operator Relationship Specialty Start Date End Date Efren Macdonald APRN-SHREDDING SPECIALIST [address] [place] [address] PCP - General Nurse Practitioner Gerontology 12/05/20 04/02/22 Cheryl Sánchez MD [address] [place] [address] PCP - General Family Medicine 04/03/22 05/19/22 Lili Mustafa APRN-SHREDDING SPECIALIST [address] [place] [address] PCP - General Nurse Practitioner Family 06/08/23 documented as of this encounter
--- OUTSIDE RECORDS SUMMARY | 2025-03-20 18:26 | XMS_ITS | Encounter Summary ---
Author Organization [facility] Address [address] [facility] [place] [address] Care Team Providers Care Field Crop Grower Name Role Phone Ramsey [facility]el [facility] Primary Care Provider Encounter Details Date Type Department Care Team (Latest Contact Info) Description 03/20/2025 Travel Social History Tobacco Use Types Packs/Day Years Used Date Smoking Tobacco: Every Day Cigarettes 2 17 Cigars Smokeless Tobacco: Never Comments:social Alcohol Use Standard Drinks/Week Comments Not Currently 2 (1 standard drink = 0.6 oz pur e alcohol) 2-4 drinks per week AUDIT-C Answer Date Recorded Q1: How often do you have a drink containing alc ohol? Monthly or less 08/07/2020 Q2: How many drinks containi ng alcohol do you have on a typical day when you are drinking? 1 or 2 08/07/2020 Frequency of Binge Drinking Not on file 06/2020 Comments No Sex and Gender Information Value Date Recorded Sex Assigned at Not on file Legal Sex Female 7:39 PM AUDITOR Gender Identity Not on file Sexual Orientation Not on file documented as of this encounter Plan of Treatment Upcoming Encounters Date Type Department Care Team (Late st Contact Info) Description 04/06/2025 10:00 AM CDT Office Visit [facility] - Urology [address], [address] [place] [address] Jaqueline Geronimo PA-C [address] [place] [address] documented as of this encounter Visit Diagnoses Not on filedocumented in this encounter Care Teams Field Crop Grower Relationship Specialty Start Date End Date Lili Mustafa APRN-DIRECTOR REHABILITATION PROGRAM [address] [place] [address] PCP - General Nurse Practitioner Family 06/08/23 documented as of this encounter
--- OUTSIDE RECORDS SUMMARY | 2025-03-20 18:26 | XMS_ITS | Patient Health Record ---
Author Organization [facility] Address [address] [place] [address] Care Team Providers Care Bin Worker Name Role Phone Lili Yanez Primary Care Provider Allergies Allergen (clinical drug ingredient) Drug/Non Drug Allergy documented on EMR Reaction Allergy Type Onset Date Status aripiprazole abilify (uncoded) Unknown Allergy Active lithium carbonate [place] Carbonate Unknown Drug Allergy Active Reason For Referral No Information Medications Medication SIG (Take, Route, Frequency, Duration) Notes Start Date End Date Status amLODIPine Besylate 10 mg TAKE 1 TABLET BY MOUTH DAILY for 30 Active Mucinex 600 MG 1 tablet as needed Orally every 12 hrs for 7 days Active Cepacol Sore Throat 5.4 MG 1 lozenge as needed Mouth/Throat every 2 hrs Active Allergy Relief Cetirizine 10 mg TAKE 1 TABLET BY MOUTH DAILY for 30 Active Fluconazole 150 MG 1 tablet Orally every 72 hours 09/11/2023 Active metFORMIN HCl 1000 mg TAKE 1 TABLET BY MOUTH TWICE A DAY WITH MEALS for 30 Active Triamcinolone Acetonide 0.1 % 1 application Externally twice a day for 30 days 11/12/2021 Active Azithromycin 250 MG take 2 tablets today then 1 tablet once aday for 4 days 5days once a day for 5 days 01/26/2023 Not-Taking Montelukast Sodium 10 mg TAKE 1 TABLET B Y MOUTH DAILY for 30 Not-Taking buPROPion HCl ER (XL) 300 MG 1 tablet in the morning Orally Once a day Unknown Omeprazole 20 mg TAKE 1 CAPSULE BY MOUTH EVERY MORNING 30 MINUTE(S) BEFORE MEAL for 30 Active UltiCare Mini Pen [place] 31G X 6 MM USE AT NIGHT DIRECTED for 100 Active Vraylar 3 MG 1 capsule Orally Once a day Unknown Ondansetron 4 mg DISSOLVE 1 TABLET BY MOUTH DAILY for 30 Active Aspirin EC 81 MG 1 tablet Orally Once a day Unknown Albuterol Sulfate HFA 108 (90 Base) MCG/ACT INHALE 1 PUFF EVERY 4 TO 6 HOURS NEEDED FOR SHORTNESS OF BREATH OR WHEEZING for 25 Active Benzonatate 100 MG 1 capsule as needed Orally Three times a day for 10 days 09/01/2022 Not-Taking Azithromycin 250 MG as directed Orally once a day for 5 days 09/01/2022 Not-Taking Multivitamin Adult - 1 tablet Orally Onc e a day for 30 days 04/22/2023 Active Zovirax 5 % 1 application every 3 hours Externally Six times a day for 10 days 09/16/2022 Not-Taking Ventolin HFA 108 (90 Base) MCG/ACT one to two puffs Inhalation every 4 to 6 hours as needed for 90 days Not-Taking hydroCHLOROthiazide 25 mg TAKE 2 TABLETS BY MOUTH EVERY MORNING for 30 Active Pravastatin Sodium 40 mg TAKE 1 TABLET B Y MOUTH DAILY for 30 Active Fluticasone Propionate 50 MCG/ACT USE 1 SPRAY EACH NOSTRIL TWO TIMES A DAY for 90 days Active Ibuprofen 800 MG 1 tablet with food or milk as needed Orally every 8 hrs for 30 days Active Cane - as directed for difficulty with mobility Dx Z74.09 daily for 365 days 07/08/2018 Unknown Test strips for glucometer 1 strip test three times a day, Dx Code: E11.9 for 90 days 05/26/2018 Unknown Pen [place] 31G X 6 MM as directed at [facility] for 90 days Unknown Hydrocortisone 2.5 % 1 application Externally Twice a day for 14 days 10/12/2019 Unknown Basaglar KwikPen 100 UNIT/ML 25 units Subcutaneous at night for 30 days 12/05/2021 Unknown TRUEplus Insulin Syringe 29G X 1/2 1 ML USE WITH LANTUS DAILY for 90 Active GLUCOMETER, FORMULARY ANY DIRECTED DIRECTED DIRECTED, Dx Code: E11.9 for 360 DAYS 05/26/2018 Unknown Cyclobenzaprine HCl 10 MG 1 tablet at be dtime as needed Orally Once a day for 30 days Active Misc. Devices - as directed wheeled walker with hand brakes and a seat daily for 365 days 12/18/2017 Unknown glipiZIDE 5 mg TAKE 1 TABLET BY MOUTH DAILY for 30 Active Hydrocortisone (Perianal) 2.5 % APPLY RECTALLY TWO TIMES A DAY for 90 Unknown Clotrimazole 1 % 1 application Externally Twice a day 11/12/2021 Unknown Lisinopril 20 mg TAKE 1 TABLET BY MOUTH DAILY for 30 Active OneTouch Delica Plus [id number] - TEST TWICE A DAY DIRECTED for 50 Active Acyclovir 5 % 1 application every 3 hours Externally Six times a day 09/16/2022 Active Gabapentin 800 MG TAKE 1 TABLET BY MOUTH THREE TIMES A DAY Orally three times a day for 30 days Active Cetirizine HCl 10 MG 1 tablet Orally Onc e a day for 30 days 09/11/2023 Active Immunizations Vaccine Route Administration Date Status Comme nts Influenza, injectable, quadrivalent, preservative free IM Intramuscular 08/30/2018 Administered Patient tolerated well. Social History Tobacco Use: Social History Observation Description Date Details (start date - stop date) Current Smoker NA - NA Sex Assigned At : Social History Observation Description Sex Assigned At Female Dont use, Tobacco Use/Smoking Question Answer Notes Are you a current smoker How many cigarettes a day do you smoke? 6-10 Section Notes: Problems Problem Type SNOMED Code ICD Code Onset Dates Problem Status W/U Status Risk Notes Problem 23630955 Type 2 diabetes mellitus with diabetic neuropathy, unspecified (E11.40) Active confirmed Problem 29614748 Type 2 diabetes mellitus with hyperglycemia (E11.65) 021 Active confirmed Problem 147090989 Morbid (severe) obesity due to excess calories (E66.01) Active confirmed Problem Tobacco user (648244979) Nicotine dependence, unspecified, uncomplicated (F17.200) Active confirmed Problem 05063637 Other chronic pa in (G89.29) Active confirmed Problem 815241138 Lumbago with sciatica, right side (M54.41) Active confirmed MRI LUMBAR THORACIC 11/28/2017 shows multilevel of DEG D. & ACUTE OF DICS protrusion Right L3-L4 Problem 809076308 Dysmenorrhea, unspecified (N94.6) Active confirmed Problem Abnormal sputum (133170794) Abnormal sputum (R09.3) Active confirmed Problem Nausea (208925209) Nausea (R11.0) Active confirmed Problem 538120362701139 Benign essential microscopic hematuria (R31.1) Active confirmed Problem 729913999 prison (current) use of insulin (Z79.4) Active confirmed Problem FH: Skin disease (034772665) Family history of diseases of the skin and subcutaneous tissue (Z84.0) Active confirmed Problem Depression (804859839) Depression (F32.9) 020 Active confirmed Problem Type II diabetes mellitus without complication (629869656) Diabetes (E11.9) 022 Active confirmed Problem Sinusitis (62979995) Sinusitis (J32.9) Active confirmed Problem Sore throat (751705352) Sore throat (J02.9) Active confirmed Problem Otitis externa (7886256) Otitis externa (H60.90) Active confirmed Problem Urinary tract infectious disease (17881906) UTI (urinary tract infection) (N39.0) Active confirmed Problem 986990218 Cervical cancer screening (Z12.4) Active confirmed Problem Sleep apnea (97123202) Sleep apnea (G47.30) Active confirmed Problem 255808588 Mixed stress and urge urinary incontinence (N39.46) Active confirmed Problem 574248899 Vaginal discharg e (N89.8) Active confirmed Problem Muscle spasm (02010100) Muscle spasm (M62.838) Active confirmed Problem Neuropathy (278059462) Neuropathy (G62.9) Active confirmed Problem 55728463 Chronic fatigue (R53.82) Active confirmed Problem Pain (98027404) Pain (R52) Active confirmed Problem 40021892 Cigarette nicoti ne dependence without complication (F17.210) Active confirmed Problem Well female adult (647900490) Well woman exam (Z01.419) Active confirmed Problem 41661536 Essential hypertension (I10) 017 Active confirmed Problem 39197954 Hyperlipidemia, unspecified hyperlipidemia type (E78.5) 017 Active confirmed Problem 88904732 Izzy infectio n (B37.9) Active confirmed Problem Type II diabetes mellitus without complication (484713092) Type 2 diabetes mellitus without complication, without long-term current use of insulin (E11.9) 019 Active confirmed Problem 975511878 Gastroesophageal reflux disease without esophagitis (K21.9) Active confirmed Problem 5553641 Tinea pedis of both feet (B35.3) Active confirmed Problem 2892965 Gastritis withou t bleeding, unspecified chronicity, unspecified gastritis type (K29.70) Active confirmed Problem Chronic rhinitis (06909637) Rhinitis, unspecified type (J31.0) Active confirmed Problem 26389955 Sleep trouble (G47.9) Active confirmed Problem Tobacco use (909861220) Tobacco use disorder (F17.200) Active confirmed Problem 63800237 Irritable bowel syndrome with both constipation and diarrhea (K58.2) Active confirmed Problem Hearing loss (70479418) Decreased hearing of both ears (H91.93) Active confirmed Problem Obesity (634521012) Obesity, unspecified classification, unspecified obesity type, unspecified whether serious comorbidity present (E66.9) Active confirmed Problem 32416562 Postconcussive syndrome (F07.81) Active confirmed Problem 608527607 Seasonal allergi c rhinitis, unspecified trigger (J30.2) Active confirmed Problem Screening for malignant neoplasm of breast (008650976) Breast cancer screening by mammogram (Z12.31) Active confirmed Problem 656596825 Need for assistance due to unsteady gait (R26.89) 022 Active confirmed Problem 449743561 Intertriginous candidiasis (B37.2) Active confirmed Problem 004957880 Sexually transmitted disease exposure (Z20.2) Active confirmed Problem Voice hoarseness (40571952) Voice hoarseness (R49.0) Active confirmed Problem Cough (71318428) Cough (R05.9) Active confirmed Problem 358821322 Herpes genitalis in women (A60.09) Active confirmed Plan Of Treatment Pending Test Test Name Order Date Xray : Hip, left 01/13/2023 Xray : Hip, right 01/13/2023 Xray : Knee, left 2 views 01/13/2023 Xray : Knee, right 2 views 01/13/2023 Xray : Spines, lumbar 2 views 01/13/2023 Xray : Thoracic spine 2 views 01/13/2023 Urinalysis In-House, Routine 01/28/2022 Chlamydia/GC Amplification 01/14/2022 Pap IG, rfx HPV all pth 01/14/2022 Hemoglobin A1c* 08/30/2018 Insurance Providers Payer Name Payer Address Payer Phone Subscriber Number Group Number Insured Name Patient Relationship to Insured Coverage Start Date Coverage End Date [employer] [address] [place] [address] [id number] Annita Oropeza Self - patient is the insured 1 MEDICARE PART A [address] [place] [address] [id number] Annita Oropeza Self - patient is the insured 6 1 [facility] [address] [place] [address] [id number] Annita Oropeza Self - patient is the insured 1 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
--- OUTSIDE RECORDS SUMMARY | 2025-03-20 18:26 | XMS_ITS | Clinical Summary ---
Author Organization [address] Address [address] [place] [address] HERMINIO Carmichael [address] Care Team Providers Care Cobbler Mckay Name Role Phone Princess Gramajo Primary Care Provider [phone] Allergies Active Allergy Reactions Criticality Noted Date Comments Aripiprazole Other (See comments),Unknown Low 08/07/2020 Other reaction(s): Other, Other [place] Other (See comments),Nausea & Vomiting Low 2022 [...] tablet (800 mg total) as needed 07/10/20 Active insulin glargine (LANTUS) 100 unit/mL (3 [...] she can follow up with her local ophthalmology surgical technician as needed. Encounters Date Type Department Care Team Description 02/27/2025 1:30 PM CDT Office Visit [facility] Ophthalmology [address] [facility] [address] [place] [phone] Quiana Parker MD Vision changes (Primary Dx) 01/24/[address] [facility] Ophthalmology [address] [place] [address] Quiana Parker MD Scheduling Appointments 01/12/[address] [facility] Ophthalmology [address] [place] [phone] Julian Leslie MD OAG (open angle glaucoma) suspect, high risk (Primary Dx) 01/05/2025 2:15 PM NPS Office Visit [facility] Ophthalmology [address] [place] [phone] Julian Leslie MD Age-related nuclear cataract of both eyes (Primary Dx); OAG (open angle glaucoma) suspect, high risk 01/05/2025 2:10 PM NPS Imaging Exam [facility] Ophthalmology [address] [place] [phone] OAG (open angle glaucoma) suspect, high risk; Anatomical narrow angle glaucoma, bilateral 01/05/2025 1:50 PM NPS Imaging Exam [facility] Ophthalmology [address] [place] [phone] Anatomical narrow angle glaucoma, bilateral 01/03/[address] [facility] Ophthalmology [address] [place] [address], [address] [place] [phone] Julian Leslie OAG (open angle glaucoma) suspect, high risk (Primary Dx); Anatomical narrow angle glaucoma, bilateral from Last 3 Months Social History Tobacco Use Types Packs/Day Years Used Date Smoking Tobacco: Every Day Cigarettes Tobacco Cessation:Ready to Q uit: Not Asked; Counseling Given: Not Answered Comments Unknown Sex and Gender Information Value Date Recorded Sex Assigned at Not on file Legal Sex Female 7:34 PM NPS Gender Identity Not on file Sexual Orientation Not on file Obstetrics History Last Filed Vital Signs Vital Sign Reading [...] 04/04/2015 4:16 PM CDT Plan of Treatment Health Maintenance Due Date Last Done Comments Cervical Cancer Screening 1985 Depression Screening 1985 Hepatitis C Screening 1985 Varicella Vaccines (1 of 2 - 13+ 2-dose series) 1998 Regular Well Visit/Exam 18-64 2003 DTaP/Tdap/Td Vaccine (7 - Tdap) 08/21/2010 08/21/2000, 08/25/1999, 11/18/1988, Additional history exists Pneumococcal vaccine <65 (2 of 2 - PCV) 08/10/2021 08/10/2020 Covid-19 Vaccine ( - season) 2024 04/23/2022, 10/19/2021, 09/21/2021 Influenza Vaccine (Season Ended) 2025 09/15/2023, 09/21/2021, 08/10/2020, Additional history exists Hepatitis B Screening Completed 08/09/2003 , 03/08/2003, 08/21/2000 HPV Vaccines Aged Out No longer eligi ble based on patient's age to complete this topic Procedures Procedure Name Priority Date/Time Associated Diagnosis Comments FUNDUS PHOTOS/FAF - OU - BOTH EYES Routine 02/27/2025 2:34 PM CDT Vision changes OCT, RETINA - OU - BOTH EYES Routine 02/27/2025 2:33 PM CDT Vision changes [employer]EN VISUAL FIELD - OU - BOTH EYES Routine 01/05/2025 3:13 PM NPS Anatomical narrow angle glaucoma, bilateral OCT, OPTIC NERVE - OU - BOTH EYES Routine 01/05/2025 3:13 PM NPS OAG (open angle glaucoma) suspect, high risk [...] OU - Both Eyes (01/05/2025 3:13 PM NPS) Anatomical Region Laterality Modality Head Other Narrative [...] OU - Both Eyes (01/05/2025 3:13 PM NPS) Anatomical Region Laterality Modality Head Other Narrative 03/20/2025 7:54 AM CDT OD: Mild superior thinning OS: Mild superior thinning GCC: 62/69 Julian Leslie MD OPHTH TOMOGRAPHY Final Result from Last 3 Months Insurance [facility] [place] [place] Member Subscriber Plan / Payer (Ef fective 2021-Present) Name:Annita Oropeza Relation to Subscriber:Self Name:Annita Oropeza Payer ID:[id number] (NAIC) Type:MEDICARE RISK OTHER Address: [address] [facility] [place] Care Teams Cobbler Mckay Relationship Specialty Start Date End Date Princess Gramajo PA [address] [place] [id number] PCP - General Physician Java Solutions Architect 10/20/24
--- OUTSIDE RECORDS SUMMARY | 2025-03-20 18:26 | XMS_ITS | Clinical Summary ---
Author Organization [facility] Address [address] [place] [address] Care Team Providers Care Manager Video Name Role Phone Lili MustafaMARKING MACHINE TENDER Primary Care Provider Source Comments [facility],non-owned Affiliates and Associated Physician Practices is amultiple site organization consisting of ambulatory clinics and hospital sitesin [place], [place], [place] and [place]. This disclosure is being madepursuant to the Care Everywhere program and may not contain all information available regarding this patient. Last updated 18.[facility] Allergies Active Allergy Reactions Criticality Noted Date Comments Aripiprazole Other 08/07/2020 [place] Vomiting 2022 Medications * Be aware that medications may not be up to date on this document. Alwaysverify current medications with the patient. albuterol HFA (PROVENTIL; VENTOLIN; PROAIR) 108 (90 Base) MCG/ACT inhaler Ventolin HFA 90 mcg/actuation aerosol inhaler Active buPROPion SR 12hr (WELLBUTRIN SR) 200 MG tablet Take 1 (one) tablet by mouth once daily Active busPIRone (BUSPAR) 10 MG tablet Take 1 (one) tablet by mouth 4 times daily as needed Active cyclobenzaprin e (FLEXERIL) 10 MG tablet Active gabapentin (NEURONTIN) 300 MG capsule 4 (four) capsules 3 times daily Active glipiZIDE (GLUCOTROL) 5 MG tablet Take 1 (one) tablet by mouth daily before breakfast Active hydroCHLOROthi azide (HYDRODIURIL) 50 MG tablet hydrochlorothiazide 50 mg tablet Active hydrOXYzine hcl (ATARAX) 25 MG tablet Active ibuprofen (MOTRIN) 800 MG tablet 1 (one) tablet as needed Active LANTUS SOLOSTAR pen 25 (twenty five) Units at bedtime Active lisinopril (PRINIVIL; ZESTRIL) 20 MG tablet once daily Takes in the evening Active meclizine (ANTIVERT) 25 MG tablet meclizine 25 mg tablet Take 1 tablet 3 times a day by oral route PRN. Active metFORMIN (GLUCOPHAGE) 1000 MG tablet Take 1 (one) tablet by mouth 2 times daily with morning and evening meal Active omeprazole (PRILOSEC) 20 MG capsule Active traZODone (DESYREL) 100 MG tablet Active valACYclovir (VALTREX) 1 GM tablet Active amLODIPine (NORVASC) 10 MG tablet once daily Takes in the evening Active VRAYLAR 3 MG capsule Take 1 (one) capsule by mouth once daily Active fluticasone propionate (FLONASE) 50 MCG/ACT nasal spray Active NEOMYCIN-POLYM YXIN-HC, OTIC, 1 % zqkzarih-zudzwrwoo-sfc rocort 3.5 mg/mL-10,000 unit/mL-1 % ear solution Active UNIFINE PENTIPS PLUS 31G X 6 MM MISC [place] 30 Each 11 Active blood glucose test stripIndicatio ns:Type 2 diabetes mellitus with complication, with long-term current use of insulin (HCC) Use 1 strip 2 times daily E11.65 T2DM 200 strip 3 Active ONETOUCH DELICA PLUS 30G EXTRA FINE LANCETSIndicat ions:Type 2 diabetes mellitus with complication, with long-term current use of insulin (HCC) Use 1 Each 2 times daily E11.65 T2DM 200 Each 3 021 Active cetirizine (ZYRTEC) 10 MG tablet 022 Active fluticasone hfa 44 (FLOVENT HFA 44) 44 MCG/ACT inhaler 022 Active pravastatin (PRAVACHOL) 40 MG tablet pravastatin 40 mg tablet Active ondansetron, disintegrating , (Zofran ODT) 8 MG tablet Take 1 (one) tablet by mouth every 6 hours as needed for Nausea/Vomiting Allow tablet to dissolve on the tongue 30 tablet 3 023 Active fluconazole (Diflucan) 150 MG tablet Take 1 (one) tablet by mouth every 3 days 2 tablet 023 Active Additional Information Patient not taking.Reported on 06/20/2024 valACYclovir (Valtrex) 1 GM tablet Take 1 (one) tablet by mouth once daily 30 tablet 024 Active UltiCare Alcohol Swabs 70 % PADS Active Aspirin Low Dose 81 MG tablet 023 Active Lipitor 40 MG tablet 024 Active benzonatate (Tessalon) 100 MG capsule TAKE 1 CAPSULE BY MOUTH TWICE DAILY NEEDED FOR COUGH 023 Active cephalexin (Keflex) 500 MG capsule TAKE 1 CAPSULE BY MOUTH EVERY 6 HOURS FOR 10 DAYS 024 Active Continuous Glucose Archery Instructor (FreeStyle [place] 2 [place] [employer]) ISABELLA 023 Active Continuous Glucose Sensor (FreeStyle [place] 2 Sensor Systm) [facility] 024 Active dicyclomine (Bentyl) 10 MG capsule 024 Active doxycycline hyclate (Vibramycin) 100 MG capsule TAKE 1 CAPSULE BY MOUTH TWICE DAILY FOR 5 DAYS 023 Active Trulicity 0.75 MG/0.5ML injection 024 Active Jardiance 25 MG tablet 023 Active guaiFENesin ER 12hr (Mucinex) 600 MG tablet 1 tablet as needed Orally every 12 hrs for 7 days Active NovoLIN R injection 024 Active hydrocortisone , rectal, (Anusol-HC) 2.5 % cream APPLY RECTALLY TWO TIMES A DAY for 90 Active Arnuity Ellipta 100 MCG/ACT inhaler 024 Active BD Insulin Syringe U/F 30G X 1/2 0.5 ML MISC 024 Active TRUEplus Insulin Syringe 29G X 12/01 1 ML syringe 023 Active ketoconazole (Nizoral) 2 % cream 024 Active menthol (Cepacol Sore Throat) 5.4 MG lozenge 1 lozenge as needed Mouth/Throat every 2 hrs Active methocarbamol (Robaxin) 750 MG tablet TAKE 1 TABLET BY MOUTH TWICE DAILY FOR 14 DAYS NEEDED FOR BACK PAIN 024 Active methylPREDNISo lone (Medrol Dosepak) 4 MG tablet FOLLOW PACKAGE DIRECTIONS 023 Active montelukast (Singulair) 10 MG tablet 024 Active nystatin (Mycostatin) 800185 UNIT/GM powder APPLY TO THE AFFECTED AREA TWICE DAILY FOR 14 DAYS 023 Active permethrin (Elimite) 5 % cream APPLY TO BODY FROM NECK TO BOTTOMS OF FEET. LEAVE ON FOR 8 TO 14 HOURS. WASH OFF IN MORNING 024 Active predniSONE (Deltasone) 20 MG tablet Take 2 (two) tablets by mouth once daily 024 Active Januvia 100 MG tablet 024 Active sulfamethoxazo le-trimethopri m (Bactrim DS; Septra DS) 800-160 MG tablet Take 1 (one) tablet by mouth every 12 hours 024 Active triamcinolone acetonide (Kenalog) 0.1 % ointment 023 Active nystatin (Mycostatin) 476955 UNIT/GM creamIndicatio ns:Cutaneous Candidiasis Apply to affected area 2 times daily Reasons: Skin Infection due to Izzy Yeast 30 g 025 Active boric acid 600 mg capsule Insert 1 (one) capsule into the vagina at bedtime 21 capsule 025 Active boric acid 600 mg capsuleIndicat ions:Izzy glabrata Insert 1 (one) capsule into the vagina at bedtime for 21 days 600 mg capsule nightly for two to three weeks. Reasons: Izzy glabrata Fungus 21 capsule 025 2024 Active Problems Problem Noted Date Diagnosed Date Hypertension 01/03/2021 Overview (01/03/2021): Pt is on Lisinopril and amlodipine. Depression 01/03/2021 Overview (01/03/2021): Pt taking Vraylar. History of seizures 01/03/2021 Overview (01/03/2021): Seizures/nerve pain. Pt taking Gabapentin, Ibuprofen, and Flexiril. Current smoker 01/03/2021 Morbid obesity 09/14/2020 Nonspecific syndrome suggestive of viral illness 09/14/2020 Uncontrolled type 2 diabetes mellitus with hyper glycemia 09/14/2020 Overview (01/03/2021): Metformin and Lantus Resolved Problems Problem Noted Date Diagnosed Date Resolved Date Candidiasis of mouth 09/14/2020 021 Acute urinary tract infection 09/14/2020 09/28/2020 Acute bronchitis 09/14/2020 01/03/2021 Encounters Date Type Department Care Team Description 03/20/2025 Travel 02/28/2025 10:28 AM CDT - 02/28/2025 11:59 PM CDT Hospital Encounter [facility] Imaging Services - Ultrasound [address] [facility] [address] [place] [address] Annita Lynch, ALBINO-ARTURO Discharge Disposition: Home or Self Care 02/20/2025 Telephone [facility] - MEDICAL PRACTICE ADMINISTRATOR [id number] [place] [address] DRIVE [address] [place] [address] Annita Lynch, ALBINO-MARKING MACHINE TENDER Update 02/17/2025 Telephone [facility] - MEDICAL PRACTICE ADMINISTRATOR [id number] [place] [address] [address] [place] [address] Annita Lynch, ALBINO-MARKING MACHINE TENDER Update 02/17/2025 Travel 01/30/2025 11:20 AM INSTRUMENT AND CONTROL TECHNICIAN Office Visit [facility] - MEDICAL PRACTICE ADMINISTRATOR [id number] [place] [address] [address] [place] [address] Annita Lynch, ENTERPRISE SERVICES MANAGER-MARKING MACHINE TENDER Vaginal candidiasis (Primary Dx); PMS (premenstrual syndrome); Encounter for fertility planning; Incomplete emptying of bladder; Izzy glabrata infection from Last 3 Months Immunizations Immunization Administration Dates Next Due INFLUENZA VACCINE, QUADR. (F LUZONE; FLULAVAL; FLUARIX; AFLURIA QUADRIVALENT; 6MO+), 0.5 ML (IIV4) 08/10/2020 PNEUMOCOCCAL PPSV23 08/10/2020 Family History Medical History Relation Name Comments None Known Brother Diabetes; unknown type Father Cancer - Breast Maternal Aunt Cancer - Ovarian Maternal Aunt None Known Maternal Grandfather Cancer - Ovarian Maternal Grandmother Asthma Mother Cancer - Breast Mother Depression Mother Diabetes; unknown type Mother High Cholesterol Mother Hypertension Mother Cancer - Ovarian Other None Known Paternal Grandfather None Known Paternal Grandmother None Known Sister Alcohol abuse Neg Hx Dementia Neg Hx Drug Abuse Neg Hx Glaucoma Neg Hx Gout Neg Hx Leukemia Neg Hx Migraine Neg Hx Multiple Sclerosis Neg Hx Other Neg Hx Thyroid Disease Neg Hx Relation Name Status Comments Brother Father Maternal Aunt Alive Maternal Grandfather Maternal Grandmother Mother Other Paternal Grandfather Paternal Grandmother Sister Social History Tobacco Use Types Packs/Day Years Used Date Smoking Tobacco: Every Day Cigarettes 2 17 Cigars Smokeless Tobacco: Never Tobacco Cessation:Ready to Q uit: Not Asked; Counseling Given: Not Answered Comments:social Alcohol Use Standard Drinks/Week Comments Not [...] on file Legal Sex Female 7:39 PM INSTRUMENT AND CONTROL TECHNICIAN Gender Identity Not on file Sexual Orientation Not on file Last Filed Vital Signs Vital Sign Reading Time Taken Comments Blood Pressure 128/80 01/30/2025 11:31 AM INSTRUMENT AND CONTROL TECHNICIAN Pulse 90 06/20/2024 3:08 PM CDT Temperature 36 C (96.8 F) 06/08/2023 11:50 AM CDT Respiratory Rate 17 06/08/2023 12:15 PM CDT Oxygen Saturation 98% 06/20/2024 3:08 PM CDT Inhaled Oxygen Concentration - - Weight 127 kg (280 lb) 01/30/2025 11:31 AM INSTRUMENT AND CONTROL TECHNICIAN Height 172.7 cm (5' 8 ) 01/30/2025 11:31 AM INSTRUMENT AND CONTROL TECHNICIAN Body Mass Index 42.57 01/30/2025 11:31 AM INSTRUMENT AND CONTROL TECHNICIAN Plan of Treatment Upcoming Encounters Date Type Department Care Team (Late st Contact Info) Description 04/06/2025 10:00 AM CDT Office Visit [facility] Medical [facility] - Urology [address] [place] [id number] Jaqueline Geronimo PA-C [address] [place] [address] Health Maintenance Due Date Last Done Comments HIV SCREENING 2000 HEPATITIS C SCREENING 05/16/2003 DTAP/TDAP/TD VACCINES (1 - Tdap) 2004 HEPATITIS B VACCINE (1 of 3 - 19+ 3-dose series) 2004 DIABETES-FOOT EXAM WITH MONOFILAMENT 09/14/2020 DIABETES-HGB A1C 02/26/2021 08/29/2020 PNEUMOCOCCAL VACCINE (2 of 2 - PCV) 08/10/2021 08/10/2020 COVID-19 VACCINE (3 - season) 2024 10/19/2021, 09/21/2021 DEPRESSION SCREENING 11/30/2024 DIABETES - URINE PROTEIN SCREENING 11/30/2024 08/29/2020, 11/28/2017 MEDICARE AWV CALENDAR YEAR 2024 DIABETES-SERUM CREATININE 01/11/20252023, 09/19/2020, 09/19/2020, Additional history exists INFLUENZA VACCINE (Season Ended) 2025 09/21/2021, 08/10/2020, 02/22/2016 DIABETES RETINOPATHY SCREENING 02/27/2027 02/27/2025 PAP with HPV 04/23/2028 04/23/2023, 04/22/2023 ZOSTER VACCINE (1 of 2) 2035 HIB VACCINE Aged Out No longer eligi ble based on patient's age to complete this topic HPV VACCINE Aged Out No longer eligi ble based on patient's age to complete this topic MENINGOCOCCAL (Group B) VACCINE SHARED DECISION-MAKING Aged Out No longer eligible based on patient's age to complete this topic MENINGOCOCCAL GROUPS A/C/Y/W VACCINE Aged Out No longer eligible based on patient's age to complete this topic Procedures Procedure Name Priority Date/Time Associated Diagnosis Comments US PELVIS W TRANSVAG NON OB Routine 02/28/2025 11:14 AM CDT PMS (premenstrual syndrome) VAGINITIS PLUS (BV CA CT NG TRICH) Routine 01/30/2025 1:33 PM INSTRUMENT AND CONTROL TECHNICIAN Vaginal candidiasis PAP IG LB +HPV APTIMA REFLEX 16,18/45 Routine 04/23/2023 1:52 PM CDT Abnormal uterine bleeding (AUB) Screen for STD (sexually transmitted disease) MICROALB/CREAT RATIO URINE RANDOM PANEL Routine 08/29/2020 3:41 PM CDT Type 2 diabetes mellitus with complication, with long-term current use of insulin COMPREHENSIVE METABOLIC PANEL Routine 08/29/2020 3:31 PM CDT Type 2 diabetes mellitus with complication, with long-term current use of insulin HEMOGLOBIN A1C - POINT OF CARE (AMB) [facility] Routine 08/29/2020 2:24 PM CDT Type 2 diabetes mellitus with complication, with long-term current use of insulin from Last 3 Months or Most Recently Relevant to Health Maintenance Results * US Pelvis W Transvag Non Ob (02/28/2025 11:14 AM CDT) Anatomical Region Laterality Modality Pelvis Ultrasound 02/28/2025 11:5 9 AM CDT Impressions 02/28/2025 12:00 PM CDT IMPRESSION: 1.7 cm dominant follicle on the left ovary. > Interpreting Provider: Joseline Bolton MD on 02/28/2025 12:00 PM Narrative 02/28/2025 12:00 PM CDT PROCEDURE: US PELVIS W TRANSVAG NON OB DATE/TIME OF EXAM: 02/28/2025 11:14 AM CLINICAL INFORMATION: None relevant/not provided if blank. Indication: N94.3: Premenstrual tension syndrome Additional History: COMPARISON: None. TECHNIQUE: Real time transabdominal and transvaginal pelvic ultrasound was performed by the puppy walker with DICOM image capture. Grayscale images were obtained; additionally, Color interrogation was performed and interpreted. FINDINGS: The uterus is anteverted in position and homogeneous in echogenicity measuring 7.4 x 3.4 x 4.4 cm. The endometrial stripe is trilaminar in appearance and measures 7 mm in thickness. The right ovary measures 3.2 x 1.9 x 1.6 cm of the normal follicle present. The left ovary measures 3 x 2.1 x 2.4 cm with a 1.7 cm dominant follicle present. Normal color flow seen in the ovaries bilaterally. No free fluid is noted in the cul-de-sac. Procedure Note Joseline Bolton MD - 02/28/2025 PROCEDURE: US PELVIS W TRANSVAG NON OB DATE/TIME OF EXAM: 02/28/2025 11:14 AM CLINICAL INFORMATION: None relevant/not provided if blank. Indication: N94.3: Premenstrual tension syndrome Additional History: COMPARISON: None. TECHNIQUE: Real time transabdominal and transvaginal pelvic ultrasound wasperformed by the puppy walker with DICOM image capture. Grayscale images were obtained; additionally, Color interrogation was performed and interpreted. FINDINGS: The uterus is anteverted in position and homogeneous in echogenicity measuring 7.4 x 3.4 x 4.4 cm. The endometrial stripe is trilaminar in appearance and measures 7 mm in thickness. The right ovary measures 3.2 x 1.9 x 1.6 cm of the normal folliclepresent. The left ovary measures 3 x 2.1 x 2.4 cm with a 1.7 cm dominant follicle present. Normal color flow seen in the ovaries bilaterally. No free fluid is noted in the cul-de-sac. IMPRESSION: 1.7 cm dominant follicle on the left ovary. > Interpreting Provider: Joseline Bolton MD on 02/28/2025 12:00 PM us Annita Lynch ENTERPRISE SERVICES MANAGER-MARKING MACHINE TENDER US ORDERABLES Final R esult * (ABNORMAL) VAGINITIS PLUS (BV CA CT NG TRICH) (01/30/2025 1:33 PM INSTRUMENT AND CONTROL TECHNICIAN) Atopobium vaginae Low - 0 Score [facility] INSURANCE BILL BVAB 2 Low - 0 Score [facility] INSURANCE BILL Megashaera Low - 0 Score [facility] INSURANCE BILL Comment: Calculate total score by adding the 3 individual bacterial vaginosis (BV) marker scores together. Total score is interpreted as follows: Total score 0-1: Indicates the absence of BV. Total score 2: Indeterminate for BV. Additional clinical data should be evaluated to establish a diagnosis. Total score 3-6: Indicates the presence of BV. Izzy albicans MURRAY Negative Negative [facility] INSURANCE BILL Izzy glabrata MURRAY Positive(A) Negative [facility] INSURANCE BILL Comment: Published data demonstrate that up to 65% of Izzy glabrata identified in cases of vaginal candidiasis have decreased susceptibility to fluconazole. Trichomonas vaginalis by MURRAY Negative Negative [facility] INSURANCE BILL Chlamydia Trachomatis MURRAY Negative Negative [facility] INSURANCE BILL GC MURRAY Negative Negative [facility] INSURANCE BILL Microbiology ENTIRE VAGINA / Unknown 01/30/2025 1:33 PM INSTRUMENT AND CONTROL TECHNICIAN 01/31/2025 Comment:Vaginal Release to id Narrative [facility] INSURANCE BILL - 01/31/2025 11:07 PM INSTRUMENT AND CONTROL TECHNICIAN Test(s) 608399- Atopobium vaginae; 649969- BVAB 2; 340786- Megasphaera 1 was developed and its performance characteristics determined by [facility]. It has not been cleared or approved by the Food and Drug Administration. Test(s) 167234-Xnxaptx albicans, MURRAY; 211586-Hldziml glabrata, MURRAY was developed and its performance characteristics determined by [facility]. It has not been cleared or approved by the Food and Drug Administration. Performed at: 01 - [address] [id number] Building Equipment Inspector: Vickie Flynn MD, Phone: [phone] us Annita Lynch ENTERPRISE SERVICES MANAGER-MARKING MACHINE TENDER LAB - MICROBIOLOGY ELOINA TANG Final Result [facility] INSURANCE BILL [address] [place] [address] * PAP IG LB +HPV APTIMA REFLEX 16,18/45 (04/23/2023 1:52 PM CDT) Diagnosis [facility] INSURANCE BILL Comment: NEGATIVE FOR INTRAEPITHELIAL LESION OR MALIGNANCY. THIS SPECIMEN WAS RESCREENED PART OF OUR CERTIFIED MEDICATION AIDE PROGRAM. Specimen Adequacy [facility] INSURANCE BILL Comment: Satisfactory for evaluation. Endocervical and/or squamous metaplastic cells (endocervical component) are present. Clinician Provided ICD10 [facility] INSURANCE BILL Comment: N93.9 R10.2 Z11.3 N90.89 Performed by [facility] INSURANCE BILL Comment:Carmel Bailey, Cyto technologist (ASCP) QC Reviewed by [facility] INSURANCE BILL Comment:Rita Ladd ytotechnologist (ASCP) Comment . [facility] INSURANCE BILL Note [facility] INSURANCE BILL Comment: The Pap smear is a screening test designed to aid in the detection of premalignant and malignant conditions of the uterine cervix. It is not a diagnostic procedure and should not be used as the sole means of detecting cervical cancer. Both false-positive and false-negative reports do occur. . [facility] CPT Code Automation [facility] INSURANCE BILL Comment: This liquid based ThinPrep(R) pap test was screened with the use of an image guided system. Human papillomavirus Aptima Negative Negative [facility] INSURANCE BILL Comment: This nucleic acid amplification test detects fourteen high-risk HPV types (16,18,31,33,35,39,45,51,52,56,58,59,66,68) without differentiation. HPV Genotype Reflexed [facility] INSURANCE BILL Comment:Criteria not met, HP V Genotype not performed. PART OF UTERINE CERVIX / Unknown 04/23/2023 1:52 PM CDT 04/24/2023 Narrative [facility] INSURANCE BILL - 05/01/2023 11:11 AM CDT No. of containers..01 ThinPrep Vial Resulting Agency Comment Lab Testing performed at: [address] [id number] Jenny Sheridan MD LAB - PATHOLOGY/CYTOLOGY OR DERABLES Final Result [facility] INSURANCE BILL [address] [place] [address] * MICROALB/CREAT RATIO URINE RANDOM PANEL (08/29/2020 3:41 PM CDT) Pathologist [facility] Albumin Random Urine 17.8 Not Established mcg/mL 08/29/2020 4:33 PM [facility] Creatinine Urine 184 Not Established mg/dL 08/29/2020 4:33 PM [facility] Comment:Result obtained by brenna vo. Urine Albumin/Creati nine Ratio 10 <30 mg/g 08/29/2020 4:33 PM [facility] Urine URINE SPECIMEN OBTAINED BY CLEAN CATCH PROCEDURE / Unknown Collection / Unknown 08/29/2020 3:41 PM CDT 08/29/2020 4:00 PM CDT us Александр Payan MD LAB - URINE CHEMISTRY ORDERABLES Final Result [facility] [address] [place] [address], [facility] [phone] * (ABNORMAL) COMPREHENSIVE METABOLIC PANEL (08/29/2020 3:31 PM CDT) [facility] BUN 9 7 - 26 mg/dL 08/29/2020 4:38 PM [facility] Creatinine 0.7 0.6 - 1.2 mg/dL 08/29/2020 4:38 PM [facility] Sodium 139 136 - 145 mmol/L 08/29/2020 4:38 PM [facility] Potassium 4.0 3.5 - 4.5 mmol/L 08/29/2020 4:38 PM [facility] Chloride 106 98 - 107 mmol/L 08/29/2020 4:38 PM [facility] CO2 21(L) 22 - 29 mmol/L 08/29/2020 4:38 PM [facility] Glucose 116(H) 70 - 115 mg/dL 08/29/2020 4:38 PM [facility] Calcium 9.0 8.4 - 10.2 mg/dL 08/29/2020 4:38 PM [facility] Protein Total 6.9 6.0 - 8.3 g/dL 08/29/2020 4:38 PM [facility] Albumin 3.3(L) 3.4 - 5.0 g/dL 08/29/2020 4:[address] [facility] Bilirubin Total 0.2 0.2 - 1.2 mg/dL 08/29/2020 4:38 PM [facility] Alkaline Phosphatase 97 40 - 150 Units/L 08/29/2020 4:38 PM [facility] ALT 76(H) 0 - 55 Units/L 08/29/2020 4:38 PM [facility] AST 71(H) 5 - 34 Units/L 08/29/2020 4:38 PM [facility] Anion Gap 16 8 - 18 08/29/2020 4:38 PM [facility] BUN/Creatinine Ratio 13 7 - 23 08/29/2020 4:38 PM [facility] Osmolality Calculated 288 270 - 300 mOsm/kg 08/29/2020 4:38 PM [facility] Albumin/Globulin Ratio 0.9(L) 1.1 - 2.3 08/29/2020 4:38 PM [facility] eGFR >60 >60 mL/min/1.7 3 m2 08/29/2020 4:38 PM [facility] Blood BLOOD SPECIMEN / Unknown Lab Venipuncture / Unknown 08/29/2020 3:31 PM CDT 08/29/2020 4:00 PM CDT Александр Payan MD LAB - CHEMISTRY ORDERABLES Final Result Performing Organization Address [facility]/State/ZIP Co de Phone Number [facility] [address] [place] [address], [facility] [phone] * HEMOGLOBIN A1C - POINT OF CARE (AMB) [facility] (08/29/2020 2:24 PM CDT) Hemoglobin A1c POCT 7.4 BLOOD SPECIMEN / Unknown 08/29/2020 2:24 PM CDT Александр Payan MD LAB - POINT OF CARE ORDERABLES F inal Result from Last 3 Months or Most Recently Relevant to Health Maintenance Insurance [employer] [place] Care Teams Manager Video Relationship Specialty Start Date End Date Lili Mustafa APRN-ARTURO [address] [place] [address] PCP - General Nurse Practitioner Family 06/08/23
[2025-03-20 19:24] VITALS: BP 133/96; PULSE 93; RESP 20; TEMP 36.1; O2SAT 99
[2025-03-20 20:17] VITALS: RESP 18
[2025-03-20 20:23] VITALS: BP 132/92; PULSE 99; RESP 14; O2SAT 98
--- NOTE | 2025-03-20 20:46 | ECG_ITS ---
Test Date: 2025-03-20 21:02:35 Measurements Intervals [place] Rate: 83 P: 21 [place]: 147 QRS: 8 QRSD: 82 T: 21 QT: 364 QTc: 430 Interpretive Statements SINUS RHYTHM LOW QRS VOLTAGE IN PRECORDIAL LEADS BASELINE ARTIFACT- I, II, AVR BORDERLINE ECG No previous ECG available for comparison Electronically Signed On 03-21-2025 06:19:51 CDT by Toby Stone D.O.
--- OUTSIDE RECORDS SUMMARY | 2025-03-20 20:51 | XMS_ITS | Clinical Summary ---
Author Organization [address] Address [address] [place] [address] HERMINIO Carmichael [address] Care Team Providers Care Python Programmer Name Role Phone Princess Gramajo Primary Care Provider [phone] Allergies Active Allergy Reactions Criticality Noted Date Comments Aripiprazole Other (See comments),Unknown Low 08/07/2020 Other reaction(s): Other, Other [place] Other (See comments),Nausea & Vomiting Low 2022 [...] she can follow up with her local sole stainer as needed. Encounters Date Type Department Care Team Description 02/27/2025 1:30 PM CDT Office Visit [facility] Ophthalmology [address] [facility] 6th [place] [phone] Quiana Parker MD Vision changes (Primary Dx) 01/24/2025 Telephone [facility] Ophthalmology [address] [place] [address] Quiana Parker MD Scheduling Appointments 01/12/2025 Orders Only [facility] [address] [place] [phone] Julian Leslie MD OAG (open angle glaucoma) suspect, high risk (Primary Dx) 01/05/2025 2:15 PM CAR RACER Office Visit [facility]mology [address] [place] [phone] Julian Leslie MD Age-related nuclear cataract of both eyes (Primary Dx); OAG (open angle glaucoma) suspect, high risk 01/05/2025 2:10 PM CAR RACER Imaging Exam [facility] [address] [place] [phone] OAG (open angle glaucoma) suspect, high risk; Anatomical narrow angle glaucoma, bilateral 01/05/2025 1:50 PM CAR RACER Imaging Exam [facility] [address] [place] [phone] Anatomical narrow angle glaucoma, bilateral 01/03/2025 Orders Only [facility]mology [address] [place] [address], [address] [place] [phone] Julian Leslie OAG (open angle glaucoma) suspect, [...] on file Legal Sex Female 7:34 PM CAR RACER Gender Identity Not on file Sexual Orientation [...] - BOTH EYES Routine 01/05/2025 3:13 PM CAR RACER Anatomical narrow angle glaucoma, bilateral OCT, OPTIC NERVE - OU - BOTH EYES Routine 01/05/2025 3:13 PM CAR RACER OAG (open angle glaucoma) suspect, high risk [...] OU - Both Eyes (01/05/2025 3:13 PM CAR RACER) Anatomical Region Laterality Modality Head Other Narrative [...] OU - Both Eyes (01/05/2025 3:13 PM CAR RACER) Anatomical Region Laterality Modality Head Other Narrative 03/20/2025 7:54 AM CDT OD: Mild superior thinning OS: Mild superior thinning GCC: 62/69 Julian Leslie MD OPHTH TOMOGRAPHY Final Result from Last 3 Months Insurance [facility] [place] Member Subscriber Plan / Payer (Ef fective 2021-Present) Name:Annita Oropeza Relation to Subscriber:Self Name:Annita Oropeza Payer ID:[id number] (NAIC) Type:MEDICARE RISK OTHER Address: [address] [facility] [place] Care Teams Python Programmer Relationship Specialty Start Date End Date Princess Gramajo PA [address] [place] [id number] PCP - General Physician Marketing/Sales Person 10/20/24
--- OUTSIDE RECORDS SUMMARY | 2025-03-20 20:51 | XMS_ITS | Clinical Summary ---
Author Organization [facility] Address [facility] [place] [address] Care Team Providers Care Artist Consultant Name Role Phone None, Provider MD Primary [...] age to complete this topic Insurance MEDICARE [place] Care Teams Artist Consultant Relationship Specialty Start Date End Date None, Provider, PCP - General 09/19/20
--- OUTSIDE RECORDS SUMMARY | 2025-03-20 20:51 | XMS_ITS | Referral Summary ---
Author Organization [address] Address [address] [place] [address] [place] [address] Care Team Providers Care Facilities Custodian Name Role Phone Princess Gramajo Primary Care Provider [phone] Encounters Date Type Department Care Team Description 02/27/2025 1:30 PM CDT Office Visit [facility] Ophthalmology [address] [place] [phone] Quiana Parker MD Vision changes (Primary Dx) 01/24/2025 Telephone [facility] Ophthalmology [address] [place] [phone] Quiana Parker MD Scheduling Appointments 01/12/2025 Orders Only [facility] Ophthalmology [address] [place] [phone] Julian Leslie MD OAG (open angle glaucoma) suspect, high risk (Primary Dx) 01/05/2025 2:10 PM PRINCIPAL GIFTS OFFICER Imaging Exam [facility] Ophthalmology [address] [place] [address] [phone] OAG (open angle glaucoma) suspect, high risk; Anatomical narrow angle glaucoma, bilateral 01/05/2025 2:15 PM PRINCIPAL GIFTS OFFICER Office Visit [facility] Ophthalmology [address] [place] [phone] Julian Leslie MD Age-related nuclear cataract of both eyes (Primary Dx); OAG (open angle glaucoma) suspect, high risk 01/05/2025 1:50 PM PRINCIPAL GIFTS OFFICER Imaging Exam [facility] Ophthalmology [address] [facility] 6th [place] [address] Anatomical narrow angle glaucoma, bilateral 01/03/2025 Orders Only [facility] Ophthalmology [address] [facility] 6th Floor, [address] [facility] [place] [address] Julian Leslie OAG (open angle glaucoma) suspect, high risk (Primary Dx); Anatomical narrow angle glaucoma, bilateral from Last 3 Months Allergies Active Allergy Reactions Criticality Noted Date Comments Aripiprazole Other (See comments),Unknown Low 08/07/2020 Other reaction(s): Other, Other [place] Other (See comments),Nausea & Vomiting Low 2022 [...] she can follow up with her local servicing manager as needed. Social History Tobacco Use Types Packs/Day Years Used Date Smoking Tobacco: Every Day Cigarettes Tobacco Cessation:Ready to Q uit: Not Asked; Counseling Given: Not Answered Comments Unknown Sex and Gender Information Value Date Recorded Sex Assigned at Not on file Legal Sex Female 7:34 PM PRINCIPAL GIFTS OFFICER Gender Identity Not on file Sexual Orientation [...] - BOTH EYES Routine 01/05/2025 3:13 PM PRINCIPAL GIFTS OFFICER Anatomical narrow angle glaucoma, bilateral OCT, OPTIC NERVE - OU - BOTH EYES Routine 01/05/2025 3:13 PM PRINCIPAL GIFTS OFFICER OAG (open angle glaucoma) suspect, high risk [...] OU - Both Eyes (01/05/2025 3:13 PM PRINCIPAL GIFTS OFFICER) Anatomical Region Laterality Modality Head Other Narrative [...] OU - Both Eyes (01/05/2025 3:13 PM PRINCIPAL GIFTS OFFICER) Anatomical Region Laterality Modality Head Other Narrative 03/20/2025 7:54 AM CDT OD: Mild superior thinning OS: Mild superior thinning GCC: 62/69 Julian Leslie MD OPHTH TOMOGRAPHY Final Result from Last 3 Months Insurance [facility] Member Subscriber Plan / Payer (Ef fective 2021-Present) Name:Annita Oropeza Relation to Subscriber:Self Name:Annita Oropeza Payer ID:[id number] (NAIC) Type:MEDICARE RISK OTHER Address: [address] Care Teams Facilities Custodian Relationship Specialty Start Date End Date Princess Gramajo PA [address] [place] [id number] PCP - General Physician Generator Man 10/20/24
--- OUTSIDE RECORDS SUMMARY | 2025-03-20 20:51 | XMS_ITS | Encounter Summary ---
Author Organization [facility] Address [address] [place] [address] Care Team Providers Care Firefighter Marine Name Role Phone Efren Macdonald [facility] Primary Care Provide r Cheryl Sánchez MD Primary Care Provider [phone] Lili Mustafa [facility] Primary Care Provider Encounter Details Date Type Department Care Team (Late st Contact Info) Description 09/19/2020 Telephone [facility] Endocrinology, Diabetes and Metabolism [address] [place] [address] Ceci Ellington MD [address] [place] [address] Social History Tobacco Use Types Packs/Day Years [...] on file Legal Sex Female 7:39 PM PLATE GAUGER Gender Identity Not on file Sexual Orientation [...] Dr. Ceci Ellington know she is in [facility] in [place], [place]. She just went in early this morn 09/19/2020. She stated her legs gave out.She also stated no one called her for her 09/14/2020 Dietary appt and she no showed for the 09/18/20 dieatary appt w/ KAREN Samayoa. She would like a call from the office. Her next appt is 12/05/2020 w/ Dr. Jaimes. Patient Call Back number: [phone] documented in this encounter Plan of Treatment Upcoming Encounters Date Type Department Care Team (Late st Contact Info) Description 04/06/2025 10:00 AM CDT Office Visit [facility] - Urology [address], [address] [place] [address] Jaqueline Geronimo PA-C [address] [place] [address] documented as of this encounter Visit Diagnoses Not on filedocumented in this encounter Care Teams Firefighter Marine Relationship Specialty Start Date End Date Efren Macdonald APRN-CLUTCH OPERATOR [address] [facility] [place] [address] PCP - General Nurse Practitioner Gerontology 12/05/20 04/02/22 Cheryl Sánchez MD [address] [place] [address] [address] [place] [address] PCP - General Family Medicine 04/03/22 05/19/22 Lili Mustafa APRN-CLUTCH OPERATOR [address] [place] [phone] PCP - General Nurse Practitioner Family 06/08/23 documented as of this encounter
--- OUTSIDE RECORDS SUMMARY | 2025-03-20 20:51 | XMS_ITS | Clinical Summary ---
Author Organization [facility] Address [address] [facility] [place] [address] Care Team Providers Care Wet Mixer Name Role Phone Lili MustafaSOFTWARE SECURITY ARCHITECT Primary Care Provider Source Comments [facility],non-owned Affiliates and Associated Physician Practices is amultiple site organization consisting of ambulatory clinics and hospital sitesin [place], [place], [place] and [place]. This disclosure is being madepursuant to the Care Everywhere program and may not contain all information available regarding this patient. Last updated 18.[facility] Allergies Active Allergy Reactions Criticality Noted Date Comments Aripiprazole Other 08/07/2020 [place] Vomiting 2022 Medications * Be aware that [...] spray Active NEOMYCIN-POLYM YXIN-HC, OTIC, 1 % ajjciong-ywoxbdleo-zwr rocort 3.5 mg/mL-10,000 unit/mL-1 % ear solution Active UNIFINE PENTIPS PLUS 31G X 6 MM MISC [place] 30 Each 11 Active blood glucose test [...] FOR 10 DAYS 024 Active Continuous Glucose Wire Hanger (FreeStyle Santiago 2 Neligh Systm) ISABELLA 023 Active Continuous Glucose Sensor (FreeStyle Santiago 2 Sensor Systm) [facility] 024 Active dicyclomine (Bentyl) 10 MG capsule [...] 10 MG tablet 024 Active nystatin (Mycostatin) 933340 UNIT/GM powder APPLY TO THE AFFECTED AREA [...] 0.1 % ointment 023 Active nystatin (Mycostatin) 624465 UNIT/GM creamIndicatio ns:Cutaneous Candidiasis Apply to affected [...] - 02/28/2025 11:59 PM CDT Hospital Encounter [facility] Imaging Services - Ultrasound [address] [facility] [address] [place] [address] Annita Lynch, ALBINO-ARTURO Discharge Disposition: Home or Self Care 02/20/2025 Telephone [facility] - [facility] S[id number] [place] [address] [address] [place] [address] Annita Lynch, ALBINO-SOFTWARE SECURITY ARCHITECT Update 02/17/2025 Telephone [facility] - [facility] S[id number] [place] [address] [address] [place] [address] Annita Lynch, ALBINO-SOFTWARE SECURITY ARCHITECT Update 02/17/2025 Travel 01/30/2025 11:20 AM RADIO TELEVISION TECHNICAL DIRECTOR Office Visit [facility] - [facility] S[facility] [address] [place] [address] [address] [place] [address] Annita Lynch, HYPERION ADMINISTRATOR-SOFTWARE SECURITY ARCHITECT Vaginal candidiasis (Primary Dx); PMS (premenstrual syndrome); [...] on file Legal Sex Female 7:39 PM RADIO TELEVISION TECHNICAL DIRECTOR Gender Identity Not on file Sexual Orientation Not on file Last Filed Vital Signs Vital Sign Reading Time Taken Comments Blood Pressure 128/80 01/30/2025 11:31 AM RADIO TELEVISION TECHNICAL DIRECTOR Pulse 90 06/20/2024 3:08 PM CDT Temperature 36 C (96.8 F) 06/08/2023 11:50 AM CDT Respiratory Rate 17 06/08/2023 12:15 PM CDT Oxygen Saturation 98% 06/20/2024 3:08 PM CDT Inhaled Oxygen Concentration - - Weight 127 kg (280 lb) 01/30/2025 11:31 AM RADIO TELEVISION TECHNICAL DIRECTOR Height 172.7 cm (5' 8 ) 01/30/2025 11:31 AM RADIO TELEVISION TECHNICAL DIRECTOR Body Mass Index 42.57 01/30/2025 11:31 AM RADIO TELEVISION TECHNICAL DIRECTOR Plan of Treatment Upcoming Encounters Date Type Department Care Team (Late st Contact Info) Description 04/06/2025 10:00 AM CDT Office Visit [facility] Medical [facility] - Urology [address] [place] [phone] Jaqueline Geronimo PA-C [address] [place] [address] Health Maintenance Due Date Last Done Comments [...] CT NG TRICH) Routine 01/30/2025 1:33 PM RADIO TELEVISION TECHNICAL DIRECTOR Vaginal candidiasis PAP IG LB +HPV APTIMA [...] transvaginal pelvic ultrasound was performed by the lead electrician with DICOM image capture. Grayscale images were [...] and transvaginal pelvic ultrasound wasperformed by the lead electrician with DICOM image capture. Grayscale images were [...] on 02/28/2025 12:00 PM us Annita Lynch HYPERION ADMINISTRATOR-SOFTWARE SECURITY ARCHITECT US ORDERABLES Final R esult * (ABNORMAL) VAGINITIS PLUS (BV CA CT NG TRICH) (01/30/2025 1:33 PM RADIO TELEVISION TECHNICAL DIRECTOR) Atopobium vaginae Low - 0 Score LA [...] ENTIRE VAGINA / Unknown 01/30/2025 1:33 PM RADIO TELEVISION TECHNICAL DIRECTOR 01/31/2025 Comment:Vaginal Release to hi Narrative [facility] INSURANCE BILL - 01/31/2025 11:07 PM RADIO TELEVISION TECHNICAL DIRECTOR Test(s) 803531- Atopobium vaginae; 061285- BVAB 2; 937193- Megasphaera 1 was developed and its performance characteristics determined by [employer]. It has not been cleared or approved by the Food and Drug Administration. Test(s) 546898-Ozpveyd albicans, MURRAY; 352497-Nbnqgur glabrata, MURRAY was developed and its performance characteristics determined by [employer]. It has not been cleared or approved by the Food and Drug Administration. Performed at: 01 - [address] [id number] Slot Machine Mechanic: Vickie Flynn MD, Phone: [phone] us Annita Lynch HYPERION ADMINISTRATOR-SOFTWARE SECURITY ARCHITECT LAB - MICROBIOLOGY ELOINA TANG Final Result [facility] INSURANCE BILL [address] [place] [address] * PAP IG LB +HPV APTIMA REFLEX 16,18/45 (04/23/2023 1:52 PM CDT) Diagnosis [facility] INSURANCE BILL Comment: NEGATIVE FOR INTRAEPITHELIAL LESION OR MALIGNANCY. THIS SPECIMEN WAS RESCREENED PART OF OUR ACUTE CARE SURGEON PROGRAM. Specimen Adequacy [facility] INSURANCE BILL [...] Resulting Agency Comment Lab Testing performed at: [address] [id number] Jenny Sheridan MD LAB - PATHOLOGY/CYTOLOGY OR DERABLES Final Result [facility] INSURANCE BILL [address] [place] [address] * MICROALB/CREAT RATIO URINE RANDOM PANEL (08/29/2020 3:41 PM CDT) Pathologist [facility] Albumin Random Urine 17.8 Not Established mcg/mL 08/29/2020 4:33 PM [facility] Creatinine Urine 184 Not Established mg/dL 08/29/2020 4:33 PM [facility] Comment:Result obtained by brenna vo. Urine Albumin/Creati nine Ratio 10 <30 mg/g 08/29/2020 4:33 PM [facility] Urine URINE SPECIMEN OBTAINED BY CLEAN CATCH PROCEDURE / Unknown Collection / Unknown 08/29/2020 3:41 PM CDT 08/29/2020 4:00 PM CDT us Александр Payan MD LAB - URINE CHEMISTRY ORDERABLES Final Result [facility] [address] [place] [address], [facility] [phone] * (ABNORMAL) COMPREHENSIVE METABOLIC PANEL (08/29/2020 3:31 PM CDT) [facility] BUN 9 7 - 26 mg/dL 08/29/2020 4:38 PM [facility] Creatinine 0.7 0.6 - 1.2 mg/dL 08/29/2020 4:38 PM [facility] Sodium 139 136 - 145 mmol/L 08/29/2020 4:38 PM [facility] Potassium 4.0 3.5 - 4.5 mmol/L 08/29/2020 4:38 PM [facility] Chloride 106 98 - 107 mmol/L 08/29/2020 4:38 PM [facility] CO2 21(L) 22 - 29 mmol/L 08/29/2020 4:38 PM [facility] Glucose 116(H) 70 - 115 mg/dL 08/29/2020 4:38 PM [facility] Calcium 9.0 8.4 - 10.2 mg/dL 08/29/2020 4:38 PM [facility] Protein Total 6.9 6.0 - 8.3 g/dL 08/29/2020 4:38 PM [facility] Albumin 3.3(L) 3.4 - 5.0 g/dL 08/29/2020 4:38 PM [facility] Bilirubin Total 0.2 0.2 - 1.2 mg/dL 08/29/2020 4:38 PM [facility] Alkaline Phosphatase 97 40 - 150 Units/L 08/29/2020 4:38 PM [facility] ALT 76(H) 0 - 55 Units/L 08/29/2020 4:38 PM [facility] AST 71(H) 5 - 34 Units/L 08/29/2020 4:38 PM [facility] Anion Gap 16 8 - 18 08/29/2020 4:38 PM [facility] BUN/Creatinine Ratio 13 7 - 23 08/29/2020 4:38 PM [facility] Osmolality Calculated 288 270 - 300 mOsm/kg 08/29/2020 4:38 PM [facility] Albumin/Globulin Ratio 0.9(L) 1.1 - 2.3 08/29/2020 4:38 PM [facility] eGFR >60 >60 mL/min/1.7 3 m2 08/29/2020 4:38 PM [facility] Blood BLOOD SPECIMEN / Unknown Lab Venipuncture / Unknown 08/29/2020 3:31 PM CDT 08/29/2020 4:00 PM CDT Александр Payan MD LAB - CHEMISTRY ORDERABLES Final Result Performing Organization Address [facility]/State/ZIP Co de Phone Number [facility] [address] [place] [address], [facility] [phone] * HEMOGLOBIN A1C - POINT OF CARE (AMB) [facility] (08/29/2020 2:24 PM CDT) Hemoglobin A1c POCT 7.4 BLOOD SPECIMEN / Unknown 08/29/2020 2:24 PM CDT Александр Payan MD LAB - POINT OF CARE ORDERABLES F inal Result from Last 3 Months or Most Recently Relevant to Health Maintenance Insurance [employer] MEDICARE DUAL ADV [place] Care Teams Wet Mixer Relationship Specialty Start Date End Date Lili Mustafa APRN-ARTURO [address] [place] [address] PCP - General Nurse Practitioner Family 06/08/23
--- OUTSIDE RECORDS SUMMARY | 2025-03-20 20:51 | XMS_ITS | Encounter Summary ---
Author Organization [facility] Address [address] [facility] [place] [address] Care Team Providers Care Body Builder Name Role Phone Ramsey Lilimiquel [facility] Primary Care Provider Encounter Details Date [...] on file Legal Sex Female 7:39 PM VRT MECHANIC Gender Identity Not on file Sexual Orientation Not on file documented as of this encounter Plan of Treatment Upcoming Encounters Date Type Department Care Team (Late st Contact Info) Description 04/06/2025 10:00 AM CDT Office Visit [facility] - Urology [address], [address] [place] [address] Jaqueline Geronimo PA-C [address] [place] [address] documented as of this encounter Visit Diagnoses Not on filedocumented in this encounter Care Teams Body Builder Relationship Specialty Start Date End Date Lili Mustafa APRN-LOADING INSPECTOR [address] [place] [address] PCP - General Nurse Practitioner Family 06/08/23 documented as of this encounter
--- OUTSIDE RECORDS SUMMARY | 2025-03-20 20:51 | XMS_ITS | Encounter Summary ---
Author Organization [facility] Address [address] [place] [address] Care Team Providers Care Egg Crater Name Role Phone Efren Macdonald [facility] Primary Care Provide r Cheryl Sánchez MD Primary Care Provider [phone] Lili Mustafa [facility] Primary Care Provider Encounter Details Date Type Department Care Team (Late st Contact Info) Description 09/24/2020 Telephone [facility] Endocrinology, Diabetes and Metabolism [address] [place] [address] Ceci Ellington MD [address] [place] [address] Social History Tobacco Use Types Packs/Day Years [...] on file Legal Sex Female 7:39 PM TELEPHONIC NURSE CASE MANAGER Gender Identity Not on file Sexual Orientation [...] of her PCP, Dr. Shamir Johnston In [place], [place]. who I attempted to add to her demographics. I told her I am getting message over, perhaps she also might want to reach out to her PCP as well. Please give her a call. Patient Call Back number: [phone] documented in this encounter Plan of Treatment Upcoming Encounters Date Type Department Care Team (Late st Contact Info) Description 04/06/2025 10:00 AM CDT Office Visit [facility] - Urology [address], [address] [place] [address] Jaqueline Geronimo PA-C [address] [place] [address] documented as of this encounter Visit Diagnoses Not on filedocumented in this encounter Care Teams Egg Crater Relationship Specialty Start Date End Date Efren Macdonald APRN-SOLE ROUGHER [address] [place] [address] PCP - General Nurse Practitioner Gerontology 12/05/20 04/02/22 Cheryl Sánchez MD [address] [facility] [place] [address] PCP - General Family Medicine 04/03/22 05/19/22 Lili Mustafa APRN-SOLE ROUGHER [address] [place] [address] PCP - General Nurse Practitioner Family 06/08/23 documented as of this encounter
[2025-03-20 21:24] LABS: Basophils Absolute Auto 0.1 K/mm3 (0.0-0.1); Basophils Percent Auto 0.5 % (0.2-1.2); Eosinophils Percent Auto 0.1 % (0-4.4); Hemoglobin 14.2 g/dL (12.0-15.0); Immature Granulocyte Absolute 0.04 K/mm3 (0.00-0.031); Immature Granulocyte Percent A 0.3 % (0-0.5); Lymphocytes Absolute Auto 4.14 K/mm3 (0.9-3.2); Lymphocytes Percent Auto 36.2 % (18.3-44.2); Mean Corpuscular Hemoglobin 27.7 pg (26-34); Mean Platelet Volume 10.3 fl (7.4-10.4); Monocytes Absolute Auto 0.5 K/mm3 (0.1-0.6); Monocytes Percent Auto 4.5 % (2.6-8.5); Neutrophils Absolute Auto 6.7 K/mm3 (1.3-6.7); Neutrophils Percent Auto 58.4 % (45.5-73.1); Platelet Count Result 318 k/mm3 (150-375); Red Blood Count 5.12 M/mm3 (4.2-5.4); Red Cell Distribution Width 13.2 % (11.5-14.5); White Blood Count 11.5 K/mm3 (4.5-10.0)
--- NOTE | 2025-03-20 21:24 | ED_ITS ---
HPI - General Adult General Chief complaint: Unspecified Stated complaint: High BP/weak/N-sent by Dr Gramajo office Time Seen by Provider: 03/20/25 20:44 History of Present Illness HPI narrative: 39-year-old female with a past medical history including hypertension, hyperlipidemia, bipolar disease. Patient presents to the emergency department for elevated blood pressure readings and generalized malaise and weakness. Patient had blood pressure readings in the 170s at home and called her primary doctor her told her to go the ER for evaluation. Patient denies any symptoms during my initial assessment. Denies any headache, vision change, chest pain, shortness a breath. States that her blood pressures were high she felt generalized weakness and headache. These have since resolved. She takes amlodipine and lisinopril without any recent changes to her medication. Was otherwise in her normal state of health. Related Data Home Medications ?Medication ?Instructions ?Recorded ?Confirmed ?Last Taken ?Type amlodipine 10 mg tablet (Norvasc) 10 mg PO DAILY 11/14/20 12/29/24 08/07/21 History 10 mg gabapentin 300 mg capsule 1,200 mg PO TID 11/14/20 12/29/24 08/07/21 History (Neurontin) 300 mg hydroxyzine HCl 25 mg tablet 25 mg PO TID 11/14/20 12/29/24 08/07/21 History 25 mg insulin glargine 100 unit/mL (3 25 unit subcut HS 11/14/20 12/29/24 08/07/21 History mL) subcutaneous pen (Lantus 10 unit Solostar U-100 Insulin) lisinopril 20 mg tablet (Zestril) 20 mg PO DAILY 11/14/20 12/29/24 08/07/21 History 20 mg trazodone 100 mg tablet 100 mg PO HS 11/14/20 12/29/24 08/07/21 History 100 mg bupropion HCl 200 mg tablet,12 hr 1 mg PO BID 04/15/21 12/29/24 08/07/21 History sustained-release 1 mg glipizide 5 mg tablet 5 mg PO DAILY 09/27/21 12/29/24 Unknown History metformin 1,000 mg tablet 1,000 mg PO BID 09/27/21 12/29/24 Unknown History hydrochlorothiazide 25 mg tablet 1 tablet PO DAILY 05/13/22 12/29/24 Unknown History valacyclovir 1 gram tablet 1 tablet PO DIRECTED 05/13/22 12/29/24 Unknown History buspirone 10 mg tablet 10 mg PO DAILY 08/14/22 12/29/24 Unknown History cariprazine 3 mg capsule (Vraylar) 3 mg PO DAILY 08/14/22 12/29/24 Unknown History montelukast 10 mg tablet 10 mg PO DAILY 08/14/22 12/29/24 Unknown History omeprazole 20 mg capsule,delayed 20 mg PO DAILY 08/14/22 12/29/24 Unknown History release atorvastatin 40 mg tablet 40 mg PO QPM 12/29/24 12/29/24 Unknown History Allergies Allergy/AdvReac Type Severity Reaction Status Date / Time aripiprazole AdvReac Unknown Abdominal Verified 03/20/25 19:23 Pain lithium AdvReac Unknown VOMITING Verified 03/20/25 19:23 Review of Systems 2 Review of Systems: As reviewed above in [facility] Past Medical History Medical History Human papilloma virus Personality disorder Chronic back pain Hepatitis Anxiety Depression Bipolar disorder Herpes GERD (gastroesophageal reflux disease) HTN (hypertension) HLD (hyperlipidemia) Seizures Sciatica Surgical History Surgical History Hx of section Hx of tonsillectomy Family History Family History Mother Diabetes mellitus Hypertension Father Diabetes mellitus Social History Social History Smoking packs per day: 1.5 Smoking cigarettes per day: 30.0 Years smoked: 15 Smoking pack-years: 22.50 Smoking status: Current every day smoker Tobacco type: cigarettes Second hand tobacco smoke exposure: Yes Alcohol intake: current Drinks per week: 1 Substance use type: marijuana Living arrangements: alone Gender identity (if verbalized by the patient): Female Spiritual care concerns: No Exam 2 Narrative: GENERAL: [Well-appearing, well-nourished, and in no acute distress.] HEAD: [Normocephalic, atraumatic.] EYES: [PERRLA and EOMI.] ENT: Nares clear, no rhinorrhea or epistaxis. Mucous membranes moist. NECK: Supple. CHEST: [Clear to auscultation. No respiratory distress.] HEART: [Regular rate and rhythm]. No murmur heard. [Normal peripheral pulses.] ABDOMEN: [Soft, nondistended], [nontender], [No rigidity or guarding] EXTREMITIES: Normal range of motion. [No edema.] SKIN: Warm, dry, no rash. NEURO: [No focal deficits]. Alert and oriented [x3.] PSYCH: [Normal mood and affect.] Course Vital Signs Vital signs: Vital Signs Temperature 36.1 C L 03/20/25 19:24 Pulse Rate 93 03/20/25 19:24 Respiratory Rate 20 03/20/25 19:24 Blood Pressure 133/96 H 03/20/25 19:24 Pulse Oximetry 99 03/20/25 19:24 Oxygen Delivery Room Air 03/20/25 19:24 Temperature 36.1 C L 03/20/25 19:24 Pulse Rate 99 03/20/25 20:23 Respiratory Rate 14 03/20/25 20:23 Blood Pressure 132/92 H 03/20/25 20:23 Pulse Oximetry 98 03/20/25 20:23 Oxygen Delivery Room Air 03/20/25 19:24 Medical Decision Making [facility] Narrative Medical decision making narrative: 39-year-old female with history of hypertension hyperlipidemia. Patient presents to the emergency department with elevated blood pressure readings at home. She called her PCP who referred her to the ER for evaluation. Patient states when her blood pressure was in the 170 she was feeling a minor headache and generalized malaise at home. Her blood pressure is reassuring here in triage with normal blood pressure readings, no tachycardia, hypoxia, fever or tachypnea. She has an unremarkable physical examination with 2+ symmetric pulses, clear breath sounds. No neurological findings on examination. Will do screening assessment including CBC, BMP, magnesium, chest x-ray and EKG. Patient currently has asymptomatic hypertension and does not need any aggressive management or titration to her regimen and can follow-up safely outpatient assuming there are no concerning findings on workup. Patient made aware of this plan and comfortable with this. EKG shows sinus rhythm, no ST segment elevations, depressions, ectopy. Chest x- ray independently reviewed shows no no pneumonia, consolidation or cardiomegaly. Laboratory studies showed no renal dysfunction, normal hemoglobin, normal electrolytes. Patient is stable for discharge home with instructions to follow- up with her PCP for medication changes and blood pressure management. She was given return precautions and safely discharged. Medical Records Medical records reviewed: Yes I reviewed the external patient's medical records. Vital Signs Vital Signs: Vital Signs Temperature 36.1 C L 03/20/25 19:24 Pulse Rate 93 03/20/25 19:24 Respiratory Rate 20 03/20/25 19:24 Blood Pressure 133/96 H 03/20/25 19:24 Pulse Oximetry 99 03/20/25 19:24 Oxygen Delivery Room Air 03/20/25 19:24 Temperature 36.1 C L 03/20/25 19:24 Pulse Rate 99 03/20/25 20:23 Respiratory Rate 14 03/20/25 20:23 Blood Pressure 132/92 H 03/20/25 20:23 Pulse Oximetry 98 03/20/25 20:23 Oxygen Delivery Room Air 03/20/25 19:24 Lab Data Lab results reviewed: Yes I reviewed the patient's lab results. 03/20/25 21:03 03/20/25 21:03 Labs: Lab Results 03/20/25 Range/Units 21:03 WBC 11.5 H (4.5-10.0) K/mm3 RBC 5.12 (4.2-5.4) M/mm3 Hgb 14.2 (12.0-15.0) g/dL Hct 43.0 (37.0-47.0) % MCV 84.0 (80-100) fl MCH 27.7 (26-34) pg MCHC 33.0 (32-36) g/dl RDW 13.2 (11.5-14.5) % Plt Count 318 (150-375) k/mm3 MPV 10.3 (7.4-10.4) fl Immature Gran % (Auto) 0.3 (0-0.5) % Neut % (Auto) 58.4 (45.5-73.1) % Lymph % (Auto) 36.2 (18.3-44.2) % [place] % (Auto) 4.5 (2.6-8.5) % Eos % (Auto) 0.1 (0-4.4) % Baso % (Auto) 0.5 (0.2-1.2) % Lymph # (Auto) 4.14 H (0.9-3.2) K/mm3 [place] # (Auto) 0.5 (0.1-0.6) K/mm3 Eos # (Auto) 0.0 (0-0.3) K/mm3 Baso # (Auto) 0.1 (0.0-0.1) K/mm3 Abs Immat Gran (auto) 0.04 H (0.00-0.031) K/mm3 Absolute Neuts (auto) 6.7 (1.3-6.7) K/mm3 Absolute Nucleated RBC 0.000 (0.0-0.012) K/mm3 Nucleated RBC % 0.0 (0.0-0.2) % Sodium 137 (137-145) mmol/L Potassium 3.6 (3.4-5.0) mmol/L Chloride 102 (98-107) mmol/L Carbon Dioxide 25 (22-30) mmol/L Anion Gap 10 (4-12) mmol/L BUN 3 L (7-17) mg/dL Creatinine 0.51 L (0.7-1.0) mg/dL Estim Creat Clear Calc 171 ml/min Estimated GFR > 60 (59 - ) Glucose 179 H (65-110) mg/dL Calcium 9.0 (8.4-10.2) mg/dL Magnesium 2.0 (1.6-2.3) mg/dL Serum HCG, Qual Negative Imaging Data Attestation: I personally reviewed and interpreted this imaging study as follows: My impression: Impressions Chest X-Ray 03/20/25 21:27 IMPRESSION: No acute cardiopulmonary process. Discharge Plan Discharge Clinical Impression: Asymptomatic hypertension Patient Disposition: Home Condition: Stable Instructions: Antibiotic Form, Chronic Hypertension (DC) Additional Instructions: Your laboratory studies are all within normal limits. Follow-up with regular doctor regarding your blood pressure and management of your medications. Return with any new or worsening concerns. Patient Language: Belarusian Prescriptions: No Action valacyclovir 1 gram tablet 1 tablet PO DIRECTED hydrochlorothiazide 25 mg tablet 1 tablet PO DAILY lisinopril [Zestril] 20 mg Tablet 20 mg PO DAILY trazodone 100 mg Tablet 100 mg PO HS amlodipine [Norvasc] 10 mg Tablet 10 mg PO DAILY gabapentin [Neurontin] 300 mg Capsule 1,200 mg PO TID hydroxyzine HCl 25 mg Tablet 25 mg PO TID insulin glargine [Lantus Solostar U-100 Insulin] 100 unit/mL (3 mL) Insulin Pen 25 unit SUBCUT HS bupropion HCl 200 mg tablet sustained-release 12 hr 1 mg PO BID buspirone 10 mg tablet 10 mg PO DAILY omeprazole 20 mg capsule,delayed release(DR/EC) 20 mg PO DAILY montelukast 10 mg tablet 10 mg PO DAILY Vraylar 3 mg capsule 3 mg PO DAILY (DME) Aerochamber MV Spacer See Rx Instructions .Route Qty: 1 0RF Rx Instructions: As directed atorvastatin 40 mg tablet 40 mg PO QPM (DME) Aerochamber MV Spacer See Rx Instructions .Route Qty: 1 0RF Rx Instructions: As directed albuterol sulfate 90 mcg/actuation HFA aerosol inhaler 2 puff inhalation QID PRN (Reason: shortness of breath or wheezing) Qty: 6.7 0RF prednisone 20 mg tablet 40 mg PO DAILY 5 Days Qty: 10 0RF prednisone 50 mg tablet 50 mg PO DAILY 5 Days Qty: 5 0RF albuterol sulfate 90 mcg/actuation HFA aerosol inhaler 2 inh inhalation Q4-6H PRN (Reason: shortness of breath or wheezing) Qty: 8.5 0RF metformin 1,000 mg tablet 1,000 mg PO BID glipizide 5 mg tablet 5 mg PO DAILY albuterol sulfate 90 mcg/actuation HFA aerosol inhaler 2 puff inhalation QID PRN (Reason: shortness of breath or wheezing) Qty: 8.5 0RF methocarbamol 750 mg tablet 1,500 mg PO TID PRN (Reason: muscle spasm) Qty: 15 0RF lidocaine 5 % adhesive patch,medicated 1 patch topical DAILY Qty: 15 0RF Rx Instructions: leave on most painful area for up to 12 hrs Follow-up/Referrals: Avila,CONTRERAS Sánchez [Primary Care Provider] - Time of Disposition: 21:49
[2025-03-20 21:35] LABS: Anion Gap 10 mmol/L (4-12); Blood Urea Nitrogen 3 mg/dL (7-17); Carbon Dioxide 25 mmol/L (22-30); Chloride 102 mmol/L (98-107); Estimated CRCL calculation 171 ml/min; Estimated Glomerular Filt Rate > 60; Glucose 179 mg/dL (65-110); Potassium 3.6 mmol/L (3.4-5.0); Sodium 137 mmol/L (137-145)
[2025-03-20 21:41] LABS: SPREG INTERNAL CONTROL Positive; Serum Qual hCG Negative
== END 2025-03-20 21:54 | disposition home or self-care (01) ==
PROVIDERS: Emergency Provider Student in an Organized Health Care Education/Training Program; PCP Physician Assistant
DX: I10 Essential (primary) hypertension (principal); E78.5 Hyperlipidemia, unspecified; K21.9 Gastro-esophageal reflux disease without esophagitis; F31.9 Bipolar disorder, unspecified; F41.9 Anxiety disorder, unspecified; F17.210 Nicotine dependence, cigarettes, uncomplicated; Z79.899 Other long term (current) drug therapy; Z79.4 Long term (current) use of insulin; Z79.890 Hormone replacement therapy
CPT/HCPCS: 36415; 71045; 80048; 83735; 84703; 85025; 93005; 99283

== ENCOUNTER 2025-04-07 13:23 | Emergency (ER) | payer OTHER, SELFPAY ==
[2025-04-07 13:32] VITALS: BP 150/92; PULSE 87; RESP 20; TEMP 36.1; O2SAT 99
--- NOTE | 2025-04-07 13:48 | ED_ITS ---
HPI - URI/Sore Throat General Chief Complaint: Upper Respiratory Infection Stated Complaint: Cough/Sinus Time Seen by Provider: 04/07/25 13:48 Source: patient Mode of arrival: ambulatory Limitations: no limitations History of Present Illness HPI Narrative: 39-year-old female presents with complaint of nasal congestion, postnasal drainage mother, sinus pressure, coughing for 2 weeks. Saw her primary care physician last week and was negative for COVID. Primary care told her coughing is from her asthma. Patient reports she symptoms continue. Afebrile. Also complaining of itchy red rash under breast. All systems reviewed and negative except as noted above. Related Data Home Medications ?Medication ?Instructions ?Recorded ?Confirmed ?Last Taken ?Type amlodipine 10 mg tablet (Norvasc) 10 mg PO DAILY 11/14/20 04/07/25 08/07/21 History 10 mg gabapentin 300 mg capsule 1,200 mg PO TID 11/14/20 04/07/25 08/07/21 History (Neurontin) 300 mg hydroxyzine HCl 25 mg tablet 25 mg PO TID 11/14/20 04/07/25 08/07/21 History 25 mg insulin glargine 100 unit/mL (3 25 unit subcut HS 11/14/20 04/07/25 08/07/21 History mL) subcutaneous pen (Lantus 10 unit Solostar U-100 Insulin) lisinopril 20 mg tablet (Zestril) 20 mg PO DAILY 11/14/20 04/07/25 08/07/21 History 20 mg trazodone 100 mg tablet 100 mg PO HS 11/14/20 04/07/25 08/07/21 History 100 mg bupropion HCl 200 mg tablet,12 hr 1 mg PO BID 04/15/21 04/07/25 08/07/21 History sustained-release 1 mg glipizide 5 mg tablet 5 mg PO DAILY 09/27/21 04/07/25 Unknown History metformin 1,000 mg tablet 1,000 mg PO BID 09/27/21 04/07/25 Unknown History hydrochlorothiazide 25 mg tablet 1 tablet PO DAILY 05/13/22 04/07/25 Unknown History valacyclovir 1 gram tablet 1 tablet PO DIRECTED 05/13/22 04/07/25 Unknown History buspirone 10 mg tablet 10 mg PO DAILY 08/14/22 04/07/25 Unknown History cariprazine 3 mg capsule (Vraylar) 3 mg PO DAILY 08/14/22 04/07/25 Unknown History montelukast 10 mg tablet 10 mg PO DAILY 08/14/22 12/29/24 Unknown History omeprazole 20 mg capsule,delayed 20 mg PO DAILY 08/14/22 04/07/25 Unknown His tory release atorvastatin 40 mg tablet 40 mg PO QPM 12/29/24 04/07/25 Unknown History benzonatate 100 mg capsule 100 mg PO Q6H 04/07/25 04/07/25 Unknown History insulin regular human 100 unit/mL 1 sliding scale dose subcut 04/07/25 04/07/25 Unknown History injection solution (Novolin R .before meals Regular U-100 Insulin) Allergies Allergy/AdvReac Type Severity Reaction Status Date / Time aripiprazole AdvReac Unknown Abdominal Verified 04/07/25 13:48 Pain lithium AdvReac Unknown VOMITING Verified 04/07/25 13:48 Review of Systems Review of Systems: CONSTITUTIONAL: Denies fever, chills, or sweats. reports fatigue. EYES: Denies visual changes, redness, or discharge. ENT: Reports rhinorrhea, congestion, sinus pressure, postnasal drainage,sore throat, ear pressure CARDIOVASCULAR: Denies chest pain, palpitations, or edema. RESPIRATORY: Reports cough. Denies dyspnea. GASTROINTESTINAL: Denies abdominal pain, nausea, vomiting, or diarrhea. GENITOURINARY: Denies dysuria or hematuria. SKIN: reports rash and itching under both breasts. MUSCULOSKELETAL: Denies back pain, joint pain, or myalgia. NEUROLOGIC: Denies headache, numbness, or weakness. PSYCHIATRIC: Denies anxiety or depression. All other systems reviewed are negative, except as documented in HPI. [facility] Past Medical History Medical History Human papilloma virus Personality disorder Chronic back pain Hepatitis Anxiety Depression Bipolar disorder Herpes GERD (gastroesophageal reflux disease) HTN (hypertension) HLD (hyperlipidemia) Seizures Sciatica Surgical History Surgical History Hx of section Hx of tonsillectomy Family History Family History Mother Diabetes mellitus Hypertension Father Diabetes mellitus Social History Social History Smoking packs per day: 1.5 Smoking cigarettes per day: 30.0 Years smoked: 15 Smoking pack-years: 22.50 Smoking status: Current every day smoker Tobacco type: cigarettes Second hand tobacco smoke exposure: Yes Alcohol intake: current Drinks per week: 1 Substance use type: marijuana Living arrangements: alone Gender identity (if verbalized by the patient): Female Spiritual care concerns: No Comments At time of signature, agree with nursing past medical, surgical, social and family history. There is no relevant family history pertinent to the presenting complaint. Exam Narrative: GENERAL: This is a well-nourished, well-developed patient, in no apparent distress. HEAD: normocephalic, atraumatic. EYES: PERRL. Sclera clear/white. Vision is grossly intact. EARS: External ears normal, auditory canals clear and without drainage, fluid bilateral TMs without erythema, dull light reflex, no perforation bilaterally. Hearing grossly intact. NOSE: External nose normal with purulent nasal congestion, maxillary sinus tenderness on palpation THROAT: Mucous membranes moist, postnasal drainage, mild erythema. No swelling or exudates NECK: Neck supple, non-tender without lymphadenopathy, masses or thyromegaly. CARDIOVASCULAR: Regular rate and rhythm without murmurs, gallops, or rubs. RESPIRATORY: Clear to auscultation. Breath sounds equal bilaterally. No wheezes, rales, or rhonchi. SKIN: warm, Dry, intact with no suspicious lesions, good texture and turgor. Erythematous what appearing rash under bilateral breasts NEURO: awake, alert, and oriented to person, place and time. There were no obvious focal neurologic abnormalities. EXTREMITIES: No joint tenderness, effusion, or edema noted. Course Course Level of Care: Express Care Visit Vital Signs Vital signs: Vital Signs Temperature 36.1 C L 04/07/25 13:32 Pulse Rate 87 04/07/25 13:32 Respiratory Rate 20 04/07/25 13:32 Blood Pressure 150/92 H 04/07/25 13:32 Pulse Oximetry 99 04/07/25 13:32 Oxygen Delivery Room Air 04/07/25 13:32 Temperature 36.1 C L 04/07/25 13:32 Pulse Rate 87 04/07/25 13:32 Respiratory Rate 20 04/07/25 13:32 Blood Pressure 150/92 H 04/07/25 13:32 Pulse Oximetry 99 04/07/25 13:32 Oxygen Delivery Room Air 04/07/25 13:32 reviewed , blood pressure elevated. Patient cannot remember if she took her BP meds today. MDM - URI/Sore Throat MDM Narrative Medical decision making narrative: will treat patient with antibiotic for bacterial sinusitis due to duration of symptoms and exam findings. Lungs clear to auscultation, no respiratory distress. Will treat fungal rash with nystatin. Patient is alert, nontoxic. Patient is appropriate for outpatient treatment and follow-up. Differential Diagnosis Differential diagnosis: Likely upper respiratory infection, sinusitis, viral infection and bronchitis Discharge Plan Discharge Clinical Impression: Acute bacterial sinusitis, Skin yeast infection Asthma exacerbation Qualifiers: Asthma severity: mild Asthma persistence: unspecified Qualified Code(s): J45.901 - Unspecified asthma with (acute) exacerbation Patient Disposition: Home Condition: Stable Instructions: Antibiotic Form, Sinusitis (ED) Additional Instructions: Take medications as prescribed. Continue using inhalers as prescribed. Drink at least 64 oz of water a day. Keep skin under breasts clean and dry. Wash with soap and water daily, pat dry with towel. STOP SMOKING If symptoms not improving follow-up with your primary care physician. Patient Language: Canadian Prescriptions: New benzonatate 200 mg capsule 200 mg PO TID PRN (Reason: cough) Qty: 20 0RF albuterol sulfate 90 mcg/actuation HFA aerosol inhaler 2 puff inhalation Q4-6H PRN (Reason: shortness of breath or wheezing) Qty: 8.5 0RF amoxicillin-pot clavulanate 875-125 mg tablet 1 tablet PO Q12H 10 Days Qty: 20 0RF prednisone 20 mg tablet 40 mg PO DAILY 5 Days Qty: 10 0RF montelukast [Singulair] 10 mg tablet 10 mg PO HS Qty: 30 0RF nystatin 100,000 unit/gram cream 1 applic topical BID 10 Days Qty: 30 0RF No Action valacyclovir 1 gram tablet 1 tablet PO DIRECTED hydrochlorothiazide 25 mg tablet 1 tablet PO DAILY Patient Comments: PRN lisinopril [Zestril] 20 mg Tablet 20 mg PO DAILY trazodone 100 mg Tablet 100 mg PO HS amlodipine [Norvasc] 10 mg Tablet 10 mg PO DAILY gabapentin [Neurontin] 300 mg Capsule 1,200 mg PO TID hydroxyzine HCl 25 mg Tablet 25 mg PO TID insulin glargine [Lantus Solostar U-100 Insulin] 100 unit/mL (3 mL) Insulin Pen 25 unit SUBCUT HS bupropion HCl 200 mg tablet sustained-release 12 hr 1 mg PO BID buspirone 10 mg tablet 10 mg PO DAILY omeprazole 20 mg capsule,delayed release(DR/EC) 20 mg PO DAILY montelukast 10 mg tablet 10 mg PO DAILY Vraylar 3 mg capsule 3 mg PO DAILY (DME) Aerochamber MV Spacer See Rx Instructions .Route Qty: 1 0RF Rx Instructions: As directed atorvastatin 40 mg tablet 40 mg PO QPM (DME) Aerochamber MV Spacer See Rx Instructions .Route Qty: 1 0RF Rx Instructions: As directed albuterol sulfate 90 mcg/actuation HFA aerosol inhaler 2 puff inhalation QID PRN (Reason: shortness of breath or wheezing) Qty: 6.7 0RF albuterol sulfate 90 mcg/actuation HFA aerosol inhaler 2 inh inhalation Q4-6H PRN (Reason: shortness of breath or wheezing) Qty: 8.5 0RF benzonatate 100 mg capsule 100 mg PO Q6H Novolin R Regular U100 Insulin 100 unit/mL solution 1 sliding scale dose subcut .before meals metformin 1,000 mg tablet 1,000 mg PO BID glipizide 5 mg tablet 5 mg PO DAILY albuterol sulfate 90 mcg/actuation HFA aerosol inhaler 2 puff inhalation QID PRN (Reason: shortness of breath or wheezing) Qty: 8.5 0RF methocarbamol 750 mg tablet 1,500 mg PO TID PRN (Reason: muscle spasm) Qty: 15 0RF Follow-up/Referrals: Avila,CONTRERAS Sánchez [Primary Care Provider] - Time of Disposition: 13:58
== END 2025-04-07 14:15 | disposition home or self-care (01) ==
PROVIDERS: Emergency Provider Nurse Practitioner Family; PCP Physician Assistant
DX: J01.90 Acute sinusitis, unspecified (principal); B37.2 Candidiasis of skin and nail; J45.901 Unspecified asthma with (acute) exacerbation; F17.210 Nicotine dependence, cigarettes, uncomplicated; I10 Essential (primary) hypertension; G40.909 Epilepsy, unspecified, not intractable, without status epilepticus; E78.5 Hyperlipidemia, unspecified; K21.9 Gastro-esophageal reflux disease without esophagitis; F41.9 Anxiety disorder, unspecified; F32.A Depression, unspecified
CPT/HCPCS: 99213; G0463

== ENCOUNTER 2025-04-27 08:53 | Emergency (ER) | payer OTHER, SELFPAY ==
[2025-04-27 09:02] VITALS: BP 123/80; PULSE 79; RESP 16; TEMP 36.2; O2SAT 99
--- NOTE | 2025-04-27 09:28 | ED.DENTAL ---
HPI - Dental/Oral General Chief complaint: Dental/Oral Stated complaint: Dental Pain Source: patient Mode of arrival: ambulatory Limitations: no limitations History of Present Illness HPI Narrative: Patient is a 39 year old female who presents to the clinic with complaints of dental pain to the left side for two days. She has not been taking anything over the counter. She states that she has been trying to get into [facility] for an appointment. Denies difficulty swallowing or feeling like her throat is swollen. Patient was on Augmentin 20 days ago for a sinus infection. Related Data Home Medications ?Medication ?Instructions ?Recorded ?Confirmed ?Last Taken ?Type amlodipine 10 mg tablet (Norvasc) 10 mg PO DAILY 11/14/20 04/07/25 08/07/21 History 10 mg gabapentin 300 mg capsule 1,200 mg PO TID 11/14/20 04/07/25 08/07/21 History (Neurontin) 300 mg hydroxyzine HCl 25 mg tablet 25 mg PO TID 11/14/20 04/07/25 08/07/21 History 25 mg insulin glargine 100 unit/mL (3 25 unit subcut HS 11/14/20 04/07/25 08/07/21 History mL) subcutaneous pen (Lantus 10 unit Solostar U-100 Insulin) lisinopril 20 mg tablet (Zestril) 20 mg PO DAILY 11/14/20 04/07/25 08/07/21 History 20 mg trazodone 100 mg tablet 100 mg PO HS 11/14/20 04/07/25 08/07/21 History 100 mg metformin 1,000 mg tablet 1,000 mg PO BID 09/27/21 04/07/25 Unknown History valacyclovir 1 gram tablet 1 tablet PO DIRECTED 05/13/22 04/07/25 Unknown History buspirone 10 mg tablet 10 mg PO DAILY 08/14/22 04/07/25 Unknown History cariprazine 3 mg capsule (Vraylar) 3 mg PO DAILY 08/14/22 04/07/25 Unknown History montelukast 10 mg tablet 10 mg PO DAILY 08/14/22 12/29/24 Unknown History omeprazole 20 mg capsule,delayed 20 mg PO DAILY 08/14/22 04/07/25 Unknown History release atorvastatin 40 mg tablet 40 mg PO QPM 12/29/24 04/07/25 Unknown History insulin regular human 100 unit/mL 1 sliding scale dose subcut 04/07/25 04/07/25 Unknown History injection solution (Novolin R .before meals Regular U-100 Insulin) aspirin 81 mg tablet,delayed 81 mg PO DAILY 04/27/25 04/27/25 Unknown History release (Adult Low Dose Aspirin) bupropion HCl 150 mg 24 hr tablet, mg PO 04/27/25 Unknown History extended release ibuprofen 800 mg tablet mg 04/27/25 Unknown History Allergies Allergy/AdvReac Type Severity Reaction Status Date / Time aripiprazole AdvReac Unknown Abdominal Verified 04/27/25 09:18 Pain lithium AdvReac Unknown VOMITING Verified 04/27/25 09:18 Review of Systems Review of Systems: CONSTITUTIONAL: Denies body aches, fever, chills, or sweats. EYES: Denies visual changes, redness, or discharge. ENT: Denies rhinorrhea, congestion, sore throat, or otalgia. Reports dental pain. CARDIOVASCULAR: Denies chest pain, palpitations, or edema. RESPIRATORY: Denies cough or dyspnea. SKIN: Denies rash, itching, or wounds. NEUROLOGIC: Denies headache, numbness, tingling, or weakness. PSYCH: Denies depression or anxiety. All systems reviewed & are unremarkable except as noted in HPI and below PMFSH Past Medical History Medical History Human papilloma virus Personality disorder Chronic back pain Hepatitis Anxiety Depression Bipolar disorder Herpes GERD (gastroesophageal reflux disease) HTN (hypertension) HLD (hyperlipidemia) Seizures Sciatica Surgical History Surgical History Hx of section Hx of tonsillectomy Family History Family History Mother Diabetes mellitus Hypertension Father Diabetes mellitus Social History Social History Smoking packs per day: 1.5 Smoking cigarettes per day: 30.0 Years smoked: 15 Smoking pack-years: 22.50 Smoking status: Current every day smoker Tobacco type: cigarettes Second hand tobacco smoke exposure: Yes Alcohol intake: current Drinks per week: 1 Substance use type: marijuana Living arrangements: alone Gender identity (if verbalized by the patient): Female Spiritual care concerns: No Comments At time of signature, I have reviewed and agree with nursing past medical, surgical, social and family history unless otherwise noted. Please see nursing chart for further information. There is no relevant family history pertinent to the presenting complaint. Exam Narrative: GENERAL: Well-appearing, well-nourished, and in no acute distress. HEAD: Normocephalic, atraumatic. EYES: EOMI. No redness or drainage. Conjunctivae normal. ENT: Mucous membranes pink and moist. Nares clear. No rhinorrhea. TMs normal bilaterally. Throat normal. Uvula midline. Dental pain location of #11 and #12. Significant decay with surrounding erythema to gum to #11 and #12. no dysphagia, odynophagia, dysphonia or dyspnea. There is no soft palate edema. NECK: Normal AROM. Supple. No lymphadenopathy. No induration below mandible, no neck pain. CHEST: No respiratory distress. Clear to auscultation. HEART: Regular rate and rhythm. No murmur appreciated. Normal peripheral pulses. MUSCULOSKELETAL: No bony tenderness. NEURO: No focal deficits. Alert and oriented x3. Gait steady. PSYCH: Normal affect. No signs of depression or anxiety. Course Course Level of Care: Express Care Visit Vital Signs Vital signs: Vital Signs Temperature 97.2 F L 04/27/25 09:02 Pulse Rate 79 04/27/25 09:02 Respiratory Rate 16 04/27/25 09:02 Blood Pressure 123/80 04/27/25 09:02 Pulse Oximetry 99 04/27/25 09:02 Oxygen Delivery Room Air 04/27/25 09:02 Temperature 97.2 F L 04/27/25 09:02 Pulse Rate 79 04/27/25 09:02 Respiratory Rate 16 04/27/25 09:02 Blood Pressure 123/80 04/27/25 09:02 Pulse Oximetry 99 04/27/25 09:02 Oxygen Delivery Room Air 04/27/25 09:02 Reviewed. MDM - Dental/Oral MDM Narrative Medical decision making narrative: Patient's pain and complaint coupled physical exam findings are consistent with dentalgia. Advised supportive measures and signs/symptoms to go to the ER. Pt is appropriate for outpatient treatment and f/u with Dentist. Differential Diagnosis Differential diagnosis: Likely dental caries, toothache, dental abscess and fracture of tooth Critical Care Time Critical Care Time Critical Care Time: No Discharge Plan Discharge Clinical Impression: Pain, dental Patient Disposition: Home Condition: Stable Instructions: Antibiotic Form, Toothache (ED) Additional Instructions: Take antibiotic as directed May apply heat or ice to the face Gentle brushing and flossing. Rinse mouth with warm salt water at least 2 times a day. Alternate Tylenol and ibuprofen as needed for pain Follow-up with the dentist as soon as possible--see the list provided Patient Language: Polish Prescriptions: New clindamycin HCl [Cleocin HCl] 300 mg capsule 300 mg PO TID 10 Days Qty: 30 0RF No Action valacyclovir 1 gram tablet 1 tablet PO DIRECTED lisinopril [Zestril] 20 mg Tablet 20 mg PO DAILY trazodone 100 mg Tablet 100 mg PO HS amlodipine [Norvasc] 10 mg Tablet 10 mg PO DAILY gabapentin [Neurontin] 300 mg Capsule 1,200 mg PO TID hydroxyzine HCl 25 mg Tablet 25 mg PO TID insulin glargine [Lantus Solostar U-100 Insulin] 100 unit/mL (3 mL) Insulin Pen 25 unit SUBCUT HS buspirone 10 mg tablet 10 mg PO DAILY omeprazole 20 mg capsule,delayed release(DR/EC) 20 mg PO DAILY montelukast 10 mg tablet 10 mg PO DAILY Vraylar 3 mg capsule 3 mg PO DAILY (DME) Aerochamber MV Spacer See Rx Instructions .Route Qty: 1 0RF Rx Instructions: As directed atorvastatin 40 mg tablet 40 mg PO QPM (DME) Aerochamber MV Spacer See Rx Instructions .Route Qty: 1 0RF Rx Instructions: As directed Novolin R Regular U100 Insulin 100 unit/mL solution 1 sliding scale dose subcut .before meals nystatin 100,000 unit/gram cream 1 applic topical BID 10 Days Qty: 30 0RF ibuprofen 800 mg tablet bupropion HCl 150 mg tablet extended release 24 hr PO aspirin [Adult Low Dose Aspirin] 81 mg tablet,delayed release (DR/EC) 81 mg PO DAILY metformin 1,000 mg tablet 1,000 mg PO BID albuterol sulfate 90 mcg/actuation HFA aerosol inhaler 2 puff inhalation QID PRN (Reason: shortness of breath or wheezing) Qty: 8.5 0RF methocarbamol 750 mg tablet 1,500 mg PO TID PRN (Reason: muscle spasm) Qty: 15 0RF Follow-up/Referrals: Avila,CONTRERAS Sánchez [Primary Care Provider] - Stand Alone Forms: Work/School Release IP Time of Disposition: 09:35
== END 2025-04-27 09:44 | disposition home or self-care (01) ==
PROVIDERS: PCP Physician Assistant
DX: K08.89 Other specified disorders of teeth and supporting structures (principal); F17.210 Nicotine dependence, cigarettes, uncomplicated; I10 Essential (primary) hypertension; E78.5 Hyperlipidemia, unspecified; G40.909 Epilepsy, unspecified, not intractable, without status epilepticus; K21.9 Gastro-esophageal reflux disease without esophagitis; F41.9 Anxiety disorder, unspecified; F31.9 Bipolar disorder, unspecified
CPT/HCPCS: 99213; G0463

== ENCOUNTER 2025-06-29 11:12 | Emergency (ER) | payer OTHER, SELFPAY ==
[2025-06-29 11:15] VITALS: BP 153/108; PULSE 97; RESP 12; TEMP 36.3; O2SAT 99
--- NOTE | 2025-06-29 11:18 | ED.WOUNDLAC ---
HPI - Wound/Laceration General Chief Complaint: Wound/Laceration Stated Complaint: Wound Check Time Seen by Provider: 06/29/25 11:18 Source: patient Mode of arrival: ambulatory Limitations: no limitations History of Present Illness HPI narrative: Annita is a 40-year-old female patient presenting to the clinic today with complaints a wound to the right lateral foot x2 days. States that started out as a blister and she popped it and now has become red and swollen with some bloody yellow discharge. No fevers, chills, body aches. She is diabetic. Took ibuprofen for pain. Rates pain currently an 07/09. Related Data Home Medications ?Medication ?Instructions ?Recorded ?Confirmed ?Last Taken ?Type amlodipine 10 mg tablet (Norvasc) 10 mg PO DAILY 11/14/20 04/07/25 08/07/21 History 10 mg gabapentin 300 mg capsule 1,200 mg PO TID 11/14/20 04/07/25 08/07/21 History (Neurontin) 300 mg hydroxyzine HCl 25 mg tablet 25 mg PO TID 11/14/20 04/07/25 08/07/21 History 25 mg insulin glargine 100 unit/mL (3 25 unit subcut HS 11/14/20 04/07/25 08/07/21 History mL) subcutaneous pen (Lantus 10 unit Solostar U-100 Insulin) lisinopril 20 mg tablet (Zestril) 20 mg PO DAILY 11/14/20 04/07/25 08/07/21 History 20 mg trazodone 100 mg tablet 100 mg PO HS 11/14/20 04/07/25 08/07/21 History 100 mg metformin 1,000 mg tablet 1,000 mg PO BID 09/27/21 04/07/25 Unknown History valacyclovir 1 gram tablet 1 tablet PO DIRECTED 05/13/22 04/07/25 Unknown History buspirone 10 mg tablet 10 mg PO DAILY 08/14/22 04/07/25 Unknown History cariprazine 3 mg capsule (Vraylar) 3 mg PO DAILY 08/14/22 04/07/25 Unknown History omeprazole 20 mg capsule,delayed 20 mg PO DAILY 08/14/22 04/07/25 Unknown History release atorvastatin 40 mg tablet 40 mg PO QPM 12/29/24 04/07/25 Unknown History insulin regular human 100 unit/mL 1 sliding scale dose subcut 04/07/25 04/07/25 Unknown History injection solution (Novolin R .before meals Regular U-100 Insulin) aspirin 81 mg tablet,delayed 81 mg PO DAILY 04/27/25 04/27/25 Unknown History release (Adult Low Dose Aspirin) bupropion HCl 150 mg 24 hr tablet, mg PO 04/27/25 Unknown History extended release ibuprofen 800 mg tablet mg 04/27/25 Unknown History Allergies Allergy/AdvReac Type Severity Reaction Status Date / Time aripiprazole AdvReac Unknown Abdominal Verified 06/29/25 11:14 Pain lithium AdvReac Unknown VOMITING Verified 06/29/25 11:14 Review of Systems Review of Systems: Pertinent positives per HPI. Patient denies any fever, chills, rash, headache, visual changes, dizziness, cough, runny nose, sore throat, shortness of breath, chest pain, palpitations, nausea, vomiting, diarrhea, constipation, abdominal pain, or any urinary issues. [facility] Past Medical History Medical History Human papilloma virus Personality disorder Chronic back pain Hepatitis Anxiety Depression Bipolar disorder Herpes GERD (gastroesophageal reflux disease) HTN (hypertension) HLD (hyperlipidemia) Seizures Sciatica Surgical History Surgical History Hx of section Hx of tonsillectomy Family History Family History Mother Diabetes mellitus Hypertension Father Diabetes mellitus Social History Social History Smoking packs per day: 1.5 Smoking cigarettes per day: 30.0 Years smoked: 15 Smoking pack-years: 22.50 Smoking status: Current every day smoker Tobacco type: cigarettes Second hand tobacco smoke exposure: Yes Alcohol intake: current Drinks per week: 1 Substance use type: marijuana Living arrangements: alone Gender identity (if verbalized by the patient): Female Spiritual care concerns: No Comments At the time of my signature, I reviewed and agree with the nursing past medical, surgical, social, and family history. There is no relevant family history pertinent to the patient complaint. Exam Narrative: General: Well-developed, morbidly obese, in no apparent distress Head: Normocephalic, atraumatic. Cardio: Regular rate and rhythm, s1 and s2 normal, no murmur appreciated. Resp: Clear to auscultation bilaterally, no rhonchi, rales, wheezing or rubs. Integumentary: [place], warm, and dry, 4 cm x 1 cm scabbed wound with yellow discharge with localized redness to the right lateral foot near the heel-no induration or palpable abscess Course Course Emergency Course: Portions of this record may have been created with voice recognition software. Level of Care: Express Care Visit Vital Signs Vital signs: Vital signs reviewed MDM - Wound/Laceration MDM Narrative Medical decision making narrative: At the time of visit patient is resting comfortably on the exam table. Patient appears to be nontoxic. Complaints a wound to the right lateral foot x2 days. States that started out as a blister and she popped it and now has become red and swollen with some bloody yellow discharge. No fevers, chills, body aches. She is diabetic. Took ibuprofen for pain. Rates pain currently an 8/10. Plan: I suspect patient has a right foot wound infection with localized redness. Patient denies any fevers, chills, body aches. Area does not appear to be cellulitic and there is no palpable abscess. Prescription for clindamycin was sent to the pharmacy. Supportive measure were discussed with the patient and they voiced understanding discharge instructions and agrees to treatment plan. Return precautions reviewed Differential Diagnosis Differential diagnosis: Likely laceration, abscess, abrasion, avulsion of skin and other (Cellulitis, bacterial skin infection) Discharge Plan Discharge Clinical Impression: Wound infection Patient Disposition: Home Condition: Stable Instructions: Antibiotic Form, Wound Infection (ED) Additional Instructions: Wound culture was obtained and sent to the lab. Keep a tight control of your blood sugar. May take Tylenol/Motrin per bottled directions as needed for pain or fever Increase fluids and stay well hydrated Leave bandage on for 24 hours then may remove and apply band aide covering as needed. Watch for signs and symptoms of infection-fever, redness, streaking, swelling, purulent discharge, or increase in pain. Follow up with your PCP in 2 days for wound check. Patient Language: Uzbek Prescriptions: New clindamycin HCl [Cleocin HCl] 300 mg capsule 300 mg PO Q8H 7 Days Qty: 21 0RF No Action valacyclovir 1 gram tablet 1 tablet PO DIRECTED lisinopril [Zestril] 20 mg Tablet 20 mg PO DAILY trazodone 100 mg Tablet 100 mg PO HS amlodipine [Norvasc] 10 mg Tablet 10 mg PO DAILY gabapentin [Neurontin] 300 mg Capsule 1,200 mg PO TID hydroxyzine HCl 25 mg Tablet 25 mg PO TID insulin glargine [Lantus Solostar U-100 Insulin] 100 unit/mL (3 mL) Insulin Pen 25 unit SUBCUT HS buspirone 10 mg tablet 10 mg PO DAILY omeprazole 20 mg capsule,delayed release(DR/EC) 20 mg PO DAILY Vraylar 3 mg capsule 3 mg PO DAILY (DME) Aerochamber MV Spacer See Rx Instructions .Route Qty: 1 0RF Rx Instructions: As directed atorvastatin 40 mg tablet 40 mg PO QPM (DME) Aerochamber MV Spacer See Rx Instructions .Route Qty: 1 0RF Rx Instructions: As directed Novolin R Regular U100 Insulin 100 unit/mL solution 1 sliding scale dose subcut .before meals ibuprofen 800 mg tablet bupropion HCl 150 mg tablet extended release 24 hr PO aspirin [Adult Low Dose Aspirin] 81 mg tablet,delayed release (DR/EC) 81 mg PO DAILY metformin 1,000 mg tablet 1,000 mg PO BID methocarbamol 750 mg tablet 1,500 mg PO TID PRN (Reason: muscle spasm) Qty: 15 0RF Follow-up/Referrals: Avila,CONTRERAS Sánchez [Primary Care Provider] - Time of Disposition: 11:29 Quality NIHSS Nursing Documentation ED NIHSS nursing documentation: reviewed/agree
== END 2025-06-29 11:36 | disposition home or self-care (01) ==
PROVIDERS: Emergency Provider Nurse Practitioner Family; PCP Physician Assistant
DX: S91.301A Unspecified open wound, right foot, initial encounter (principal); E78.5 Hyperlipidemia, unspecified; I10 Essential (primary) hypertension; F17.210 Nicotine dependence, cigarettes, uncomplicated; X58.XXXA Exposure to other specified factors, initial encounter
CPT/HCPCS: 99213; G0463

== ENCOUNTER 2025-09-04 11:47 | Emergency (ER) | payer OTHER, SELFPAY ==
[2025-09-04 12:04] VITALS: BP 134/81; PULSE 92; RESP 18; TEMP 37; O2SAT 98
--- NOTE | 2025-09-04 12:07 | ED.GENADULT ---
HPI - General Adult General Chief complaint: Extremity Problem,Nontraumatic Stated complaint: Left Middle Finger Irritation and Pain Time Seen by Provider: 09/04/25 12:07 Source: patient, RN notes reviewed and old records reviewed Mode of arrival: ambulatory Limitations: no limitations History of Present Illness HPI narrative: 40-year-old female presents to the [facility] with left middle finger mild swelling, pink, area to the side of the fingernail. Started yesterday. No treatment prior to arrival Onset (ago): day(s) (1) Related Data Home Medications ?Medication ?Instructions ?Recorded ?Confirmed ?Last Taken ?Type amlodipine 10 mg tablet (Norvasc) 10 mg PO DAILY 11/14/20 04/07/25 08/07/21 History 10 mg gabapentin 300 mg capsule 1,200 mg PO TID 11/14/20 04/07/25 08/07/21 History (Neurontin) 300 mg hydroxyzine HCl 25 mg tablet 25 mg PO TID 11/14/20 04/07/25 08/07/21 History 25 mg insulin glargine 100 unit/mL (3 25 unit subcut HS 11/14/20 04/07/25 08/07/21 History mL) subcutaneous pen (Lantus 10 unit Solostar U-100 Insulin) lisinopril 20 mg tablet (Zestril) 20 mg PO DAILY 11/14/20 04/07/25 08/07/21 History 20 mg trazodone 100 mg tablet 100 mg PO HS 11/14/20 04/07/25 08/07/21 History 100 mg metformin 1,000 mg tablet 1,000 mg PO BID 09/27/21 04/07/25 Unknown History valacyclovir 1 gram tablet 1 tablet PO DIRECTED 05/13/22 04/07/25 Unknown History buspirone 10 mg tablet 10 mg PO DAILY 08/14/22 04/07/25 Unknown History cariprazine 3 mg capsule (Vraylar) 3 mg PO DAILY 08/14/22 04/07/25 Unknown History omeprazole 20 mg capsule,delayed 20 mg PO DAILY 08/14/22 04/07/25 Unknown History release atorvastatin 40 mg tablet 40 mg PO QPM 12/29/24 04/07/25 Unknown History insulin regular human 100 unit/mL 1 sliding scale dose subcut 04/07/25 04/07/25 Unknown History injection solution (Novolin R .before meals Regular U-100 Insulin) aspirin 81 mg tablet,delayed 81 mg PO DAILY 04/27/25 04/27/25 Unknown History release (Adult Low Dose Aspirin) bupropion HCl 150 mg 24 hr tablet, mg PO 04/27/25 Unknown History extended release ibuprofen 800 mg tablet mg 04/27/25 Unknown History Allergies Allergy/AdvReac Type Severity Reaction Status Date / Time aripiprazole AdvReac Unknown Abdominal Verified 06/29/25 11:14 Pain lithium AdvReac Unknown VOMITING Verified 06/29/25 11:14 Review of Systems Review of Systems: All systems reviewed & are unremarkable except as noted in HPI and below Constitutional: Constitutional: Reports no additional constitutional complaints Musculoskeletal: Musculoskeletal: Reports no additional musculoskeletal complaints Integumentary/Breasts: Skin/Breast: Reports as per HPI PMF Past Medical History Medical History Human papilloma virus Personality disorder Chronic back pain Hepatitis Anxiety Depression Bipolar disorder Herpes GERD (gastroesophageal reflux disease) HTN (hypertension) HLD (hyperlipidemia) Seizures Sciatica Surgical History Surgical History Hx of section Hx of tonsillectomy Family History Family History Mother Diabetes mellitus Hypertension Father Diabetes mellitus Social History Social History Smoking packs per day: 1.5 Smoking cigarettes per day: 30.0 Years smoked: 15 Smoking pack-years: 22.50 Smoking status: Current every day smoker Tobacco type: cigarettes Second hand tobacco smoke exposure: Yes Alcohol intake: current Drinks per week: 1 Substance use type: marijuana Living arrangements: alone Gender identity (if verbalized by the patient): Female Spiritual care concerns: No Comments At the time of my signature, I reviewed and agree with the nursing past medical, surgical, social, and family history. There is no relevant family history pertinent to the patient complaint. Exam Const: General: cooperative, healthy appearing, comfortable, no acute distress, well developed, alert and well nourished Nutritional Appearance: well nourished and obese Orientation/consciousness: patient oriented x3 Limitations: no limitations HENMT: Head: normal to inspection Eyes: General: appearance normal, both eyes and all related structures Alignment and Position: alignment normal Neck: Neck: normal visual inspection, full ROM, no lymphadenopathy and no meningeal signs Chest: Chest palpation & inspection: normal inspection of the chest Resp: Effort & Inspection: normal respiratory effort and able to speak in complete sentences Cardio: Rate: regular rate Skin: General skin exam: normal color and no rashes or lesions noted Other: Left middle finger distal aspect neural nail, pink, not warm, swelling Neuro: General: patient oriented x3, gait normal, moves all extremities and no meningeal signs Cognition (Neuro): normal cognition Speech: normal speech Gait exam (Neuro): Normal gait present Extrem: General: normal to inspection, full ROM, capillary refill normal and normal gait Psych: Appearance: grossly normal and well kempt Mental Status: mental status grossly normal Speech and movement: Normal speech and movement present and Clear speech present Affect: normal affect Attitude: cooperative Course Course Emergency Course: Area soaked for 15 minutes in warm soapy water. Used 18 gauge, script way cuticle, scant amount of clear drainage. Collected, sent for culture. Level of Care: Express Care Visit Vital Signs Vital signs: Vital Signs Temperature 98.6 F 09/04/25 12:04 Pulse Rate 92 09/04/25 12:04 Respiratory Rate 18 09/04/25 12:04 Blood Pressure 134/81 09/04/25 12:04 Pulse Oximetry 98 09/04/25 12:04 Oxygen Delivery Room Air 09/04/25 12:04 Temperature 98.6 F 09/04/25 12:04 Pulse Rate 92 09/04/25 12:04 Respiratory Rate 18 09/04/25 12:04 Blood Pressure 134/81 09/04/25 12:04 Pulse Oximetry 98 09/04/25 12:04 Oxygen Delivery Room Air 09/04/25 12:04 Reviewed Medical Decision Making MDM Narrative Medical decision making narrative: Patient sitting in exam room. Patient is nontoxic, vitals stable. Patient presents with paronychia. Patient is appropriate for outpatient treatment with close follow-up Discharge instructions reviewed with patient, as well as provided in writing per nursing staff. The instructions also include specific and strict return/GO TO THE ER as well as f/u information. All questions have been answered, and the patient deny any further questions with discharge and discharge plan. Some parts of this dictation were generated by voice recognition software and may contain typographical and/or grammatical inaccuracies. Differential Diagnosis Differential Diagnosis: An abscess, cellulitis, Paronychia Medical Records Medical records reviewed: Yes I reviewed the external patient's medical records. Vital Signs Vital Signs: Vital Signs Temperature 98.6 F 09/04/25 12:04 Pulse Rate 92 09/04/25 12:04 Respiratory Rate 18 09/04/25 12:04 Blood Pressure 134/81 09/04/25 12:04 Pulse Oximetry 98 09/04/25 12:04 Oxygen Delivery Room Air 09/04/25 12:04 Temperature 98.6 F 09/04/25 12:04 Pulse Rate 92 09/04/25 12:04 Respiratory Rate 18 09/04/25 12:04 Blood Pressure 134/81 09/04/25 12:04 Pulse Oximetry 98 09/04/25 12:04 Oxygen Delivery Room Air 09/04/25 12:04 Reviewed Lab Data Lab results reviewed: Yes I reviewed the patient's lab results. Labs: Reviewed Critical Care Time Critical Care Time Critical Care Time: No Discharge Plan Discharge Clinical Impression: Paronychia Patient Disposition: Home Condition: Stable Instructions: Antibiotic Form, Paronychia (ED) Additional Instructions: Soak twice daily in warm soapy water with Epson salt. Use a antibacterial soap. Soak for 15-20 minutes each time. Do this for 7 days. Take antibiotic as prescribed Follow-up with primary care provider if no improvement in 5 days For new or worsening symptoms go directly to the emergency room Patient Language: Estonian Prescriptions: New cephalexin 500 mg capsule 500 mg PO TID 7 Days Qty: 21 0RF No Action valacyclovir 1 gram tablet 1 tablet PO DIRECTED lisinopril [Zestril] 20 mg Tablet 20 mg PO DAILY trazodone 100 mg Tablet 100 mg PO HS amlodipine [Norvasc] 10 mg Tablet 10 mg PO DAILY gabapentin [Neurontin] 300 mg Capsule 1,200 mg PO TID hydroxyzine HCl 25 mg Tablet 25 mg PO TID insulin glargine [Lantus Solostar U-100 Insulin] 100 unit/mL (3 mL) Insulin Pen 25 unit SUBCUT HS buspirone 10 mg tablet 10 mg PO DAILY omeprazole 20 mg capsule,delayed release(DR/EC) 20 mg PO DAILY Vraylar 3 mg capsule 3 mg PO DAILY (DME) Aerochamber MV Spacer See Rx Instructions .Route Qty: 1 0RF Rx Instructions: As directed atorvastatin 40 mg tablet 40 mg PO QPM (DME) Aerochamber MV Spacer See Rx Instructions .Route Qty: 1 0RF Rx Instructions: As directed Novolin R Regular U100 Insulin 100 unit/mL solution 1 sliding scale dose subcut .before meals ibuprofen 800 mg tablet bupropion HCl 150 mg tablet extended release 24 hr PO aspirin [Adult Low Dose Aspirin] 81 mg tablet,delayed release (DR/EC) 81 mg PO DAILY metformin 1,000 mg tablet 1,000 mg PO BID methocarbamol 750 mg tablet 1,500 mg PO TID PRN (Reason: muscle spasm) Qty: 15 0RF Follow-up/Referrals: Avila,CONTRERAS Sánchez [Primary Care Provider, Unknown] - 1 Week Time of Disposition: 12:51
== END 2025-09-04 13:02 | disposition home or self-care (01) ==
PROVIDERS: Emergency Provider Nurse Practitioner; PCP Physician Assistant
DX: L03.012 Cellulitis of left finger (principal); I10 Essential (primary) hypertension; E78.5 Hyperlipidemia, unspecified; K21.9 Gastro-esophageal reflux disease without esophagitis; F41.9 Anxiety disorder, unspecified; F31.9 Bipolar disorder, unspecified; F17.210 Nicotine dependence, cigarettes, uncomplicated; F12.90 Cannabis use, unspecified, uncomplicated; Z79.82 Long term (current) use of aspirin
CPT/HCPCS: 87070; 87186; 99213; G0463

== ENCOUNTER 2025-09-24 11:51 | Emergency (ER) | payer OTHER, SELFPAY ==
[2025-09-24 12:00] VITALS: BP 151/96; PULSE 96; RESP 18; TEMP 36.5; O2SAT 98
--- NOTE | 2025-09-24 12:10 | ED.DENTAL ---
HPI - Dental/Oral General Chief complaint: Dental/Oral Stated complaint: Dental Pain Time Seen by Provider: 09/24/25 12:10 Source: patient, RN notes reviewed and old records reviewed Mode of arrival: ambulatory Limitations: no limitations History of Present Illness HPI Narrative: 40-year-old female who presents to [facility] with complaints of 2-3 days of dental pain to the right lower mouth especially to # 27 and #28 teeth which are broken with noted decay with redness and swelling of the gums surround these these. other teeth on bottom noted to have extensive periodontal disease and decay. Patient reports that she smokes at least 2 packs of cigarettes daily. She states that she has had no fevers or any chills has been taking Ibuprofen for her discomfort.Patient does have some swelling to the side of her right jaw,denies any difficulty with swallowing or with her breathing. MD Complaint: tooth pain Location: Tooth # (27 and 28) Onset (ago): day(s) (2-3 days) Severity scale (1-10): 4 Treatment prior to arrival: other (Ibuprofen) Related Data Home Medications ?Medication ?Instructions ?Recorded ?Confirmed ?Last Taken ?Type amlodipine 10 mg tablet (Norvasc) 10 mg PO DAILY 11/14/20 04/07/25 08/07/21 History 10 mg gabapentin 300 mg capsule 1,200 mg PO TID 11/14/20 04/07/25 08/07/21 History (Neurontin) 300 mg hydroxyzine HCl 25 mg tablet 25 mg PO TID 11/14/20 04/07/25 08/07/21 History 25 mg insulin glargine 100 unit/mL (3 25 unit subcut HS 11/14/20 04/07/25 08/07/21 History mL) subcutaneous pen (Lantus 10 unit Solostar U-100 Insulin) lisinopril 20 mg tablet (Zestril) 20 mg PO DAILY 11/14/20 04/07/25 08/07/21 History 20 mg trazodone 100 mg tablet 100 mg PO HS 11/14/20 04/07/25 08/07/21 History 100 mg metformin 1,000 mg tablet 1,000 mg PO BID 09/27/21 04/07/25 Unknown History valacyclovir 1 gram tablet 1 tablet PO DIRECTED 05/13/22 04/07/25 Unknown History buspirone 10 mg tablet 10 mg PO DAILY 08/14/22 04/07/25 Unknown History cariprazine 3 mg capsule (Vraylar) 3 mg PO DAILY 08/14/22 04/07/25 Unknown History omeprazole 20 mg capsule,delayed 20 mg PO DAILY 08/14/22 04/07/25 Unknown History release atorvastatin 40 mg tablet 40 mg PO QPM 12/29/24 04/07/25 Unknown History insulin regular human 100 unit/mL 1 sliding scale dose subcut 04/07/25 04/07/25 Unknown History injection solution (Novolin R .before meals Regular U-100 Insulin) aspirin 81 mg tablet,delayed 81 mg PO DAILY 04/27/25 04/27/25 Unknown History release (Adult Low Dose Aspirin) bupropion HCl 150 mg 24 hr tablet, mg PO 04/27/25 Unknown History extended release ibuprofen 800 mg tablet 800 mg 04/27/25 Unknown History sertraline 50 mg tablet mg 09/24/25 Unknown History Allergies Allergy/AdvReac Type Severity Reaction Status Date / Time aripiprazole AdvReac Unknown Abdominal Verified 09/24/25 11:57 Pain lithium AdvReac Unknown VOMITING Verified 09/24/25 11:57 Review of Systems Review of Systems: CONSTITUTIONAL: Denies fever, chills, or sweats. ENT: Denies rhinorrhea, congestion, sore throat, or otalgia. Reports dental pain to right side of bottom teeth with noted broken teeth with pain localized to #27and #28 teeth with generalized poor dentition and periodontal disease to remaining teeth. no trismus or any Jonah angina noted, mild swelling to the lateral right jaw area with some tenderness. CARDIOVASCULAR: Denies chest pain, palpitations, or edema. RESPIRATORY: Denies acute cough or dyspnea. SKIN: Denies rash or itching. MUSCULOSKELETAL: Denies myalgia. NEUROLOGIC: Denies headache All systems reviewed & are unremarkable except as noted in HPI and below PMFSH Past Medical History Medical History Human papilloma virus Personality disorder Chronic back pain Hepatitis Anxiety Depression Bipolar disorder Herpes GERD (gastroesophageal reflux disease) HTN (hypertension) HLD (hyperlipidemia) Seizures Sciatica Surgical History Surgical History Hx of section Hx of tonsillectomy Family History Family History Mother Diabetes mellitus Hypertension Father Diabetes mellitus Social History Social History Smoking packs per day: 1.5 Smoking cigarettes per day: 30.0 Years smoked: 15 Smoking pack-years: 22.50 Smoking status: Current every day smoker Tobacco type: cigarettes Second hand tobacco smoke exposure: Yes Alcohol intake: current Drinks per week: 1 Substance use type: marijuana Living arrangements: alone Gender identity (if verbalized by the patient): Female Spiritual care concerns: No Comments At time of signature, agree with nursing past medical, surgical, social and family history. There is no relevant family history pertinent to the presenting complaint Exam Narrative: GENERAL: Well-appearing, well-nourished,obese with poor personal hygiene and in no acute distress. HEAD: Normocephalic, atraumatic. EYES: PERRLA and EOMI. ENT: Nares clear, no rhinorrhea or epistaxis. Mucous membranes moist. Missing teeth, broken teeth, caries swelling and redness to the gums along 27 and 28 teeth and generalized periodontal disease and caries to other remaining teeth No Jonah angina or any trismus, some swelling along the lateral right jaw area. NECK: Supple. No lymphadenopathy CHEST: Clear to auscultation. No respiratory distress. no acute cough noted SAO2 98% on room air HEART: Regular rate and rhythm. No murmur heard. Normal peripheral pulses. SKIN: Warm, dry, no rash. NEURO: No focal deficits. Alert and oriented x3. Course Course Emergency Course: Patient is aware of diagnosis, understands and agrees to treatment plan. Anticipatory guidance given. Patient agrees to follow-up as directed and is aware of reasons to seek care at the emergency department. Portions of this record may have been created with voice recognition software Level of Care: Express Care Visit Vital Signs Vital signs: Vital Signs Temperature 36.5 C 09/24/25 12:00 Pulse Rate 96 09/24/25 12:00 Respiratory Rate 18 09/24/25 12:00 Blood Pressure 151/96 H 09/24/25 12:00 Pulse Oximetry 98 09/24/25 12:00 Oxygen Delivery Room Air 09/24/25 12:00 Temperature 36.5 C 09/24/25 12:00 Pulse Rate 96 09/24/25 12:00 Respiratory Rate 18 09/24/25 12:00 Blood Pressure 151/96 H 09/24/25 12:00 Pulse Oximetry 98 09/24/25 12:00 Oxygen Delivery Room Air 09/24/25 12:00 Reviewed MDM - Dental/Oral MDM Narrative Medical decision making narrative: Patients pain and complaint coupled with physical findings are consistent with dentalgia. There are no focal signs of space occupying lesions that are compromising to the airway; no dysphagia, odynophagia, dysphonia, or dyspnea. No uvular deviation or soft palate edema. Patient is non-toxic appearing. The floor of the mouth is soft with no signs of Jonah's Angina; no induration below mandible, no neck pain.? Patient is without trismus or drooling and able to swallow secretions.? Patient is felt appropriate for discharge home with dental follow up. Differential Diagnosis Differential diagnosis: Likely gingival abscess, dental caries, dental abscess and other (periodontal disease, facial swelling) Medical Records Attestation: I reviewed the patient's medical records. Critical Care Time Critical Care Time Critical Care Time: No Discharge Plan Discharge Clinical Impression: Dental abscess, Right facial swelling, Chronic periodontal disease Patient Disposition: Home Condition: Stable Instructions: Antibiotic Form, Dental Abscess (ED), Periodontal Disease (DC) Additional Instructions: Avoid temperature extremes May apply heat or ice to the face Gentle brushing and flossing Antibiotic as directed Tylenol for lesser pain Use ibuprofen regularly Peridex mouthwash take use as prescribed Follow-up with the dentist as soon as possible--see the list provided If your symptoms persist, change or worsen significantly before you can contact your personal physician then please, without delay, go to the emergency department for further evaluation. Follow-up with PCP in 7-10 days or sooner if needed Follow up with PCP soon in regards to your blood pressure which is elevated above threshold for referral. Blood pressure above 120/80 may indicate pre-hypertension. 151/96 Monitor blood sugars closely due to dental infection Patient Language: Occitan Prescriptions: New penicillin V potassium 500 mg tablet 500 mg PO Q12H Qty: 20 0RF chlorhexidine gluconate [Peridex] 0.12 % mouthwash 15 ml mucous membrane BID Qty: 473 0RF No Action valacyclovir 1 gram tablet 1 tablet PO DIRECTED sertraline 50 mg tablet lisinopril [Zestril] 20 mg Tablet 20 mg PO DAILY trazodone 100 mg Tablet 100 mg PO HS amlodipine [Norvasc] 10 mg Tablet 10 mg PO DAILY gabapentin [Neurontin] 300 mg Capsule 1,200 mg PO TID hydroxyzine HCl 25 mg Tablet 25 mg PO TID insulin glargine [Lantus Solostar U-100 Insulin] 100 unit/mL (3 mL) Insulin Pen 25 unit SUBCUT HS buspirone 10 mg tablet 10 mg PO DAILY omeprazole 20 mg capsule,delayed release(DR/EC) 20 mg PO DAILY Vraylar 3 mg capsule 3 mg PO DAILY (DME) Aerochamber MV Spacer See Rx Instructions .Route Qty: 1 0RF Rx Instructions: As directed atorvastatin 40 mg tablet 40 mg PO QPM (DME) Aerochamber MV Spacer See Rx Instructions .Route Qty: 1 0RF Rx Instructions: As directed Novolin R Regular U100 Insulin 100 unit/mL solution 1 sliding scale dose subcut .before meals ibuprofen 800 mg tablet 800 mg bupropion HCl 150 mg tablet extended release 24 hr PO aspirin [Adult Low Dose Aspirin] 81 mg tablet,delayed release (DR/EC) 81 mg PO DAILY metformin 1,000 mg tablet 1,000 mg PO BID methocarbamol 750 mg tablet 1,500 mg PO TID PRN (Reason: muscle spasm) Qty: 15 0RF Follow-up/Referrals: Avila,CONTRERAS Sánchez [Primary Care Provider, Unknown] Stand Alone Forms: Work/School Release IP Time of Disposition: 12:33 Quality Dickinson Coma Scale Eyes: Open Verbal: Oriented and Alert Motor: Follows Commands Vicki Coma Total Score: 15
== END 2025-09-24 12:41 | disposition home or self-care (01) ==
PROVIDERS: Emergency Provider Registered Nurse; PCP Physician Assistant
DX: K04.7 Periapical abscess without sinus (principal); K05.6 Periodontal disease, unspecified; F17.210 Nicotine dependence, cigarettes, uncomplicated; F12.90 Cannabis use, unspecified, uncomplicated; G40.909 Epilepsy, unspecified, not intractable, without status epilepticus; I10 Essential (primary) hypertension; E78.5 Hyperlipidemia, unspecified; K21.9 Gastro-esophageal reflux disease without esophagitis; F41.9 Anxiety disorder, unspecified; F31.9 Bipolar disorder, unspecified; Z79.82 Long term (current) use of aspirin
CPT/HCPCS: 99213; G0463

== ENCOUNTER 2025-10-04 15:00 | Emergency (ER) | payer OTHER, SELFPAY ==
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
[2025-10-04 15:04] VITALS: BP 129/76; PULSE 94; RESP 18; TEMP 36.3; O2SAT 97
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
[2025-10-04 17:01] VITALS: BP 140/94; PULSE 100; RESP 18; TEMP 37; O2SAT 100
[2025-10-04 17:05] VITALS: BP 140/96; PULSE 100; RESP 18; TEMP 37; O2SAT 100
[2025-10-04] MEDS: KETOROLAC (*BKC) 60 MG/2 ML VIAL IM (17:29)
[2025-10-04 18:54] VITALS: BP 152/89; PULSE 84; RESP 19; O2SAT 100
[2025-10-04 20:04] VITALS: BP 141/94; PULSE 79; RESP 18; O2SAT 99
--- OUTSIDE RECORDS SUMMARY | 2025-10-05 14:43 | XMS_ITS | Encounter Summary ---
Author Organization [facility] Health Address [address] [place] [address] Care Team Providers Care Waterproofing Mixer Name Role Phone Efren Macdonald [facility] Primary Care Provide r Chreyl Sánchez MD Primary Care Provider [phone] Lili Mustafa [facility] Primary Care Provider Encounter Details Date Type Department Care Team (Late st Contact Info) Description 09/19/2020 Telephone [facility] Endocr[facility], Diabetes and Met[facility] [address] [place] [address] Ceci Ellington MD [address] [place] [address] Social History Tobacco Use Types Packs/Day Years [...] on file 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 Ceci Ellington know she is in [facility] in [place], [place]. She just went in early this morn 09/19/2020. She stated her legs gave out.She also stated no one called her for her 09/14/2020 Dietary appt and she no showed for the 09/18/20 dieatary appt w/ KAREN Samayoa. She would like a call from the office. Her next appt is 12/05/2020 w/ Dr. Jaimes. Patient Call Back number: [phone] documented in this encounter Plan of Treatment Not on file documented as of this encounter Visit Diagnoses Not on filedocumented in this encounter Care Teams Waterproofing Mixer Relationship Specialty Start Date End Date Efren Macdonald APRN-LUMBER PILER OPERATOR PCP - General Nurse Practitioner Gerontology 12/05/20 04/02/22 Cheryl Sánchez MD [address] [place] [address] Dr Mera [address] [place] [phone] PCP - General Family Medicine 04/03/22 05/19/22 Lili Mustafa APRN-ARTURO [address] [place] [address] PCP - General Nurse Practitioner Family 06/08/23 documented as of this encounter
--- OUTSIDE RECORDS SUMMARY | 2025-10-05 14:43 | XMS_ITS | Clinical Summary ---
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 Gender Identity Not on file Sexual Orientation [...] 4:16 PM CDT Height 172.7 cm (5' 8) 04/04/2015 4:16 PM CDT Body Mass Index 46.49 04/04/2015 4:16 PM CDT Plan of Treatment Health Maintenance Due Date Last Done Comments Albumin Creatinine Ratio, Urine 1985 Cervical Cancer Screening 1985 Depression Screening 1985 Hemoglobin A1C 1985 Hepatitis C Screening 1985 eGFR 1985 Foot Exam 1985 Lipid Panel 1985 Varicella Vaccines (1 of 2 - 13+ 2-dose series) 1998 Regular Well Visit/Exam 18-64 2003 DTaP/Tdap/Td Vaccine (7 - Tdap) 08/21/2010 08/21/2000, 08/25/1999, 11/18/1988, Additional history exists HPV Vaccines (1 - 3-dose SCD M series) 2012 Pneumococcal vaccine <65 (2 of 2 - PCV) 08/10/2021 08/10/2020 Breast Cancer Screening-Mammogram 08/13/2023 022 Covid-19 Vaccine (4 - 2024-2 6 season) 2025 04/23/2022, 10/19/2021, 09/21/2021 Influenza Vaccine (#1) 2025 3, 09/21/2021, 08/10/2020, Additional history exists Dilated Eye Exam 02/27/2026 02/27/2025, 09/15/2024 Hepatitis B Screening Completed 08/09/2003 , 03/08/2003, 08/21/2000 Insurance [facility] Member Subscriber Plan / Payer ( fective 2021-Present) Name:Annita Oropeza Relation to Subscriber:Self Name:Annita Oropeza Payer ID:[id number] (NAIC) Type:MEDICARE RISK OTHER Address: [address] [facility] Member Subscriber Plan / Payer ( fective 2021-) Name:Aninta Oropeza Cira Relation to Subscriber:Self Name:Annita Oropeza Payer ID:[id number] (NAIC) Type:MEDICARE RISK OTHER Address: [address] Care Teams Technical Support Analyst Relationship Specialty Start Date End Date Princess Gramajo PA [address] [place] [address] PCP - General Physician Design Tech 10/20/24
--- OUTSIDE RECORDS SUMMARY | 2025-10-05 14:43 | XMS_ITS | Clinical Summary ---
Author Organization [facility] Symplified Address [address] [place] [address] Care Team Providers Care Cashiers Supervisor Name Role Phone Lili MustafaROVING SIZER Primary Care Provider Source Comments [facility],non-owned Affiliates and Associated Physician Practices is amultiple site organization consisting of ambulatory clinics and hospital sitesin [place], [place], [place] and [place]. This disclosure is being madepursuant to the Care Everywhere program and may not contain all information available regarding this patient. Last updated 18.[facility] Symplified Allergies Active Allergy Reactions Criticality Noted Date Comments Aripiprazole Other 08/07/2020 [place] Vomiting 2022 Medications * Be aware that medications may not be up to date on this document. Alwaysverify current medications with the patient. albuterol HFA (PROVENTIL; VENTOLIN; PROAIR) 108 (90 Base) MCG/ACT inhaler Ventolin HFA 90 mcg/actuation aerosol inhaler Active buPROPion SR 12hr (WELLBUTRIN SR) 200 MG tablet Take 1 (one) tablet by mouth once daily 07/31/20 20 Active busPIRone (BUSPAR) 10 MG tablet Take 1 (one) tablet by mouth 4 times daily as needed Active cyclobenzaprin e (FLEXERIL) 10 MG tablet 08/03/20 20 Active gabapentin (NEURONTIN) 300 MG capsule 4 (four) capsules 3 times daily Active glipiZIDE (GLUCOTROL) 5 MG tablet Take 1 (one) tablet by mouth daily before breakfast 06/12/20 20 Active hydroCHLOROthi azide (HYDRODIURIL) 50 MG tablet hydrochlorothiazide 50 mg tablet Active hydrOXYzine hcl (ATARAX) 25 MG tablet 07/31/20 20 Active ibuprofen (MOTRIN) 800 MG tablet 1 (one) tablet as needed 07/10/20 20 Active LANTUS SOLOSTAR pen 25 (twenty five) Units at bedtime 07/24/20 20 Active lisinopril (PRINIVIL; ZESTRIL) 20 MG tablet once daily Takes in the evening 08/06/20 20 Active meclizine (ANTIVERT) 25 MG tablet meclizine 25 mg tablet Take 1 tablet 3 times a day by oral route PRN. Active metFORMIN (GLUCOPHAGE) 1000 MG tablet Take 1 (one) tablet by mouth 2 times daily with morning and evening meal 08/06/20 20 Active omeprazole (PRILOSEC) 20 MG capsule 07/26/20 20 Active traZODone (DESYREL) 100 MG tablet 07/31/20 20 Active valACYclovir (VALTREX) 1 GM tablet 06/30/20 20 Active amLODIPine (NORVASC) 10 MG tablet once daily Takes in the evening 07/27/20 20 Active VRAYLAR 3 MG capsule Take 1 (one) capsule by mouth once daily 08/06/20 20 Active fluticasone propionate (FLONASE) 50 MCG/ACT nasal spray 06/20/20 20 Active NEOMYCIN-POLYM YXIN-HC, OTIC, 1 % [id number]-[id number]-[id number] rocort 3.5 mg/mL-10,000 unit/mL-1 % ear solution Active UNIFINE PENTIPS PLUS 31G X 6 MM MISC [place] 30 Each 11 12/05/19 21 Active blood glucose test stripIndicatio ns:Type 2 diabetes mellitus with complication, with long-term current use of insulin (HCC) Use 1 strip 2 times daily E11.65 T2DM 200 strip 3 12/05/19 21 Active ONETOUCH DELICA PLUS 30G EXTRA FINE LANCETSIndicat ions:Type 2 diabetes mellitus with complication, with long-term current use of insulin (HCC) Use 1 Each 2 times daily E11.65 T2DM 200 Each 3 12/05/19 21 Active cetirizine (ZYRTEC) 10 MG tablet 01/27/20 22 Active fluticasone hfa 44 (FLOVENT HFA 44) 44 MCG/ACT inhaler 12/31/19 22 Active pravastatin (PRAVACHOL) 40 MG tablet pravastatin 40 mg tablet Active ondansetron, disintegrating , (Zofran ODT) 8 MG tablet Take 1 (one) tablet by mouth every 6 hours as needed for Nausea/Vomiting Allow tablet to dissolve on the tongue 30 tablet 3 01/05/20 23 Active fluconazole (Diflucan) 150 MG tablet Take 1 (one) tablet by mouth every 3 days 2 tablet 07/14/20 23 Active Additional Information Patient not taking.Reported on 06/20/2024 valACYclovir (Valtrex) 1 GM tablet Take 1 (one) tablet by mouth once daily 30 tablet 03/28/20 24 Active UltiCare Alcohol Swabs 70 % PADS 04/19/20 24 Active Aspirin Low Dose 81 MG tablet 10/20/20 23 Active Lipitor 40 MG tablet 12/09/19 24 Active benzonatate (Tessalon) 100 MG capsule TAKE 1 CAPSULE BY MOUTH TWICE DAILY NEEDED FOR COUGH 07/10/20 23 Active cephalexin (Keflex) 500 MG capsule TAKE 1 CAPSULE BY MOUTH EVERY 6 HOURS FOR 10 DAYS 05/08/20 24 Active Continuous Glucose Punch Operator (FreeStyle [place] 2 [employer]il[place]ene Systm) ISABE[facility]A 10/26/20 23 Active Continuous Glucose Sensor (FreeStyle Santiago 2 Sensor Systm) [facility] 06/15/20 24 Active dicyclomine (Bentyl) 10 MG capsule 06/17/20 24 Active doxycycline hyclate (Vibramycin) 100 MG capsule TAKE 1 CAPSULE BY MOUTH TWICE DAILY FOR 5 DAYS 09/02/20 23 Active Trulicity 0.75 MG/0.5ML injection 03/11/20 24 Active Jardiance 25 MG tablet 11/16/20 23 Active guaiFENesin ER 12hr (Mucinex) 600 MG tablet 1 tablet as needed Orally every 12 hrs for 7 days Active NovoLIN R injection 06/14/20 24 Active hydrocortisone , rectal, (Anusol-HC) 2.5 % cream APPLY RECTALLY TWO TIMES A DAY for 90 Active Arnuity Ellipta 100 MCG/ACT inhaler 06/14/20 24 Active BD Insulin Syringe U/F 30G X 1/2 0.5 ML MISC 06/15/20 24 Active TRUEplus Insulin Syringe 29G X 1/2 1 ML syringe 09/16/20 23 Active ketoconazole (Nizoral) 2 % cream 01/13/20 24 Active menthol (Cepacol Sore Throat) 5.4 MG lozenge 1 lozenge as needed Mouth/Throat every 2 hrs Active methocarbamol (Robaxin) 750 MG tablet TAKE 1 TABLET BY MOUTH TWICE DAILY FOR 14 DAYS NEEDED FOR BACK PAIN 06/15/20 24 Active methylPREDNISo lone (Medrol Dosepak) 4 MG tablet FOLLOW PACKAGE DIRECTIONS 07/09/20 23 Active montelukast (Singulair) 10 MG tablet 01/08/20 24 Active nystatin (Mycostatin) 130686 UNIT/GM powder APPLY TO THE AFFECTED AREA TWICE DAILY FOR 14 DAYS 10/26/20 23 Active permethrin (Elimite) 5 % cream APPLY TO BODY FROM NECK TO BOTTOMS OF FEET. LEAVE ON FOR 8 TO 14 HOURS. WASH OFF IN MORNING 01/26/20 24 Active predniSONE (Deltasone) 20 MG tablet Take 2 (two) tablets by mouth once daily 02/27/20 24 Active Januvia 100 MG tablet 12/16/19 24 Active sulfamethoxazo le-trimethopri m (Bactrim DS; Septra DS) 800-160 MG tablet Take 1 (one) tablet by mouth every 12 hours 05/08/20 24 Active triamcinolone acetonide (Kenalog) 0.1 % ointment 11/20/20 23 Active nystatin (Mycostatin) 199746 UNIT/GM creamIndicatio ns:Cutaneous Candidiasis Apply to affected area 2 times daily Reasons: Skin Infection due to Izzy Yeast 30 g 01/31/20 25 Active boric acid 600 mg capsule Insert 1 (one) capsule into the vagina at bedtime 21 capsule 02/21/20 25 Active Active Problems Problem Noted Date Diagnosed [...] infection 09/14/2020 09/28/2020 Acute bronchitis 09/14/2020 01/03/2021 Immunizations Immunization Administration Dates Next Due INFLUENZA [...] on file Legal Sex Female 7:39 PM RESEARCH PHYSICIST Gender Identity Not on file Sexual Orientation Not on file Last Filed Vital Signs Vital Sign Reading Time Taken Comments Blood Pressure 128/80 01/30/2025 11:31 AM RESEARCH PHYSICIST Pulse 90 06/20/2024 3:08 PM CDT Temperature 36 C (96.8 F) 06/08/2023 11:50 AM CDT Respiratory Rate 17 06/08/2023 12:15 PM CDT Oxygen Saturation 98% 06/20/2024 3:08 PM CDT Inhaled Oxygen Concentration - - Weight 127 kg (280 lb) 01/30/2025 11:31 AM RESEARCH PHYSICIST Height 172.7 cm (5' 8) 01/30/2025 11:31 AM RESEARCH PHYSICIST Body Mass Index 42.57 01/30/2025 11:31 AM RESEARCH PHYSICIST Plan of Treatment Health Maintenance Due Date Last Done Comments HIV SCREENING 2000 HEPATITIS C SCREENING 05/16/2003 DTAP/TDAP/TD VACCINES (1 - Tdap) 2004 HEPATITIS B VACCINE (1 of 3 - 19+ 3-dose series) 2004 HPV VACCINE (1 - 3-dose SCDM series) 2012 DIABETES-FOOT EXAM WITH MONOFILAMENT 09/14/2020 DIABETES-HGB A1C 02/26/2021 08/29/2020 PNEUMOCOCCAL VACCINE (2 of 2 - PCV) 08/10/2021 08/10/2020 DIABETES-SERUM CREATININE 08/29/2021 08/29/2020 MAMMOGRAM 08/13/2024 08/13/2022 DEPRESSION SCREENING 11/30/2024 DIABETES - URINE PROTEIN SCREENING 11/30/2024 08/29/2020 MEDICARE AWV CALENDAR YEAR 2024 COVID-19 VACCINE (3 - season) 2025 10/19/2021, 09/21/2021 INFLUENZA VACCINE (#1) 2025 , 08/10/2020, 08/30/2018, Additional history exists DIABETES RETINOPATHY SCREENING 02/27/2027 02/27/2025 PAP with [...] Procedure Name Priority Date/Time Associated Diagnosis Comments PAP IG LB +HPV APTIMA REFLEX 16,18/45 Routine 04/23/2023 1:52 PM CDT Abnormal uterine bleeding (AUB) Screen for STD (sexually transmitted disease) MAMMO BILAT SCREENING W CAT Routine 08/13/2022 1:17 PM CDT Encounter for other screening for malignant neoplasm of breast MICROALB/CREAT RATIO URINE RANDOM PANEL Routine 08/29/2020 [...] Recently Relevant to Health Maintenance Results * PAP IG LB +HPV APTIMA REFLEX 16,18/45 (04/23/2023 1:52 PM CDT) Diagnosis [facility] INSURANCE BILL Comment: NEGATIVE FOR INTRAEPITHELIAL LESION OR MALIGNANCY. THIS SPECIMEN WAS RESCREENED PART OF OUR REFINERY OPERATOR HELPER PROGRAM. Specimen Adequacy [facility] INSURANCE BILL Comment: Satisfactory for evaluation. Endocervical [...] Resulting Agency Comment Lab Testing performed at: [address] [id number] Jenny Sheridan MD LAB - PATHOLOGY/CYTOLOGY OR DERABLES Final Result [facility] INSURANCE BILL [address] [place] [address] * MAMMO BILAT SCREENING W CAT (08/13/2022 1:17 PM CDT) Anatomical Region Laterality Modality Breast Bilateral Mammography 08/13/2022 2:45 PM CDT Impressions 08/13/2022 2:50 PM CDT IMPRESSION: 1. Annual screening mammography is recommended. 2. Based upon the information provided by the patient, she has an elevated lifetime risk for developing breast cancer and meets criteria for genetic counseling/testing and supplemental screening with annual breast MRI. Her calculated lifetime risk using Tyrer-Cuzick lifetime risk by density is 45.93%. Consider [facility] to the [facility] for formal risk assessment and high risk clinical surveillance. OVERALL FINAL ASSESSMENT: BI-RADS Category 1: Negative. > Interpreting Provider: Parisa Harris MD on 08/13/2022 2:50 PM Narrative 08/13/2022 2:50 PM CDT EXAMINATION: BILATERAL DIGITAL SCREENING MAMMOGRAM AND BILATERAL BREAST TOMOSYNTHESIS HISTORY: Screening. 37-year-old asymptomatic woman undergoing her baseline screening mammogram. The patient's strong family history of breast and ovarian cancer. COMPARISON: None, this is the patient's first mammogram. TECHNIQUE: BILATERAL digital breast tomosynthesis (DBT) and synthetic 2D digital mammogram images were obtained (bilateral craniocaudal and mediolateral oblique projections) including computer aided detection (CAD.) BREAST PARENCHYMAL COMPOSITION:Category B: There are scattered areas of fibroglandular density. MAMMOGRAM FINDINGS: There is no suspicious finding in either breast. us Radha Aragon HORSES OR MULES TEAMSTER-ROVING SIZER MAMMO ORDERABLES Final Resul t * MICROALB/CREAT RATIO URINE RANDOM PANEL (08/29/2020 3:41 PM CDT) Albumin Random Urine 17.8 Not Established mcg/mL 08/29/2020 4:33 PM CDT [facility] Creatinine Urine 184 Not Established mg/dL 08/29/2020 4:33 PM CDT [facility] Comment:Result obtained by brenna vo. Urine Albumin/Creati nine Ratio 10 <30 mg/g 08/29/2020 4:33 PM CDT [facility] Urine URINE SPECIMEN OBTAINED BY CLEAN CATCH PROCEDURE / Unknown Collection / Unknown 08/29/2020 3:41 PM CDT 08/29/2020 4:00 PM CDT us Александр Payan MD LAB - URINE CHEMISTRY ORDERABLES Final Result [address] [address], [place] [phone] * (ABNORMAL) COMPREHENSIVE METABOLIC PANEL (08/29/2020 3:31 PM CDT) BUN 9 7 - 26 mg/dL 08/29/2020 4:38 PM CDT [facility] Creatinine 0.7 0.6 - 1.2 mg/dL 08/29/2020 4:38 PM [facility] Sodium 139 136 - 145 mmol/L 08/29/2020 4:38 PM [facility] Potassium 4.0 3.5 - 4.5 mmol/L 08/29/2020 4:38 PM [facility] Chloride 106 98 - 107 mmol/L 08/29/2020 4:38 PM [facility] CO2 21(L) 22 - 29 mmol/L 08/29/2020 4:38 PM [facility] Glucose 116(H) 70 - 115 mg/dL 08/29/2020 4:38 PM [facility] Calcium 9.0 8.4 - 10.2 mg/dL 08/29/2020 4:38 PM [facility] Protein Total 6.9 6.0 - 8.3 g/dL 08/29/2020 4:38 PM [facility] Albumin 3.3(L) 3.4 - 5.0 g/dL 08/29/2020 4:38 PM [facility] Bilirubin Total 0.2 0.2 - 1.2 mg/dL 08/29/2020 4:38 PM [facility] Alkaline Phosphatase 97 40 - 150 Units/L 08/29/2020 4:38 PM [facility] ALT 76(H) 0 - 55 Units/L 08/29/2020 4:38 PM [facility] AST 71(H) 5 - 34 Units/L 08/29/2020 4:38 PM [facility] Anion Gap 16 8 - 18 08/29/2020 4:38 PM [facility] BUN/Creatinine Ratio 13 7 - 23 08/29/2020 4:38 PM [facility] Osmolality Calculated 288 270 - 300 mOsm/kg 08/29/2020 4:38 PM [facility] Albumin/Globulin Ratio 0.9(L) 1.1 - 2.3 08/29/2020 4:38 PM [facility] eGFR >60 >60 mL/min/1.7 3 m2 08/29/2020 4:38 PM [facility] Blood BLOOD SPECIMEN / Unknown Lab Venipuncture / Unknown 08/29/2020 3:31 PM CDT 08/29/2020 4:00 PM CDT Александр Payan MD LAB - CHEMISTRY ORDERABLES Final Result [facility] [address] [place] [address], [place] [phone] * HEMOGLOBIN A1C - POINT OF CARE (AMB) [facility] (08/29/2020 2:24 PM CDT) [facility] Hemoglobin A1c POCT 7.4 BLOOD SPECIMEN / Unknown 08/29/2020 2:24 PM CDT Александр Payan MD LAB - POINT OF CARE ORDERABLES F inal Result from Last 3 Months or Most Recently Relevant to Health Maintenance Insurance [employer] MEDICARE DUAL ADV [place] Care Teams Cashiers Supervisor Relationship Specialty Start Date End Date Lili Mustafa APRN-ARTURO [address] [place] [address] PCP - General Nurse Practitioner Family 06/08/23
--- OUTSIDE RECORDS SUMMARY | 2025-10-05 14:43 | XMS_ITS | Clinical Summary ---
Author Organization [facility] Address [facility] [place] [address] Care Team Providers Care Flight Control Specialist Name Role Phone None, Provider MD Primary [...] 8:32 AM CDT Height 172.7 cm (5' 8) 09/19/2020 8:32 AM CDT Body Mass Index [...] 3 - 19+ 3-dose series) 2004 HPV Vaccines (1 - 3-dose SCD M series) 2012 Cervical Cancer Screening Pa p with HPV Testing (Age 30 to 64) Every 5 Years 2015 Cervical Cancer Screening with HPV 2015 Pneumococcal Vaccine: Pediat rics (0 to 5 Years) and At-Risk Patients (6 to 49 Years) (2 of 2 - PCV) 08/10/2021 08/10/2020 Mammogram Screening 2025 COVID-19 Vaccine (1 - 2024-2 6 season) 2025 Influenza Adult (#1) 2025 08/10/2020 Hepatitis A Vaccines Aged Out No long er eligible based on patient's age to complete this topic Meningococcal B Vaccine Aged Out No l onger eligible based on patient's age to complete this topic Meningococcal Vaccine Aged Out No christina lamont eligible based on patient's age to complete this topic RSV Immunizations Under 20 Months Aged Out No longer eligible based on patient's age to complete this topic Insurance MEDICARE [place] Care Teams Flight Control Specialist Relationship Specialty Start Date End Date None, Provider, PCP - General 09/19/20
--- OUTSIDE RECORDS SUMMARY | 2025-10-05 14:43 | XMS_ITS | Data Portability ---
Author Organization [place] - [employer] Main Office Address [address] [place] [address] Assessment Encounter Date Assessment Date Assessment LastModified by Organization Details LastModified Time 05/18/2025 05/18/2025 This note is dictated and transcribed by [email or web address]. Web Ui Designer variances may occur. Despite proofreading, typographical errors may occur. Occasional wrong-word or 'izibl-n-voqa' substitutions may have occurred due to the inherent limitations of voice recording. Read the chart carefully and recognize, using context, where substitutions have occurred. clau Not available 05/18/2025 15:47:33 Plan of Treatment Reminders Order Date Submit Date Provider Last Modified By Organization Details Last Modified Time Details Appointments None recorded. Lab None recorded. Referral None recorded. Procedures None recorded. Surgeries None recorded. Imaging None recorded. Medication Orders hydrocortis one 2.5 % topical ointment [address] , [address], [place], [place], [id number], 15:49:39 ketoconazol e 2 % topical cream 2024 025 [facility], [address] [place] [address] , [address], [place], [place], [id number], 14:28:17 Patient TargetsNo targets recorded. Patient Instructions Encounter Date Encounter Id Patient Instructions Last Modified By Organization Details Last Modified Time 05/18/2025 [id number] diabetes foot health: care instructions clau Not available 05/18/2025 15:47:43 Reason for Referral None Reported. Problems Name Problem SNOMED Code Status Onset Date Resolution Date Notes Provider Name and Address Organization Details Recorded Time Hypertensi ve disorder 14798069 Active Not Available [employer] 3 20:02:32 Ingrowing toenail 079729971 Active B/L feet Not Available [facility] 3 20:02:32 Tinea pedis 7131244 Active 2019 Not Available [facility] 3 20:02:32 Diabetes mellitus 31976908 Active 2019 Not Available [employer] 3 20:02:33 Neuropathy due to type 2 diabetes mellitus 0555769624429 06 Active 2024 Alejandro Reed DPM [address], [place], [address] , [employer] 5 15:46:33 Dystrophia unguium 45908310 Active 2024 Alejandro Reed DPM [address], [place], [address] , [employer] 5 15:46:39 Eruption 810460584 Active 2024 Alejandro Reed DPM [address], [address], [place], [address] , [employer] 5 15:46:45 Cigarette smoker 70511472 Active 2024 Alejandro Reed DPM [address], [address], [place], [address] , [employer] 5 15:53:24 Notes:CONTRERAS Lyman CC: ALIZA eval Medical History: Nicotine use Epilepsy Depression/Anxiety Rhinitis Obesity Hypertension Hyperlipidemia T2DM with neuropathy ABY Cholelithiasis Hemorrhoids Urge urinary incontinence Ovarian cyst HSV infection Low back pain Tinea pedis Procedure History: T&A 2008 Some problems listed in Document: #[id number] could not be added to this patient's chart. Please review this document and add these problems to the patient's chart manually as needed. Problem Notes None recorded. Procedures Surgical History Date Name Laterality Status Provider Name and Address Organization Details Recorded Time 05/18/20 25 Nail Debridement completed Alejandro Reed, DPM [address], [address], [place], [address], [facility] [employer] [facility] [employer] [facility] 05/18/2025 15:45:59 03/07/20 25 Nail Debridement completed Danny Kadaija, DPM [address], [place], [address], [facility] [employer] [facility] [employer] [facility] 03/08/2025 08:32:55 Tonsillectomy completed Adis Ferrara [facility] [employer] [facility] [employer] [facility] 03/07/2025 14:12:11 section completed Adis Woodwardroe [facility] [employer] [facility] [employer] [facility] 03/07/2025 14:12:34 Imaging Results None recorded. Procedure Notes None recorded. Medical Equipment None Reported. Allergies Allergen ID Allergen Name Allergen Category Reaction Reaction Severity Criticality Documentation Date Start Date Code Code System Note Provider Name and Address Organization Details Recorded Time 57855 Abilify medicatio n Not available Not available Not available 01/28/2023 39762 3 RxNorm Not Available [facility] 20:04:46 Medications Name Sig Start Date Stop Date Status Note LastModified by Organization Details LastModified Time cyclobenzap rine 10 mg tablet active Not Available Not Available Not Available buspirone 5 mg tablet 09/16 completed Not Available Not Available Not Available metformin 500 mg tablet 09/16 completed Not Available Not Available Not Available neomycin-po lymyxin-hyd rocort 3.5 mg/mL-10,00 0 unit/mL-1 % ear solution 09/16 completed Not Available Not Available Not Available clindamycin HCl 300 mg capsule TAKE 1 CAPSULE BY MOUTH EVERY 8 HOURS FOR 7 DAYS active Not Available Not Available No t Available ammonium lactate 12 % lotion Apply to both feet daily as needed 09/16 completed Not Available Not Available Not Available loperamide 2 mg capsule TAKE 2 CAPSULES BY MOUTH ONCE THEN TAKE 1 CAPSULE AFTER EACH LOOSE STOOL active Not Available Not Available No t Available oxybutynin chloride ER 10 mg tablet,exte nded release 24 hr active Not Available Not Available Not Available pravastatin 40 mg tablet active Not Available Not Available Not Available ibuprofen 800 mg tablet 09/16 completed Not Available Not Available Not Available benzonatate 200 mg capsule TAKE 1 CAPSULE BY MOUTH THREE TIMES DAILY NEEDED FOR COUGH active Not Available Not Available No t Available sulfamethox azole 400 mg-trimetho prim 80 mg tablet 12/29 completed Not Available Not Available Not Available hydrochloro thiazide 50 mg tablet active Not Available Not Available No t Available valacyclovi r 1 gram tablet TAKE 1 TABLET BY MOUTH DAILY FOR HSV OR PROPHYLAX IS active Not Available Not Available No t Available Nystop 100,000 unit/gram topical powder 09/16 completed Not Available Not Available Not Available fluconazole 200 mg tablet 09/16 completed Not Available Not Available Not Available lisinopril 20 mg tablet active Not Available Not Available Not Available ondansetron HCl 4 mg tablet 09/16 completed Not Available Not Available Not Available prednisone 20 mg tablet TAKE 2 TABLETS BY MOUTH DAILY FOR 5 DAYS active Not Available Not Available No t Available terconazole 0.8 % vaginal cream 09/16 completed Not Available Not Available Not Available penicillin V potassium 500 mg tablet TAKE 1 TABLET BY MOUTH EVERY 8 HOURS WITH MEALS FOR 7 DAYS FOR TOOTH ABSCESS active Not Available Not Available No t Available metronidazo le 500 mg tablet 09/16 completed Not Available Not Available Not Available amlodipine 5 mg tablet 09/16 completed Not Available Not Available Not Available ciprofloxac in 500 mg tablet TK 1 T PO BID 09/16 completed Not Available Not Available Not Available sulfamethox azole 800 mg-trimetho prim 160 mg tablet 12/29 completed Not Available Not Available Not Available triamcinolo ne acetonide 0.1 % topical cream 09/16 completed Not Available Not Available Not Available hydrocortis one 2.5 % topical cream with perineal applicator 09/16 completed Not Available Not Available Not Available amoxicillin 875 mg tablet TAKE 1 TABLET BY MOUTH EVERY 12 HOURS FOR 7 DAYS active Not Available Not Available No t Available famotidine 20 mg tablet active Not Available Not Available Not Available methocarbam ol 750 mg tablet TAKE 1 TABLET BY MOUTH TWICE DAILY FOR 14 DAYS NEEDED FOR BACK PAIN active Not Available Not Available No t Available trazodone 100 mg tablet active Not Available Not Available Not Available amlodipine 10 mg tablet active Not Available Not Available Not Available benzonatate 100 mg capsule TAKE 1 CAPSULE BY MOUTH THREE TIMES DAILY FOR 7 DAYS NEEDED FOR COUGH active Not Available Not Available No t Available cephalexin 500 mg capsule 09/16 completed Not Available Not Available Not Available metformin 1,000 mg tablet active Not Available Not Available Not Available triamcinolo ne acetonide 0.1 % topical ointment 09/16 completed Not Available Not Available Not Available nystatin 100,000 unit/gram topical cream APPLY TOPICALLY TO THE AFFECTED AREA TWICE DAILY FOR 10 DAYS active Not Available Not Available No t Available ranitidine 150 mg tablet 09/16 completed Not Available Not Available Not Available buspirone 10 mg tablet active Not Available Not Available Not Available clotrimazol e-betametha sone 1 %-0.05 % topical cream APPLY EXTERNALL Y TO THE AFFECTED AREA TWICE DAILY FOR 4 WEEKS 09/16 completed Not Available Not Available Not Available prednisone 50 mg tablet TAKE 1 TABLET BY MOUTH DAILY FOR 5 DAYS active Not Available Not Available No t Available promethazin e 25 mg tablet 09/16 completed Not Available Not Available Not Available nystatin-tr iamcinolone 100,000 unit/g-0.1 % topical cream 09/16 completed Not Available Not Available Not Available gabapentin 300 mg capsule active Not Available Not Available Not Available omeprazole 20 mg capsule,del ayed release active Not Available Not Available Not Available montelukast 10 mg tablet TAKE 1 TABLET BY MOUTH AT BEDTIME active Not Available Not Available No t Available hydroxyzine HCl 25 mg tablet active Not Available Not Available Not Available pravastatin 20 mg tablet 09/16 completed Not Available Not Available Not Available hydrochloro thiazide 25 mg tablet 09/16 completed Not Available Not Available Not Available mupirocin 2 % topical ointment apply to foot wounds daily 09/16 completed Not Available Not Available Not Available albuterol sulfate HFA 90 mcg/actuati on aerosol inhaler INHALE 2 PUFFS BY MOUTH EVERY 4 TO 6 HOURS NEEDED FOR SHORTNESS OF BREATH OR WHEEZING active Not Available Not Available No t Available propranolol 20 mg tablet active Not Available Not Available Not Available hydrocortis one 2.5 % topical ointment APPLY A THIN LAYER TO THE AFFECTED AREA(S) foot rash BY TOPICAL ROUTE 2 TIMES PER DAY 2024 active Not Available Not Available Not Avai lable ketoconazol e 2 % topical cream Apply to both feet daily 2024 active Not Available Not Available Not Avai lable ondansetron 4 mg disintegrat ing tablet DISSOLVE 1 TABLET ON THE TONGUE EVERY 8 HOURS NEEDED FOR NAUSEA OR VOMITING active Not Available Not Available No t Available fluticasone propionate 50 mcg/actuati on nasal spray,suspe nsion active Not Available Not Available Not Available clotrimazol e 1 % topical cream 09/16 completed Not Available Not Available Not Available glipizide 5 mg tablet active Not Available Not Available No t Available naproxen 500 mg tablet 09/16 completed Not Available Not Available Not Available diazepam 5 mg tablet active Not Available Not Available No t Available amoxicillin 875 mg-potassiu m clavulanate 125 mg tablet TAKE 1 TABLET BY MOUTH EVERY 12 HOURS FOR 10 DAYS active Not Available Not Available No t Available hydroxyzine pamoate 25 mg capsule 09/16 completed Not Available Not Available Not Available Pneumovax-2 3 25 mcg/0.5 mL injection syringe ADM 0.5ML IM UTD 09/16 completed Not Available Not Available Not Available bupropion HCl SR 200 mg tablet,12 hr sustained-r elease active Not Available Not Available Not Available bupropion HCl XL 300 mg 24 hr tablet, extended release 09/16 completed Not Available Not Available Not Available nitrofurant oin monohydrate /macrocryst als 100 mg capsule 09/16 completed Not Available Not Available Not Available Flovent HFA 44 mcg/actuati on aerosol inhaler active Not Available Not Available Not Available Lantus Solostar U-100 Insulin 100 unit/mL (3 mL) subcutaneou s pen active Not Available Not Available Not Available Unifine Pentips Plus 31 gauge x 1/4 needle 09/16 completed Not Available Not Available Not Available potassium chloride ER 20 mEq tablet,exte nded release TAKE 1 TABLET BY MOUTH DAILY active Not Available Not Available No t Available Vraylar 3 mg capsule active Not Available Not Available N ot Available Ozempic 0.25 mg or 0.5 mg (2 mg/1.5 mL) subcutaneou s pen injector active Not Available Not Available Not Available Afluria Qd 2019- (36 mos up)(PF)60 mcg (15 mcg x4)/0.5 mL IM syringe ADM 0.5ML IM UTD 09/16 completed Not Available Not Available Not Available Vitals Date Recorded Body height Body mass index (BMI) Body weight Oxygen saturation Oxygen saturation in Arterial blood by Pulse oximetry Heart rate Body temperature Provider Name and Address Organization Details Last Updated DateTime 5 172.72 cm 41.1 kg/m2 658358. 94 g 98 % 98 % 88 /min 97.9 [degF] [facility] [employer] [facility] 14:11:34 Date Recorded Body height Body mass index (BMI) Body weight Oxygen saturation Oxygen saturation in Arterial blood by Pulse oximetry Body temperature Heart rate Systolic And Diastolic Provider Name and Address Organization Details Last Updated DateTime 5 172.72 cm 41.1 kg/m2 311790. 94 g 98 % 98 % 97.3 [degF] 85 /min 127/90 mm[Hg] Adis Ferrara [facility] [employer] [facility] 5 15:32:10 Social History None recorded. Functional Status None recorded. Mental Status None recorded. Family History Relationship Description Onset Age of this Age Resolved Age Notes LastModified by Organization Details LastModified Time Mother Diabetes mellitus [email or web address] Not available 2022 12:44:49 Mother Hypertensive disorder [email or web address] Not available 2022 12:44:59 Mother Asthma [email or web address] Not available 12:45:07 Mother Hyperlipidem ia [email or web address] Not available 2022 12:45:18 Mother Depressive disorder [email or web address] Not available 2022 12:45:28 Father Diabetes mellitus [email or web address] Not available 2022 12:45:37 Maternal Aunt Malignant neoplasm of breast [email or web address] Not available 2022 12:45:52 Medical History No medical history recorded. Gynecological HistoryNo gynecological history recorded. Obstetrics History GPAL:G 0 P 0 0 0 0 Past Encounters Encounter ID Performer Location Encounter Start Date Encounter Closed Date Diagnosis/Indication Diagnosis SNOMED-CT Code Diagnosis ICD10 Code Diagnosis IMO Codes Diagnosis Note [id number] Danny Leon DPM [facility] [address] [facility] [address] [place] [address] 03/07/2025 14:05:27 03/08/2025 09:45:40 Tinea pedis 2039053 B35.3 [id number] Alejandro Reed DPM [facility] [place] [address] [address] 05/18/2025 15:22:07 05/22/2025 07:57:04 Neuropathy due to type 2 diabetes mellitus 0731545593 97965 E11.40 Z79.4 24735520 Patient educated on neuropathy , diabetes, diabetic diet, and daily foot exams. Patient is to check feet daily for new wounds, blisters, redness to prevent infection and ulceration s to the feet. Patient will return to clinic in 3 months for diabetic foot workup. Dystrophia unguium 11326 009 L60.3 1009 Nails 1 through 10 were debrided with sharp mechanical debridemen t without incident. Nails were debrided and greater than 50% length and thickness where needed. Eruption 238463413 R21 00573 bilateral feetdaily foot hygiene Cigarette smoker 9427637 7 F17.210 707707 2 pack a dayEducate d on symptoms of smokingrec ommend discontinu e smokingFol low-up with PCP for further treatment Health Concerns Section Related Observation LastModified by Organization Detai ls LastModified Time None Recorded Concern Status LastModified by Organization Details LastModified Time None Recorded Advance Directives Directive None Recorded Payers Insurance Date Sequence Insurance Name Policy Number Policy Oropeza Covered Member ID Oropeza Member ID Guarantor Name 08/16/2025 1 [facility] (MEDICAID HMO) [id number] Annita Denis Oropeza [id number] Annita Ramos Oropeza Notes Date Note Type Note Provider Name and Address Organization Details Recorded Time 03/07/2025 text/html Pt RTC for c/o very thick, long and discolored nails vangie; also c/o itchy flaky red areas on both feet. Danny Leon DPM [address] [facility], [facility] [address], [place], [address], [place] - [facility] 03/08/2025 08:33:00 05/18/2025 text/html . Patient is a 39-year-old female smoker who presents to the office with complaints of elongated toenails. Patient states she also has a rash that is itchy on both feet. Patient denies any other complaints. Alejandro Reed DPM [address] [facility] [address], [place], [address], [place] - [facility] [employer] 05/18/2025 15:54:20 OBGyn Episode No OBEpisode recorded.
--- OUTSIDE RECORDS SUMMARY | 2025-10-05 14:43 | XMS_ITS | Encounter Summary ---
Author Organization [facility] Health Address [address] [place] [address] Care Team Providers Care Foiling Machine Adjuster Name Role Phone Efren Macdonald [facility] Primary Care Provide r Cheryl Sánchez MD Primary Care Provider [phone] Lili Mustafa [facility] Primary Care Provider Encounter Details Date Type Department Care Team (Late st Contact Info) Description 09/24/2020 Telephone [facility] [address] [place] [address] Ceci Ellington MD [address] [place] [address] Social History Tobacco Use Types Packs/Day Years [...] on file 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 Shamir Johnston In [place], [place]. who I attempted to add to her demographics. I told her I am getting message over, perhaps she also might want to reach out to her PCP as well. Please give her a call. Patient Call Back number: [phone] documented in this encounter Plan of Treatment Not on file documented as of this encounter Visit Diagnoses Not on filedocumented in this encounter Care Teams Foiling Machine Adjuster Relationship Specialty Start Date End Date Efren Macdonald APRN-GARDENING MANAGER PCP - General Nurse Practitioner Gerontology 12/05/20 04/02/22 Cheryl Sánchez MD [address] [place] [address] [address] PCP - General Family Medicine 04/03/22 05/19/22 Lili Mustafa APRN-ARTURO [address] [place] [address] PCP - General Nurse Practitioner Family 06/08/23 documented as of this encounter
--- OUTSIDE RECORDS SUMMARY | 2025-10-05 15:24 | XMS_ITS | Encounter Summary ---
Author Organization [facility] Health Address [address] [place] [address] Care Team Providers Care Frickertron Checker Name Role Phone Efren Macdonald APRNED[facility] Primary Care Provide r Cheryl Sánchez MD Primary Care Provider [phone] Lili Mustafa 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 Ceci Ellington know she is in [facility] in [place], [place]. She just went in early this morn 09/19/2020. She stated her legs gave out.She also stated no one called her for her 09/14/2020 Dietary appt and she no showed for the 09/18/20 dieatary appt w/ KAREN Samayoa. She would like a call from the office. Her next appt is 12/05/2020 w/ Dr. Jaimes. Patient Call Back number: [phone] documented in this encounter Plan of Treatment Not on file documented as of this encounter Visit Diagnoses Not on filedocumented in this encounter Care Teams Frickertron Checker Relationship Specialty Start Date End Date Efren Macdonald APRN-MACHINE RECORDS UNITS SUPERVISOR PCP - General Nurse Practitioner Gerontology 12/05/20 04/02/22 Cheryl Sánchez MD [address] [place] [address] Dr Mera [address] [place] [phone] PCP - General Family Medicine 04/03/22 05/19/22 Lili Mustafa APRN-ARTURO [address] [place] [address] PCP - General Nurse Practitioner Family 06/08/23 documented as of this encounter
--- OUTSIDE RECORDS SUMMARY | 2025-10-05 15:24 | XMS_ITS | Encounter Summary ---
Author Organization [facility] Health Address [address] [facility] [place] [address] Care Team Providers Care Manager Payroll Name Role Phone Efren Macdonald [facility] Primary Care Provide r Cheryl Sánchez MD Primary Care Provider [phone] Lili Mustafa 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 Shamir Johnston In [place], [place]. who I attempted to add to her demographics. I told her I am getting message over, perhaps she also might want to reach out to her PCP as well. Please give her a call. Patient Call Back number: [phone] documented in this encounter Plan of Treatment Not on file documented as of this encounter Visit Diagnoses Not on filedocumented in this encounter Care Teams Manager Payroll Relationship Specialty Start Date End Date Efren Macdonald APRN-MACHINE WELT BUTTER PCP - General Nurse Practitioner Gerontology 12/05/20 04/02/22 Cheryl Sánchez MD [address] [place] [address] [address] PCP - General Family Medicine 04/03/22 05/19/22 Lili Mustafa APRN-ARTURO [address] [place] [address] PCP - General Nurse Practitioner Family 06/08/23 documented as of this encounter
--- OUTSIDE RECORDS SUMMARY | 2025-10-05 15:24 | XMS_ITS | Clinical Summary ---
Author Organization [facility] [place] Address [address] [place] [address] Care Team Providers Care Paediatric Thoracic Physician Name Role Phone Lili MustafaMULTIMEDIA PROJECT MANAGER Primary Care Provider Source Comments [facility],non-owned Affiliates and Associated Physician Practices is amultiple site organization consisting of ambulatory clinics and hospital sitesin [place], [place], [place] and [place]. This disclosure is being madepursuant to the Care Everywhere program and may not contain all information available regarding this patient. Last updated 18.[facility] [place] Allergies Active Allergy Reactions Criticality Noted Date Comments Aripiprazole Other 08/07/2020 [place] Vomiting 2022 Medications * Be aware that [...] 20 Active NEOMYCIN-POLYM YXIN-HC, OTIC, 1 % ivdcgpwl-hcntlpayy-wce rocort 3.5 mg/mL-10,000 unit/mL-1 % ear solution Active UNIFINE PENTIPS PLUS 31G X 6 MM MISC [place] 30 Each 11 12/05/19 21 Active blood [...] 10 DAYS 05/08/20 24 Active Continuous Glucose Strategic Marketing Leader (FreeStyle Santiago 2 [place] Systm) ISABELLA 10/26/20 23 Active Continuous Glucose Sensor (FreeStyle Santiago 2 Sensor Systm) [facility] 06/15/20 24 Active dicyclomine (Bentyl) 10 MG [...] MG tablet 01/08/20 24 Active nystatin (Mycostatin) 445531 UNIT/GM powder APPLY TO THE AFFECTED AREA [...] % ointment 11/20/20 23 Active nystatin (Mycostatin) 006588 UNIT/GM creamIndicatio ns:Cutaneous Candidiasis Apply to affected [...] on file 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 Gender Identity Not on file Sexual Orientation Not on file Last Filed Vital Signs Vital Sign Reading Time Taken Comments Blood Pressure 128/80 01/30/2025 11:31 AM TUMBLING MACHINE OPERATOR Pulse 90 06/20/2024 3:08 PM CDT Temperature 36 C (96.8 F) 06/08/2023 11:50 AM CDT Respiratory Rate 17 06/08/2023 12:15 PM CDT Oxygen Saturation 98% 06/20/2024 3:08 PM CDT Inhaled Oxygen Concentration - - Weight 127 kg (280 lb) 01/30/2025 11:31 AM TUMBLING MACHINE OPERATOR Height 172.7 cm (5' 8) 01/30/2025 11:31 AM TUMBLING MACHINE OPERATOR Body Mass Index 42.57 01/30/2025 11:31 AM TUMBLING 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 Specimen Adequacy [facility] INSURANCE BILL Comment: Satisfactory for evaluation. [...] Resulting Agency Comment Lab Testing performed at: [address] [phone] Jenny Sheridan MD LAB - PATHOLOGY/CYTOLOGY OR DERABLES Final Result [facility] INSURANCE BILL [address] [place] [address] * MAMMO BILAT SCREENING W CAT (08/13/2022 [...] density is 45.93%. Consider referral to the [facility] for formal risk [...] finding in either breast. us Radha Aragon VP OUTCOMES-MULTIMEDIA PROJECT MANAGER MAMMO ORDERABLES Final Resul t * MICROALB/CREAT RATIO URINE RANDOM PANEL (08/29/2020 3:41 PM CDT) Albumin Random Urine 17.8 Not Established mcg/mL 08/29/2020 4:33 PM CDT [facility] Creatinine Urine 184 Not Established mg/dL 08/29/2020 4:33 PM CDT [facility] Comment:Result obtained by brenna vo. Urine Albumin/Creati nine Ratio 10 <30 mg/g 08/29/2020 4:33 PM CDT [facility] Urine URINE SPECIMEN OBTAINED BY CLEAN CATCH PROCEDURE / Unknown Collection / Unknown 08/29/2020 3:41 PM CDT 08/29/2020 4:00 PM CDT us Александр Payan MD LAB - URINE CHEMISTRY ORDERABLES Final Result [address] [address], [place] [phone] * (ABNORMAL) COMPREHENSIVE METABOLIC PANEL (08/29/2020 3:31 PM CDT) BUN 9 7 - 26 mg/dL 08/29/2020 4:38 PM CDT [facility] Creatinine 0.7 0.6 - 1.2 mg/dL 08/29/2020 4:38 PM [facility] Sodium 139 136 - 145 mmol/L 08/29/2020 4:38 PM [facility] Potassium 4.0 3.5 - 4.5 mmol/L 08/29/2020 4:38 PM [facility] Chloride 106 98 - 107 mmol/L 08/29/2020 4:38 PM [facility] CO2 21(L) 22 - 29 mmol/L 08/29/2020 4:38 PM [facility] Glucose 116(H) 70 - 115 mg/dL 08/29/2020 4:38 PM [facility] Calcium 9.0 8.4 - 10.2 mg/dL 08/29/2020 4:38 PM [facility] Protein Total 6.9 6.0 - 8.3 g/dL 08/29/2020 4:38 PM [facility] Albumin 3.3(L) 3.4 - 5.0 g/dL 08/29/2020 4:38 PM [facility] Bilirubin Total 0.2 0.2 - 1.2 mg/dL 08/29/2020 4:38 PM [facility] Alkaline Phosphatase 97 40 - 150 Units/L 08/29/2020 4:38 PM [facility] ALT 76(H) 0 - 55 Units/L 08/29/2020 4:38 PM [facility] AST 71(H) 5 - 34 Units/L 08/29/2020 4:38 PM [facility] Anion Gap 16 8 - 18 08/29/2020 4:38 PM [facility] BUN/Creatinine Ratio 13 7 - 23 08/29/2020 4:38 PM [facility] Osmolality Calculated 288 270 - 300 mOsm/kg 08/29/2020 4:38 PM [facility] Albumin/Globulin Ratio 0.9(L) 1.1 - 2.3 08/29/2020 4:38 PM [facility] eGFR >60 >60 mL/min/1.7 3 m2 08/29/2020 4:38 PM [facility] Blood BLOOD SPECIMEN / Unknown Lab Venipuncture / Unknown 08/29/2020 3:31 PM CDT 08/29/2020 4:00 PM CDT Александр Payan MD LAB - CHEMISTRY ORDERABLES Final Result [facility] [address] [place] [address], [place] [phone] * HEMOGLOBIN A1C - POINT OF CARE (AMB) [facility] (08/29/2020 2:24 PM CDT) [facility] Hemoglobin A1c POCT 7.4 BLOOD SPECIMEN / Unknown 08/29/2020 2:24 PM CDT Александр Payan MD LAB - POINT OF CARE ORDERABLES F inal Result from Last 3 Months or Most Recently Relevant to Health Maintenance Insurance [employer] [place] Care Teams Paediatric Thoracic Physician Relationship Specialty Start Date End Date Lili Mustafa APRN-ARTURO [address] [place] [address] PCP - General Nurse Practitioner Family 06/08/23
--- OUTSIDE RECORDS SUMMARY | 2025-10-05 15:24 | XMS_ITS | Clinical Summary ---
Author Organization [facility] Address Formerly [facility] [place] [address] Care Team Providers Care Gang Drill Press Operator Name Role Phone None, Provider MD Primary [...] age to complete this topic Insurance MEDICARE [place] MEDICAID Care Teams Gang Drill Press Operator Relationship Specialty Start Date End Date None, Provider, PCP - General 09/19/20
--- OUTSIDE RECORDS SUMMARY | 2025-10-05 15:24 | XMS_ITS | Clinical Summary ---
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 Gender Identity Not on file Sexual Orientation [...] Screening Completed 08/09/2003 , 03/08/2003, 08/21/2000 Insurance [facility] DUAL ID Member Subscriber Plan / Payer ( fective 2021-Present) Name:Annita Oropeza Relation to Subscriber:Self Name:Annita Oropeza Payer ID:[id number] (NAIC) Type:MEDICARE RISK OTHER Address: [address] [facility] DUAL ID Member Subscriber Plan / Payer ( fective 2021-) Name:Annita Oropeza Cira Relation to Subscriber:Self Name:Annita Oropeza Payer ID:[id number] (NAIC) Type:MEDICARE RISK OTHER Address: [address] Care Teams Human Resources Supervisor Relationship Specialty Start Date End Date Princess Gramajo PA [address] [place] [address] PCP - General Physician Upsetter Helper 10/20/24
--- OUTSIDE RECORDS SUMMARY | 2025-10-05 15:25 | XMS_ITS | Patient Health Record ---
Author Organization On license of [facility] Address [address] [place] [address] Care Team Providers Care Principal Cloud Architect Name Role Phone Lili Yanez Primary Care Provider [phone] Allergies Allergen (clinical drug ingredient) Drug/Non Drug Allergy documented on EMR Reaction Allergy Type Onset Date Status aripiprazole abilify (uncoded) Unknown Allergy Active lithium carbonate Snowslip Carbonate Unknown Drug Allergy Active Reason For Referral No Information Medications Medication SIG (Take, Route, Frequency, Duration) Notes Start Date End Date Status amLODIPine Besylate 10 mg TAKE 1 TABLET BY MOUTH DAILY; Duration: 30 Active Mucinex 600 MG 1 tablet as needed Orally every 12 hrs; Duration: 7 days Active Cepacol Sore Throat 5.4 MG 1 lozenge as needed Mouth/Throat every 2 hrs Active Allergy Relief Cetirizine 10 mg TAKE 1 TABLET BY MOUTH DAILY; Duration: 30 Active Fluconazole 150 MG 1 tablet Orally every 72 hours 09/11/2023 Active metFORMIN HCl 1000 mg TAKE 1 TABLET BY MOUTH TWICE A DAY WITH MEALS; Duration: 30 Active Triamcinolone Acetonide 0.1 % 1 application Externally twice a day; Duration: 30 days 11/12/2021 Active Azithromycin 250 MG take 2 tablets today then 1 tablet once aday for 4 days 5days once a day; Duration: 5 days 01/26/2023 Not-Taking Montelukast Sodium 10 mg TAKE 1 TABLET B Y MOUTH DAILY; Duration: 30 Not-Taking buPROPion HCl ER (XL) 300 MG 1 tablet in the morning Orally Once a day Unknown Omeprazole 20 mg TAKE 1 CAPSULE BY MOUTH EVERY MORNING 30 MINUTE(S) BEFORE MEAL; Duration: 30 Active UltiCare Mini Pen Phoenix 31G X 6 MM USE AT NIGHT DIRECTED; Duration: 100 Active Vraylar 3 MG 1 capsule Orally Once a day Unknown Ondansetron 4 mg DISSOLVE 1 TABLET BY MOUTH DAILY; Duration: 30 Active Aspirin EC 81 MG 1 tablet Orally Once a day Unknown Albuterol Sulfate HFA 108 (90 Base) MCG/ACT INHALE 1 PUFF EVERY 4 TO 6 HOURS NEEDED FOR SHORTNESS OF BREATH OR WHEEZING; Duration: 25 Active Benzonatate 100 MG 1 capsule as needed Orally Three times a day; Duration: 10 days 09/01/2022 Not-Taking Azithromycin 250 MG as directed Orally once a day; Duration: 5 days 09/01/2022 Not-Taking Multivitamin Adult - 1 tablet Orally Onc e a day; Duration: 30 days 04/22/2023 Active Zovirax 5 % 1 application every 3 hours Externally Six times a day; Duration: 10 days 09/16/2022 Not-Taking Ventolin HFA 108 (90 Base) MCG/ACT one to two puffs Inhalation every 4 to 6 hours as needed; Duration: 90 days Not-Taking hydroCHLOROthiazide 25 mg TAKE 2 TABLETS BY MOUTH EVERY MORNING; Duration: 30 Active Pravastatin Sodium 40 mg TAKE 1 TABLET B Y MOUTH DAILY; Duration: 30 Active Ibuprofen 800 MG 1 tablet with food or milk as needed Orally every 8 hrs; Duration: 30 days Active Cane - as directed for difficulty with mobility Dx Z74.09 daily; Duration: 365 days 07/08/2018 Unknown Test strips for glucometer 1 strip test three times a day, Dx Code: E11.9; Duration: 90 days 05/26/2018 Unknown Pen Phoenix 31G X 6 MM as directed at night; Duration: 90 days Unknown Fluticasone Propionate 50 MCG/ACT INHALE ONE SPRAY IN EACH NOSTRIL TWICE A DAY; Duration: 30 Active Hydrocortisone 2.5 % 1 application Externally Twice a day; Duration: 14 days 10/12/2019 Unknown Basaglar KwikPen 100 UNIT/ML 25 units Subcutaneous at night; Duration: 30 days 12/05/2021 Unknown TRUEplus Insulin Syringe 29G X 1/2 1 ML USE WITH LANTUS DAILY; Duration: 90 Active GLUCOMETER, FORMULARY ANY DIRECTED DIRECTED DIRECTED, Dx Code: E11.9; Duration: 360 DAYS 05/26/2018 Unknown Cyclobenzaprine HCl 10 MG 1 tablet at be dtime as needed Orally Once a day; Duration: 30 days Active Misc. Devices - as directed wheeled walker with hand brakes and a seat daily; Duration: 365 days 12/18/2017 Unknown glipiZIDE 5 mg TAKE 1 TABLET BY MOUTH DAILY; Duration: 30 Active Hydrocortisone (Perianal) 2.5 % APPLY RECTALLY TWO TIMES A DAY; Duration: 90 Unknown Clotrimazole 1 % 1 application Externally Twice a day 11/12/2021 Unknown Lisinopril 20 mg TAKE 1 TABLET BY MOUTH DAILY; Duration: 30 Active OneTouch Delica Plus [id number] - TEST TWICE A DAY DIRECTED; Duration: 50 Active Acyclovir 5 % 1 application every 3 hours Externally Six times a day 09/16/2022 Active Gabapentin 800 MG TAKE 1 TABLET BY MOUTH THREE TIMES A DAY Orally three times a day; Duration: 30 days Active Cetirizine HCl 10 MG 1 tablet Orally Onc e a day; Duration: 30 days 09/11/2023 Active Immunizations Vaccine Route [...] Problem Status W/U Status Risk Notes Problem Diabetic peripheral neuropathy associated with type 2 diabetes mellitus (6084994009386) Type 2 diabetes mellitus with diabetic neuropathy, unspecified (E11.40) 2020 Active confirmed Problem Hyperglycemia due to type 2 diabetes mellitus (399690289900845) Type 2 diabetes mellitus with hyperglycemia (E11.65) 2020 Active confirmed Problem Morbid obesity (disorder) (835361194) Morbid (severe) obesity due to excess calories (E66.01) Active confirmed Problem Tobacco user (636479519) Nicotine dependence, unspecified, uncomplicated (F17.200) Active confirmed Problem Chronic pain (21002287) Other chronic pain (G89.29) Active confirmed Problem Sciatica (94505129) Lumbago with sciatica, right side (M54.41) Active confirmed MRI LUMBAR THORACIC 11/28/2017 shows multilevel of DEG D. & ACUTE OF DICS protrusion Right L3-L4 Problem Dysmenorrhea (635040515) Dysmenorrhea, unspecified (N94.6) Active confirmed Problem Abnormal sputum (033251128) Abnormal sputum (R09.3) Active confirmed Problem Nausea (038977089) Nausea (R11.0) Active confir med Problem Benign essential microscopic hematuria (386728101836567) Benign essential microscopic hematuria (R31.1) Active confirmed Problem Long-term current use of insulin (013927482) ocean transportation intermediary (current) use of insulin (Z79.4) Active confirmed Problem FH: Skin disease (414023034) Family history of diseases of the skin and subcutaneous tissue (Z84.0) Active confirmed Problem Depression (093486143) Depression (F32.9) 2019 Active confirmed Problem Type II diabetes mellitus without complication (490997379) Diabetes (E11.9) 2021 Active confirmed Problem Sinusitis (35748110) Sinusitis (J32.9) Active confirmed Problem Sore throat (167311940) Sore throat (J02.9) Active confirmed Problem Otitis externa (1053968) Otitis externa (H60.90) Active confirmed Problem Urinary tract infectious disease (51705312) UTI (urinary tract infection) (N39.0) Active confirmed Problem Screening for malignant neoplasm of cervix (758933923) Cervical cancer screening (Z12.4) Active confirmed Problem Sleep apnea (42242345) Sleep apnea (G47.30) Active confirmed Problem Mixed incontinence (373302202) Mixed stress and urge urinary incontinence (N39.46) Active confirmed Problem Vaginal discharge (836439743) Vaginal discharge (N89.8) Active confirmed Problem Muscle spasm (33569755) Muscle spasm (M62.838) Active confirmed Problem Neuropathy (683925510) Neuropathy (G62.9) Active confirmed Problem Chronic fatigue syndrome (80742675) Chronic fatigue (R53.82) Active confirmed Problem Pain (48392607) Pain (R52) Active confirmed Problem Tobacco user (569239779) Cigarette nicotine dependence without complication (F17.210) Active confirmed Problem Well female adult (038093523) Well woman exam (Z01.419) Active confirmed Problem Essential hypertension (24854691) Essential hypertension (I10) 2016 Active confirmed Problem Hyperlipidaemia (44149825) Hyperlipidemia, unspecified hyperlipidemia type (E78.5) 2016 Active confirmed Problem Izzy infection (26745634) Izzy infection (B37.9) Active confirmed Problem Type II diabetes mellitus without complication (482188118) Type 2 diabetes mellitus without complication, without long-term current use of insulin (E11.9) 2018 Active confirmed Problem Gastroesophageal reflux disease without esophagitis (452455287) Gastroesophageal reflux disease without esophagitis (K21.9) Active confirmed Problem Tinea pedis (6236264) Tinea pedis of both feet (B35.3) Active confirmed Problem Gastroduodenitis (360627626) Gastritis without bleeding, unspecified chronicity, unspecified gastritis type (K29.70) Active confirmed Problem Chronic rhinitis (52577379) Rhinitis, unspecified type (J31.0) Active confirmed Problem Dyssomnia (44406021) Sleep trouble (G47.9) Active confirmed Problem Tobacco use (875688654) Tobacco use disorder (F17.200) Active confirmed Problem Irritable bowel syndrome (46057707) Irritable bowel syndrome with both constipation and diarrhea (K58.2) Active confirmed Problem Hearing loss (84684179) Decreased hearing of both ears (H91.93) Active confirmed Problem Obesity (932198413) Obesity, unspecified classification, unspecified obesity type, unspecified whether serious comorbidity present (E66.9) Active confirmed Problem Postconcussion syndrome (26902819) Postconcussive syndrome (F07.81) Active confirmed Problem Seasonal allergic rhinitis (751119474) Seasonal allergic rhinitis, unspecified trigger (J30.2) Active confirmed Problem Screening for malignant neoplasm of breast (308647881) Breast cancer screening by mammogram (Z12.31) Active confirmed Problem Abnormal gait (27778212) Need for assistance due to unsteady gait (R26.89) 2021 Active confirmed Problem Intertriginous candidiasis (B37.2) Active confirmed Problem Exposure to sexually transmissible disorder (031938604) Sexually transmitted disease exposure (Z20.2) Active confirmed Problem Voice hoarseness (48553948) Voice hoarseness (R49.0) Active confirmed Problem Cough (70652348) Cough (R05.9) Active confirmed Problem Herpes simplex of female genitalia (628297700) Herpes genitalis in women (A60.09) Active confirmed [...] Coverage End Date [employer] [address] [place] [phone] [id number] Annita Oropeza Self - patient is the insured 1 MEDICARE PART A [address] [facility] [phone] [id number] Annita Oropeza Self - patient is the insured 6 1 [employer] [facility] [address] [place] [phone] [id number] Annita Oropeza Self - patient is the insured 1 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
== END 2025-10-04 20:10 | disposition home or self-care (01) ==
PROVIDERS: Emergency Provider Registered Nurse; PCP Physician Assistant
DX: S39.012A Strain of muscle, fascia and tendon of lower back, initial encounter (principal); S16.1XXA Strain of muscle, fascia and tendon at neck level, initial encounter; M51.369 Other intervertebral disc degeneration, lumbar region without mention of lumbar back pain or lower extremity pain; M51.379 Other intervertebral disc degeneration, lumbosacral region without mention of lumbar back pain or lower extremity pain; I10 Essential (primary) hypertension; E78.5 Hyperlipidemia, unspecified; K21.9 Gastro-esophageal reflux disease without esophagitis; F41.9 Anxiety disorder, unspecified; F31.9 Bipolar disorder, unspecified; F60.9 Personality disorder, unspecified; F17.210 Nicotine dependence, cigarettes, uncomplicated; Z79.899 Other long term (current) drug therapy; V78.6XXA Passenger on bus injured in noncollision transport accident in traffic accident, initial encounter
CPT/HCPCS: 70450; 72125; 72131; 96372; 99284; J1885; J7512